=== PATIENT | female | born 1960 | race Two or more races ===

== ENCOUNTER 2020-01-05 11:32 | Outpatient (REF) | payer MEDICARE, MEDICAID, SELFPAY | END 2020-01-05 11:33 | disposition home or self-care (01) | LOC: HO.LAB 11:32 | PROVIDERS: PCP Internal Medicine; Visit Provider Internal Medicine | DX: Z20.828 Contact with and (suspected) exposure to other viral communicable diseases (principal) | CPT/HCPCS: 87635 ==

== ENCOUNTER 2020-01-09 12:40 | Outpatient (REF) | payer MEDICARE, MEDICAID, SELFPAY ==
[2020-01-09 14:38] LABS: Anion Gap 13 (12-20); Blood Urea Nitrogen 20 mg/dL (9-16); Calcium 8.9 mg/dL (8.4-10.2); Carbon Dioxide 30 mmol/L (22-29); Chloride 104 mmol/L (96-108); Cholesterol 157 mg/dL; Estimated Glomerular Filt Rate > 60; Glucose Random 112 mg/dL (60-115); HDL Cholesterol 47 mg/dL; LDL Cholesterol Calculated 97 mg/dl; Potassium 4.5 mmol/l (3.3-5.1); Sodium 142 mmol/L (135-145); Triglycerides 66 mg/dL
[2020-01-09 15:16] LABS: Creatinine Urine 215.85 mg/dL; Microalbum/Creatinine Ratio Ur 9.2 ug/mg cr
[2020-01-09 16:53] LABS: Reflex LDLD? No
== END 2020-01-09 12:41 | disposition home or self-care (01) ==
LOC: HO.LAB 12:40
PROVIDERS: PCP Internal Medicine; Visit Provider Nurse Practitioner Gerontology
DX: E11.9 Type 2 diabetes mellitus without complications (principal)
CPT/HCPCS: 80048; 80061; 82043

== ENCOUNTER 2020-02-02 08:47 | Day surgery (SDC) | payer MEDICARE, MEDICAID, SELFPAY ==
[2020-01-29 09:36] VITALS: BMI 23.3
--- NOTE | 2020-01-29 10:38 | HO.ANESPROP2 ---
Documented by User: Philomena Nicholson 01/29/20 10:50 HPI - Anesthesia Eval Consult details Narrative: 59yo F for Colonoscopy PMFSH Past Medical History Medical History (Updated 01/29/20 @ 10:47 by Philomena Nicholson) Anxiety Depression Diabetes Ear pain History of polycystic kidney disease, autosomal dominant Hx MRSA infection Hx of migraines Hx of renal calculi Hyperlipidemia LDL goal <70 IBS (irritable bowel syndrome) Lumbar radiculopathy PONV (postoperative nausea and vomiting) Saccular aneurysm Sinusitis Family History Family History (Updated 01/13/20 @ 08:54 by Emeli Page [facility]) Father Cancer of kidney Diabetes Hypertension CVD (cardiovascular disease) Mother Hypertension Cancer Maternal Aunt Colon cancer Brother AIDS Paternal Aunt Ovarian cancer Breast cancer Surgical History Surgical History (Updated 01/29/20 @ 09:33 by Ashley Liu) History of abdominoplasty History of appendectomy History of cardiac cath History of esophagogastroduodenoscopy (EGD) History of eye surgery History of lithotripsy History of thyroidectomy, subtotal History of tonsillectomy History of total abdominal hysterectomy and bilateral salpingo-oophorectomy History of tubal ligation Hx of colonoscopy Social History Social History (Updated 01/29/20 @ 09:43 by Ashley Liu) Alcohol intake: current Alcohol intake frequency: holidays/special occasions only Smoking Status: Former smoker Use of substances other than those prescribed or required for medical reasons: No Advance Directives: No Advance Directives Information Provided: No Advance Directives on File: No Meds Allergies Allergy/AdvReac Type Severity Reaction Status Date / Time codeine [Codeine] Allergy Severe ANAPHYLAXIS, Verified 01/29/20 09:12 throat edema lisinopril [LISINOPRIL] Allergy Severe ANGIOEDEMA Verified 01/29/20 09:12 Sulfa (Sulfonamide Allergy Intermediate SHORTNESS Verified 01/29/20 09:12 Antibiotics) OF BREATH, [Sulfa (Sulfonamides)] HIVES, rash doxycycline [Doxycycline] Allergy Mild HIVES Verified 01/29/20 09:12 tramadol Allergy Unknown rash and Verified 01/29/20 09:12 nightmares senna AdvReac Unknown Diarrhea Verified 01/29/20 09:12 Home Medications Medication Instructions Recorded Confirmed Type blood sugar diagnostic #10 ea 01/07/20 01/29/20 History dicyclomine 20 mg tablet 20 mg PO TID PRN 01/07/20 01/29/20 History escitalopram oxalate 10 mg tablet 10 mg PO DAILY 01/07/20 01/29/20 History lancets 28 gauge #100 ea 01/07/20 01/29/20 History linagliptin 5 mg tablet 5 mg PO DAILY 01/07/20 01/29/20 History metformin 500 mg tablet,extended 1,000 mg PO BEDTIME 01/07/20 01/29/20 History release 24 hr ondansetron HCl 4 mg tablet 8 mg PO DAILY PRN 01/07/20 01/29/20 History sumatriptan succinate 100 mg tablet 100 mg PO DAILY PRN 01/07/20 01/29/20 History zolpidem 10 mg tablet 10 mg PO BEDTIME PRN 01/07/20 01/29/20 History albuterol sulfate 2.5 mg INHALATION .3 TIMES A DAY 01/14/20 01/29/20 History PRN ml msytswlcyo-vktulosibrhgm-yuyzoxzc 1 tab PO Q6H PRN 01/14/20 01/29/20 History 50 mg-325 mg-40 mg tablet fluticasone propionate 50 1 spray INTRANASAL DAILY 01/14/20 01/29/20 History mcg/actuation nasal spray,suspension hydrochlorothiazide 12.5 mg tablet 12.5 mg PO QAM 01/14/20 01/29/20 History omeprazole 20 mg capsule,delayed 20 mg PO DAILY 01/14/20 01/29/20 History release Exam Exam Date and Time: January 29, 2020 1038 Height,Weight and Vital Signs: Height 5 ft 5 in Weight 63.503 kg Pertinent Lab Results Pertinent Lab Results: Laboratory Tests 11/04/19 01/09/20 17:48 13:15 WBC 7.2 Hgb 11.6 L Hct 34.6 L Plt Count 275 Sodium 142 Potassium 4.5 Chloride 104 Carbon Dioxide 30 H BUN 20 H Creatinine 0.79 Narrative Narrative: EKG 10/2019: NSR@71 CXR 10/2019: Unremarkable Assessment and Plan Assessment Anesthesia Assessment: Chart Reviewed Documented by User: Claudia Mae 02/02/20 09:04 [facility] Past Medical History Medical History (Updated 01/29/20 @ 10:47 by Philomena Nicholson) Anxiety Depression Diabetes Ear pain History of polycystic kidney disease, autosomal dominant Hx MRSA infection Hx of migraines Hx of renal calculi Hyperlipidemia LDL goal <70 IBS (irritable bowel syndrome) Lumbar radiculopathy PONV (postoperative nausea and vomiting) Saccular aneurysm Sinusitis Family History Family History (Updated 01/13/20 @ 08:54 by Emeli Page [facility]) Father Cancer of kidney Diabetes Hypertension CVD (cardiovascular disease) Mother Hypertension Cancer Maternal Aunt Colon cancer Brother AIDS Paternal Aunt Ovarian cancer Breast cancer Surgical History Surgical History (Updated 01/29/20 @ 09:33 by Ashley Liu) History of abdominoplasty History of appendectomy History of cardiac cath History of esophagogastroduodenoscopy (EGD) History of eye surgery History of lithotripsy History of thyroidectomy, subtotal History of tonsillectomy History of total abdominal hysterectomy and bilateral salpingo-oophorectomy History of tubal ligation Hx of colonoscopy Social History Social History (Updated 01/29/20 @ 09:43 by Ashley Liu) Alcohol intake: current Alcohol intake frequency: holidays/special occasions only Smoking Status: Former smoker Use of substances other than those prescribed or required for medical reasons: No Advance Directives: No Advance Directives Information Provided: No Advance Directives on File: No Meds Allergies Allergy/AdvReac Type Severity Reaction Status Date / Time codeine [Codeine] Allergy Severe ANAPHYLAXIS, Verified 01/29/20 09:12 throat edema lisinopril [LISINOPRIL] Allergy Severe ANGIOEDEMA Verified 01/29/20 09:12 Sulfa (Sulfonamide Allergy Intermediate SHORTNESS Verified 01/29/20 09:12 Antibiotics) OF BREATH, [Sulfa (Sulfonamides)] HIVES, rash doxycycline [Doxycycline] Allergy Mild HIVES Verified 01/29/20 09:12 tramadol Allergy Unknown rash and Verified 01/29/20 09:12 nightmares senna AdvReac Unknown Diarrhea Verified 01/29/20 09:12 Home Medications Medication Instructions Recorded Confirmed Type blood sugar diagnostic #10 ea 01/07/20 01/29/20 History dicyclomine 20 mg tablet 20 mg PO TID PRN 01/07/20 01/29/20 History escitalopram oxalate 10 mg tablet 10 mg PO DAILY 01/07/20 01/29/20 History lancets 28 gauge #100 ea 01/07/20 01/29/20 History linagliptin 5 mg tablet 5 mg PO DAILY 01/07/20 01/29/20 History metformin 500 mg tablet,extended 1,000 mg PO BEDTIME 01/07/20 01/29/20 History release 24 hr ondansetron HCl 4 mg tablet 8 mg PO DAILY PRN 01/07/20 01/29/20 History sumatriptan succinate 100 mg tablet 100 mg PO DAILY PRN 01/07/20 01/29/20 History zolpidem 10 mg tablet 10 mg PO BEDTIME PRN 01/07/20 01/29/20 History albuterol sulfate 2.5 mg INHALATION .3 TIMES A DAY 01/14/20 01/29/20 History PRN ml pyzvbfdcum-srsxesjosbzwf-cbyhczla 1 tab PO Q6H PRN 01/14/20 01/29/20 History 50 mg-325 mg-40 mg tablet fluticasone propionate 50 1 spray INTRANASAL DAILY 01/14/20 01/29/20 History mcg/actuation nasal spray,suspension hydrochlorothiazide 12.5 mg tablet 12.5 mg PO QAM 01/14/20 01/29/20 History omeprazole 20 mg capsule,delayed 20 mg PO DAILY 01/14/20 01/29/20 History release Exam Airway Mallampati Class: II (Caps laterally) TM Dist: >3cm Neck ROM: Full Heart: RRR Lungs: CTA BL Assessment and Plan Assessment Anesthesia Assessment: Anesthesia Plan Discussed and Chart Reviewed Final Anesthetic Review NPO: Yes (Took inhaler) ASA Class: II Final Preanesthetic Review: Meds/Allgs Chart Reviewed and Consent Obtained/Reviewed Patient Risk: Intermediate Procedure Risk: Intermediate Anesthetic Plan Anesthetic Plan: MAC: Disposition: Standard PACU
[2020-02-02 08:51] VITALS: BP 112/79; PULSE 88; RESP 18; TEMP 36.7; O2SAT 96
[2020-02-02 09:01] LABS: Glucose, Whole Blood 133 mg/dL (60-115)
[2020-02-02] MEDS: Lactated Ringers 1,000 ML 100 ML IVCONT (09:04)
[2020-02-02 10:27] VITALS: BP 99/62; PULSE 80; RESP 16; TEMP 36.8; O2SAT 96
--- NOTE | 2020-02-02 10:29 | PM.OP ---
Brief Operative Note Date of Service: 02/02/20 Pre-op diagnosis: Screening, history of adenomas, family hx of colon polyps and cancer Post-op diagnosis: other (Colon polyps, diverticulosis) Procedure: Colonoscopy to cecum and TI with biopsy and removal of polyps Surgeon: Ash Larose Anesthesia: MAC Estimated blood loss (mL): 3.0 Pathology: other (A. Transverse colon polyps B. Cecal polyp C. Ascending colon polyps) Condition: stable Disposition: PACU
[2020-02-02 10:40] VITALS: BP 112/67; PULSE 69; RESP 18; O2SAT 97
[2020-02-02 10:50] VITALS: BP 122/74; PULSE 63; RESP 18; TEMP 36.9; O2SAT 100
--- NOTE | 2020-02-02 11:09 | OP_ITS ---
SURGEON: Ash Larose MD INDICATIONS: The patient presents for evaluation of colorectal cancer screening, personal history of tubular adenoma of the colon, and family history of colon cancer. Full consent has been obtained from her for this, including risks of bleeding and perforation. PREOPERATIVE DIAGNOSIS: POSTOPERATIVE DIAGNOSIS: PROCEDURE PERFORMED: Colonoscopy to the cecum and terminal ileum with biopsy and removal of polyps. ESTIMATED BLOOD LOSS: COMPLICATIONS: ANESTHESIA: Monitored anesthesia care. ASSISTANTS: SPECIMENS: PREOPERATIVE DIAGNOSES: Personal history of tubular adenoma of the colon, colorectal cancer screening, and family history of colon cancer. POSTOPERATIVE DIAGNOSES: Personal history of tubular adenoma of the colon, colorectal cancer screening, and family history of colon cancer, small colon polyps, diverticulosis, internal hemorrhoids. DESCRIPTION OF PROCEDURE: The patient was placed in the left lateral decubitus position. The digital rectal exam revealed no abnormalities. The Olympus video pediatric colonoscope was entered into the rectum and advanced easily to the cecum. Once in the cecum, I did identify cecal pouch with appendiceal orifice and a normal-appearing ileocecal valve. The terminal ileum was cannulated and appeared normal. The scope was withdrawn back in the colon. The entire cecum appeared normal other than a 3 mm polyp, which was biopsied and completely removed with cold biopsy forceps. The scope was slowly withdrawn assessing all mucosal surfaces carefully. Preparation was excellent. In the ascending colon, were 2 flat polyps, one of which was approximately 5 mm in diameter and one was 3 mm in diameter. These were both biopsied and completely removed with cold biopsy forceps. In the transverse colon, were 2 similar polyps, which were also biopsied and completely removed with cold biopsy forceps. I did not visualize any other polyps, colitis, nor angiodysplasia. There was a mild amount of sigmoid diverticulosis. In the rectum, scope was retroflexed visualizing small internal hemorrhoids, but no other pathology. The rectal mucosa appeared normal. The scope was straightened out and withdrawn from the patient. She tolerated the procedure well and was returned to the recovery area in stable condition. IMPRESSION: 1. Colon polyps, status post biopsy and removal. 2. Diverticulosis. 3. Internal hemorrhoids. PLAN: The results of biopsy will be checked. I would recommend a repeat colonoscopy in 5 years for further screening. She will otherwise see me on a p.r.n. basis. MD BRY Juarez/ZAKIA / [id number]
== END 2020-02-02 11:13 | disposition home or self-care (01) ==
PROVIDERS: PCP Internal Medicine; Visit Provider Internal Medicine
PROC: 0DJD8ZZ Inspection of Lower Intestinal Tract, Via Natural or Artificial Opening Endoscopic (ICD-10-PCS; CPT 45378; principal; 2020-02-02 09:30)
DX: Z12.11 Encounter for screening for malignant neoplasm of colon (principal); D12.0 Benign neoplasm of cecum; D12.2 Benign neoplasm of ascending colon; D12.3 Benign neoplasm of transverse colon; K57.30 Diverticulosis of large intestine without perforation or abscess without bleeding; K64.8 Other hemorrhoids; K58.1 Irritable bowel syndrome with constipation; K21.9 Gastro-esophageal reflux disease without esophagitis; E11.9 Type 2 diabetes mellitus without complications; Z79.84 Long term (current) use of oral hypoglycemic drugs; Z79.899 Other long term (current) drug therapy; Z86.010 Personal history of colon polyps; Z80.0 Family history of malignant neoplasm of digestive organs; Z88.0 Allergy status to penicillin; Z88.6 Allergy status to analgesic agent; Z88.8 Allergy status to other drugs, medicaments and biological substances
CPT/HCPCS: 45380; 82947; 88305; J2370

== ENCOUNTER → 2020-02-16 15:02 | Outpatient (BNVA) | payer MEDICARE, MEDICAID, SELFPAY | PROVIDERS: PCP Internal Medicine; Referring Provider Internal Medicine; Visit Provider Nurse Practitioner Gerontology | DX: E11.9 Type 2 diabetes mellitus without complications (principal); E78.5 Hyperlipidemia, unspecified; I10 Essential (primary) hypertension; Z79.84 Long term (current) use of oral hypoglycemic drugs | CPT/HCPCS: 82947; 99212 ==

== ENCOUNTER 2020-03-03 13:35 | Outpatient (REF) | payer MEDICARE, MEDICAID, SELFPAY ==
--- NOTE | 2020-03-03 13:39 | MM_ITS ---
EXAMINATION: MM SCREENING DIGITAL BREAST TOMOSYNTHESIS, BILATERAL CLINICAL INFORMATION: Screening. Asymptomatic. The lifetime risk of breast cancer based on the Tyrer-Cuzick Model is 7.1%. COMPARISON: Mammography: October 25, 2018 and studies dating back to April 24, 2013 TECHNIQUE: Digital breast tomosynthesis is performed in both the craniocaudal and mediolateral oblique views along with computer-aided detection (CAD). Synthesized 2D images are generated from the tomosynthesis. FINDINGS: The breasts are heterogeneously dense, which may obscure small masses (ACR BI-RADS breast composition Category c). No new abnormal dominant mass is appreciated. There are some vascular calcifications present including about the medial anterior aspect of the right breast. MM/MM tomosynthesis screening BI IMPRESSION: There are no significant changes from prior study. Vascular calcifications. ASSESSMENT: BI-RADS 1: Negative RECOMMENDATION: Routine annual mammography screening. This patient's information was entered into a reminder system with a target due date for their next mammogram.
== END 2020-03-03 13:36 | disposition home or self-care (01) ==
LOC: HO.MAMMO 13:35
PROVIDERS: PCP Internal Medicine; Visit Provider Internal Medicine
DX: Z12.31 Encounter for screening mammogram for malignant neoplasm of breast (principal)
CPT/HCPCS: 77063; 77067

== ENCOUNTER 2020-04-14 12:31 | Emergency (ER) | payer MEDICARE, MEDICAID, SELFPAY ==
--- NOTE | 2020-04-14 13:55 | ED.CHESTPAIN ---
HPI - Chest Pain General Chief Complaint: Chest Pain Stated Complaint: chest pain Time Seen by Provider: 04/14/20 13:55 Source: patient Mode of arrival: ambulatory Limitations: no limitations History of Present Illness HPI narrative: 3 days of chest pain which started in the back now only in the chest. She has had chest pain in the past and told it was her GERD. 5 years ago had a cardiac cath which was normal MD complaint: chest pain Onset (ago): day(s) Timing of current episode: constant Prior episodes: Yes Onset: during rest Pain location: substernal Pain radiation: back Severity: moderate Quality: sharp Exacerbating factors: inspiration Related Data Home Medications Medication Instructions Recorded Confirmed blood sugar diagnostic #10 ea 01/07/20 02/16/20 lancets 28 gauge #100 ea 01/07/20 02/16/20 sumatriptan succinate 100 mg tablet 100 mg PO DAILY PRN 01/07/20 02/16/20 albuterol sulfate 2.5 mg INHALATION .3 TIMES A DAY 01/14/20 02/16/20 PRN ml kaakzzooky-zvlwahgqymtrk-ujemygje 1 tab PO Q6H PRN 01/14/20 02/16/20 50 mg-325 mg-40 mg tablet fluticasone propionate 50 1 spray INTRANASAL DAILY 01/14/20 02/16/20 mcg/actuation nasal spray,suspension hydrochlorothiazide 12.5 mg tablet 12.5 mg PO QAM 01/14/20 02/16/20 ondansetron HCl 4 mg tablet 8 mg PO DAILY PRN 02/16/20 02/16/20 Previous Rx's Medication Instructions Recorded loratadine 10 mg tablet 10 mg PO DAILY #90 tab 01/13/20 potassium citrate 5 mEq (540 mg) 5 meq PO BID #60 tab 02/09/20 tablet,extended release prazosin 1 mg capsule 1 mg PO BEDTIME #90 cap 02/09/20 omeprazole 20 mg capsule,delayed 20 mg PO DAILY #90 cap 02/10/20 release lorazepam 1 mg tablet 1 mg PO DAILY PRN 30 Days #30 tab 02/11/20 amlodipine 10 mg tablet 10 mg PO DAILY #90 tab 02/16/20 linagliptin 5 mg tablet 5 mg PO DAILY #90 tab 02/16/20 metformin 500 mg tablet,extended 500 mg PO BEDTIME #90 tab 02/16/20 release 24 hr rosuvastatin 40 mg tablet 40 mg PO DAILY #90 tab 02/16/20 escitalopram oxalate 10 mg tablet 10 mg PO DAILY #30 tab 02/20/20 zolpidem 10 mg tablet 10 mg PO BEDTIME PRN #30 tab 02/20/20 dicyclomine 20 mg tablet 20 mg PO TID PRN #90 tab 04/08/20 Allergies Allergy/AdvReac Type Severity Reaction Status Date / Time codeine [Codeine] Allergy Severe ANAPHYLAXIS, Verified 04/14/20 14:05 throat edema lisinopril [LISINOPRIL] Allergy Severe ANGIOEDEMA Verified 04/14/20 14:05 Sulfa (Sulfonamide Allergy Intermediate SHORTNESS Verified 04/14/20 14:05 Antibiotics) OF BREATH, [Sulfa (Sulfonamides)] HIVES, rash doxycycline [Doxycycline] Allergy Mild HIVES Verified 04/14/20 14:05 tramadol Allergy Unknown rash and Verified 04/14/20 14:05 nightmares senna AdvReac Unknown Diarrhea Verified 04/14/20 14:05 Review of Systems Constitutional: Constitutional: Reports no additional constitutional complaints Eyes: Eyes: Reports no additional eye complaints ENT: Denies dizziness Cardiovascular: Cardiovascular: Reports no additional cardiovascular complaints Respiratory: Respiratory: Reports as per HPI Gastrointestinal: Gastrointestinal: Reports no additional gastrointestinal complaints Genitourinary: Genitourinary: Reports no additional female genitourinary complaints Musculoskeletal: Musculoskeletal: Reports no additional musculoskeletal complaints Integumentary/Breasts: Skin/Breast: Denies rash Neurologic: Reports system reviewed and no additional complaints, except as documented, Denies dizziness and Denies Sensory deficit (Neuro) Psychiatric: Psychiatric: Denies anxiety PMFSH Past Medical History Medical History Adrenal adenoma Anxiety and depression Asthma CAD (coronary artery disease) Chronic sinusitis Controlled diabetes mellitus without complication, without long-term current use of insulin Cystocele Essential hypertension Fibromyalgia GERD (gastroesophageal reflux disease) History of polycystic kidney disease, autosomal dominant Hx MRSA infection Hx of migraines Hx of renal calculi Hyperlipidemia LDL goal <70 IBS (irritable bowel syndrome) Kidney stones Lumbar radiculopathy PTSD (post-traumatic stress disorder) Saccular aneurysm Sciatica Thyroid nodule Type 2 diabetes mellitus with hyperglycemia Surgical History History of abdominoplasty History of appendectomy History of cardiac cath History of esophagogastroduodenoscopy (EGD) History of eye surgery History of lithotripsy History of thyroidectomy, subtotal History of tonsillectomy History of total abdominal hysterectomy and bilateral salpingo-oophorectomy History of tubal ligation Hx of colonoscopy Family History Family History Father Cancer of kidney Diabetes Hypertension CVD (cardiovascular disease) Mother Hypertension Cancer Maternal Aunt Colon cancer Brother AIDS Paternal Aunt Ovarian cancer Breast cancer Social History Social History Household Members: Spouse Alcohol intake: current Alcohol intake frequency: holidays/special occasions only Smoking Status: Former smoker Advance Directives: No Advance Directives Information Provided: No Physical Exam Vital Signs: Vital Signs: Last Vital Signs Temp 98.7 F 04/14/20 14:51 Pulse 79 04/14/20 14:51 Resp 12 04/14/20 14:51 BP 128/64 04/14/20 14:51 Pulse Ox 97 04/14/20 14:51 Body Mass Index 23.3 Const: Other: well developed well nourished in epigastric pain Nutritional Appearance: average body habitus Orientation/consciousness: oriented to person and patient oriented x3 Limitations: no limitations HENMT: Head: Yes normal to inspection Ears: external ears normal General nose exam: Normal external nose present Mouth: Normal oral and palatal mucosa present and oropharynx normal Throat: Yes posterior oropharynx normal Eyes: General: appearance normal, both eyes and all related structures Neck: Other: supple Neck: Yes normal visual inspection Chest: Chest palpation & inspection: normal inspection of the chest Resp: Auscultation: clear to auscultation bilaterally Cardio: Jugular venous distension: no JVD Rate: regular rate Rhythm: regular rhythm Heart sounds: S1 normal heart sound present and S2 normal heart sound present GI: Other: mild epigastric pain Inspection: Yes normal to inspection Palpation (GI): Soft to palpation and No hepatosplenomegaly present Auscultation: normal bowel sounds : General: Yes no CVA tenderness Back/Spine/Pelvis: Back: no CVA tenderness Skin: General skin exam: no rashes or lesions noted Neuro: General: oriented to person and patient oriented x3 Cranial nerves: Yes CN's II-XII intact bilaterally Motor exam (neuro): 5/5 motor strength present throughout Sensory Exam: No Sensory deficit (Neuro) Extrem: General: Yes normal to inspection Psych: Appearance: grossly normal Course Course Course Narrative: Patient completely resolved after GI cocktail will dc home with gastritis MDM - Chest Pain MDM Narrative Medical decision making narrative: EKG and troponin normal, symptoms sounded like gastritis and patient completely improved with GI cocktail. will dc home Differential Diagnosis Differential diagnosis: Likely st elevation myocardial infarction, costochondritis, chest pain and biliary colic Differential diagnosis: gastritis Lab Data Result diagrams: 04/14/20 14:17 04/14/20 14:17 Labs: Lab Results 04/14/20 04/14/20 04/14/20 Range/Units 14:17 14:17 14:17 WBC 6.2 (4.8-10.8) X10*3/uL RBC 3.91 L (4.20-5.50) X10*6/uL Hgb 11.8 L (12.0-16.0) g/dl Hct 34.5 L (37-47) % MCV 88.2 (80-98) fL MCH 30.2 (27.0-33.0) pg MCHC 34.2 (31.0-35.0) g/dl RDW 14.7 (11.0-16.0) % Plt Count 287 (160-400) X10*3/uL MPV 10.0 (9.4-12.3) fL Immature Gran % (Auto) 0.3 (0.0-0.4) % Neut % (Auto) 64.9 (45-73) % Lymph % (Auto) 26.8 (20-40) % [place] % (Auto) 6.3 (2-11) % Eos % (Auto) 1.4 (0-4) % Baso % (Auto) 0.3 (0-2) % Lymph # (Auto) 1.7 (1.2-4.9) X10*3/uL [place] # (Auto) 0.4 (0.1-1.2) X10*3/uL Eos # (Auto) 0.1 (0.0-0.4) X10*3/uL Baso # (Auto) 0.0 (0.0-0.2) X10*3/uL Abs Immat Gran (auto) 0.02 (0.00-0.03) X10*3/uL Absolute Neuts (auto) 4.1 (2.0-8.3) X10*3/uL Absolute Nucleated RBC 0.000 (0.0-0.012) X10*3/uL Nucleated RBC % (auto) 0.0 (0.0-0.2) /100WBC Sodium 143 (135-145) mmol/L Potassium 3.8 (3.3-5.1) mmol/L Chloride 108 (96-108) mmol/L Carbon Dioxide 26 (22-29) mmol/L Anion Gap 13 (12-20) BUN 17 H (9-16) mg/dL Creatinine 0.71 (0.5-1.4) mg/dL Estim Creat Clear Calc 74.8 Estimated GFR > 60 Random Glucose 157 H D (60-115) mg/dL Calcium 8.5 (8.4-10.2) mg/dL Total Bilirubin 0.5 (0.0-1.0) mg/dL Direct Bilirubin 0.2 (0.0-0.5) mg/dL AST 20 (5-31) U/L ALT 25 (0-31) U/L Alkaline Phosphatase 76 (39-117) U/L Troponin I High Sens < 3.5 (<3.5-17.0) ng/L Total Protein 6.8 (6.5-8.0) g/dL Albumin 3.9 (3.5-5.0) g/dL Lipase (8-78) U/L 04/14/20 Range/Units 14:17 WBC (4.8-10.8) X10*3/uL RBC (4.20-5.50) X10*6/uL Hgb (12.0-16.0) g/dl Hct (37-47) % MCV (80-98) fL MCH (27.0-33.0) pg MCHC (31.0-35.0) g/dl RDW (11.0-16.0) % Plt Count (160-400) X10*3/uL MPV (9.4-12.3) fL Immature Gran % (Auto) (0.0-0.4) % Neut % (Auto) (45-73) % Lymph % (Auto) (20-40) % [place] % (Auto) (2-11) % Eos % (Auto) (0-4) % Baso % (Auto) (0-2) % Lymph # (Auto) (1.2-4.9) X10*3/uL [place] # (Auto) (0.1-1.2) X10*3/uL Eos # (Auto) (0.0-0.4) X10*3/uL Baso # (Auto) (0.0-0.2) X10*3/uL Abs Immat Gran (auto) (0.00-0.03) X10*3/uL Absolute Neuts (auto) (2.0-8.3) X10*3/uL Absolute Nucleated RBC (0.0-0.012) X10*3/uL Nucleated RBC % (auto) (0.0-0.2) /100WBC Sodium (135-145) mmol/L Potassium (3.3-5.1) mmol/L Chloride (96-108) mmol/L Carbon Dioxide (22-29) mmol/L Anion Gap (12-20) BUN (9-16) mg/dL Creatinine (0.5-1.4) mg/dL Estim Creat Clear Calc Estimated GFR Random Glucose (60-115) mg/dL Calcium (8.4-10.2) mg/dL Total Bilirubin (0.0-1.0) mg/dL Direct Bilirubin (0.0-0.5) mg/dL AST (5-31) U/L ALT (0-31) U/L Alkaline Phosphatase (39-117) U/L Troponin I High Sens (<3.5-17.0) ng/L Total Protein (6.5-8.0) g/dL Albumin (3.5-5.0) g/dL Lipase 34 (8-78) U/L Discharge Plan Discharge Clinical Impression: GERD (gastroesophageal reflux disease) Qualifiers: Esophagitis presence: with esophagitis Esophagitis bleeding: without hemorrhage Qualified Code(s): K21.00 - Gastro-esophageal reflux disease with esophagitis, without bleeding Gastritis Qualifiers: Gastritis type: unspecified gastritis Chronicity: acute Gastritis bleeding: without bleeding Qualified Code(s): K29.00 - Acute gastritis without bleeding Patient Disposition: Home, Self-Care Instructions: Gastritis (ED), Diet for Stomach Ulcers and Gastritis (ED) Prescriptions: No Action loratadine 10 mg tablet 10 mg PO DAILY Qty: 90 RF: 0 prazosin 1 mg capsule 1 mg PO BEDTIME Qty: 90 RF: 3 potassium citrate 5 mEq (540 mg) tablet extended release 5 meq PO BID Qty: 60 RF: 3 omeprazole 20 mg capsule,delayed release(DR/EC) 20 mg PO DAILY Qty: 90 RF: 1 lorazepam 1 mg tablet 1 mg PO DAILY PRN (Reason: anxiety) 30 Days Qty: 30 RF: 2 amlodipine 10 mg tablet 10 mg PO DAILY Qty: 90 RF: 2 escitalopram oxalate 10 mg tablet 10 mg PO DAILY Qty: 30 RF: 5 zolpidem 10 mg tablet 10 mg PO BEDTIME PRN (Reason: Insomnia) Qty: 30 RF: 2 dicyclomine 20 mg tablet 20 mg PO TID PRN (Reason: Abdominal Discomfort) Qty: 90 RF: 0 sumatriptan succinate 100 mg tablet 100 mg PO DAILY PRN (Reason: Headache) RF: 0 (DME) FreeStyle Lite Strips Strip See Rx Instructions ea Not Applicable BID Qty: 10 RF: 0 (DME) lancets 28 gauge misc See Rx Instructions ea topical BID Qty: 100 RF: 0 ondansetron HCl 4 mg tablet 8 mg PO DAILY PRN (Reason: Nausea) RF: 0 fluticasone propionate 50 mcg/actuation spray,suspension 1 spray intranasal DAILY RF: 0 eqlfmhvpee-lzbzstjvibosr-leri 50-325-40 mg tablet 1 tab PO Q6H PRN (Reason: Headache) RF: 0 albuterol sulfate 2.5 mg /3 mL (0.083 %) solution for nebulization 2.5 mg inhalation .3 TIMES A DAY PRN (Reason: shortness of breath or wheezing) RF: 0 hydrochlorothiazide 12.5 mg tablet 12.5 mg PO QAM RF: 0 metformin 500 mg tablet extended release 24 hr 500 mg PO BEDTIME Qty: 90 RF: 1 Tradjenta 5 mg tablet 5 mg PO DAILY Qty: 90 RF: 1 rosuvastatin 40 mg tablet 40 mg PO DAILY Qty: 90 RF: 1 Referrals: Po,Lorenver O, MD [Primary Care Provider] - 2 days
[2020-04-14 13:56] VITALS: BP 126/70; PULSE 76; RESP 12; TEMP 36.9; O2SAT 98; BMI 23.3
--- NOTE | 2020-04-14 13:59 | XR_ITS ---
EXAMINATION: XR CHEST CLINICAL INFORMATION: Chest pain COMPARISON: Previous chest x-ray October 2019 TECHNIQUE: Frontal view of the chest was obtained. FINDINGS: No significant abnormality is noted involving the heart, lungs, mediastinum, bony thorax or soft tissues. XR/XR chest 1V IMPRESSION: Unremarkable examination.
[2020-04-14 14:24] LABS: MANUAL DIFF FLAG NO
[2020-04-14 14:29] LABS: Basophils Percent Auto 0.3 % (0-2); Eosinophils Absolute Auto 0.1 X10*3/uL (0.0-0.4); Eosinophils Percent Auto 1.4 % (0-4); Hematocrit 34.5 % (37-47); Hemoglobin 11.8 g/dl (12.0-16.0); Imm Gran Abs Auto 0.02 X10*3/uL (0.00-0.03); Imm Gran Pct Auto 0.3 % (0.0-0.4); Lymphocytes Absolute Auto 1.7 X10*3/uL (1.2-4.9); Lymphocytes Percent Auto 26.8 % (20-40); Mean Corpuscular HGB Conc 34.2 g/dl (31.0-35.0); Mean Corpuscular Hemoglobin 30.2 pg (27.0-33.0); Mean Corpuscular Volume 88.2 fL (80-98); Monocytes Absolute Auto 0.4 X10*3/uL (0.1-1.2); Monocytes Percent Auto 6.3 % (2-11); Neutrophils Absolute Auto 4.1 X10*3/uL (2.0-8.3); Neutrophils Percent Auto 64.9 % (45-73); Platelet Count 287 X10*3/uL (160-400); Red Blood Count 3.91 X10*6/uL (4.20-5.50); Red Cell Distribution Width 14.7 % (11.0-16.0); White Blood Count 6.2 X10*3/uL (4.8-10.8)
[2020-04-14] MEDS: Lidocaine HCl Viscous 2 % 15 ML SOLUTION MUCOUS MEM (14:34)
[2020-04-14] MEDS: PHENobarb/Hyoscy/Atropine/Scop 10 ML ELIXIR PO (14:34)
[2020-04-14] MEDS: Magnesium Hydrox/Alum Hydrox 30 ML ORAL.SUSP PO (14:34)
[2020-04-14 14:51] VITALS: BP 128/64; PULSE 79; RESP 12; TEMP 37.1; O2SAT 97
[2020-04-14 14:54] LABS: Lipase 34 U/L (8-78)
[2020-04-14 14:56] LABS: Alanine Aminotransferase 25 U/L (0-31); Albumin Level 3.9 g/dL (3.5-5.0); Alkaline Phosphatase 76 U/L (39-117); Anion Gap 13 (12-20); Aspartate Amino Transferase 20 U/L (5-31); Bilirubin Direct 0.2 mg/dL (0.0-0.5); Bilirubin Total 0.5 mg/dL (0.0-1.0); Blood Urea Nitrogen 17 mg/dL (9-16); Calcium 8.5 mg/dL (8.4-10.2); Carbon Dioxide 26 mmol/L (22-29); Chloride 108 mmol/L (96-108); Creatinine Clr Calc Pharmacy 74.8; Estimated Glomerular Filt Rate > 60; Glucose Random 157 mg/dL (60-115); Potassium 3.8 mmol/L (3.3-5.1); Sodium 143 mmol/L (135-145); Total Protein 6.8 g/dL (6.5-8.0)
[2020-04-14 15:01] LABS: Troponin-I High Sensitivity < 3.5 ng/L (<3.5-17.0)
[2020-04-14 15:26] LABS: D Dimer 508 NG/ML
[2020-04-14 15:31] VITALS: BP 105/56; PULSE 66; RESP 15; TEMP 37.1; O2SAT 99
--- NOTE | 2020-04-15 | ECG_ITS ---
Test Reason : CP Blood Pressure : / mmHG Vent. Rate : 072 BPM Atrial Rate : 072 BPM P-R Int : 176 ms QRS Dur : 076 ms QT Int : 416 ms P-R-T Axes : 054 -07 046 degrees QTc Int : 455 ms Normal sinus rhythm Normal ECG No significant changes when compared with the previous EKG of 04 nov 2019 Referred By: Travis Pena Electronically Signed By:IRAIS SCHNEIDER
== END 2020-04-14 15:33 | disposition home or self-care (01) ==
PROVIDERS: Emergency Provider Emergency Medicine; PCP Internal Medicine
DX: K21.00 Gastro-esophageal reflux disease with esophagitis, without bleeding (principal); E11.9 Type 2 diabetes mellitus without complications; Z86.14 Personal history of Methicillin resistant Staphylococcus aureus infection
CPT/HCPCS: 36415; 71045; 80048; 80076; 83690; 84484; 85025; 85379; 93005; 99283

== ENCOUNTER 2020-06-05 10:45 | Outpatient (REF) | payer MEDICARE, MEDICAID, SELFPAY ==
[2020-06-05 11:21] LABS: MANUAL DIFF FLAG NO
[2020-06-05 11:28] LABS: Basophils Percent Auto 0.3 % (0-2); Eosinophils Absolute Auto 0.1 X10*3/uL (0.0-0.4); Eosinophils Percent Auto 1.9 % (0-4); Hematocrit 36.1 % (37-47); Hemoglobin 11.9 g/dl (12.0-16.0); Imm Gran Abs Auto 0.02 X10*3/uL (0.00-0.03); Imm Gran Pct Auto 0.3 % (0.0-0.4); Immature Retic Fraction 7.4 % (3.0-15.9); Lymphocytes Absolute Auto 2.1 X10*3/uL (1.2-4.9); Lymphocytes Percent Auto 31.3 % (20-40); Mean Corpuscular Hemoglobin 29.7 pg (27.0-33.0); Mean Platelet Volume 10.4 fL (9.4-12.3); Monocytes Absolute Auto 0.4 X10*3/uL (0.1-1.2); Monocytes Percent Auto 5.4 % (2-11); Neutrophils Absolute Auto 4.1 X10*3/uL (2.0-8.3); Neutrophils Percent Auto 60.8 % (45-73); Platelet Count 258 X10*3/uL (160-400); Red Blood Count 4.01 X10*6/uL (4.20-5.50); Red Cell Distribution Width 14.2 % (11.0-16.0); Retic HGB Equivalent 34.7 pg (30.0-35.0); Reticulocyte Percent 1.4 % (0.5-1.8); Reticulocytes Absolute 0.055 X10*6/uL (0.026-0.095); White Blood Count 6.7 X10*3/uL (4.8-10.8)
[2020-06-05 11:57] LABS: Alanine Aminotransferase 17 U/L (0-31); Albumin Level 4.1 g/dL (3.5-5.0); Alkaline Phosphatase 85 U/L (39-117); Anion Gap 15 (12-20); Aspartate Amino Transferase 18 U/L (5-31); Bilirubin Total 0.5 mg/dL (0.0-1.0); Blood Urea Nitrogen 18 mg/dL (9-16); Calcium 8.6 mg/dL (8.4-10.2); Carbon Dioxide 23 mmol/L (22-29); Chloride 107 mmol/L (96-108); Estimated Glomerular Filt Rate > 60; Glucose Random 108 mg/dL (60-115); Iron 58 mcg/dL (30-160); Percent Iron Saturation 24 % (15-50); Sodium 141 mmol/L (135-145); Total Iron Binding Capacity 237 mcg/dL (228-428); Unsaturated Iron Binding 179 ug/dL
[2020-06-05 12:20] LABS: Ferritin 72 ng/mL (10-250); Free T4 (Free Thyroxine) 0.75 ng/dL (0.71-1.85); Thyroid Stimulating Hormone 1.87 uIU/mL (0.32-4.0); Vitamin D 25-OH Total 31.2 ng/mL (>30)
[2020-06-07 09:21] LABS: Folate > 20.0 ng/mL (> or = 4.0); Vitamin B12 589 pg/mL (200-900)
== END 2020-06-05 10:46 | disposition home or self-care (01) ==
LOC: HO.LAB 10:45
PROVIDERS: PCP Internal Medicine; Visit Provider Nurse Practitioner Family
DX: I10 Essential (primary) hypertension (principal); E11.65 Type 2 diabetes mellitus with hyperglycemia; D64.9 Anemia, unspecified; E78.5 Hyperlipidemia, unspecified
CPT/HCPCS: 36415; 80053; 82306; 82607; 82728; 82746; 83540; 84439; 84443; 85025; 85045

== ENCOUNTER 2020-06-08 11:00 | Outpatient (REF) | payer MEDICARE, MEDICAID, SELFPAY | END 2020-06-08 11:01 | disposition home or self-care (01) | LOC: HO.LNP 11:00 | PROVIDERS: Visit Provider Internal Medicine | DX: E11.65 Type 2 diabetes mellitus with hyperglycemia (principal) | CPT/HCPCS: 82043 ==

== ENCOUNTER → 2020-06-11 12:13 | Outpatient (REF) | payer MEDICARE, MEDICAID, SELFPAY ==
--- NOTE | 2020-06-11 12:22 | ECG_ITS ---
Test Reason : PREOP Blood Pressure : / mmHG Vent. Rate : 073 BPM Atrial Rate : 073 BPM P-R Int : 166 ms QRS Dur : 076 ms QT Int : 400 ms P-R-T Axes : 047 001 039 degrees QTc Int : 440 ms Normal sinus rhythm Normal ECG When compared to the previous EKG of No significant changes seen Referred By: Jaqueline Sheets Electronically Signed By:CARLENE TORRES MD
== END ==
LOC: HO.CARD 12:13
PROVIDERS: PCP Internal Medicine; Visit Provider Nurse Practitioner Family
DX: Z01.818 Encounter for other preprocedural examination (principal)
CPT/HCPCS: 93005

== ENCOUNTER 2020-07-29 14:59 | Outpatient (REF) | payer MEDICARE, MEDICAID, SELFPAY ==
--- NOTE | ~2020-07-29 | MM_ITS ---
EXAMINATION: BONE DENSITOMETRY CLINICAL INDICATION: History of osteopenia. Other specified disorders of bone density and structure. Postmenopausal. COMPARISON: Previous BD dated 01/17/2018 and baseline BD dated 11/29/2006. TECHNIQUE: Using a [employer] DXA System (software version: 13.1) manufactured by [employer], dual-energy x-ray absorptiometry was performed of the lumbar spine and left hip. The images are of good technical quality. Summary results are attached. FINDINGS: AP SPINE L1-L4: Current: BMD 0.894 g/cm2, Z-score -0.9, T-score -2.4, osteopenia, 6.0% decrease from previous, 24.2% decrease from baseline (<5% change is not significant). Prior: BMD 0.951 g/cm2. Baseline: BMD 1.180 g/cm2. LEFT FEMUR, NECK: Current: BMD 0.753 g/cm2, Z-score -0.6, T-score -2.0, osteopenia. Prior: BMD 0.777 g/cm2. Baseline: BMD 0.889 g/cm2. LEFT FEMUR, TOTAL: Current: BMD 0.856 g/cm2, Z-score -0.1, T-score -1.2, osteopenia, 1.4% increase from previous, 12.0% decrease from baseline (<5% change is not significant). Prior: BMD 0.844 g/cm2. Baseline: BMD 0.973 g/cm2. IDENTIFIED RISK FACTORS: Anticonvulsant. Height loss. Hysterectomy. Right oophorectomy. Glucocorticoids, (chronic). History of fracture, (adult). Secondary osteoporosis, (early menopause). Secondary osteoporosis, (intestinal or bowel disease). HISTORY OF FRACTURE: Ankle. MEDICATIONS: Calcium or multivitamin. MM/XR DEXA axial skeleton IMPRESSION: 1. DIAGNOSIS: Osteopenia based on the lowest T-score value of -2.4 in the lumbar spine applying World Health Organization criteria. 2. 10-YEAR FRACTURE RISK PREDICTION, FRAX: Major osteoporotic fracture (clinical spine, forearm, hip or shoulder) 9.6%. Hip fracture 1.4%. 3. Treatment Recommendations: NOF guidelines recommend consideration for treatment in postmenopausal women and men age 50 and older presenting with the following: -A hip or vertebral (clinical or morphometric) fracture. -T-score less than or equal to -2.5 at the femoral neck or spine after appropriate evaluation to exclude secondary causes. -Low bone mass at the hip or spine and a 10-year fracture probability by FRAX of greater than or equal to 3% for hip fracture or greater than or equal to 20% for major osteoporotic fracture based on the [place] adapted WHO algorithm. 4. Other Recommendations: All treatment decisions require clinical judgment and consideration of individual patient factors, including patient preferences, comorbidities, previous drug use, risk factors not captured in the FRAX model (e.g. frailty, falls, vitamin D deficiency, increased bone turnover, interval significant decline in bone density) and possible under or overestimation of fracture risk by FRAX. Additional medical evaluation for secondary cause of low bone mineral density may be appropriate. FUTURE SCAN RECOMMENDATION: People with diagnosed cases of osteoporosis or at high risk for fracture should have regular bone mineral density tests. For patients eligible for Medicare, routine testing is allowed once every 2 years. The testing frequency can be increased to one year for patients who have rapidly progressing disease, those who are receiving or discontinuing medical therapy to restore bone mass, or have additional risk factors.
== END 2020-07-29 15:00 | disposition home or self-care (01) ==
LOC: HO.MAMMO 14:59
PROVIDERS: Visit Provider Internal Medicine
DX: M81.0 Age-related osteoporosis without current pathological fracture (principal); Z79.899 Other long term (current) drug therapy; Z90.710 Acquired absence of both cervix and uterus; Z90.721 Acquired absence of ovaries, unilateral
CPT/HCPCS: 77080

== ENCOUNTER → 2020-08-18 12:53 | Outpatient (BNVA) | payer MEDICARE, MEDICAID, SELFPAY | PROVIDERS: PCP Internal Medicine; Visit Provider Nurse Practitioner Gerontology | DX: Z13.89 Encounter for screening for other disorder (principal) | CPT/HCPCS: Q3014 ==

== ENCOUNTER 2020-09-22 13:12 | Outpatient (REF) | payer MEDICARE, MEDICAID, SELFPAY ==
--- NOTE | ~2020-09-22 | XR_ITS ---
EXAMINATION: XR CHEST CLINICAL INFORMATION: Hemoptysis COMPARISON: Previous chest x-ray April 2020 TECHNIQUE: 2 views of the chest were obtained. FINDINGS: No significant abnormality is noted involving the heart, lungs, mediastinum, bony thorax or soft tissues. XR/XR chest 2V IMPRESSION: Unremarkable examination.
== END 2020-09-22 13:13 | disposition home or self-care (01) ==
LOC: HO.HMGCX 13:12
PROVIDERS: PCP Internal Medicine; Visit Provider Internal Medicine
DX: R04.2 Hemoptysis (principal)
CPT/HCPCS: 71046

== ENCOUNTER 2021-01-11 12:25 | Outpatient (REF) | payer MEDICARE, MEDICAID, SELFPAY ==
[2021-01-11 12:42] LABS: MANUAL DIFF FLAG NO
[2021-01-11 12:54] LABS: Basophils Percent Auto 0.3 % (0-2); Eosinophils Absolute Auto 0.1 X10*3/uL (0.0-0.4); Eosinophils Percent Auto 1.7 % (0-4); Hematocrit 37.1 % (37.0-47.0); Hemoglobin 12.3 g/dl (12.0-16.0); Imm Gran Abs Auto 0.02 X10*3/uL (0.00-0.03); Imm Gran Pct Auto 0.3 % (0.0-0.4); Lymphocytes Absolute Auto 2.4 X10*3/uL (1.2-4.9); Lymphocytes Percent Auto 34.1 % (20-40); Mean Corpuscular HGB Conc 33.2 g/dl (31.0-35.0); Mean Corpuscular Hemoglobin 28.9 pg (27.0-33.0); Mean Corpuscular Volume 87.1 fL (80.0-98.0); Mean Platelet Volume 10.3 fL (9.4-12.3); Monocytes Absolute Auto 0.3 X10*3/uL (0.1-1.2); Monocytes Percent Auto 4.2 % (2-11); Neutrophils Absolute Auto 4.25 x10*3/uL (2.0-8.3); Neutrophils Percent Auto 59.4 % (45-73); Platelet Count 277 X10*3/uL (160-400); Red Blood Count 4.26 X10*6/uL (4.20-5.50); Red Cell Distribution Width 14.5 % (11.0-16.0); White Blood Count 7.2 X10*3/uL (4.8-10.8)
[2021-01-11 13:20] LABS: Alanine Aminotransferase 12 U/L (0-31); Albumin Level 4.2 g/dL (3.5-5.0); Alkaline Phosphatase 83 U/L (39-117); Anion Gap 11 (12-20); Aspartate Amino Transferase 15 U/L (5-31); Bilirubin Total 0.2 mg/dL (0.0-1.0); Blood Urea Nitrogen 17 mg/dL (9-16); Calcium 8.8 mg/dL (8.4-10.2); Carbon Dioxide 25 mmol/L (22-29); Chloride 111 mmol/L (96-108); Cholesterol 150 mg/dL; Estimated Glomerular Filt Rate > 60; Glucose Fasting 121 mg/dL (60-99); HDL Cholesterol 38 mg/dL; LDL Cholesterol Calculated 80 mg/dl; Potassium 3.8 mmol/L (3.3-5.1); Sodium 143 mmol/L (135-145); Total Protein 7.1 g/dL (6.5-8.0); Triglycerides 163 mg/dL
[2021-01-11 13:33] LABS: Creatinine Urine 78.99 mg/dL; Microalbum/Creatinine Ratio Ur 120.2 ug/mg cr
[2021-01-11 14:05] LABS: Estimated Average Glucose 134 mg/dL; Hemoglobin A1C 148.8135 umol/L; Hemoglobin A1c % 6.3 %
== END 2021-01-11 12:26 | disposition home or self-care (01) ==
LOC: HO.LAB 12:25
PROVIDERS: Nurse Practitioner Family; PCP Internal Medicine; Referring Provider Internal Medicine; Visit Provider Nurse Practitioner Gerontology
DX: Z01.818 Encounter for other preprocedural examination (principal); E11.9 Type 2 diabetes mellitus without complications
CPT/HCPCS: 36415; 80053; 80061; 82043; 83036; 85025

== ENCOUNTER → 2021-01-17 15:54 | Outpatient (BNVA) | payer MEDICARE, MEDICAID, SELFPAY | PROVIDERS: PCP Internal Medicine; Referring Provider Internal Medicine; Visit Provider Surgery | DX: K64.4 Residual hemorrhoidal skin tags (principal); K64.8 Other hemorrhoids; R10.12 Left upper quadrant pain; G89.29 Other chronic pain | CPT/HCPCS: 46600; 99202 ==

== ENCOUNTER 2021-02-02 14:55 | Outpatient (REF) | payer MEDICARE, MEDICAID, SELFPAY ==
--- NOTE | ~2021-02-02 | CT_ITS ---
EXAMINATION: CT ABDOMEN AND PELVIS WITH CONTRAST CLINICAL INFORMATION: Left upper quadrant pain COMPARISON: Previous CT scans most recent February 2018 TECHNIQUE: Multidetector volumetric images were obtained from the superior aspect of the liver through the pubic symphysis following administration 85 mL of Omnipaque 350 intravenous contrast. Sagittal and coronal reformatted images were obtained on the technologist's workstation. Oral contrast: Yes This CT examination was performed using dose optimization techniques as appropriate, variously including the following: *Automated exposure control *Adjustment of mA and/or kV according to patient size (this includes techniques or standardized protocols for targeted exams where dose is matched to indication/reason for exam; i.e. extremities or head) *Use of iterative reconstruction technique DLP: 268 mGy-cm FINDINGS: LUNG BASES: The visualized lung bases are unremarkable. LIVER, GALLBLADDER, AND BILIARY TREE: The liver is normal in size, shape, and attenuation. There is a small 5 mm low-attenuation lesion in the right lobe of the liver axial image 13 series 3. This is difficult to characterize due to small size but is stable. No biliary ductal dilatation is present. The gallbladder is unremarkable with no evidence of radiopaque gallstones, gallbladder wall thickening, or obvious pericholecystic inflammatory changes. PANCREAS: Unremarkable. SPLEEN: Unremarkable. ADRENAL GLANDS: Unremarkable. KIDNEYS AND URETERS: There are innumerable small bilateral renal cysts, right greater than left. Largest cyst measures 1 cm. There are small bilateral renal stones. There are 2 stones in the upper pole of the right kidney, largest measuring 2 mm. There is one stone in the upper pole left kidney measuring 2 mm. Hounsfield units measure 300. These are 12 cm from the mid axillary line on the right and 9 cm in the mid axillary line on the left. BLADDER: Not optimally distended and not well evaluated. GASTROINTESTINAL TRACT: There is diverticulosis of the colon. Small and large bowel is otherwise unremarkable. The appendix is not identified. The stomach is unremarkable. ABDOMINAL WALL: No significant hernia is appreciated. LYMPH NODES: Normal. VASCULAR: Unremarkable. PELVIC VISCERA: The uterus may have been removed. No pelvic mass is seen. OSSEOUS STRUCTURES: There are small sclerotic densities in the pelvis that are stable probably represent benign bone islands. There are mild degenerative changes of the spine. CT/CT abdomen pelvis w con IMPRESSION: Small bilateral renal stones. Innumerable small bilateral renal cysts. Findings are questionable for polycystic disease. Diverticulosis. Fleischner guidelines were followed.
[2021-02-02] MEDS: iohexoL 350 MG/ML 100 ML INFUS..BTL IV (15:29)
== END 2021-02-02 14:56 | disposition home or self-care (01) ==
LOC: HO.CT 14:55
PROVIDERS: Visit Provider Surgery
DX: R10.12 Left upper quadrant pain (principal); G89.29 Other chronic pain
CPT/HCPCS: 74177; Q9967

== ENCOUNTER → 2021-02-14 09:49 | Outpatient (BNVA) | payer MEDICARE, MEDICAID, SELFPAY | PROVIDERS: PCP Internal Medicine; Referring Provider Internal Medicine; Visit Provider Surgery | DX: G89.29 Other chronic pain (principal); R10.12 Left upper quadrant pain | CPT/HCPCS: 99212 ==

== ENCOUNTER → 2021-02-16 13:10 | Outpatient (BNVA) | payer MEDICARE, MEDICAID, SELFPAY | PROVIDERS: PCP Internal Medicine; Visit Provider Nurse Practitioner Gerontology | DX: E11.9 Type 2 diabetes mellitus without complications (principal); E78.5 Hyperlipidemia, unspecified; I10 Essential (primary) hypertension; Z79.84 Long term (current) use of oral hypoglycemic drugs | CPT/HCPCS: 82947; 99212 ==

== ENCOUNTER 2021-03-12 10:06 | Outpatient (REF) | payer MEDICARE, MEDICAID, SELFPAY ==
[2021-03-12 12:06] LABS: COVID-19 Test Positive (Negative)
== END 2021-03-12 10:07 | disposition home or self-care (01) ==
LOC: HO.LAB 10:06
PROVIDERS: Visit Provider Internal Medicine
DX: Z20.822 Contact with and (suspected) exposure to COVID-19 (principal)
CPT/HCPCS: 36415; 87635; C9803

== ENCOUNTER 2021-05-26 13:44 | Outpatient (REF) | payer MEDICARE, MEDICAID, SELFPAY ==
--- NOTE | ~2021-05-26 | MM_ITS ---
EXAMINATION: MM SCREENING DIGITAL BREAST TOMOSYNTHESIS, BILATERAL CLINICAL INFORMATION: Screening. Asymptomatic. The lifetime risk of breast cancer based on the Tyrer-Cuzick Model is 8%. COMPARISON: Mammography: 03/03/2020, 10/25/2018, 05/21/2017 TECHNIQUE: Digital breast tomosynthesis is performed in both the craniocaudal and mediolateral oblique views along with computer-aided detection (CAD). Synthesized 2D images are generated from the tomosynthesis. FINDINGS: The breasts are heterogeneously dense, which may obscure small masses (ACR BI-RADS breast composition Category c). There are no significant masses, abnormal calcifications, or other abnormalities. Parenchymal pattern is similar to prior studies. There is no developing density or architectural abnormality. The axilla and skin contours are unremarkable. No significant changes. MM/MM tomosynthesis screening BI IMPRESSION: No mammographic evidence of malignancy. ASSESSMENT: BI-RADS 1: Negative RECOMMENDATION: Routine annual mammography screening. This patient's information was entered into a reminder system with a target due date for their next mammogram.
== END 2021-05-26 13:45 | disposition home or self-care (01) ==
LOC: HO.MAMMO 13:44
PROVIDERS: PCP Internal Medicine; Visit Provider Internal Medicine
DX: Z12.31 Encounter for screening mammogram for malignant neoplasm of breast (principal)
CPT/HCPCS: 77063; 77067

== ENCOUNTER 2021-07-02 10:03 | Emergency (ER) | payer MEDICARE, MEDICAID, SELFPAY ==
--- NOTE | 2021-07-02 | ECG_ITS ---
Test Reason : CHEST PAIN Blood Pressure : / mmHG Vent. Rate : 076 BPM Atrial Rate : 076 BPM P-R Int : 176 ms QRS Dur : 076 ms QT Int : 412 ms P-R-T Axes : 057 -11 037 degrees QTc Int : 463 ms Normal sinus rhythm Normal ECG When compared with ECG of 11-JUN-2020 12:29, No significant change was found Referred By: Generic ED Physician Electronically Signed By:CARLENE TORRES MD
--- NOTE | ~2021-07-02 | XR_ITS ---
EXAMINATION: XR CHEST CLINICAL INFORMATION: Chest tightness COMPARISON: Prior chest September 22, 2020 TECHNIQUE: 2 views of the chest were obtained. FINDINGS: No significant abnormality is noted involving the heart, lungs, mediastinum, bony thorax or soft tissues. XR/XR chest 2V IMPRESSION: Unremarkable examination.
[2021-07-02 10:12] VITALS: BP 117/72; PULSE 75; RESP 20; TEMP 36.5; O2SAT 97; BMI 24.0
--- NOTE | 2021-07-02 11:07 | ED.CHESTPAIN ---
HPI - Chest Pain General Chief Complaint: Chest Pain Stated Complaint: Chest pain Time Seen by Provider: 07/02/21 11:07 Source: patient Mode of arrival: ambulatory Limitations: no limitations History of Present Illness HPI narrative: Patient is a 61 year old female presenting to the emergency department today with a cough and intermittent chest pain since yesterday with coughing. Patient states that for the last few days she has had a cough and congestion, she states that she has been coughing so much that her chest has been intermittently hurting. Patient denies any dizziness, lightheadedness, abdominal pain, nausea, vomiting, fever, chills, blurry vision, double vision, loss of vision, difficulty breathing, shortness of breath, back pain, night sweats, pain with urination, increased urinary frequency, increased urinary urgency, blood in her urine or stool, syncope or a near syncopal episode, recent trauma or falls, bowel incontinence, bladder incontinence, bowel retention, bladder retention, or any other complaints at this time. Onset (ago): day(s) Onset: other (with coughing) Pain location: substernal Pain radiation: none Severity: mild Pain scale (0-10): 3 Quality: dull Relieving factors: nothing Exacerbating factors: other (coughing) Context: recent illness Treatment prior to arrival: none Risk Factors Coronary artery disease risk factors: none Thoracic aortic dissection risk factors: none Related Data Home Medications Medication Instructions Recorded Confirmed lancets 28 gauge #100 ea 01/07/20 04/29/21 [id number]-qjmkdxpleiuoh-[id number] 1 tab PO Q6H PRN 01/14/20 04/29/21 50 mg-325 mg-40 mg tablet hydrochlorothiazide 12.5 mg tablet 12.5 mg PO QAM 01/14/20 04/29/21 ondansetron HCl 4 mg tablet 8 mg PO DAILY PRN 02/16/20 04/29/21 linagliptin 5 mg tablet (Tradjenta) 5 mg PO DAILY 02/16/21 04/29/21 Previous Rx's Medication Instructions Recorded prazosin 1 mg capsule 1 mg PO BEDTIME #90 cap 02/09/20 albuterol sulfate 2.5 mg (3 mL) INHALATION .3 TIMES 05/12/20 A DAY PRN #180 ml sumatriptan succinate 100 mg tablet 100 mg PO DAILY PRN 90 Days #30 tab 07/09/20 blood sugar diagnostic (FreeStyle #50 ea 08/18/20 Lite Strips) escitalopram oxalate 10 mg tablet 10 mg PO DAILY 90 Days #90 tab 09/09/20 fluticasone propionate 50 1 spray INTRANASAL DAILY #3 ea 09/23/20 mcg/actuation nasal spray,suspension loratadine 10 mg tablet 10 mg PO DAILY #30 tab 10/25/20 blood-glucose meter (FreeStyle #1 ea 10/27/20 Lite Meter) ezetimibe 10 mg tablet 10 mg PO DAILY #90 tab 02/16/21 metformin 500 mg tablet,extended 500 mg PO BEDTIME #90 tab 02/16/21 release 24 hr amlodipine 10 mg tablet 10 mg PO DAILY #90 tab 03/01/21 dicyclomine 20 mg tablet 20 mg PO TID PRN #90 tab 03/01/21 lorazepam 1 mg tablet 1 mg PO DAILY 30 Days #30 tab 03/01/21 rosuvastatin 40 mg tablet 40 mg PO DAILY #90 tab 03/17/21 omeprazole 20 mg capsule,delayed 20 mg PO DAILY #90 cap 05/02/21 release zolpidem 10 mg tablet 10 mg PO BEDTIME PRN #30 tab 05/17/21 albuterol sulfate 90 mcg/actuation 2 puff PO QID PRN #25.5 g 05/26/21 aerosol inhaler potassium citrate 5 mEq (540 mg) 5 meq PO BID #60 tab 06/30/21 tablet,extended release Allergies Allergy/AdvReac Type Severity Reaction Status Date / Time codeine [Codeine] Allergy Severe ANAPHYLAXIS, Verified 04/29/21 14:33 throat edema lisinopril [LISINOPRIL] Allergy Severe ANGIOEDEMA Verified 04/29/21 14:33 Sulfa (Sulfonamide Allergy Intermediate SHORTNESS Verified 04/29/21 14:33 Antibiotics) OF BREATH, [Sulfa (Sulfonamides)] HIVES, rash doxycycline [Doxycycline] Allergy Mild HIVES Verified 04/29/21 14:33 tramadol Allergy Unknown rash and Verified 04/29/21 14:33 nightmares senna AdvReac Unknown Diarrhea Verified 04/29/21 14:33 Review of Systems Constitutional: Constitutional: Reports no additional constitutional complaints, Denies chills, Denies fever(s) and Denies night sweats Eyes: Eyes: Reports no additional eye complaints, Denies blurry vision, Denies change in vision, Denies diplopia, Denies eye discharge, Denies loss of vision and Denies eye pain ENT: Denies dizziness Cardiovascular: Cardiovascular: Reports no additional cardiovascular complaints, Reports chest pain (intermittent - with coughing), Denies lightheadedness, Denies Loss of Consciousness and Denies dyspnea Respiratory: Respiratory: Reports no additional respiratory complaints, Reports cough and Denies dyspnea Gastrointestinal: Gastrointestinal: Reports no additional gastrointestinal complaints, Denies abdominal pain, Denies melena, Denies hematochezia, Denies change in bowel habits and Denies change in stool character Genitourinary: Genitourinary: Denies hematuria, Denies urinary frequency, Denies dysuria, Denies urinary incontinence, Denies urinary hesitancy and Denies urinary urgency Musculoskeletal: Musculoskeletal: Reports no additional musculoskeletal complaints, Denies numbness and Denies tingling Neurologic: Denies dizziness, Denies loss of vision, Denies numbness and Denies tingling Psychiatric: Psychiatric: Reports no additional psychiatric complaints Endocrine: Endocrine: Reports no additional endocrine complaints Hematologic/Lymphatic: Hematologic/Lymphatic: Reports no additional hematologic/lymphatic complaints Allergic/Immunologic: Allergic/Immunologic: Reports no additional allergic/immunologic complaints [facility] Past Medical History Attestation statement: The following information was validated with the patient. Source: old records reviewed Medical History Abdominal pain, chronic, left upper quadrant Adrenal adenoma Asthma CAD (coronary artery disease) Chronic sinusitis Controlled diabetes mellitus without complication, without long-term current use of insulin Cystocele Essential hypertension Fibromyalgia GERD (gastroesophageal reflux disease) History of polycystic kidney disease, autosomal dominant Hx MRSA infection Hx of migraines Hx of renal calculi Hyperlipidemia LDL goal <70 IBS (irritable bowel syndrome) Internal and external hemorrhoids without complication Kidney stones Lumbar radiculopathy PTSD (post-traumatic stress disorder) Saccular aneurysm Sciatica Thyroid nodule Type 2 diabetes mellitus with hyperglycemia Surgical History History of abdominoplasty History of appendectomy History of cardiac cath History of esophagogastroduodenoscopy (EGD) History of eye surgery History of lithotripsy History of thyroidectomy, subtotal History of tonsillectomy History of total abdominal hysterectomy and bilateral salpingo-oophorectomy History of tubal ligation Hx of colonoscopy Family History Family History Father Cancer of kidney Diabetes Hypertension CVD (cardiovascular disease) Mother Hypertension Cancer Maternal Aunt Colon cancer Brother AIDS Paternal Aunt Ovarian cancer Breast cancer Social History Social History Household Members: Spouse Household Members Other:: grandson Housing: House Alcohol intake: current Alcohol intake frequency: holidays/special occasions only Patient Tobacco Use Status: Former Tobacco user e-Cigarette/Vaping Use: Never Used Second Hand Smoke Exposure: No Substance Use Type: Marijuana Advance Directives: No Advance Directives Information Provided: Yes service: No Current occupational status: employed Current occupation: [employer] Cognitive needs: No Hearing needs: No Vision needs: No Physical Exam Vital Signs: Vital Signs: Last Vital Signs Temp 97.7 F 07/02/21 10:12 Pulse 75 07/02/21 10:12 Resp 20 07/02/21 10:12 BP 117/72 07/02/21 10:12 Pulse Ox 97 07/02/21 10:12 BMI result Body Mass Index 24.0 Const: General: cooperative, no acute distress, alert and awake Nutritional Appearance: well nourished Orientation/consciousness: patient oriented x3 Limitations: no limitations HEENT: Head: Yes normal to inspection and Yes atraumatic Ears: hearing grossly normal bilaterally and external ears normal General nose exam: Normal external nose present, no nasal discharge noted and no epistaxis Face and sinus: Yes normal facial exam, No abrasion and No laceration Mouth: Normal oral and palatal mucosa present, no drooling and no muffled voice Eyes: General: appearance normal, both eyes and all related structures Periorbital: periorbital findings normal Eyelids: Yes eyelids normal Conjunctivae: conjunctivae normal Pupils: Equal, round and reactive pupils present EOM: EOMs intact bilaterally Neck: Neck: Yes normal visual inspection, Yes full ROM and Yes no lymphadenopathy Chest: Chest palpation & inspection: normal inspection of the chest Resp: Effort & Inspection: normal respiratory effort and able to speak in complete sentences Auscultation: clear to auscultation bilaterally Cardio: Rate: regular rate Rhythm: regular rhythm GI: Inspection: Yes normal to inspection Neuro: General: patient oriented x3 and moves all extremities Cranial nerves: Yes Equal, round and reactive pupils present Cognition (Neuro): normal cognition Motor exam (neuro): 5/5 motor strength present throughout Sensory Exam: Normal double simultaneous stimulation for sensation Coordination: akohpz-tj-hblj test normal Extrem: General: Yes normal to inspection, Yes full ROM and Yes capillary refill normal Psych: Appearance: grossly normal Mental Status: mental status grossly normal Affect: normal affect Attitude: cooperative Thought process: Normal thought process present Thought content: Normal thought content present Insight: Good insight present (Psych) MDM - Chest Pain MDM Narrative Medical decision making narrative: Patient is a 61 year old female presenting to the emergency department today with a cough and chest pain after coughing. Patient's physical exam was unremarkable. Patient's blood work was unremarkable. Patient's EKG was unremarkable. Patient's chest x-ray showed no acute process. Patient's rapid influenza and covid tests were both negative. I explained my physical exam findings as well as all test results to the patient. I answered all questions asked by the patient. I stressed the importance of the patient taking her medication as prescribed. I stressed the importance of the patient following up with her primary care provider. I stressed the importance of the patient returning to the emergency department immediately if her symptoms were to worsen or if she were to develop any dizziness, shortness of breath, difficulty breathing, chest pain, blurry vision, loss of vision, nausea, vomiting, abdominal pain, fever, chills, back pain, or any other complaints. Patient verbalized agreement and understanding with this treatment plan and discharge. Differential Diagnosis Differential diagnosis: Likely atypical chest pain and costochondritis Differential diagnosis: URI Medical Records Data Attestation: I reviewed the patient's medical records. Lab Data Attestation: I reviewed the patient's lab results. Result diagrams: 07/02/21 11:33 07/02/21 11:33 Labs: Lab Results 07/02/21 07/02/21 07/02/21 Range/Units 11:33 11:33 11:33 WBC 9.3 (4.8-10.8) X10*3/uL RBC 4.22 (4.20-5.50) X10*6/uL Hgb 12.3 (12.0-16.0) g/dl Hct 37.3 (37.0-47.0) % MCV 88.4 (80.0-98.0) fL MCH 29.1 (27.0-33.0) pg MCHC 33.0 (31.0-35.0) g/dl RDW 14.6 (11.0-16.0) % Plt Count 266 (160-400) X10*3/uL MPV 10.2 (9.4-12.3) fL Immature Gran % (Auto) 0.4 (0.0-0.4) % Neut % (Auto) 67.6 (45-73) % Lymph % (Auto) 25.2 (20-40) % [place] % (Auto) 5.4 (2-11) % Eos % (Auto) 1.1 (0-4) % Baso % (Auto) 0.3 (0-2) % Lymph # (Auto) 2.3 (1.2-4.9) X10*3/uL [place] # (Auto) 0.5 (0.1-1.2) X10*3/uL Eos # (Auto) 0.1 (0.0-0.4) X10*3/uL Baso # (Auto) 0.0 (0.0-0.2) X10*3/uL Abs Immat Gran (auto) 0.04 H (0.00-0.03) X10*3/uL Absolute Neuts (auto) 6.3 (2.0-8.3) x10*3/uL Absolute Nucleated RBC 0.000 (0.0-0.012) X10*3/uL Nucleated RBC % (auto) 0.0 (0.0-0.2) /100WBC Sodium 140 (135-145) mmol/L Potassium 4.5 (3.3-5.1) mmol/L Chloride 105 (96-108) mmol/L Carbon Dioxide 29 (22-29) mmol/L Anion Gap 11 L (12-20) BUN 16 (9-16) mg/dL Creatinine 0.77 (0.5-1.4) mg/dL Estim Creat Clear Calc 64.5 Estimated GFR > 60 Random Glucose 136 H (60-115) mg/dL Calcium 9.3 (8.4-10.2) mg/dL Magnesium 2.3 (1.6-2.6) mg/dL Total Bilirubin 0.5 (0.0-1.0) mg/dL AST 19 (5-31) U/L ALT 23 (0-31) U/L Alkaline Phosphatase 84 (39-117) U/L Troponin I High Sens < 3.5 (<3.5-17.0) ng/L Total Protein 7.2 (6.5-8.0) g/dL Albumin 4.2 (3.5-5.0) g/dL COVID-19 ([facility]) (Negative) COVID-19 Clin Com Influenza Type A (TAB) (Negative) Influenza Type B (TAB) (Negative) Influenza A & B Note 07/02/21 07/02/21 Range/Units 11:33 11:33 WBC (4.8-10.8) X10*3/uL RBC (4.20-5.50) X10*6/uL Hgb (12.0-16.0) g/dl Hct (37.0-47.0) % MCV (80.0-98.0) fL MCH (27.0-33.0) pg MCHC (31.0-35.0) g/dl RDW (11.0-16.0) % Plt Count (160-400) X10*3/uL MPV (9.4-12.3) fL Immature Gran % (Auto) (0.0-0.4) % Neut % (Auto) (45-73) % Lymph % (Auto) (20-40) % [place] % (Auto) (2-11) % Eos % (Auto) (0-4) % Baso % (Auto) (0-2) % Lymph # (Auto) (1.2-4.9) X10*3/uL [place] # (Auto) (0.1-1.2) X10*3/uL Eos # (Auto) (0.0-0.4) X10*3/uL Baso # (Auto) (0.0-0.2) X10*3/uL Abs Immat Gran (auto) (0.00-0.03) X10*3/uL Absolute Neuts (auto) (2.0-8.3) x10*3/uL Absolute Nucleated RBC (0.0-0.012) X10*3/uL Nucleated RBC % (auto) (0.0-0.2) /100WBC Sodium (135-145) mmol/L Potassium (3.3-5.1) mmol/L Chloride (96-108) mmol/L Carbon Dioxide (22-29) mmol/L Anion Gap (12-20) BUN (9-16) mg/dL Creatinine (0.5-1.4) mg/dL Estim Creat Clear Calc Estimated GFR Random Glucose (60-115) mg/dL Calcium (8.4-10.2) mg/dL Magnesium (1.6-2.6) mg/dL Total Bilirubin (0.0-1.0) mg/dL AST (5-31) U/L ALT (0-31) U/L Alkaline Phosphatase (39-117) U/L Troponin I High Sens (<3.5-17.0) ng/L Total Protein (6.5-8.0) g/dL Albumin (3.5-5.0) g/dL COVID-19 ([facility]) Negative (Negative) COVID-19 Clin Com See Note Influenza Type A (TAB) Negative (Negative) Influenza Type B (TAB) Negative (Negative) Influenza A & B Note See Note Imaging Data Chest x-ray: Attestation: I personally reviewed and interpreted this imaging study as follows: My impression: No acute process. Radiologist's impression: EXAMINATION: XR CHEST CLINICAL INFORMATION: Chest tightness COMPARISON: Prior chest September 22, 2020 TECHNIQUE: 2 views of the chest were obtained. FINDINGS: No significant abnormality is noted involving the heart, lungs, mediastinum, bony thorax or soft tissues. XR/XR chest 2V IMPRESSION: Unremarkable examination. Dictated By: Terry Rawls MD Signed By: Electronically signed by Terry Rawls MD 07/02/21 [id number] ECG Data ECG #1: Attestation: I personally reviewed and interpreted this ECG as follows: ECG interpretation date: 07/02/21 ECG interpretation time: 10:05 Prior ECG tracings: available for review Interpretation: Vent. Rate: 076 BPM ? ? Atrial Rate: 076 BPM P-R Int: 176 ms? QRS Dur: 076 ms QT Int: 412 ms ? ? ? P-R-T Axes: 057 -11 037 degrees QTc Int: 463 ms ? Normal sinus rhythm Normal ECG When compared with ECG of 11-JUN-2020 12:29, No significant change was found DD/ 1005 Discharge Plan Discharge Clinical Impression: Cough, Upper respiratory infection Patient Disposition: Home, Self-Care Instructions: Upper Respiratory Infection (DC), Acute Cough (ED) Additional Instructions: Follow up with your primary care provider. Return to the emergency department immediately if your symptoms worsen or if you develop any dizziness, shortness of breath, difficulty breathing, chest pain, blurry vision, loss of vision, nausea, vomiting, abdominal pain, fever, chills, back pain, or any other complaints. Prescriptions: No Action prazosin 1 mg capsule 1 mg PO BEDTIME Qty: 90 3RF albuterol sulfate 2.5 mg /3 mL (0.083 %) solution for nebulization 2.5 mg inhalation .3 TIMES A DAY PRN (Reason: shortness of breath or wheezing) Qty: 180 0RF sumatriptan succinate 100 mg tablet 100 mg PO DAILY PRN (Reason: migraine headache) 90 Days Qty: 30 3RF escitalopram oxalate 10 mg tablet 10 mg PO DAILY 90 Days Qty: 90 2RF fluticasone propionate 50 mcg/actuation spray,suspension 1 spray intranasal DAILY Qty: 3 3RF loratadine 10 mg tablet 10 mg PO DAILY Qty: 30 2RF (DME) blood-glucose meter [FreeStyle Lite Meter] Kit See Rx Instructions .ROUTE .MEDSUPPLY Qty: 1 0RF Rx Instructions: As directed twice a day lorazepam 1 mg tablet 1 mg PO DAILY 30 Days Qty: 30 3RF amlodipine 10 mg tablet 10 mg PO DAILY Qty: 90 1RF dicyclomine 20 mg tablet 20 mg PO TID PRN (Reason: Abdominal Discomfort) Qty: 90 0RF rosuvastatin 40 mg tablet 40 mg PO DAILY Qty: 90 1RF omeprazole 20 mg capsule,delayed release(DR/EC) 20 mg PO DAILY Qty: 90 3RF zolpidem 10 mg tablet 10 mg PO BEDTIME PRN (Reason: Insomnia) Qty: 30 2RF albuterol sulfate 90 mcg/actuation HFA aerosol inhaler 2 puff PO QID PRN (Reason: for wheezing) Qty: 25.5 0RF potassium citrate 5 mEq (540 mg) tablet extended release 5 meq PO BID Qty: 60 11RF (DME) lancets 28 gauge misc See Rx Instructions ea topical BID Qty: 100 0RF Rx Instructions: As directed ondansetron HCl 4 mg tablet 8 mg PO DAILY PRN (Reason: Nausea) 0RF rjsixctdud-ekcngbqqidgfr-mqju 50-325-40 mg tablet 1 tab PO Q6H PRN (Reason: Headache) 0RF hydrochlorothiazide 12.5 mg tablet 12.5 mg PO QAM 0RF (DME) FreeStyle Lite Strips Strip See Rx Instructions .ROUTE .MEDSUPPLY Qty: 50 11RF Rx Instructions: As directed twice a day Tradjenta 5 mg tablet 5 mg PO DAILY 0RF ezetimibe 10 mg tablet 10 mg PO DAILY Qty: 90 1RF metformin 500 mg tablet extended release 24 hr 500 mg PO BEDTIME Qty: 90 1RF Referrals: Po,Anamaria Howell MD [Primary Care Provider] - (Follow up with your PCP. ) Interventions: ED Discharge Assessment Last Done: 07/02/21 13:18 Discharge Date/Time: 07/02/21 13:22 Print Language: [place] Island[place]
[2021-07-02 11:38] LABS: MANUAL DIFF FLAG NO
[2021-07-02 11:41] LABS: Basophils Percent Auto 0.3 % (0-2); Eosinophils Absolute Auto 0.1 X10*3/uL (0.0-0.4); Eosinophils Percent Auto 1.1 % (0-4); Hematocrit 37.3 % (37.0-47.0); Hemoglobin 12.3 g/dl (12.0-16.0); Imm Gran Abs Auto 0.04 X10*3/uL (0.00-0.03); Imm Gran Pct Auto 0.4 % (0.0-0.4); Lymphocytes Absolute Auto 2.3 X10*3/uL (1.2-4.9); Lymphocytes Percent Auto 25.2 % (20-40); Mean Corpuscular Hemoglobin 29.1 pg (27.0-33.0); Mean Corpuscular Volume 88.4 fL (80.0-98.0); Mean Platelet Volume 10.2 fL (9.4-12.3); Monocytes Absolute Auto 0.5 X10*3/uL (0.1-1.2); Monocytes Percent Auto 5.4 % (2-11); Neutrophils Absolute Auto 6.3 x10*3/uL (2.0-8.3); Neutrophils Percent Auto 67.6 % (45-73); Platelet Count 266 X10*3/uL (160-400); Red Blood Count 4.22 X10*6/uL (4.20-5.50); Red Cell Distribution Width 14.6 % (11.0-16.0); White Blood Count 9.3 X10*3/uL (4.8-10.8)
[2021-07-02 11:57] LABS: Influenza A Negative (Negative); Influenza B2 Negative (Negative)
[2021-07-02 11:59] LABS: COVID-19 Test Negative (Negative)
[2021-07-02 12:14] LABS: Alanine Aminotransferase 23 U/L (0-31); Albumin Level 4.2 g/dL (3.5-5.0); Alkaline Phosphatase 84 U/L (39-117); Anion Gap 11 (12-20); Aspartate Amino Transferase 19 U/L (5-31); Bilirubin Total 0.5 mg/dL (0.0-1.0); Blood Urea Nitrogen 16 mg/dL (9-16); Calcium 9.3 mg/dL (8.4-10.2); Carbon Dioxide 29 mmol/L (22-29); Chloride 105 mmol/L (96-108); Creatinine Clr Calc Pharmacy 64.5; Estimated Glomerular Filt Rate > 60; Glucose Random 136 mg/dL (60-115); Magnesium 2.3 mg/dL (1.6-2.6); Potassium 4.5 mmol/L (3.3-5.1); Sodium 140 mmol/L (135-145); Total Protein 7.2 g/dL (6.5-8.0)
[2021-07-02 12:21] LABS: Troponin-I High Sensitivity < 3.5 ng/L (<3.5-17.0)
== END 2021-07-02 13:22 | disposition home or self-care (01) ==
PROVIDERS: Physician Assistant Medical; Emergency Provider Emergency Medicine; PCP Internal Medicine
DX: R07.89 Other chest pain (principal); R05.9 Cough, unspecified; Z20.822 Contact with and (suspected) exposure to COVID-19; Z79.899 Other long term (current) drug therapy; Z87.891 Personal history of nicotine dependence
CPT/HCPCS: 71046; 80053; 83735; 84484; 85025; 87502; 87635; 93005; 99283

== ENCOUNTER 2021-10-03 10:21 | Emergency (ER) | payer MEDICARE, MEDICAID, SELFPAY | END 2021-10-03 11:07 | disposition left against medical advice (07) | PROVIDERS: Emergency Provider Emergency Medicine; PCP Internal Medicine | DX: R07.9 Chest pain, unspecified (principal); R51.9 Headache, unspecified; R10.9 Unspecified abdominal pain ==

== ENCOUNTER 2021-10-19 16:42 | Outpatient (REF) | payer MEDICARE, MEDICAID, SELFPAY ==
--- NOTE | ~2021-10-19 | US_ITS ---
EXAMINATION: US RETROPERITONEAL LIMITED (RENAL ONLY) CLINICAL INFORMATION: Calculus of kidney. COMPARISON: CT abdomen and pelvis 02/02/2021. Ultrasound abdomen limited 10/06/2017. Ultrasound abdomen complete 07/26/2017. X-ray KUB 11/20/2013. X-ray abdomen 01/12/2013. TECHNIQUE: Real-time imaging of the kidneys. FINDINGS: RIGHT KIDNEY: 11.6 x 5.4 x 5.7 cm (SAG x AP x TRV). The kidney is normal in size, contour, and echogenicity. Renal cortical thickness is normal. No hydronephrosis. There are numerous tiny anechoic cysts with largest cyst with calcification, largest in the midpole measuring 2.1 x 1.0 x 1.1 cm. There is a echogenic midpole stone measuring 0.3 x 0.2 x 0.3 cm without caliectasis. Few scattered punctate foci seen. LEFT KIDNEY: 11.9 x 6.1 x 5.0 cm (SAG x AP x TRV). The kidney is normal in size, contour, and echogenicity. Renal cortical thickness is normal. No renal calculi or hydronephrosis. There are at least 2 echogenic lesions in the midpole measuring 1.4 x 0.9 x 1.2 cm laterally and 0.6 x 0.5 x 0.5 cm medially suggestive of AML. There are scattered echogenic foci in left kidney. US/US renal BI IMPRESSION: Nonobstructive echogenic stone with simple cyst and a complex cyst right kidney. 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 There are scattered echogenic foci in both kidneys. No hydronephrosis seen.
== END 2021-10-19 16:43 | disposition home or self-care (01) ==
LOC: HO.US 16:42
PROVIDERS: Visit Provider Internal Medicine
DX: N20.0 Calculus of kidney (principal)
CPT/HCPCS: 76775

== ENCOUNTER 2021-11-03 15:04 | Outpatient (REF) | payer MEDICARE, MEDICAID, SELFPAY ==
[2021-11-03 15:51] LABS: Hemoglobin 12.5 g/dl (12.0-16.0); Mean Corpuscular HGB Conc 32.9 g/dl (31.0-35.0); Mean Corpuscular Hemoglobin 28.9 pg (27.0-33.0); Mean Corpuscular Volume 87.8 fL (80.0-98.0); Mean Platelet Volume 10.8 fL (9.4-12.3); Platelet Count 260 X10*3/uL (160-400); Red Blood Count 4.33 X10*6/uL (4.20-5.50); Red Cell Distribution Width 14.6 % (11.0-16.0); White Blood Count 8.2 X10*3/uL (4.8-10.8)
[2021-11-03 16:17] LABS: Albumin Level 4.3 g/dL (3.5-5.0); Anion Gap 16 (12-20); Blood Urea Nitrogen 20 mg/dL (9-16); Calcium 9.2 mg/dL (8.4-10.2); Carbon Dioxide 25 mmol/L (22-29); Chloride 104 mmol/L (96-108); Estimated Glomerular Filt Rate > 60; Phosphorus 3.7 mg/dL (2.7-4.5); Potassium 3.6 mmol/L (3.3-5.1); Sodium 141 mmol/L (135-145)
[2021-11-03 16:43] LABS: Vitamin D 25-OH Total 38.3 ng/mL (>30)
[2021-11-03 16:44] LABS: Appearance Urine Clear; Color Urine Dark Yellow; Creatinine Urine 271.61 mg/dL; Glucose Urine UA Negative (Negative); Leukocyte Esterase Urine Small (1+) (Negative); Microalbum/Creatinine Ratio Ur 47.4 ug/mg cr; Nitrite Urine Negative (Negative); Protein/Creatinine Ratio, Ur 0.15 (<0.2); Specific Gravity - Urine >= 1.030 (1.005-1.025); Total Protein Urine Random 40 mg/dL (<12); Urine Blood Trace (Negative); Urine Ketones Trace mg/dL (Negative); Urine Protein 30 (1+) mg/dL (Neg-Trace)
[2021-11-03 16:49] LABS: Bacteria Urine None Seen (None Seen); Hyaline Casts Urine 0-2 /LPF (0-2); UACC Culture Trigger YES
[2021-11-04 17:51] LABS: Calcium (PTHI) 9.2 mg/dL (8.6-10.4); PTHI 63 pg/mL (16-77)
== END 2021-11-03 15:05 | disposition home or self-care (01) ==
LOC: HO.LAB 15:04
PROVIDERS: Visit Provider Internal Medicine Nephrology
DX: Q61.9 Cystic kidney disease, unspecified (principal); I67.1 Cerebral aneurysm, nonruptured
CPT/HCPCS: 36415; 80051; 81001; 82040; 82043; 82306; 82310; 82565; 83735; 83970; 84100; 84156; 84520; 85027; 87086

== ENCOUNTER 2021-11-06 11:50 | Emergency (ER) | payer MEDICARE, MEDICAID, SELFPAY ==
--- NOTE | ~2021-11-06 | CT_ITS ---
EXAMINATION: CT ABDOMEN AND PELVIS WITH CONTRAST CLINICAL INFORMATION: Nausea, vomiting, diarrhea, and abdominal pain. Question C. Difficile colitis COMPARISON: CT abdomen and pelvis 02/02/2021 TECHNIQUE: Multidetector volumetric images were obtained from the superior aspect of the liver through the pubic symphysis following administration 85 mL of Omnipaque 350 intravenous contrast. Sagittal and coronal reformatted images were obtained on the technologist's workstation. Oral contrast: No This CT examination was performed using dose optimization techniques as appropriate, variously including the following: *Automated exposure control *Adjustment of mA and/or kV according to patient size (this includes techniques or standardized protocols for targeted exams where dose is matched to indication/reason for exam; i.e. extremities or head) *Use of iterative reconstruction technique DLP: 452 mGy-cm FINDINGS: LUNG BASES: The visualized lung bases are unremarkable. LIVER, GALLBLADDER, AND BILIARY TREE: Normal hepatic attenuation. Couple small subcentimeter hypodense probable cysts in the right and left liver lobes are unchanged. Small area of geographic hypoattenuation in the medial segment left liver lobe adjacent to the falciform consistent with focal fatty infiltration. No other liver lesion. No biliary ductal dilation. The gallbladder is unremarkable with no evidence of radiopaque gallstones, gallbladder wall thickening, or obvious pericholecystic inflammatory changes. PANCREAS: Unremarkable. SPLEEN: Unremarkable. ADRENAL GLANDS: Unremarkable. KIDNEYS AND URETERS: Symmetric nephrograms. No hydronephrosis. Numerous small low-density bilateral renal cysts, many of which are subcentimeter. Approximately 5 nonobstructing calculi in the mid and upper pole of the right kidney, largest approximately 4 mm in size in the upper pole. No perinephric stranding or collection. BLADDER: Unremarkable. GASTROINTESTINAL TRACT: Mild diverticulosis of the distal descending and proximal sigmoid colon. No evidence of acute diverticulitis. No dilated bowel loops. No bowel wall thickening. Appendix is not the discretely visualized. No inflammatory changes at the cecal base. No ascites or free air. ABDOMINAL WALL: No significant hernia is appreciated. LYMPH NODES: No lymphadenopathy. VASCULAR: Normal caliber abdominal aorta. Mild vascular calcifications. PELVIC VISCERA: Status post hysterectomy. OSSEOUS STRUCTURES: No acute fracture or suspicious osseous lesion. Minimal grade 1 anterolisthesis at L4-L5 secondary to facet arthrosis. CT/CT abdomen pelvis w con IMPRESSION: 1. No evidence of colitis or other acute intra-abdominal process. 2. Nonobstructing right renal calculi. 3. Innumerable small bilateral renal cysts. 4. Mild colonic diverticulosis.
[2021-11-06 12:03] VITALS: BP 146/76; PULSE 76; RESP 19; TEMP 36.7; O2SAT 98; BMI 24.0
[2021-11-06 12:57] VITALS: BP 151/87; PULSE 65; RESP 18; O2SAT 98
[2021-11-06 13:14] LABS: MANUAL DIFF FLAG NO
[2021-11-06] MEDS: Ketorolac Tromethamine 30 MG/ML VIAL IVPUSH (13:15)
[2021-11-06] MEDS: ondansetron HCL 4 MG/2 ML VIAL IVPUSH (13:15)
[2021-11-06] MEDS: 0.9 % Sodium Chloride 1,000 ML 999 ML IVCONT (13:16)
[2021-11-06 13:24] LABS: Appearance Urine Clear; Basophils Percent Auto 0.6 % (0-2); Color Urine Yellow; Eosinophils Absolute Auto 0.1 X10*3/uL (0.0-0.4); Eosinophils Percent Auto 0.7 % (0-4); Glucose Urine UA Negative (Negative); Hematocrit 38.7 % (37.0-47.0); Imm Gran Abs Auto 0.01 X10*3/uL (0.00-0.03); Imm Gran Pct Auto 0.1 % (0.0-0.4); Leukocyte Esterase Urine Trace (Negative); Lymphocytes Absolute Auto 1.9 X10*3/uL (1.2-4.9); Mean Corpuscular HGB Conc 33.6 g/dl (31.0-35.0); Mean Corpuscular Hemoglobin 29.1 pg (27.0-33.0); Mean Corpuscular Volume 86.6 fL (80.0-98.0); Mean Platelet Volume 10.4 fL (9.4-12.3); Monocytes Absolute Auto 0.4 X10*3/uL (0.1-1.2); Monocytes Percent Auto 5.7 % (2-11); Neutrophils Absolute Auto 4.3 x10*3/uL (2.0-8.3); Neutrophils Percent Auto 63.9 % (45-73); Nitrite Urine Negative (Negative); PH 6.5 (5.0-8.0); Platelet Count 261 X10*3/uL (160-400); Red Blood Count 4.47 X10*6/uL (4.20-5.50); Red Cell Distribution Width 14.2 % (11.0-16.0); Specific Gravity - Urine 1.015 (1.005-1.025); Urine Blood Trace (Negative); Urine Ketones 15 mg/dL (Negative); Urine Protein Trace mg/dL (Neg-Trace); White Blood Count 6.7 X10*3/uL (4.8-10.8)
[2021-11-06 13:29] LABS: Bacteria Urine None Seen (None Seen); Hyaline Casts Urine 0-2 /LPF (0-2); Squamous Epithelial Cell Urine 0-2 /HPF (0-2); WBC Urine 0-5 /HPF (0-5)
[2021-11-06 13:41] LABS: Prothrombin Time 11.9 SEC (10.0-13.1)
--- NOTE | 2021-11-06 14:09 | ED_ITS ---
HPI - Abdominal Pain General Chief Complaint: Headache Stated Complaint: N/V/D/Headache (Diabetic) Time Seen by Provider: 11/06/21 12:16 Source: patient Mode of arrival: ambulatory Limitations: no limitations History of Present Illness HPI narrative: 61-year-old female with a past medical history of diabetes type 2, HTN, HLD, CAD, adrenal adenoma, asthma, chronic sinusitis, fibromyalgia, GERD, polycystic kidney disease, history of MRSA infection, migraine headaches, renal calculi, IBS, hemorrhoids, kidney stones, lumbar radiculopathy/sciatica, PTSD, sacral aneurysm and thyroid nodule presenting to the ED with complaints of intermittent headaches over the past few days due to nausea/vomiting and left upper/left lower abdominal pain with watery/mucousy foul-smelling diarrhea that started approximately 3 days ago. She reports that she was recently on antibiotics approximately 2 weeks ago that she completed which she reports was amoxicillin for a sinus infection. She denies any fevers, chills, dizziness, headaches, neck pain/stiffness, trouble swallowing or breathing, chest pain or shortness of breath, dyspnea on exertion, orthopnea, palpitations paresthesias, flank pain, back pain, dysuria, hematuria, black or bloody stools, abnormal vaginal discharge, recent travel or sick contacts, others with similar symptoms, possible bad food exposure, history of C diff or any other symptoms complaints or concerns at this time. MD elicited complaint: abdominal pain Pertinent past history: other (See above) Onset (ago): day(s) (3) Pain Consistency: constant Location: LUQ and LLQ Severity: severe Quality: cramping and aching Radiation: none Migration to: no migration Exacerbating factors: eating, bowel movement and vomiting Relieving factors: nothing Context: recent antibiotic use (Amoxicillin approximately 2 weeks ago for sinusitis infection) Associated symptoms: nausea, vomiting and diarrhea Related Data Home Medications Medication Instructions Recorded Confirmed lancets 28 gauge #100 ea 01/07/20 09/30/21 andlrkfuhj-sysxfjhrdmqgn-scewnqsm 1 tab PO Q6H PRN Headache 01/14/20 09/30/21 50 mg-325 mg-40 mg tablet hydrochlorothiazide 12.5 mg tablet 12.5 mg PO QAM 01/14/20 09/30/21 ondansetron HCl 4 mg tablet 8 mg PO DAILY PRN Nausea 02/16/20 09/30/21 linagliptin 5 mg tablet (Tradjenta) 5 mg PO DAILY 02/16/21 09/30/21 Previous Rx's Medication Instructions Recorded prazosin 1 mg capsule 1 mg PO BEDTIME #90 caps 02/09/20 albuterol sulfate 2.5 mg/3 mL 2.5 mg (3 mL) inhalation .3 TIMES 05/12/20 (0.083 %) solution for nebulization A DAY PRN shortness of breath or wheezing #180 mL sumatriptan succinate 100 mg tablet 100 mg PO DAILY PRN migraine 07/09/20 headache 90 days #30 tabs blood sugar diagnostic (FreeStyle #50 ea 08/18/20 Lite Strips) loratadine 10 mg tablet 10 mg PO DAILY #30 tabs 10/25/20 blood-glucose meter (FreeStyle #1 ea 10/27/20 Lite Meter kit) amlodipine 10 mg tablet 10 mg PO DAILY #90 tabs 03/01/21 dicyclomine 20 mg tablet 20 mg PO TID PRN Abdominal 03/01/21 Discomfort #90 tabs rosuvastatin 40 mg tablet 40 mg PO DAILY #90 tabs 03/17/21 omeprazole 20 mg capsule,delayed 20 mg PO DAILY #90 caps 05/02/21 release albuterol sulfate 90 mcg/actuation 2 puff PO QID PRN for wheezing 05/26/21 aerosol inhaler #25.5 grams potassium citrate 5 mEq (540 mg) 5 meq PO BID #60 tabs 06/30/21 tablet,extended release lorazepam 1 mg tablet 1 mg PO DAILY 30 days #30 tabs 07/19/21 metformin 500 mg tablet 500 mg PO BIDWMEAL 30 days #60 tabs 08/10/21 ezetimibe 10 mg tablet 10 mg PO DAILY #90 tabs 08/16/21 zolpidem 10 mg tablet 10 mg PO BEDTIME PRN Insomnia #30 08/16/21 tabs escitalopram oxalate 10 mg tablet 10 mg PO DAILY 90 days #90 tabs 08/29/21 amoxicillin 500 mg capsule 500 mg PO Q8H 10 days #30 caps 09/30/21 levofloxacin 750 mg tablet 750 mg PO DAILY uti 7 days #7 tabs 11/06/21 ondansetron 4 mg disintegrating 4 mg PO Q8H Nausea and vomiting 11/06/21 tablet #14 tabs Allergies Allergy/AdvReac Type Severity Reaction Status Date / Time codeine [Codeine] Allergy Severe ANAPHYLAXIS, Verified 11/06/21 12:07 throat edema lisinopril [LISINOPRIL] Allergy Severe ANGIOEDEMA Verified 11/06/21 12:07 Sulfa (Sulfonamide Allergy Intermediate SHORTNESS Verified 11/06/21 12:07 Antibiotics) OF BREATH, [Sulfa (Sulfonamides)] HIVES, rash doxycycline [Doxycycline] Allergy Mild HIVES Verified 11/06/21 12:07 tramadol Allergy Unknown rash and Verified 11/06/21 12:07 nightmares senna AdvReac Unknown Diarrhea Verified 11/06/21 12:07 Review of Systems Review of Systems Constitutional : No Weight loss, No Fever, No Chills, No Night Sweats, No Fatigue, No Malaise ENT/Mouth : No Hearing loss, No Ear Pain, No Nasal Congestion, No Sinus Pain, No Hoarseness, No sore throat, No Rhinorrhea, No Swallowing Difficulty Eyes: No Eye Pain, No Swelling, No Redness, No Foreign Body, No Discharge, No Vision Changes Cardiovascular : No Chest Pain, No SOB, No Dyspnea on Exertion, No Orthopnea, No Edema, No Palpitations Respiratory : No Cough, No Sputum, No Wheezing, No Smoke Exposure, No Dyspnea Gastrointestinal : + Nausea, + Vomiting, + Diarrhea, No Constipation, + abdominal Pain, No Hematochezia, No Melena Genitourinary : no irregular bleeding, No Dysuria, No Urinary Frequency, No Hematuria, No Urinary Incontinence, No Urgency, No Flank Pain, No Urinary Flow Changes, No Hesitancy Musculoskeletal : No joint pain, No Myalgias, No Joint Swelling Skin : No Skin Lesions, No rash Neuro : No Weakness, No Numbness, No Paresthesias, No Loss of Consciousness, No Dizziness, + Headache Psych : No Anxiety/Panic, No Depression, No SI/HI/AH/VH, No Social Issues, Heme/Lymph: No Bruising, No Bleeding,No Lymphadenopathy Endocrine : No Polyuria, No Polydipsia, No Temperature Intolerance Yes all other systems are reviewed and are negative PMFSH Past Medical History Attestation statement: The following information was validated with the patient. Source: old records reviewed and nursing notes reviewed Medical History Adrenal adenoma Asthma CAD (coronary artery disease) Chronic sinusitis Constipation Cystocele Essential hypertension Fibromyalgia GERD (gastroesophageal reflux disease) Hemoptysis History of polycystic kidney disease, autosomal dominant Hx MRSA infection Hx of migraines Hx of renal calculi IBS (irritable bowel syndrome) Internal and external hemorrhoids without complication Kidney stones Lumbar radiculopathy Otitis externa PTSD (post-traumatic stress disorder) Saccular aneurysm Sciatica Thyroid nodule Type 2 diabetes mellitus with hyperglycemia Surgical History History of abdominoplasty History of appendectomy History of cardiac cath History of esophagogastroduodenoscopy (EGD) History of eye surgery History of lithotripsy History of thyroidectomy, subtotal History of tonsillectomy History of total abdominal hysterectomy and bilateral salpingo-oophorectomy History of tubal ligation Hx of colonoscopy Family History Family History Father Cancer of kidney Diabetes Hypertension CVD (cardiovascular disease) Mother Hypertension Cancer Maternal Aunt Colon cancer Brother AIDS Paternal Aunt Ovarian cancer Breast cancer Social History Social History Household Members: Spouse Household Members Other:: grandson Housing: House Alcohol intake: current Alcohol intake frequency: does not drink Patient Tobacco Use Status: Former Tobacco user e-Cigarette/Vaping Use: Never Used Second Hand Smoke Exposure: No Use of substances other than those prescribed or required for medical reasons: No Substance Use Type: Marijuana Advance Directives: No Advance Directives Information Provided: No service: No Current occupational status: employed 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 Blood pressure 146/76. Heart rate normal. Respiration rate normal. Temperature normal. Oxygen saturation normal. Appearance: Alert. Oriented X3. No acute distress. Head: Normal external exam. Normocephalic. Atraumatic. Eyes: PERRLA. EOMI. Conjunctiva and sclera normal. Eyelids normal. ENT: Pharynx normal. Uvula midline. Moist mucous membranes. No lesions/ulcerations or masses noted on the tongue. Normal voice. No trismus noted. No drooling noted. No muffled voice noted. Neck: Normal inspection. Neck supple. FROM. No adenopathy. Thyroid Normal. No meningeal signs. No neck mass noted. CVS: Normal heart rate and rhythm. Heart sound normal. Pulses normal throughout. No murmurs/rales/gallops. Respiratory: No respiratory distress. Painless inspiration. Breath sounds normal. No wheezes/rales/rhonchi noted. No accessory muscle usage noted or decreased air movement noted. Abdomen: Soft and moderate tenderness palpation to left upper quadrant/periumbilical/left lower quadrant of abdomen with guarding. Bowel sounds normal in all 4 quadrants. No distention noted. No organomegaly noted. No visible injury noted. Negative Malik sign. Negative psoas sign. Negative obturator's sign. Negative Rovsing sign. Back: No CVA tenderness. Full range of motion noted. Nontender. No signs of trauma. Patient neuro intact bilaterally and distally on all 4 extremities. Patient's reflexes intact bilaterally and distally on all 4 extremities. No rashes/lesion/induration/fluctuance or signs of infection noted. Skin: Skin warm and dry. Normal skin color. Normal skin turgor. No rashes/lesions/lacerations noted. Extremities: No lower extremity edema. No calf tenderness is noted. Extremities exhibit normal range of motion and nontender. Neuro: Oriented X 3. No motor deficit. No sensory deficit. Reflexes normal. Normal steady gait. No focal neuro deficits noted. CN's II-XII intact b ilaterally? Vascular: + radial pulses/+ 2 distal pedal pulses/+2 dorsalis pedis b/l. Normal cap refill. No cyanosis noted to upper extremity nails and lower extremity toes nails. Course Course Course Narrative: 12:40pm - 61-year-old female with a past medical history of diabetes type 2, HTN, HLD, CAD, adrenal adenoma, asthma, chronic sinusitis, fibromyalgia, GERD, polycystic kidney disease, history of MRSA infection, migraine headaches, renal calculi, IBS, hemorrhoids, kidney stones, lumbar radiculopathy/sciatica, PTSD, sacral aneurysm and thyroid nodule presenting to the ED with complaints of intermittent headaches over the past few days due to nausea/vomiting and left upper/left lower abdominal pain with watery/mucousy foul-smelling diarrhea that started approximately 3 days ago. She reports that she was recently on antibiotics approximately 2 weeks ago that she completed which she reports was amoxicillin for a sinus infection. Plan: Labs, UA, CT scan abdomen pelvis with IV contrast, C diff stool sample/GI panel sample. Provide a L of IV fluids with 4 mg of Zofran and 30 mg of IV Toradol re-evaluate. Reevaluation(s) Reevaluation #1: - UA revealed trace of leukocytes consistent with UTI. - labs reviewed and all within normal limits. Patient negative for COVID. - pending CT scan abdomen pelvis with IV contrast and C diff/GI panel. Time: 14:15 Reevaluation #2: - CT scan of abdomen and pelvis with IV contrast negative. Still awaiting stool sample from patient. Time: 16:16 Reevaluation #3: - patient reports that she cannot give us a stool sample. I explained to her that if she does have C diff or another bacteria in her stool that I cannot diag nose it without actual sample. Therefore at this time patient just wants to go home reports she can follow up with her primary care provider as she has not had any diarrhea today despite eating here in the ED. She has been here 6 hours. Therefore at this time will DC home antibiotics for UTI instructions return if any new or worsening symptoms follow up with primary care provider for stool sample. Patient understands agrees with this plan. Time: 17:56 [facility] - Abdominal Pain Medical Records Attestation: I reviewed the patient's medical records. Lab Data Attestation: I reviewed the patient's lab results. Result diagrams: 11/06/21 13:11/06/21 14:36 Labs: Lab Results 11/06/21 11/06/21 11/06/21 Range/Units 13:09 13:09 13:09 WBC 6.7 (4.8-10.8) X10*3/uL RBC 4.47 (4.20-5.50) X10*6/uL Hgb 13.0 (12.0-16.0) g/dl Hct 38.7 (37.0-47.0) % MCV 86.6 (80.0-98.0) fL MCH 29.1 (27.0-33.0) pg MCHC 33.6 (31.0-35.0) g/dl RDW 14.2 (11.0-16.0) % Plt Count 261 (160-400) X10*3/uL MPV 10.4 (9.4-12.3) fL Immature Gran % (Auto) 0.1 (0.0-0.4) % Neut % (Auto) 63.9 (45-73) % Lymph % (Auto) 29.0 (20-40) % [place] % (Auto) 5.7 (2-11) % Eos % (Auto) 0.7 (0-4) % Baso % (Auto) 0.6 (0-2) % Lymph # (Auto) 1.9 (1.2-4.9) X10*3/uL [place] # (Auto) 0.4 (0.1-1.2) X10*3/uL Eos # (Auto) 0.1 (0.0-0.4) X10*3/uL Baso # (Auto) 0.0 (0.0-0.2) X10*3/uL Abs Immat Gran (auto) 0.01 (0.00-0.03) X10*3/uL Absolute Neuts (auto) 4.3 (2.0-8.3) x10*3/uL Absolute Nucleated RBC 0.000 (0.0-0.012) X10*3/uL Nucleated RBC % (auto) 0.0 (0.0-0.2) /100WBC PT 11.9 (10.0-13.1) SEC INR 1.0 (0.9-1.1) Sodium (135-145) mmol/L Potassium (3.3-5.1) mmol/L Chloride (96-108) mmol/L Carbon Dioxide (22-29) mmol/L Anion Gap (12-20) BUN (9-16) mg/dL Creatinine (0.5-1.4) mg/dL Estim Creat Clear Calc Estimated GFR Random Glucose (60-115) mg/dL Calcium (8.4-10.2) mg/dL Magnesium (1.6-2.6) mg/dL Total Bilirubin (0.0-1.0) mg/dL AST (5-31) U/L ALT (0-31) U/L Alkaline Phosphatase (39-117) U/L Total Protein (6.5-8.0) g/dL Albumin (3.5-5.0) g/dL Lipase (8-78) U/L Urine Color Yellow Urine Appearance Clear Urine pH 6.5 (5.0-8.0) Ur Specific [place] 1.015 (1.005-1.025) Urine Protein Trace (Neg-Trace) mg/dL Urine Glucose (UA) Negative (Negative) mg/dL Urine Ketones 15 (Negative) mg/dL Urine Blood Trace (Negative) Urine Nitrite Negative (Negative) Ur Leukocyte Esterase Trace H (Negative) Urine RBC 3-5 H (0-2) /HPF Urine WBC 0-5 (0-5) /HPF Ur Squamous Epith Cells 0-2 (0-2) /HPF Urine Bacteria None Seen (None Seen) Hyaline Casts 0-2 (0-2) /LPF COVID-19 (RAYHSAWN) (Negative) COVID-19 Clin Com 11/06/21 11/06/21 Range/Units 14:36 14:36 WBC (4.8-10.8) X10*3/uL RBC (4.20-5.50) X10*6/uL Hgb (12.0-16.0) g/dl Hct (37.0-47.0) % MCV (80.0-98.0) fL MCH (27.0-33.0) pg MCHC (31.0-35.0) g/dl RDW (11.0-16.0) % Plt Count (160-400) X10*3/uL MPV (9.4-12.3) fL Immature Gran % (Auto) (0.0-0.4) % Neut % (Auto) (45-73) % Lymph % (Auto) (20-40) % [place] % (Auto) (2-11) % Eos % (Auto) (0-4) % Baso % (Auto) (0-2) % Lymph # (Auto) (1.2-4.9) X10*3/uL [place] # (Auto) (0.1-1.2) X10*3/uL Eos # (Auto) (0.0-0.4) X10*3/uL Baso # (Auto) (0.0-0.2) X10*3/uL Abs Immat Gran (auto) (0.00-0.03) X10*3/uL Absolute Neuts (auto) (2.0-8.3) x10*3/uL Absolute Nucleated RBC (0.0-0.012) X10*3/uL Nucleated RBC % (auto) (0.0-0.2) /100WBC PT (10.0-13.1) SEC INR (0.9-1.1) Sodium 141 (135-145) mmol/L Potassium 4.1 (3.3-5.1) mmol/L Chloride 106 (96-108) mmol/L Carbon Dioxide 24 (22-29) mmol/L Anion Gap 15 (12-20) BUN 16 (9-16) mg/dL Creatinine 0.72 (0.5-1.4) mg/dL Estim Creat Clear Calc 69.0 Estimated GFR > 60 Random Glucose 96 (60-115) mg/dL Calcium 8.7 (8.4-10.2) mg/dL Magnesium 2.0 (1.6-2.6) mg/dL Total Bilirubin 1.0 (0.0-1.0) mg/dL AST 22 (5-31) U/L ALT 18 (0-31) U/L Alkaline Phosphatase 74 (39-117) U/L Total Protein 7.1 (6.5-8.0) g/dL Albumin 4.1 (3.5-5.0) g/dL Lipase 30 (8-78) U/L Urine Color Urine Appearance Urine pH (5.0-8.0) Ur Specific [place] (1.005-1.025) Urine Protein (Neg-Trace) mg/dL Urine Glucose (UA) (Negative) mg/dL Urine Ketones (Negative) mg/dL Urine Blood (Negative) Urine Nitrite (Negative) Ur Leukocyte Esterase (Negative) Urine RBC (0-2) /HPF Urine WBC (0-5) /HPF Ur Squamous Epith Cells (0-2) /HPF Urine Bacteria (None Seen) Hyaline Casts (0-2) /LPF COVID-19 (RAYSHAWN) Negative (Negative) COVID-19 Clin Com See Note Imaging Data CT scan abdomen pelvis with IV contrast: Attestation: I personally reviewed and interpreted this imaging study as follows: Radiologist's impression: FINDINGS: LUNG BASES: The visualized lung bases are unremarkable.? LIVER, GALLBLADDER, AND BILIARY TREE: Normal hepatic attenuation. Couple small subcentimeter hypodense probable cysts in the right and left liver lobes are unchanged. Small area of geographic hypoattenuation in the medial segment left liver lobe adjacent to the falciform consistent with focal fatty infiltration. No other liver lesion. No biliary ductal dilation. The gallbladder is unremarkable with no evidence of radiopaque gallstones, gallbladder wall thickening, or obvious pericholecystic inflammatory changes.? PANCREAS: Unremarkable.? SPLEEN: Unremarkable.? ADRENAL GLANDS: Unremarkable.? KIDNEYS AND URETERS: Symmetric nephrograms. No hydronephrosis. Numerous small low-density bilateral renal cysts, many of which are subcentimeter. Approximately 5 nonobstructing calculi in the mid and upper pole of the right kidney, largest approximately 4 mm in size in the upper pole. No perinephric stranding or collection.? BLADDER: Unremarkable.? GASTROINTESTINAL TRACT: Mild diverticulosis of the distal descending and proximal sigmoid colon. No evidence of acute diverticulitis. No dilated bowel loops. No bowel wall thickening. Appendix is not the discretely visualized. No inflammatory changes at the cecal base. No ascites or free air.? ABDOMINAL WALL: No significant hernia is appreciated.? LYMPH NODES: No lymphadenopathy. VASCULAR: Normal caliber abdominal aorta. Mild vascular calcifications. PELVIC VISCERA: Status post hysterectomy.? OSSEOUS STRUCTURES: No acute fracture or suspicious osseous lesion. Minimal grade 1 anterolisthesis at L4-L5 secondary to facet arthrosis. CT/CT abdomen pelvis w con IMPRESSION: ? 1. No evidence of colitis or other acute intra-abdominal process. 2. Nonobstructing right renal calculi. 3. Innumerable small bilateral renal cysts. 4. Mild colonic diverticulosis. Critical Care Time Critical Care Time Critical Care Time: Yes Total Critical Care Time: 60 Attestation: I personally attest to this time spent taking care of the patient Discharge Plan Discharge Clinical Impression: UTI (urinary tract infection), Nausea & vomiting, Left lateral abdominal pain, Diarrhea Patient Disposition: Home, Self-Care Instructions: Urinary Tract Infection in Women (ED), Acute Diarrhea (ED), Abdominal Pain (ED) Additional Instructions: Please follow-up with her primary care provider this week for stool sample to rule out infectious processes in your stool such as C diff. return if any new or worsening symptoms. Prescriptions: New levofloxacin 750 mg tablet 750 mg PO DAILY 7 Days Qty: 7 0RF ondansetron 4 mg tablet,disintegrating 4 mg PO Q8H Qty: 14 0RF No Action prazosin 1 mg capsule 1 mg PO BEDTIME Qty: 90 3RF albuterol sulfate 2.5 mg /3 mL (0.083 %) solution for nebulization 2.5 mg inhalation .3 TIMES A DAY PRN (Reason: shortness of breath or wheezing) Qty: 180 0RF sumatriptan succinate 100 mg tablet 100 mg PO DAILY PRN (Reason: migraine headache) 90 Days Qty: 30 3RF loratadine 10 mg tablet 10 mg PO DAILY Qty: 30 2RF (DME) blood-glucose meter [FreeStyle Lite Meter] Kit See Rx Instructions .ROUTE .MEDSUPPLY Qty: 1 0RF Rx Instructions: As directed twice a day amlodipine 10 mg tablet 10 mg PO DAILY Qty: 90 1RF dicyclomine 20 mg tablet 20 mg PO TID PRN (Reason: Abdominal Discomfort) Qty: 90 0RF rosuvastatin 40 mg tablet 40 mg PO DAILY Qty: 90 1RF omeprazole 20 mg capsule,delayed release(DR/EC) 20 mg PO DAILY Qty: 90 3RF albuterol sulfate 90 mcg/actuation HFA aerosol inhaler 2 puff PO QID PRN (Reason: for wheezing) Qty: 25.5 0RF potassium citrate 5 mEq (540 mg) tablet extended release 5 meq PO BID Qty: 60 11RF lorazepam 1 mg tablet 1 mg PO DAILY 30 Days Qty: 30 3RF ezetimibe 10 mg tablet 10 mg PO DAILY Qty: 90 1RF zolpidem 10 mg tablet 10 mg PO BEDTIME PRN (Reason: Insomnia) Qty: 30 2RF escitalopram oxalate 10 mg tablet 10 mg PO DAILY 90 Days Qty: 90 2RF (DME) lancets 28 gauge misc See Rx Instructions topical BID Qty: 100 Rx Instructions: As directed ondansetron HCl 4 mg tablet 8 mg PO DAILY PRN (Reason: Nausea) dovnsagrhu-ugwsqbashztdz-emjb 50-325-40 mg tablet 1 tab PO Q6H PRN (Reason: Headache) hydrochlorothiazide 12.5 mg tablet 12.5 mg PO QAM amoxicillin 500 mg capsule 500 mg PO Q8H 10 Days Qty: 30 0RF metformin 500 mg tablet 500 mg PO BIDWMEAL 30 Days Qty: 60 11RF (DME) FreeStyle Lite Strips Strip See Rx Instructions .ROUTE .MEDSUPPLY Qty: 50 11RF Rx Instructions: As directed twice a day Tradjenta 5 mg tablet 5 mg PO DAILY Referrals: Po,Anamaria Howell MD [Primary Care Provider] - 2 days (for stool sample) Stand Alone Forms: Work/School Release
[2021-11-06 14:55] LABS: COVID-19 Test Negative (Negative)
[2021-11-06 15:07] LABS: Alanine Aminotransferase 18 U/L (0-31); Albumin Level 4.1 g/dL (3.5-5.0); Alkaline Phosphatase 74 U/L (39-117); Anion Gap 15 (12-20); Aspartate Amino Transferase 22 U/L (5-31); Blood Urea Nitrogen 16 mg/dL (9-16); Calcium 8.7 mg/dL (8.4-10.2); Carbon Dioxide 24 mmol/L (22-29); Chloride 106 mmol/L (96-108); Estimated Glomerular Filt Rate > 60; Glucose Random 96 mg/dL (60-115); Lipase 30 U/L (8-78); Potassium 4.1 mmol/L (3.3-5.1); Sodium 141 mmol/L (135-145); Total Protein 7.1 g/dL (6.5-8.0)
[2021-11-06] MEDS: iohexoL 350 MG/ML 100 ML INFUS..BTL IV (15:21)
--- NOTE | 2021-11-06 15:27 | PC.NURSE ---
pt resting peacefully, pt reports feeling better, pain at 6/10 at this time, no vomiting since arrival to the ed
--- NOTE | 2021-11-06 18:00 | PC.NURSE ---
pt is currently resting comfortably attempting to eat some food to provide a stool sample
[2021-11-06 18:02] VITALS: BP 145/72; PULSE 68; RESP 18; TEMP 36.7; O2SAT 99
[2021-11-06] MEDS: Butalb/Acetamin/Caff 50/325/40 TABLET 1 TAB PO (18:14)
== END 2021-11-06 18:20 | disposition home or self-care (01) ==
PROVIDERS: Physician Assistant Medical; Emergency Provider Emergency Medicine; PCP Internal Medicine
DX: N39.0 Urinary tract infection, site not specified (principal); R51.9 Headache, unspecified; E11.9 Type 2 diabetes mellitus without complications; I10 Essential (primary) hypertension; I25.10 Atherosclerotic heart disease of native coronary artery without angina pectoris; R10.32 Left lower quadrant pain; R10.12 Left upper quadrant pain; Z79.4 Long term (current) use of insulin; Z20.822 Contact with and (suspected) exposure to COVID-19; Z87.891 Personal history of nicotine dependence; Z79.899 Other long term (current) drug therapy
CPT/HCPCS: 36415; 74177; 80053; 81001; 83690; 83735; 85025; 85610; 87635; 99284; J1885; J2405; Q9967

== ENCOUNTER 2021-11-13 18:59 | Emergency (ER) | payer MEDICARE, MEDICAID, SELFPAY ==
[2021-11-13 19:06] VITALS: BP 121/82; PULSE 109; RESP 24; TEMP 38; O2SAT 98; BMI 24.0
[2021-11-13 21:03] LABS: MANUAL DIFF FLAG NO
[2021-11-13 21:07] LABS: Basophils Percent Auto 0.2 % (0-2); Hematocrit 39.2 % (37.0-47.0); Hemoglobin 13.2 g/dl (12.0-16.0); Imm Gran Abs Auto 0.05 X10*3/uL (0.00-0.03); Imm Gran Pct Auto 0.4 % (0.0-0.4); Lymphocytes Absolute Auto 0.7 X10*3/uL (1.2-4.9); Lymphocytes Percent Auto 6.3 % (20-40); Mean Corpuscular HGB Conc 33.7 g/dl (31.0-35.0); Mean Corpuscular Hemoglobin 29.1 pg (27.0-33.0); Mean Corpuscular Volume 86.3 fL (80.0-98.0); Mean Platelet Volume 10.4 fL (9.4-12.3); Monocytes Absolute Auto 0.7 X10*3/uL (0.1-1.2); Monocytes Percent Auto 5.8 % (2-11); Neutrophils Percent Auto 87.3 % (45-73); Platelet Count 265 X10*3/uL (160-400); Red Blood Count 4.54 X10*6/uL (4.20-5.50); Red Cell Distribution Width 14.1 % (11.0-16.0); White Blood Count 11.4 X10*3/uL (4.8-10.8)
[2021-11-13 21:09] LABS: Appearance Urine Clear; Color Urine Yellow; Glucose Urine UA Negative (Negative); Leukocyte Esterase Urine Negative (Negative); Nitrite Urine Negative (Negative); PH >= 9.0 (5.0-9.0); Specific Gravity - Urine 1.015 (1.005-1.025); Urine Blood Negative (Negative); Urine Ketones Negative (Negative); Urine Protein Trace mg/dL (Neg-Trace)
[2021-11-13 21:17] LABS: Anion Gap 15 (12-20); Blood Urea Nitrogen 15 mg/dL (9-16); Calcium 8.9 mg/dL (8.4-10.2); Carbon Dioxide 24 mmol/L (22-29); Chloride 104 mmol/L (96-108); Creatinine Clr Calc Pharmacy 55.2; Estimated Glomerular Filt Rate > 60; Glucose Random 164 mg/dL (60-115); Potassium 3.5 mmol/L (3.3-5.1); Sodium 139 mmol/L (135-145)
[2021-11-13 21:21] LABS: COVID-19 Test Negative (Negative)
[2021-11-13 22:14] VITALS: BP 150/82; PULSE 92; RESP 18; TEMP 37.6; O2SAT 97
--- NOTE | 2021-11-13 22:46 | ED.GENADULT ---
HPI - General Adult General Chief complaint: Fever Stated complaint: Vomiting Weak Time Seen by Provider: 11/13/21 22:44 Source: patient Mode of arrival: ambulatory History of Present Illness HPI narrative: 61-year-old female who presents with 7-10 days of behind the eye pain associated with low-grade fever with a T-max of a 100.5 degrees as well as maxillary sinus pain and some mild nausea and headache. Patient sources she does suffer from migraines however the the symptoms are much different and she endorses that she has been experiencing nasal discharge as well as discomfort in the left ear. She denies any visual/auditory/speech deficits and states that she has test negative for COVID-19 within the past week. Related Data Home Medications Medication Instructions Recorded Confirmed lancets 28 gauge #100 ea 01/07/20 09/30/21 ywidrybyvi-zgcdfwawgqkha-zzbogbzb 1 tab PO Q6H PRN Headache 01/14/20 09/30/21 50 mg-325 mg-40 mg tablet Previous Rx's Medication Instructions Recorded albuterol sulfate 2.5 mg/3 mL 2.5 mg (3 mL) inhalation .3 TIMES 05/12/20 (0.083 %) solution for nebulization A DAY PRN shortness of breath or wheezing #180 mL sumatriptan succinate 100 mg tablet 100 mg PO DAILY PRN migraine 07/09/20 headache 90 days #30 tabs blood sugar diagnostic (FreeStyle #50 ea 08/18/20 Lite Strips) blood-glucose meter (FreeStyle #1 ea 10/27/20 Lite Meter kit) amlodipine 10 mg tablet 10 mg PO DAILY #90 tabs 03/01/21 dicyclomine 20 mg tablet 20 mg PO TID PRN Abdominal 03/01/21 Discomfort #90 tabs rosuvastatin 40 mg tablet 40 mg PO DAILY #90 tabs 03/17/21 omeprazole 20 mg capsule,delayed 20 mg PO DAILY #90 caps 05/02/21 release albuterol sulfate 90 mcg/actuation 2 puff PO QID PRN for wheezing 05/26/21 aerosol inhaler #25.5 grams potassium citrate 5 mEq (540 mg) 5 meq PO BID #60 tabs 06/30/21 tablet,extended release ezetimibe 10 mg tablet 10 mg PO DAILY #90 tabs 08/16/21 zolpidem 10 mg tablet 10 mg PO BEDTIME PRN Insomnia #30 08/16/21 tabs escitalopram oxalate 10 mg tablet 10 mg PO DAILY 90 days #90 tabs 08/29/21 levofloxacin 750 mg tablet 750 mg PO DAILY uti 7 days #7 tabs 11/06/21 ondansetron 4 mg disintegrating 4 mg PO Q8H Nausea and vomiting 11/06/21 tablet #14 tabs loratadine 10 mg tablet 10 mg PO DAILY #30 tabs 11/10/21 lorazepam 1 mg tablet 1 mg PO DAILY 30 days #30 tabs 11/11/21 metformin 500 mg tablet 500 mg PO BIDWMEAL 90 days #180 11/11/21 tabs amoxicillin 875 mg-potassium 1 tab PO Q12H 10 days #20 tabs 11/13/21 clavulanate 125 mg tablet Allergies Allergy/AdvReac Type Severity Reaction Status Date / Time codeine [Codeine] Allergy Severe ANAPHYLAXIS, Verified 11/10/21 10:51 throat edema lisinopril [LISINOPRIL] Allergy Severe ANGIOEDEMA Verified 11/10/21 10:51 Sulfa (Sulfonamide Allergy Intermediate SHORTNESS Verified 11/10/21 10:51 Antibiotics) OF BREATH, [Sulfa (Sulfonamides)] HIVES, rash doxycycline [Doxycycline] Allergy Mild HIVES Verified 11/10/21 10:51 tramadol Allergy Unknown rash and Verified 11/10/21 10:51 nightmares senna AdvReac Unknown Diarrhea Verified 11/10/21 10:51 Review of Systems Review of Systems: Pertinent positives and negatives as stated in HPI 10 point review of systems is otherwise negative. [facility]LY [facility] Past Medical History Source: nursing notes reviewed Medical History Adrenal adenoma Asthma CAD (coronary artery disease) Chronic sinusitis Constipation Cystocele Essential hypertension Fibromyalgia GERD (gastroesophageal reflux disease) Hemoptysis History of polycystic kidney disease, autosomal dominant Hx MRSA infection Hx of migraines Hx of renal calculi IBS (irritable bowel syndrome) Internal and external hemorrhoids without complication Kidney stones Lumbar radiculopathy Otitis externa PTSD (post-traumatic stress disorder) Saccular aneurysm Sciatica Thyroid nodule Type 2 diabetes mellitus with hyperglycemia Surgical History History of abdominoplasty History of appendectomy History of cardiac cath History of esophagogastroduodenoscopy (EGD) History of eye surgery History of lithotripsy History of thyroidectomy, subtotal History of tonsillectomy History of total abdominal hysterectomy and bilateral salpingo-oophorectomy History of tubal ligation Hx of colonoscopy Family History Family History Father Cancer of kidney Diabetes Hypertension CVD (cardiovascular disease) Mother Hypertension Cancer Maternal Aunt Colon cancer Brother AIDS Paternal Aunt Ovarian cancer Breast cancer Social History Social History Household Members: Spouse Household Members Other:: grandson Housing: House Alcohol intake: current Alcohol intake frequency: does not drink Patient Tobacco Use Status: Former Tobacco user e-Cigarette/Vaping Use: Never Used Second Hand Smoke Exposure: No Substance Use Type: Marijuana Advance Directives: No Advance Directives Information Provided: No service: No Current occupational status: employed 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 GENERAL: Well developed, well nourished, in no acute distress. HEAD: Normocephalic/atraumatic EYES: PERRLA, EOMI EARS: Ext canals without abnormality on the right but some noted erythema on the left without evidence of purulence, TMs non-bulging and non-erythematous on the right but on the left there is some noted erythema without TM bulging NOSE: Nares patent but noted discharged with erythematous boggy turbinates, and on palpation over maxillary sinuses there is pain. OROPHARYNX: no oral lesions noted, posterior pharynx clear and non-erythematous without noted tonsillar enlargement/erythema/exudates NECK: Supple, no adenopathy LUNGS: Normal breath sounds. No adventitious sounds or accessory muscle use. SpO2<97> CARDIOVASCULAR: Regular rate and rhythm without noted murmurs ABDOMEN: Soft, non-tender, non-distended with bowel sounds. MUSCULOSKELETAL: No tenderness, deformities, or effusions noted on gross inspection. EXTREMITIES: No cyanosis, clubbing or edema. SKIN: Inspection of the skin reveals no rashes NEUROLOGIC: Alert and oriented x 4. Strength and sensation to light touch were grossly intact x 4. Course Course Course Narrative: 61-year-old female with history and clinical presentation after review of all investigations consistent with sinusitis and some mild external otitis which will both be addressed with Augmentin, and a 10 day course. Patient is aware of this treatment course and she is also provided with the initial dose here in the emergency room along with combination analgesics. She is otherwise discharged home in stable condition. Medical Decision Making Lab Data Result diagrams: 11/13/21 20:49 11/13/21 20:49 Labs: Lab Results 11/13/21 11/13/21 11/13/21 Range/Units 20:49 20:49 20:49 WBC 11.4 H (4.8-10.8) X10*3/uL RBC 4.54 (4.20-5.50) X10*6/uL Hgb 13.2 (12.0-16.0) g/dl Hct 39.2 (37.0-47.0) % MCV 86.3 (80.0-98.0) fL MCH 29.1 (27.0-33.0) pg MCHC 33.7 (31.0-35.0) g/dl RDW 14.1 (11.0-16.0) % Plt Count 265 (160-400) X10*3/uL MPV 10.4 (9.4-12.3) fL Immature Gran % (Auto) 0.4 (0.0-0.4) % Neut % (Auto) 87.3 H (45-73) % Lymph % (Auto) 6.3 L (20-40) % Meagher % (Auto) 5.8 (2-11) % Eos % (Auto) 0.0 (0-4) % Baso % (Auto) 0.2 (0-2) % Lymph # (Auto) 0.7 L (1.2-4.9) X10*3/uL Meagher # (Auto) 0.7 (0.1-1.2) X10*3/uL Eos # (Auto) 0.0 (0.0-0.4) X10*3/uL Baso # (Auto) 0.0 (0.0-0.2) X10*3/uL Abs Immat Gran (auto) 0.05 H (0.00-0.03) X10*3/uL Absolute Neuts (auto) 10.0 H (2.0-8.3) x10*3/uL Absolute Nucleated RBC 0.000 (0.0-0.012) X10*3/uL Nucleated RBC % (auto) 0.0 (0.0-0.2) /100WBC Sodium 139 (135-145) mmol/L Potassium 3.5 (3.3-5.1) mmol/L Chloride 104 (96-108) mmol/L Carbon Dioxide 24 (22-29) mmol/L Anion Gap 15 (12-20) BUN 15 (9-16) mg/dL Creatinine 0.90 (0.5-1.4) mg/dL Estim Creat Clear Calc 55.2 Estimated GFR > 60 Random Glucose 164 H (60-115) mg/dL Calcium 8.9 (8.4-10.2) mg/dL Urine Color Urine Appearance Urine pH (5.0-9.0) Ur Specific [place] (1.005-1.025) Urine Protein (Neg-Trace) mg/dL Urine Glucose (UA) (Negative) mg/dL Urine Ketones (Negative) mg/dL Urine Blood (Negative) Urine Nitrite (Negative) Ur Leukocyte Esterase (Negative) COVID-19 ([facility]) Negative (Negative) COVID-19 Clin Com See Note 11/13/21 Range/Units 20:49 WBC (4.8-10.8) X10*3/uL RBC (4.20-5.50) X10*6/uL Hgb (12.0-16.0) g/dl Hct (37.0-47.0) % MCV (80.0-98.0) fL MCH (27.0-33.0) pg MCHC (31.0-35.0) g/dl RDW (11.0-16.0) % Plt Count (160-400) X10*3/uL MPV (9.4-12.3) fL Immature Gran % (Auto) (0.0-0.4) % Neut % (Auto) (45-73) % Lymph % (Auto) (20-40) % Meagher % (Auto) (2-11) % Eos % (Auto) (0-4) % Baso % (Auto) (0-2) % Lymph # (Auto) (1.2-4.9) X10*3/uL Meagher # (Auto) (0.1-1.2) X10*3/uL Eos # (Auto) (0.0-0.4) X10*3/uL Baso # (Auto) (0.0-0.2) X10*3/uL Abs Immat Gran (auto) (0.00-0.03) X10*3/uL Absolute Neuts (auto) (2.0-8.3) x10*3/uL Absolute Nucleated RBC (0.0-0.012) X10*3/uL Nucleated RBC % (auto) (0.0-0.2) /100WBC Sodium (135-145) mmol/L Potassium (3.3-5.1) mmol/L Chloride (96-108) mmol/L Carbon Dioxide (22-29) mmol/L Anion Gap (12-20) BUN (9-16) mg/dL Creatinine (0.5-1.4) mg/dL Estim Creat Clear Calc Estimated GFR Random Glucose (60-115) mg/dL Calcium (8.4-10.2) mg/dL Urine Color Yellow Urine Appearance Clear Urine pH >= 9.0 (5.0-9.0) Ur Specific [place] 1.015 (1.005-1.025) Urine Protein Trace (Neg-Trace) mg/dL Urine Glucose (UA) Negative (Negative) mg/dL Urine Ketones Negative (Negative) mg/dL Urine Blood Negative (Negative) Urine Nitrite Negative (Negative) Ur Leukocyte Esterase Negative (Negative) COVID-19 ([facility]) (Negative) COVID-19 Clin Com Discharge Plan Discharge Clinical Impression: Sinusitis, Left ear pain Patient Disposition: Home, Self-Care Instructions: Sinusitis (ED), Earache (ED) Additional Instructions: 1. Resume all home medications. 2. Complete the entire course of antibiotics, strongly recommend the use of probiotics with this antibiotic to help limit the diarrhea that you may experience. 3. Please follow-up with primary care provider on Sunday morning. Return to the ER for worsening symptoms. Prescriptions: New amoxicillin-pot clavulanate 875-125 mg tablet 1 tab PO Q12H 10 Days Qty: 20 0RF No Action albuterol sulfate 2.5 mg /3 mL (0.083 %) solution for nebulization 2.5 mg inhalation .3 TIMES A DAY PRN (Reason: shortness of breath or wheezing) Qty: 180 0RF sumatriptan succinate 100 mg tablet 100 mg PO DAILY PRN (Reason: migraine headache) 90 Days Qty: 30 3RF (DME) blood-glucose meter [FreeStyle Lite Meter] Kit See Rx Instructions .ROUTE .MEDSUPPLY Qty: 1 0RF Rx Instructions: As directed twice a day amlodipine 10 mg tablet 10 mg PO DAILY Qty: 90 1RF dicyclomine 20 mg tablet 20 mg PO TID PRN (Reason: Abdominal Discomfort) Qty: 90 0RF rosuvastatin 40 mg tablet 40 mg PO DAILY Qty: 90 1RF omeprazole 20 mg capsule,delayed release(DR/EC) 20 mg PO DAILY Qty: 90 3RF albuterol sulfate 90 mcg/actuation HFA aerosol inhaler 2 puff PO QID PRN (Reason: for wheezing) Qty: 25.5 0RF potassium citrate 5 mEq (540 mg) tablet extended release 5 meq PO BID Qty: 60 11RF ezetimibe 10 mg tablet 10 mg PO DAILY Qty: 90 1RF zolpidem 10 mg tablet 10 mg PO BEDTIME PRN (Reason: Insomnia) Qty: 30 2RF escitalopram oxalate 10 mg tablet 10 mg PO DAILY 90 Days Qty: 90 2RF metformin 500 mg tablet 500 mg PO BIDWMEAL 90 Days Qty: 180 2RF lorazepam 1 mg tablet 1 mg PO DAILY 30 Days Qty: 30 3RF levofloxacin 750 mg tablet 750 mg PO DAILY 7 Days Qty: 7 0RF ondansetron 4 mg tablet,disintegrating 4 mg PO Q8H Qty: 14 0RF (DME) lancets 28 gauge misc See Rx Instructions topical BID Qty: 100 Rx Instructions: As directed dleuywyqin-vpxjxqiazbceo-blld 50-325-40 mg tablet 1 tab PO Q6H PRN (Reason: Headache) loratadine 10 mg tablet 10 mg PO DAILY Qty: 30 2RF (DME) FreeStyle Lite Strips Strip See Rx Instructions .ROUTE .MEDSUPPLY Qty: 50 11RF Rx Instructions: As directed twice a day Referrals: Po,Anamaria Howell MD [Primary Care Provider] -
[2021-11-13] MEDS: Acetaminophen 325 MG TABLET 975 MG PO (23:25)
[2021-11-13] MEDS: Amoxicillin/Potassium Clav 875 MG TABLET PO (23:25)
[2021-11-13] MEDS: Ketorolac Tromethamine 15 MG/ML VIAL IM (23:25)
== END 2021-11-13 23:29 | disposition home or self-care (01) ==
PROVIDERS: Emergency Provider Student in an Organized Health Care Education/Training Program; PCP Internal Medicine
DX: J32.9 Chronic sinusitis, unspecified (principal); H92.02 Otalgia, left ear; R50.9 Fever, unspecified; R11.10 Vomiting, unspecified; Z20.822 Contact with and (suspected) exposure to COVID-19; Z79.899 Other long term (current) drug therapy; Z87.891 Personal history of nicotine dependence
CPT/HCPCS: 80048; 81003; 85025; 87635; 99283; J1885

== ENCOUNTER 2022-01-31 09:57 | Outpatient (REF) | payer MEDICARE, MEDICAID, SELFPAY ==
[2022-01-31 10:37] LABS: MANUAL DIFF FLAG NO
[2022-01-31 11:17] LABS: Basophils Percent Auto 0.5 % (0-2); Eosinophils Absolute Auto 0.1 X10*3/uL (0.0-0.4); Eosinophils Percent Auto 1.3 % (0-4); Hematocrit 37.7 % (37.0-47.0); Hemoglobin 12.4 g/dl (12.0-16.0); Imm Gran Abs Auto 0.01 X10*3/uL (0.00-0.03); Imm Gran Pct Auto 0.2 % (0.0-0.4); Lymphocytes Absolute Auto 2.1 X10*3/uL (1.2-4.9); Lymphocytes Percent Auto 33.4 % (20-40); Mean Corpuscular HGB Conc 32.9 g/dl (31.0-35.0); Mean Corpuscular Hemoglobin 28.9 pg (27.0-33.0); Mean Corpuscular Volume 87.9 fL (80.0-98.0); Mean Platelet Volume 10.6 fL (9.4-12.3); Monocytes Absolute Auto 0.4 X10*3/uL (0.1-1.2); Monocytes Percent Auto 6.5 % (2-11); Neutrophils Absolute Auto 3.6 x10*3/uL (2.0-8.3); Neutrophils Percent Auto 58.1 % (45-73); Platelet Count 341 X10*3/uL (160-400); Red Blood Count 4.29 X10*6/uL (4.20-5.50); Red Cell Distribution Width 15.1 % (11.0-16.0); White Blood Count 6.2 X10*3/uL (4.8-10.8)
[2022-01-31 11:56] LABS: Estimated Average Glucose 151 mg/dL; Hemoglobin A1c % 6.9 %
[2022-01-31 12:48] LABS: Creatinine Urine 223.18 mg/dL
[2022-01-31 12:51] LABS: Creatinine Urine 220.16 mg/dL; Microalbum/Creatinine Ratio Ur 29.5 ug/mg cr
[2022-01-31 12:56] LABS: Folate 14.5 ng/mL (> or = 4.0); Vitamin B12 982 pg/mL (200-900)
[2022-01-31 13:17] LABS: Alanine Aminotransferase 23 U/L (0-31); Albumin Level 4.3 g/dL (3.5-5.0); Alkaline Phosphatase 78 U/L (39-117); Anion Gap 13 (12-20); Aspartate Amino Transferase 18 U/L (5-31); Bilirubin Total 0.8 mg/dL (0.0-1.0); Blood Urea Nitrogen 18 mg/dL (9-16); Calcium 9.5 mg/dL (8.4-10.2); Carbon Dioxide 27 mmol/L (22-29); Chloride 105 mmol/L (96-108); Cholesterol 123 mg/dL; Estimated Glomerular Filt Rate > 60; Free T4 (Free Thyroxine) 0.84 ng/dL (0.71-1.85); Glucose Random 132 mg/dL (60-115); HDL Cholesterol 45 mg/dL; LDL Cholesterol Calculated 62 mg/dl; Potassium 4.3 mmol/L (3.3-5.1); Sodium 141 mmol/L (135-145); Thyroid Stimulating Hormone 1.07 uIU/mL (0.32-4.0); Total Protein 7.3 g/dL (6.5-8.0); Triglycerides 82 mg/dL; Vitamin D 25-OH Total 27.6 ng/mL (>30)
== END 2022-01-31 09:58 | disposition home or self-care (01) ==
LOC: HO.LAB 09:57
PROVIDERS: Absent Provider Internal Medicine; PCP Internal Medicine; Visit Provider Internal Medicine Nephrology
DX: N20.0 Calculus of kidney (principal); I67.1 Cerebral aneurysm, nonruptured; Q61.9 Cystic kidney disease, unspecified; E78.00 Pure hypercholesterolemia, unspecified; E11.65 Type 2 diabetes mellitus with hyperglycemia
CPT/HCPCS: 36415; 80053; 80061; 82043; 82306; 82607; 82746; 83036; 84439; 84443; 85025

== ENCOUNTER 2022-02-04 06:31 | Observation (INO) | payer MEDICARE, MEDICAID, SELFPAY ==
[2022-02-04] VITALS (7 sets, daily range): BP systolic 104–134; BP diastolic 56–86; PULSE 94–117; RESP 12–20; TEMP 36.9–37.1; O2SAT 95–98; BMI 24.0
--- NOTE | ~2022-02-04 | XR_ITS ---
EXAMINATION: XR CHEST CLINICAL INFORMATION: Cough and congestion COMPARISON: None TECHNIQUE: 2 views of the chest were obtained. FINDINGS: No significant abnormality is noted involving the heart, lungs, mediastinum, bony thorax or soft tissues. XR/XR chest 2V IMPRESSION: Unremarkable chest examination.
[2022-02-04 07:08] LABS: IDNOW Serial# BCCEAD1C; Influenza A Positive (Negative); Influenza B2 Negative (Negative)
[2022-02-04 07:09] LABS: COVID-19 Test Negative (Negative); IDNOW Serial# 16C4AD1C
--- NOTE | 2022-02-04 07:35 | ED_ITS ---
HPI - URI/Sore Throat General Chief Complaint: Upper Respiratory Symptoms Stated Complaint: Congested/Sob/Fever/Bodyaches Time Seen by Provider: 02/04/22 07:00 Source: patient Mode of arrival: ambulatory Limitations: no limitations History of Present Illness HPI Narrative: 61-year-old female came in for evaluation of runny nose, congestion, coughing, sneezing, generalized body ache, headache and exacerbation of her asthma. No sick contacts, no recent travel. Related Data Home Medications Medication Instructions Recorded Confirmed lancets 28 gauge #100 ea 01/07/20 11/25/21 cccekzgayj-rnklkcwmdqlki-pfyolmij 1 tab PO Q6H PRN Headache 01/14/20 11/25/21 50 mg-325 mg-40 mg tablet Previous Rx's Medication Instructions Recorded albuterol sulfate 2.5 mg/3 mL 2.5 mg (3 mL) inhalation .3 TIMES 05/12/20 (0.083 %) solution for nebulization A DAY PRN shortness of breath or wheezing #180 mL sumatriptan succinate 100 mg tablet 100 mg PO DAILY PRN migraine 07/09/20 headache 90 days #30 tabs blood sugar diagnostic (FreeStyle #50 ea 08/18/20 Lite Strips) blood-glucose meter (FreeStyle #1 ea 10/27/20 Lite Meter kit) dicyclomine 20 mg tablet 20 mg PO TID PRN Abdominal 03/01/21 Discomfort #90 tabs omeprazole 20 mg capsule,delayed 20 mg PO DAILY #90 caps 05/02/21 release albuterol sulfate 90 mcg/actuation 2 puff PO QID PRN for wheezing 05/26/21 aerosol inhaler #25.5 grams potassium citrate 5 mEq (540 mg) 5 meq PO BID #60 tabs 06/30/21 tablet,extended release ezetimibe 10 mg tablet 10 mg PO DAILY #90 tabs 08/16/21 escitalopram oxalate 10 mg tablet 10 mg PO DAILY 90 days #90 tabs 08/29/21 ondansetron 4 mg disintegrating 4 mg PO Q8H Nausea and vomiting 11/06/21 tablet #14 tabs loratadine 10 mg tablet 10 mg PO DAILY #30 tabs 11/10/21 metformin 500 mg tablet 500 mg PO BIDWMEAL 90 days #180 11/11/21 tabs zolpidem 10 mg tablet 10 mg PO BEDTIME PRN Insomnia #30 11/18/21 tabs amlodipine 10 mg tablet 10 mg PO DAILY #90 tabs 11/25/21 rosuvastatin 40 mg tablet 40 mg PO DAILY #90 tabs 11/25/21 lorazepam 1 mg tablet 1 mg PO DAILY 30 days #30 tabs 12/06/21 albuterol sulfate 90 mcg/actuation 1 inh inhalation QID PRN shortness 02/04/22 aerosol inhaler of breath or wheezing #8.5 grams oseltamivir 75 mg capsule (Tamiflu) 75 mg PO BID 5 days #10 caps 02/04/22 prednisone 20 mg tablet 20 mg PO BID #10 tabs 02/04/22 Allergies Allergy/AdvReac Type Severity Reaction Status Date / Time codeine [Codeine] Allergy Severe ANAPHYLAXIS, Verified 11/25/21 15:00 throat edema lisinopril [LISINOPRIL] Allergy Severe ANGIOEDEMA Verified 11/25/21 15:00 Sulfa (Sulfonamide Allergy Intermediate SHORTNESS Verified 11/25/21 15:00 Antibiotics) OF BREATH, [Sulfa (Sulfonamides)] HIVES, rash doxycycline [Doxycycline] Allergy Mild HIVES Verified 11/25/21 15:00 tramadol Allergy Unknown rash and Verified 11/25/21 15:00 nightmares senna AdvReac Unknown Diarrhea Verified 11/25/21 15:00 Review of Systems Review of Systems: All other systems are reviewed and are negative Constitutional: Reports as per HPI and Reports no additional constitutional complaints Eyes: Reports as per HPI and Reports no additional eye complaints Reports system reviewed and no additional complaints, except as documented Cardiovascular: Reports as per HPI and Reports no additional cardiovascular complaints Respiratory: Reports as per HPI and Reports no additional respiratory complaints Gastrointestinal: Reports as per HPI and Reports no additional gastrointestinal complaints Genitourinary: Reports no additional female genitourinary complaints Musculoskeletal: Reports no additional musculoskeletal complaints Skin/Breast: Reports system reviewed and no additional complaints, except as docu Psychiatric: Reports no additional psychiatric complaints Endocrine: Reports no additional endocrine complaints Hematologic/Lymphatic: Reports no additional hematologic/lymphatic complaints Allergic/Immunologic: Reports no additional allergic/immunologic complaints Reports system reviewed and no additional complaints, except as documented and Reports Abnormal speech present PMFSH Past Medical History Medical History Adrenal adenoma Asthma CAD (coronary artery disease) Chronic sinusitis Constipation Cystocele Essential hypertension Fibromyalgia GERD (gastroesophageal reflux disease) Hemoptysis History of polycystic kidney disease, autosomal dominant Hx MRSA infection Hx of migraines Hx of renal calculi IBS (irritable bowel syndrome) Internal and external hemorrhoids without complication Kidney stones Lumbar radiculopathy Otitis externa PTSD (post-traumatic stress disorder) Saccular aneurysm Sciatica Thyroid nodule Type 2 diabetes mellitus with hyperglycemia Surgical History History of abdominoplasty History of appendectomy History of cardiac cath History of esophagogastroduodenoscopy (EGD) History of eye surgery History of lithotripsy History of thyroidectomy, subtotal History of tonsillectomy History of total abdominal hysterectomy and bilateral salpingo-oophorectomy History of tubal ligation Hx of colonoscopy Family History Family History Father Cancer of kidney Diabetes Hypertension CVD (cardiovascular disease) Mother Hypertension Cancer Maternal Aunt Colon cancer Brother AIDS Paternal Aunt Ovarian cancer Breast cancer Social History Social History Household Members: Spouse Household Members Other:: grandson Housing: House Alcohol intake: never Patient Tobacco Use Status: Former Tobacco user Smoked in Last 30 Days: No e-Cigarette/Vaping Use: Never Used Second Hand Smoke Exposure: No Use of substances other than those prescribed or required for medical reasons: Yes Substance Use Type: Marijuana Advance Directives: No Advance Directives Information Provided: Yes Patient : No service: No Current occupational status: employed 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 Blood pressure normal. Heart rate elevated. Respiration rate normal. Temperature normal. Oxygen saturation normal. Appearance: Alert. Oriented X3. No acute distress. Head: Normal external exam. Normocephalic. Atraumatic. No Negro signs noted. No raccoon eyes noted Eyes: PERRLA. EOMI. Conjunctiva and sclera normal. Eyelids normal. ENT: TM's Normal. Pharynx normal. Uvula midline. Moist mucous membranes. No trismus noted. No drooling noted. No muffled voice noted. Neck: Normal inspection. Neck supple. FROM. No adenopathy. Thyroid Normal. No meningeal signs. No neck mass noted. CVS: Normal heart rate and rhythm. Heart sound normal. No murmurs noted. Pulses normal throughout. Respiratory: No respiratory distress. Painless inspiration. Breath sounds normal, expiratory wheezing with prolonged expiration.. Chest nontender. No accessory muscle usage noted or decreased air movement noted. Abdomen: Soft and nontender. Bowel sounds normal in all 4 quadrants. No distention noted. No organomegaly noted. No visible injury noted. Back: No CVA tenderness. Full range of motion noted. Skin: Skin warm and dry. Normal skin color. Normal skin turgor. No rashes/lesions/lacerations noted. Extremities: No lower extremity edema. Extremities exhibit normal range of motion. Extremities nontender. Neuro: Oriented X 3. Cranial nerve exam: II-XII are grossly intact No motor deficit. No sensory deficit. Reflexes normal. Course Course Course Narrative: 61-year-old female with history of bronchial asthma presented with upper respiratory symptoms, patient tested positive for flu A. Patient received bronchodilator and prednisone , and Tamiflu. Patient subjectively feel slightly better instructed to stay home isolate herself and use a face mask at all times. Reevaluation(s) Reevaluation #1: Patient is tachycardic and cannot tolerate p.o. intake with multiple vomiting in the emergency department potassium is 2.5. Will admit for continue bronchodilator treatment. And replete potassium. Time: 11:50 Medications Administered Discontinued Medications Generic Name Dose Route Start Last Admin Trade Name Freq PRN Reason Stop Dose Admin Acetaminophen 650 mg 02/04/22 07:33 02/04/22 08:18 Acetaminophen 325 Mg Tablet PO 02/04/22 07:34 650 mg ONCE ONE Administration Albuterol Sulfate 2.5 mg/ 5 mg 02/04/22 07:33 02/04/22 08:53 Albuterol Sulfate 2.5 mg INHALE 02/04/22 07:34 5 mg ONCE ONE Administration Albuterol/Ipratropium 3 ml 02/04/22 07:33 02/04/22 08:54 Albuterol/Iprat 2.5/0.5mg 3 Ml Ampul.Neb INHALE 02/04/22 07:34 3 ml ONCE ONE Administration Sodium Chloride 1,000 mls @ 999 mls/hr 02/04/22 09:11 02/04/22 11:04 Ns IV 02/04/22 10:11 999 mls/hr .Q1H1M ONE Administration Ondansetron HCl 4 mg 02/04/22 09:11 02/04/22 11:04 Ondansetron Hcl 4 Mg/2 Ml Vial IVPUSH 02/04/22 09:12 4 mg ONCE ONE Administration Oseltamivir Phosphate 75 mg 02/04/22 07:33 02/04/22 08:19 Oseltamivir Phosphate 75 Mg Capsule PO 02/04/22 07:34 75 mg ONCE ONE Administration Prednisone 60 mg 02/04/22 07:33 02/04/22 08:19 Prednisone 20 Mg Tablet PO 02/04/22 07:34 60 mg ONCE ONE Administration MDM - URI/Sore Throat Lab Data Attestation: I reviewed the patient's lab results. Result diagrams: 02/04/22 10:54 02/04/22 10:54 Labs: Lab Results 02/04/22 02/04/22 02/04/22 Range/Units 06:38 06:38 10:54 WBC (4.8-10.8) X10*3/uL RBC (4.20-5.50) X10*6/uL Hgb (12.0-16.0) g/dl Hct (37.0-47.0) % MCV (80.0-98.0) fL MCH (27.0-33.0) pg MCHC (31.0-35.0) g/dl RDW (11.0-16.0) % Plt Count (160-400) X10*3/uL MPV (9.4-12.3) fL Immature Gran % (Auto) (0.0-0.4) % Neut % (Auto) (45-73) % Lymph % (Auto) (20-40) % [place] % (Auto) (2-11) % Eos % (Auto) (0-4) % Baso % (Auto) (0-2) % Lymph # (Auto) (1.2-4.9) X10*3/uL [place] # (Auto) (0.1-1.2) X10*3/uL Eos # (Auto) (0.0-0.4) X10*3/uL Baso # (Auto) (0.0-0.2) X10*3/uL Abs Immat Gran (auto) (0.00-0.03) X10*3/uL Absolute Neuts (auto) (2.0-8.3) x10*3/uL Absolute Nucleated RBC (0.0-0.012) X10*3/uL Nucleated RBC % (auto) (0.0-0.2) /100WBC Smear Tech's Comments Sodium 142 (135-145) mmol/L Potassium 2.5 L* D (3.3-5.1) mmol/L Chloride 105 (96-108) mmol/L Carbon Dioxide 19 L (22-29) mmol/L Anion Gap 21 H (12-20) BUN 15 (9-16) mg/dL Creatinine 0.74 (0.5-1.4) mg/dL Estim Creat Clear Calc 67.2 Estimated GFR > 60 POC Glucose (60-115) mg/dL Random Glucose 247 H (60-115) mg/dL Calcium 8.9 D (8.4-10.2) mg/dL Troponin I High Sens (<3.5-17.0) ng/L COVID-19 ([facility]) Negative (Negative) COVID-19 Clin Com See Note Influenza Type A (TAB) Positive A (Negative) Influenza Type B (TAB) Negative (Negative) Influenza A & B Note See Note 02/04/22 02/04/22 02/04/22 Range/Units 10:54 10:54 10:58 WBC 13.9 H (4.8-10.8) X10*3/uL RBC 4.17 L (4.20-5.50) X10*6/uL Hgb 12.0 (12.0-16.0) g/dl Hct 35.6 L (37.0-47.0) % MCV 85.4 (80.0-98.0) fL MCH 28.8 (27.0-33.0) pg MCHC 33.7 (31.0-35.0) g/dl RDW 14.6 (11.0-16.0) % Plt Count 284 (160-400) X10*3/uL MPV 10.0 (9.4-12.3) fL Immature Gran % (Auto) 0.4 (0.0-0.4) % Neut % (Auto) 90.5 H (45-73) % Lymph % (Auto) 7.1 L (20-40) % [place] % (Auto) 1.8 L (2-11) % Eos % (Auto) 0.0 (0-4) % Baso % (Auto) 0.2 (0-2) % Lymph # (Auto) 1.0 L (1.2-4.9) X10*3/uL [place] # (Auto) 0.3 (0.1-1.2) X10*3/uL Eos # (Auto) 0.0 (0.0-0.4) X10*3/uL Baso # (Auto) 0.0 (0.0-0.2) X10*3/uL Abs Immat Gran (auto) 0.06 H (0.00-0.03) X10*3/uL Absolute Neuts (auto) 12.6 H (2.0-8.3) x10*3/uL Absolute Nucleated RBC 0.000 (0.0-0.012) X10*3/uL Nucleated RBC % (auto) 0.0 (0.0-0.2) /100WBC Smear Tech's Comments VERIFIED Sodium (135-145) mmol/L Potassium (3.3-5.1) mmol/L Chloride (96-108) mmol/L Carbon Dioxide (22-29) mmol/L Anion Gap (12-20) BUN (9-16) mg/dL Creatinine (0.5-1.4) mg/dL Estim Creat Clear Calc Estimated GFR POC Glucose 223 H (60-115) mg/dL Random Glucose (60-115) mg/dL Calcium (8.4-10.2) mg/dL Troponin I High Sens < 3.5 (<3.5-17.0) ng/L COVID-19 ([facility]) (Negative) COVID-19 Clin Com Influenza Type A (TAB) (Negative) Influenza Type B (TAB) (Negative) Influenza A & B Note Imaging Data Chest x-ray: Attestation: I personally reviewed and interpreted this imaging study as follows: Radiologist's impression: Unremarkable chest examination. ECG Data Attestation: I personally reviewed and interpreted this ECG as follows: Interpretation: Sinus tachycardia at 117 beats per minutes, normal intervals, no ST-T changes. Discharge Plan Discharge Clinical Impression: Upper respiratory infection, Influenza A, Acute asthma exacerbation, Acute hypokalemia, Tachycardia Patient Disposition: Admitted As Inpatient Instructions: Influenza (ED) Prescriptions: New albuterol sulfate 90 mcg/actuation HFA aerosol inhaler 1 inh inhalation QID PRN (Reason: shortness of breath or wheezing) Qty: 8.5 0RF prednisone 20 mg tablet 20 mg PO BID Qty: 10 0RF oseltamivir [Tamiflu] 75 mg capsule 75 mg PO BID 5 Days Qty: 10 0RF No Action albuterol sulfate 2.5 mg /3 mL (0.083 %) solution for nebulization 2.5 mg inhalation .3 TIMES A DAY PRN (Reason: shortness of breath or wheezing) Qty: 180 0RF sumatriptan succinate 100 mg tablet 100 mg PO DAILY PRN (Reason: migraine headache) 90 Days Qty: 30 3RF (DME) blood-glucose meter [FreeStyle Lite Meter] Kit See Rx Instructions .ROUTE .MEDSUPPLY Qty: 1 0RF Rx Instructions: As directed twice a day dicyclomine 20 mg tablet 20 mg PO TID PRN (Reason: Abdominal Discomfort) Qty: 90 0RF omeprazole 20 mg capsule,delayed release(DR/EC) 20 mg PO DAILY Qty: 90 3RF albuterol sulfate 90 mcg/actuation HFA aerosol inhaler 2 puff PO QID PRN (Reason: for wheezing) Qty: 25.5 0RF potassium citrate 5 mEq (540 mg) tablet extended release 5 meq PO BID Qty: 60 11RF ezetimibe 10 mg tablet 10 mg PO DAILY Qty: 90 1RF escitalopram oxalate 10 mg tablet 10 mg PO DAILY 90 Days Qty: 90 2RF metformin 500 mg tablet 500 mg PO BIDWMEAL 90 Days Qty: 180 2RF zolpidem 10 mg tablet 10 mg PO BEDTIME PRN (Reason: Insomnia) Qty: 30 2RF lorazepam 1 mg tablet 1 mg PO DAILY 30 Days Qty: 30 3RF ondansetron 4 mg tablet,disintegrating 4 mg PO Q8H Qty: 14 0RF (DME) lancets 28 gauge misc See Rx Instructions topical BID Qty: 100 Rx Instructions: As directed dcxvnwxsus-qsfnslnmalqbz-ldmi 50-325-40 mg tablet 1 tab PO Q6H PRN (Reason: Headache) amlodipine 10 mg tablet 10 mg PO DAILY Qty: 90 1RF rosuvastatin 40 mg tablet 40 mg PO DAILY Qty: 90 1RF loratadine 10 mg tablet 10 mg PO DAILY Qty: 30 2RF (DME) FreeStyle Lite Strips Strip See Rx Instructions .ROUTE .MEDSUPPLY Qty: 50 11RF Rx Instructions: As directed twice a day Referrals: Po,Anamaria Howell MD [Primary Care Provider] -
[2022-02-04] MEDS: Acetaminophen 325 MG TABLET 650 MG PO ×3 (08:18→23:02)
[2022-02-04] MEDS: Oseltamivir Phosphate 75 MG CAPSULE PO ×2 (08:19→19:42)
[2022-02-04] MEDS: predniSONE 20 MG TABLET 60 MG PO (08:19)
--- NOTE | 2022-02-04 08:35 | PC.NURSE ---
call placed to kevin zhou
[2022-02-04] MEDS: Albuterol Sulfate 2.5 MG, Albuterol Sulfate (0.083%) 2.5 MG 5 MG INHALE (08:53)
[2022-02-04] MEDS: Albuterol/Iprat 2.5/0.5MG 3 ML AMPUL.NEB INHALE ×3 (08:54→20:13)
--- NOTE | 2022-02-04 09:17 | ECG_ITS ---
Test Reason : TACYCARDIA Blood Pressure : / mmHG Vent. Rate : 117 BPM Atrial Rate : 117 BPM P-R Int : 144 ms QRS Dur : 080 ms QT Int : 356 ms P-R-T Axes : 049 -04 034 degrees QTc Int : 496 ms Sinus tachycardia Nonspecific ST abnormality Abnormal ECG When compared with ECG of 02-JUL-2021 10:05, Vent. rate has increased BY [address] now depressed in Anterolateral leads Referred By: Dinah Duffy Electronically Signed By:DAVID GOMES MD
[2022-02-04 11:00] LABS: Basophils Percent Auto 0.2 % (0-2); Hematocrit 35.6 % (37.0-47.0); Imm Gran Abs Auto 0.06 X10*3/uL (0.00-0.03); Imm Gran Pct Auto 0.4 % (0.0-0.4); Lymphocytes Percent Auto 7.1 % (20-40); MANUAL DIFF FLAG SCAN; Mean Corpuscular HGB Conc 33.7 g/dl (31.0-35.0); Mean Corpuscular Hemoglobin 28.8 pg (27.0-33.0); Mean Corpuscular Volume 85.4 fL (80.0-98.0); Monocytes Absolute Auto 0.3 X10*3/uL (0.1-1.2); Monocytes Percent Auto 1.8 % (2-11); Neutrophils Absolute Auto 12.6 x10*3/uL (2.0-8.3); Neutrophils Percent Auto 90.5 % (45-73); Platelet Count 284 X10*3/uL (160-400); Red Blood Count 4.17 X10*6/uL (4.20-5.50); Red Cell Distribution Width 14.6 % (11.0-16.0); SCAN SMEAR FLAG 1; White Blood Count 13.9 X10*3/uL (4.8-10.8)
[2022-02-04 11:03] LABS: Glucose, Whole Blood 223 mg/dL (60-115)
[2022-02-04] MEDS: ondansetron HCL 4 MG/2 ML VIAL IVPUSH (11:04)
[2022-02-04] MEDS: 0.9 % Sodium Chloride 1,000 ML 999 ML IV (11:04)
[2022-02-04 11:16] LABS: Blood Urea Nitrogen 15 mg/dL (9-16); Calcium 8.9 mg/dL (8.4-10.2); Creatinine Clr Calc Pharmacy 67.2; Estimated Glomerular Filt Rate > 60; Glucose Random 247 mg/dL (60-115)
[2022-02-04 11:18] LABS: SLIDE REVIEW VERIFIED
[2022-02-04 11:25] LABS: Troponin-I High Sensitivity < 3.5 ng/L (<3.5-17.0)
[2022-02-04 11:35] LABS: Anion Gap 21 (12-20); Carbon Dioxide 19 mmol/L (22-29); Chloride 105 mmol/L (96-108); Potassium 2.5 mmol/L (3.3-5.1)
[2022-02-04] MEDS: Potassium Chloride/H20 10 MEQ/100 ML PIGGYBACK 100 MEQ IV (11:51)
[2022-02-04] MEDS: Potassium Chloride Packet 20 MEQ PACKET 40 MEQ PO (11:52)
--- NOTE | 2022-02-04 12:54 | P.HPHOSP_ITS ---
History of Present Illness Date of Service: 02/04/22 Attending physician on admission: Leighton Casper Chief Complaint: cough, po intolerance 61-year-old female with history of coronary artery disease, hypercholesterolemia, nephrolithiasis, osteopenia, anxiety, GERD, [id number] type 2 diabetes with hyperglycemia, hypertension, and mild intermittent asthma presented to the ED this morning complaining of upper respiratory symptoms ongoing for 1 day. She is reporting dry cough, wheezing with increase in albuterol usage, myalgias, fever of 100, headaches, right ear pain, sinus pressure, p.o. intolerance with 4-5 episodes of vomiting. She does tell me her grandson was sick with similar symptoms. On arrival, patient afebrile, tachycardic to 117, no hypoxia or hypotension. WBC 13.9. Renal function baseline. Potassium 2.5, CO2 19, magnesium pending. Glucose 223. Positive for influenza a, negative for COVID-19. EKG showing sinus tachycardia, rate [address] abnormality. Troponin negative. In the ED, patient has received 60 mg p.o. prednisone, dose of Tamiflu 75 mg, DuoNeb, albuterol neb, 1 L normal saline, 40meq KCl. Pt to be observed for hypokalemia with PO intolerance associated with influenza A and asthma exacerbation. Review of Systems Review of Systems: General: No fevers, malaise, unintentional weight loss HEENT: +right ear pain, +sinus pain. No blurred vision, diplopia. No sore throat, nasal congestion, rhinorrhea Cardiovascular: No chest pain, palpitations, or leg edema Respiratory: +cough, +wheezing. No shortness of breath GI: +n/v. No abdominal pain, diarrhea, constipation, melena, hematochezia : No dysuria, hematuria, increased urinary frequency, decreased urinary output MSK: +myalgia. No back pain Neuro: No headaches, weakness, paresthesias Skin: No rashes or lesions [facility] Medical History Adrenal adenoma Asthma CAD (coronary artery disease) Chronic sinusitis Constipation Cystocele Essential hypertension Fibromyalgia GERD (gastroesophageal reflux disease) Hemoptysis History of polycystic kidney disease, autosomal dominant Hx MRSA infection Hx of migraines Hx of renal calculi IBS (irritable bowel syndrome) Internal and external hemorrhoids without complication Kidney stones Lumbar radiculopathy Otitis externa PTSD (post-traumatic stress disorder) Saccular aneurysm Sciatica Thyroid nodule Type 2 diabetes mellitus with hyperglycemia Family History Father Cancer of kidney Diabetes Hypertension CVD (cardiovascular disease) Mother Hypertension Cancer Maternal Aunt Colon cancer Brother AIDS Paternal Aunt Ovarian cancer Breast cancer Surgical History History of abdominoplasty History of appendectomy History of cardiac cath History of esophagogastroduodenoscopy (EGD) History of eye surgery History of lithotripsy History of thyroidectomy, subtotal History of tonsillectomy History of total abdominal hysterectomy and bilateral salpingo-oophorectomy History of tubal ligation Hx of colonoscopy Social History Household Members: Spouse Household Members Other:: grandson Housing: House Alcohol intake: never Patient Tobacco Use Status: Former Tobacco user Smoked in Last 30 Days: No e-Cigarette/Vaping Use: Never Used Second Hand Smoke Exposure: No Use of substances other than those prescribed or required for medical reasons: Yes Substance Use Type: Marijuana Advance Directives: No Advance Directives Information Provided: Yes Patient : No service: No Current occupational status: employed 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 Cognitive needs: No Hearing needs: No Vision needs: Yes Meds Allergies Allergy/AdvReac Type Severity Reaction Status Date / Time codeine [Codeine] Allergy Severe ANAPHYLAXIS, Verified 11/25/21 15:00 throat edema lisinopril [LISINOPRIL] Allergy Severe ANGIOEDEMA Verified 11/25/21 15:00 Sulfa (Sulfonamide Allergy Intermediate SHORTNESS Verified 11/25/21 15:00 Antibiotics) OF BREATH, [Sulfa (Sulfonamides)] HIVES, rash doxycycline [Doxycycline] Allergy Mild HIVES Verified 11/25/21 15:00 tramadol Allergy Unknown rash and Verified 11/25/21 15:00 nightmares senna AdvReac Unknown Diarrhea Verified 11/25/21 15:00 Active Medications: Current Medications Acetaminophen (Acetaminophen 325 Mg Tablet) 650 mg PO Q6H PRN PRN Reason: Pain, Mild (Pain Scale 1-3) Albuterol Sulfate (Albuterol Sulfate (0.083%) 2.5 Mg/3 Ml Vial.Neb) 2.5 mg INHALE Q4H PRN PRN Reason: Shortness of Breath/Wheezing Dextrose (Dextrose 50 % 25 Gm/50 Ml Syringe) 25 gm IVPUSH Q15M PRN; Protocol PRN Reason: per Hypoglycemia Standing Ord. Docusate Sodium (Docusate Sodium 100 Mg Capsule) 100 mg PO BID PRN PRN Reason: Constipation Enoxaparin Sodium (Enoxaparin Sodium 40 Mg/0.4 Ml Syringe) 40 mg SUBCUT Q24H [facility] Glucose (Glucose Gel 15 Gm Gel..Gram.) 15 gm PO Q15M PRN; Protocol PRN Reason: per Hypoglycemia Standing Ord. Insulin Human Lispro (Insulin Lispro 100 Unit/Ml 3 Ml Vial) 0 unit SUBCUT QIDACHS [facility]; Protocol Ondansetron HCl (Ondansetron Hcl 4 Mg/2 Ml Vial) 4 mg IVPUSH Q8H PRN PRN Reason: Nausea and Vomiting Pharmacy Consult (Consult Rx Perform Med Rec) 1 each MISCELLANE ONCE PRN PRN Reason: Consult order Sodium Chloride (0.9 % Sodium Chloride Flush 3 Ml Syringe) 3 ml IVFLUSH QSHIFT [facility] Home Medications Medication Instructions Recorded Confirmed Last Taken Type oseltamivir 75 mg capsule 75 mg PO BID 02/04/22 Unknown History Physical Exam Vital Signs and Narrative: Vital Signs: Last Vital Signs Temp 98.8 F 02/04/22 10:56 Pulse 117 H 02/04/22 10:56 Resp 20 02/04/22 10:56 BP 104/60 02/04/22 10:56 Pulse Ox 97 02/04/22 10:56 O2 Del Method 02/04/22 10:56 BMI result Body Mass Index 24.0 Constitutional - Awake and Alert, No apparent distress Eyes - PERRLA, EOMI Cardiovascular - S1S2, RRR, No edema Respiratory - Normal lung expansion, Normal respiratory effort, No respiratory distress, scattered wheezes bilaterally Gastrointestinal - NT / ND; +BS; No rebound or guarding Extremities - no calf tenderness bilaterally, no swelling Skin - Warm/Dry Neurological - Alert & oriented x3, CN II-XII in tact, 5/5 strength BUE and BLE Psychological - Appropriate affect Results Labs CBC and Chem 7: 02/04/22 10:54 02/04/22 10:54 Labs: Laboratory Results - last 24 hr 02/04/22 02/04/22 02/04/22 06:38 06:38 10:54 MCV MCH MCHC RDW Plt Count MPV Immature Gran % (Auto) Neut % (Auto) Lymph % (Auto) [place] % (Auto) Eos % (Auto) Baso % (Auto) Lymph # (Auto) [place] # (Auto) Eos # (Auto) Baso # (Auto) Abs Immat Gran (auto) Absolute Neuts (auto) Absolute Nucleated RBC Nucleated RBC % (auto) Smear Tech's Comments Anion Gap 21 H Estim Creat Clear Calc 67.2 Estimated GFR > 60 POC Glucose Random Glucose 247 H Calcium 8.9 D Troponin I High Sens COVID-19 ([facility]) Negative COVID-19 Clin Com See Note Influenza Type A (TAB) Positive A Influenza Type B (TAB) Negative Influenza A & B Note See Note 02/04/22 02/04/22 02/04/22 10:54 10:54 10:58 MCV 85.4 MCH 28.8 MCHC 33.7 RDW 14.6 Plt Count 284 MPV 10.0 Immature Gran % (Auto) 0.4 Neut % (Auto) 90.5 H Lymph % (Auto) 7.1 L [place] % (Auto) 1.8 L Eos % (Auto) 0.0 Baso % (Auto) 0.2 Lymph # (Auto) 1.0 L [place] # (Auto) 0.3 Eos # (Auto) 0.0 Baso # (Auto) 0.0 Abs Immat Gran (auto) 0.06 H Absolute Neuts (auto) 12.6 H Absolute Nucleated RBC 0.000 Nucleated RBC % (auto) 0.0 Smear Tech's Comments VERIFIED Anion Gap Estim Creat Clear Calc Estimated GFR POC Glucose 223 H Random Glucose Calcium Troponin I High Sens < 3.5 COVID-19 ([facility]) COVID-19 Clin Com Influenza Type A (TAB) Influenza Type B (TAB) Influenza A & B Note Imaging Radiologist's Impressions: Impressions Chest X-Ray 02/04/22 06:56 IMPRESSION: Unremarkable chest examination. Assessment and Plan (1) Influenza A: Status: Acute (2) Acute asthma exacerbation: Status: Acute (3) Acute hypokalemia: Status: Acute (4) Viral sepsis: Status: Acute Plan 61-year-old female with history of coronary artery disease, hypercholes terolemia, nephrolithiasis, osteopenia, anxiety, GERD, [id number] type 2 diabetes with hyperglycemia, hypertension, and mild intermittent asthma to observed for hypokalemia secondary to vomiting from influenza a and acute asthma exacerbation. # acute hypokalemia-secondary to vomiting and albuterol use -received 40 meq PO potassium in ED -Magnesium added -Recheck K @4pm and am # viral sepsis secondary to influenza A -Tachycardia to 116, WBC 13.9 -Monitor VS -Foll cbc #Influenza A -PO tamiflu x 5 days- D1 -Symptomatic management with guaifenesin and Tessalon Perles -ondansetron p.r.n. for nausea and vomiting -Continue IVF d/t Poor PO tolerance -Clear liquids, advance as tolerated # acute asthma exacerbation with baseline mild intermittent asthma secondary to influenza -prednisone 40 mg daily -DuoNebs q.4h while awake -albuterol p.r.n. -no hypoxia -observe on [facility] # type 2 diabetes non-insulin dependent with hyperglycemia -POC glucose -on full liquids, transition to diabetic diet -Humalog on sliding scale # hypertension-BP soft -hold BP meds -Continue IVF # GERD -continue PPI # CAD/HLD-no anginal chest pain -troponin negative -continue statin # depression/anxiety -continue home meds DVT prophylaxis-Lovenox Full code Quality Stroke Does the patient have a stroke diagnosis?: No VTE Prior VTE?: No VTE Risk Level:: Medical - moderate - high VTE Device Contraindication: Treatment Not Indicated VTE Drug Contraindication: N/A - Med Ordered
[2022-02-04 13:24] LABS: Appearance Urine Clear; Color Urine Yellow; Glucose Urine UA 500 mg/dL (Negative); Leukocyte Esterase Urine Negative (Negative); Nitrite Urine Negative (Negative); PH 5.5 (5.0-9.0); UMIC TRIGGER UACC YES; Urine Blood Trace (Negative); Urine Ketones 15 mg/dL (Negative); Urine Protein Trace mg/dL (Neg-Trace)
[2022-02-04 13:29] LABS: Bacteria Urine None Seen (None Seen); Hyaline Casts Urine 0-2 /LPF (0-2); RBC Urine 0-2 /HPF (0-2); Squamous Epithelial Cell Urine 0-2 /HPF (0-2); WBC Urine 0-5 /HPF (0-5)
[2022-02-04 13:29] LABS: Sodium 142 mmol/L (135-145)
--- NOTE | 2022-02-04 13:29 | PHA.MEDREC ---
Pharmacy Consult ? Medication Reconciliation Pharmacy has completed the medication reconciliation. Confirmed medication list with patient and she says she was prescribed oseltamivir but has not started or even picked it up at this time.
[2022-02-04 14:01] LABS: Magnesium 1.5 mg/dL (1.6-2.6)
[2022-02-04 14:48] LABS: Glucose, Whole Blood 223 mg/dL (60-115)
[2022-02-04] MEDS: Enoxaparin Sodium 40 MG/0.4 ML SYRINGE SUBCUT (15:08)
[2022-02-04] MEDS: Magnesium Sulfate/H2O 2 GM/50 ML PIGGYBACK IV (15:08)
[2022-02-04] MEDS: Lactated Ringers 1,000 ML 100 ML IVCONT (15:08)
[2022-02-04 17:00] LABS: Potassium 3.9 mmol/L (3.3-5.1)
[2022-02-04] MEDS: Benzonatate 100 MG CAPSULE PO (17:39)
[2022-02-04] MEDS: Insulin Lispro 100 UNIT/ML 3 ML VIAL SUBCUT (18:36)
[2022-02-04 18:37] LABS: Glucose, Whole Blood 188 mg/dL (60-115)
--- NOTE | 2022-02-04 19:41 | PC.NURSE ---
Assumed care for pt. Pt aox4. Resting at the bedside in no apparent distress. Pt ambulated to the bathroom. Pt is aware of plan of care.
[2022-02-04 22:11] LABS: Glucose, Whole Blood 143 mg/dL (60-115)
[2022-02-04] MEDS: Loratadine 10 MG TABLET PO (23:02)
--- NOTE | 2022-02-04 23:05 | PC.NURSE ---
Pt reports headache, 9/10, and feeling anxious. Pt medicated. Will continue to monitor.
[2022-02-05] MEDS: Zolpidem Tartrate 5 MG TABLET PO (00:33)
[2022-02-05] MEDS: Lactated Ringers 1,000 ML 100 ML IVCONT (00:34)
[2022-02-05] MEDS: Benzonatate 100 MG CAPSULE PO ×2 (03:48→07:47)
[2022-02-05] MEDS: Acetaminophen 325 MG TABLET 650 MG PO (05:22)
[2022-02-05 05:29] VITALS: BP 126/63; PULSE 87; RESP 15; TEMP 37.1; O2SAT 97
[2022-02-05] MEDS: Omeprazole 20 MG CAPSULE.DR PO (06:27)
[2022-02-05 07:01] LABS: MANUAL DIFF FLAG NO
[2022-02-05 07:03] LABS: Basophils Percent Auto 0.3 % (0-2); Hemoglobin 11.2 g/dl (12.0-16.0); Imm Gran Abs Auto 0.02 X10*3/uL (0.00-0.03); Imm Gran Pct Auto 0.3 % (0.0-0.4); Lymphocytes Percent Auto 13.9 % (20-40); Mean Corpuscular HGB Conc 33.9 g/dl (31.0-35.0); Mean Corpuscular Hemoglobin 28.7 pg (27.0-33.0); Mean Corpuscular Volume 84.6 fL (80.0-98.0); Mean Platelet Volume 10.5 fL (9.4-12.3); Monocytes Absolute Auto 0.9 X10*3/uL (0.1-1.2); Monocytes Percent Auto 11.8 % (2-11); Neutrophils Absolute Auto 5.3 x10*3/uL (2.0-8.3); Neutrophils Percent Auto 73.7 % (45-73); Platelet Count 249 X10*3/uL (160-400); Red Cell Distribution Width 14.9 % (11.0-16.0); White Blood Count 7.2 X10*3/uL (4.8-10.8)
[2022-02-05 07:19] VITALS: BP 126/71; PULSE 90; RESP 13; TEMP 37.5; O2SAT 95
[2022-02-05 07:24] LABS: Anion Gap 13 (12-20); Blood Urea Nitrogen 7 mg/dL (9-16); Calcium 8.9 mg/dL (8.4-10.2); Carbon Dioxide 24 mmol/L (22-29); Chloride 106 mmol/L (96-108); Creatinine Clr Calc Pharmacy 78.9; Estimated Glomerular Filt Rate > 60; Glucose Random 123 mg/dL (60-115); Potassium 3.5 mmol/L (3.3-5.1); Sodium 139 mmol/L (135-145)
[2022-02-05 07:41] LABS: Glucose, Whole Blood 133 mg/dL (60-115)
[2022-02-05] MEDS: Potassium Chloride Packet 20 MEQ PACKET 40 MEQ PO (07:45)
[2022-02-05] MEDS: Oseltamivir Phosphate 75 MG CAPSULE PO (07:46)
[2022-02-05] MEDS: Escitalopram Oxalate 10 MG TABLET PO (07:46)
[2022-02-05] MEDS: Atorvastatin Calcium 80 MG TABLET PO (07:46)
[2022-02-05] MEDS: predniSONE 20 MG TABLET 40 MG PO (07:46)
[2022-02-05] MEDS: Ezetimibe 10 MG TABLET PO (07:47)
[2022-02-05 07:49] LABS: Magnesium 1.8 mg/dL (1.6-2.6)
[2022-02-05] MEDS: Albuterol/Iprat 2.5/0.5MG 3 ML AMPUL.NEB INHALE ×2 (07:49→11:06)
[2022-02-05 07:50] VITALS: PULSE 86; RESP 12; O2SAT 97
--- NOTE | 2022-02-05 08:34 | PC.NURSE ---
report taken from azeem cazares pt here for cough and upper resp s/s, flu+. hx of diabetes and asthma, rr even unlabored on room air. offers no new complaints at this time, sts cough is improving. tolerating po without issue, seen by hospitalist today and fluids dc as well as advancing diet, potential for discharge this afternoon. pt agreeable to care plan at this time.
[2022-02-05 11:07] VITALS: PULSE 93; RESP 18; O2SAT 97
[2022-02-05 11:45] LABS: Glucose, Whole Blood 200 mg/dL (60-115)
[2022-02-05 12:22] LABS: Potassium 3.8 mmol/L (3.3-5.1)
--- NOTE | 2022-02-05 13:03 | PM.DS ---
DS: Providers Provider Date of Service: 02/05/22 Date of admission: 02/04/22 12:46 Date of discharge: 02/05/22 Primary care physician: Anamaria Maddox MD Admitting clinician: Alma Overton Attending physician on admission: Leighton Casper Attending physician on discharge: Leighton Casper Discharging clinician: Alma Overton DS: Diagnosis Discharge Diagnosis (1) Influenza A: Status: Acute (2) Acute asthma exacerbation: Status: Acute (3) Acute hypokalemia: Status: Acute (4) Viral sepsis: Status: Acute DS: Summary Hospital Course Hospital Course: HPI on admission 02/04/2022: 61-year-old female with history of coronary artery disease, hypercholesterolemia, nephrolithiasis, osteopenia, anxiety, GERD, [id number] type 2 diabetes with hyperglycemia, hypertension, and mild intermittent asthma presented to the ED this morning complaining of upper respiratory symptoms ongoing for 1 day.? She is reporting dry cough, wheezing with increase in albuterol usage, myalgias, fever of 100, headaches, right ear pain, sinus pressure, p.o. intolerance with 4-5 episodes of vomiting.? She does tell me her grandson was sick with similar symptoms.? On arrival, patient afebrile, tachycardic to 117, no hypoxia or hypotension.? WBC 13.9.? Renal function baseline.? Potassium 2.5, CO2 19, magnesium pending.? Glucose 223.? Positive for influenza a, negative for COVID-19.? EKG showing sinus tachycardia, rate [address] abnormality.? Troponin negative.? In the ED, patient has received 60 mg p.o. prednisone, dose of Tamiflu 75 mg, DuoNeb, albuterol neb, 1 L normal saline, 40meq KCl. Pt to be observed for hypokalemia with PO intolerance associated with influenza A and asthma exacerbation. Hospital course: Hospital course was uneventful. Patient was observed overnight due to her hypokalemia. Potassium was repleted with a total of 40 mEq of KCl with improvement to 3.5, and subsequent dose of 40 mEq of KCl with improvement to 3.8. Hypokalemia is thought to be secondary to albuterol use as well as vomiting that had occurred yesterday but has also resolved. She is tolerating p.o. fluids and solids. She is now afebrile with improvement in wheezing with p.o. prednisone and DuoNebs. She will be discharged home to complete a 5 day course of Tamiflu and 5 day course of prednisone is encouraged to continue using albuterol nebs p.r.n. encouraged to consume foods high in potassium. She should follow-up with PCP soon and is a courage to return to the ED if symptoms worsen. Time spent discussing smoking cessation with patient: more than 10 minutes Status at Discharge Functional status at discharge: independent ambulation Overall status at discharge: patient is back to baseline Time Spent with Patient Time attestation: Total time spent providing and/or coordinating discharge services: Discharge coordination time: Greater than 30 minutes Quality: Safe Use of Opioids Does Pt have an Active Cancer Diagnosis on the Problem List?: No Quality: Stroke Does the patient have a stroke diagnosis?: No Physical Exam Vital Signs: Vital Signs: Last Vital Signs Temp 99.5 F 02/05/22 07:19 Pulse 93 02/05/22 11:07 Resp 18 02/05/22 11:07 BP 126/71 02/05/22 07:19 Pulse Ox 95 02/05/22 07:19 O2 Del Method 02/05/22 07:19 BMI result Body Mass Index 24.0 Constitutional - Awake and Alert, No apparent distress Eyes - PERRLA, EOMI Cardiovascular - S1S2, RRR, No edema Respiratory - Normal lung expansion, Normal respiratory effort, No respiratory distress, CTA bilaterally Gastrointestinal - NT / ND; +BS; No rebound or guarding Extremities - no calf tenderness bilaterally, no swelling Skin - Warm/Dry Neurological - Alert & oriented x3, CN II-XII in tact, 5/5 strength BUE and BLE Psychological - Appropriate affect DS: Data Data Completed and Pending Labs on day of discharge: Laboratory Results - last 24 hr 02/04/22 02/04/22 02/04/22 10:54 13:03 14:43 WBC RBC Hgb Hct MCV MCH MCHC RDW Plt Count MPV Immature Gran % (Auto) Neut % (Auto) Lymph % (Auto) [place] % (Auto) Eos % (Auto) Baso % (Auto) Lymph # (Auto) [place] # (Auto) Eos # (Auto) Baso # (Auto) Abs Immat Gran (auto) Absolute Neuts (auto) Absolute Nucleated RBC Nucleated RBC % (auto) Sodium 142 Potassium Chloride Carbon Dioxide Anion Gap BUN Creatinine Estim Creat Clear Calc Estimated GFR POC Glucose 223 H Random Glucose Calcium Magnesium 1.5 L Urine Color Yellow Urine Appearance Clear Urine pH 5.5 Ur Specific [place] 1.010 Urine Protein Trace Urine Glucose (UA) 500 H Urine Ketones 15 Urine Blood Trace H Urine Nitrite Negative Ur Leukocyte Esterase Negative Urine RBC 0-2 Urine WBC 0-5 Ur Squamous Epith Cells 0-2 Urine Bacteria None Seen Hyaline Casts 0-2 02/04/22 02/04/22 02/04/22 16:41 18:33 21:49 WBC RBC Hgb Hct MCV MCH MCHC RDW Plt Count MPV Immature Gran % (Auto) Neut % (Auto) Lymph % (Auto) [place] % (Auto) Eos % (Auto) Baso % (Auto) Lymph # (Auto) [place] # (Auto) Eos # (Auto) Baso # (Auto) Abs Immat Gran (auto) Absolute Neuts (auto) Absolute Nucleated RBC Nucleated RBC % (auto) Sodium Potassium 3.9 D Chloride Carbon Dioxide Anion Gap BUN Creatinine Estim Creat Clear Calc Estimated GFR POC Glucose 188 H 143 H Random Glucose Calcium Magnesium Urine Color Urine Appearance Urine pH Ur Specific [place] Urine Protein Urine Glucose (UA) Urine Ketones Urine Blood Urine Nitrite Ur Leukocyte Esterase Urine RBC Urine WBC Ur Squamous Epith Cells Urine Bacteria Hyaline Casts 02/05/22 02/05/22 02/05/22 06:30 06:30 07:23 WBC 7.2 RBC 3.90 L Hgb 11.2 L Hct 33.0 L MCV 84.6 MCH 28.7 MCHC 33.9 RDW 14.9 Plt Count 249 MPV 10.5 Immature Gran % (Auto) 0.3 Neut % (Auto) 73.7 H Lymph % (Auto) 13.9 L [place] % (Auto) 11.8 H Eos % (Auto) 0.0 Baso % (Auto) 0.3 Lymph # (Auto) 1.0 L [place] # (Auto) 0.9 Eos # (Auto) 0.0 Baso # (Auto) 0.0 Abs Immat Gran (auto) 0.02 Absolute Neuts (auto) 5.3 Absolute Nucleated RBC 0.000 Nucleated RBC % (auto) 0.0 Sodium 139 Potassium 3.5 Chloride 106 Carbon Dioxide 24 Anion Gap 13 BUN 7 L Creatinine 0.63 Estim Creat Clear Calc 78.9 Estimated GFR > 60 POC Glucose 133 H Random Glucose 123 H Calcium 8.9 Magnesium 1.8 Urine Color Urine Appearance Urine pH Ur Specific [place] Urine Protein Urine Glucose (UA) Urine Ketones Urine Blood Urine Nitrite Ur Leukocyte Esterase Urine RBC Urine WBC Ur Squamous Epith Cells Urine Bacteria Hyaline Casts 02/05/22 02/05/22 11:40 12:02 WBC RBC Hgb Hct MCV MCH MCHC RDW Plt Count MPV Immature Gran % (Auto) Neut % (Auto) Lymph % (Auto) [place] % (Auto) Eos % (Auto) Baso % (Auto) Lymph # (Auto) [place] # (Auto) Eos # (Auto) Baso # (Auto) Abs Immat Gran (auto) Absolute Neuts (auto) Absolute Nucleated RBC Nucleated RBC % (auto) Sodium Potassium 3.8 Chloride Carbon Dioxide Anion Gap BUN Creatinine Estim Creat Clear Calc Estimated GFR POC Glucose 200 H Random Glucose Calcium Magnesium Urine Color Urine Appearance Urine pH Ur Specific [place] Urine Protein Urine Glucose (UA) Urine Ketones Urine Blood Urine Nitrite Ur Leukocyte Esterase Urine RBC Urine WBC Ur Squamous Epith Cells Urine Bacteria Hyaline Casts Imaging Chest x-ray: Radiologist's impression: ITS Impressions Chest X-Ray 02/04/22 06:56 IMPRESSION: Unremarkable chest examination. Discharge Plan Discharge Anticipated Discharge Date/Time: 02/05/22 12:51 Patient Disposition: Home, Self-Care Discharge Diagnosis: Influenza A with asthma exacerbation and acute hypokalemia Referrals: Po,Anamaria Howell MD [Primary Care Provider] - Discharge Medications: New prednisone 20 mg Tablet 40 mg PO DAILY Qty: 6 0RF benzonatate 100 mg Capsule 100 mg PO TID PRN (Reason: Cough) Qty: 30 0RF oseltamivir [Tamiflu] 75 mg Capsule 75 mg PO Q12H Qty: 8 0RF Continued omeprazole 20 mg capsule,delayed release(DR/EC) 20 mg PO DAILY Qty: 90 3RF albuterol sulfate 90 mcg/actuation HFA aerosol inhaler 2 puff PO QID PRN (Reason: for wheezing) Qty: 25.5 0RF escitalopram oxalate 10 mg tablet 10 mg PO DAILY 90 Days Qty: 90 2RF metformin 500 mg tablet 500 mg PO BIDWMEAL 90 Days Qty: 180 2RF zolpidem 10 mg tablet 10 mg PO BEDTIME PRN (Reason: Insomnia) Qty: 30 2RF albuterol sulfate 2.5 mg /3 mL (0.083 %) solution for nebulization 2.5 mg inhalation PRN (Reason: shortness of breath or wheezing) amlodipine 10 mg tablet 10 mg PO BEDTIME lorazepam 1 mg tablet 1 mg PO BEDTIME PRN (Reason: Anxiety) loratadine 10 mg tablet 10 mg PO DAILY PRN (Reason: Allergy Symptoms) ezetimibe 10 mg tablet 10 mg PO DAILY Align 4 mg Capsule 4 mg PO DAILY PRN (Reason: Digestion) rosuvastatin 40 mg tablet 40 mg PO DAILY Qty: 90 1RF Discharge Orders: Discharge Order (Routine); Ordered 02/05/22 Ordered By: Alma Overton Diet: Diabetic diet Activity on Discharge: As tolerated Stand Alone Forms: Patient Portal Discharge page Care Plan Goals: Improve upper respiratory symptoms. Maintain potassium levels Health Concerns: Influenza A with acute asthma exacerbation. Low potassium levels secondary to albuterol use and vomitintg Plan of Treatment: You should continue taking tamiflu twice daily. You have received 2 doses while in the hospital and should continue the medication until completed. You can also take the tessalon perles and robitussin to help with cough. Your asthma is exacerbated (triggered) due to the flu. You have been given 2 days of prednisone while in the hospital. You should complete 5 day course by taking the prednisone 40mg daily for an additional three days and continue using your albuterol as needed. Your potassium was low due to albuterol use and especially your vomiting. Be sure to eat extra sources of potassium to keep potassium up throughout yoru illness. High potassium foods include bananas, oranges, eliseo, spinach, potatoes, squash, coconut water. Follow up with your PCP in 1 week. Return to the hospital for any worsening symptoms. Assessment: See above Patient Instructions: Influenza (ED)
--- NOTE | 2022-02-05 13:11 | MHC.CM.PN ---
pt dcd home no skilled services ordered by
== END 2022-02-05 13:52 | disposition home or self-care (01) ==
LOC: HO.ED 11:55 → HO.EDOVER 13:05
PROVIDERS: Internal Medicine; Admitting Provider Physician Assistant; Emergency Provider Emergency Medicine; PCP Internal Medicine; Visit Provider Physician Assistant
DX: J10.1 Influenza due to other identified influenza virus with other respiratory manifestations (principal); R00.0 Tachycardia, unspecified; J45.901 Unspecified asthma with (acute) exacerbation; E87.6 Hypokalemia; M79.10 Myalgia, unspecified site; R51.9 Headache, unspecified; Z20.822 Contact with and (suspected) exposure to COVID-19; Z79.899 Other long term (current) drug therapy; Z87.891 Personal history of nicotine dependence
CPT/HCPCS: 36415; 71046; 80048; 81001; 82947; 83735; 84132; 84484; 85025; 87502; 87635; 93005; 94640; 96365; 96366; 96367; 96372; 96376; 99219; 99285; J1650; J2405; J3475

== ENCOUNTER 2022-04-06 14:03 | Outpatient (REF) | payer MEDICARE, MEDICAID, SELFPAY ==
[2022-04-06 15:28] LABS: Potassium 4.2 mmol/L (3.3-5.1)
== END 2022-04-06 14:04 | disposition home or self-care (01) ==
LOC: HO.LAB 14:03
PROVIDERS: PCP Internal Medicine; Visit Provider Nurse Practitioner Family
DX: E87.6 Hypokalemia (principal)
CPT/HCPCS: 36415; 84132

== ENCOUNTER 2022-04-27 15:56 | Emergency (ER) | payer MEDICARE, MEDICAID, SELFPAY ==
--- NOTE | ~2022-04-27 | CT_ITS ---
EXAMINATION: CT ABDOMEN AND PELVIS WITHOUT CONTRAST CLINICAL INFORMATION: Left lower quadrant abdominal pain radiating to the left flank and back COMPARISON: 11/06/2021 CT abdomen pelvis TECHNIQUE: Multidetector volumetric imaging was performed from the superior aspect of the liver through the pubic symphysis. Sagittal and coronal reformatted images were obtained on the technologist's workstation. This CT examination was performed using dose optimization techniques as appropriate, variously including the following: *Automated exposure control *Adjustment of mA and/or kV according to patient size (this includes techniques or standardized protocols for targeted exams where dose is matched to indication/reason for exam; i.e. extremities or head) *Use of iterative reconstruction technique DLP: 424 mGy-cm FINDINGS: LUNG BASES: Unremarkable. ABDOMINAL AND PELVIC WALL: Unremarkable. LIVER AND BILIARY TREE: Subcentimeter hepatic hypodensities unchanged, too small to characterize. GALLBLADDER: Unremarkable. PANCREAS: Unremarkable. SPLEEN: Unremarkable. ADRENAL GLANDS: Unremarkable. KIDNEYS AND URETERS: A 1.1 cm macroscopic fat-containing left renal lesion compatible with an angiomyolipoma. Bilateral nonobstructing renal stones measuring up to 5 mm in the right upper pole. No hydronephrosis or obstructive ureterolithiasis. Technique 1 benign-appearing right lower pole renal cyst, no imaging follow-up recommended. 6 mm intermediate density right upper pole left renal lesion, 62 Hounsfield units. GASTROINTESTINAL TRACT: Colonic diverticulosis without evidence of diverticulitis. Appendix is not identified with certainty however there are no inflammatory changes to suggest appendicitis. VASCULAR: Unremarkable. LYMPH NODES/PERITONEUM: No lymphadenopathy. FREE FLUID: None. BLADDER: Unremarkable. PELVIC VISCERA: Status post hysterectomy. OSSEOUS STRUCTURES: Few stable scattered dense sclerotic lesions in the pelvis, which may reflect bone islands. CT/CT abdomen pelvis wo IV con IMPRESSION: Bilateral nonobstructing renal stones measuring up to 5 mm in the right upper pole. No hydronephrosis or obstructive ureterolithiasis. A 0.6 cm intermediate density right upper pole renal lesion, incompletely characterized though one differential consideration would include a hyperdense cyst. Recommend CT or MR renal mass protocol for definitive characterization to ensure no suspicious renal mass. 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
[2022-04-27 16:03] VITALS: BP 145/91; PULSE 88; RESP 16; TEMP 36.5; O2SAT 98; BMI 23.3
--- NOTE | 2022-04-27 16:03 | ED.BACK ---
HPI - Back Pain/Injury General Chief Complaint: Abdominal Pain <SNADY Dickerson - Last Filed: 04/27/22 16:09> Stated Complaint: severe back pain, radiating to left leg <SANDY Dickerson - Last Filed: 04/27/22 16:09> Time Seen by Provider: 04/27/22 21:15 <SANDY Dickerson - Last Filed: 04/27/22 16:09> Source: patient <Travis Pena MD - Last Filed: 04/27/22 21:39> Mode of arrival: ambulatory <Travis Pena MD - Last Filed: 04/27/22 21:39> Limitations: no limitations <Travis Pena MD - Last Filed: 04/27/22 21:39> History of Present Illness HPI Narrative: Patient with left sided back pain radiates into groin and down her front thigh. The pain has bee 4 days, denies injury, works in a [employer], some heavy lifting, dysuris, no hematuria. <Travis Pena MD - Last Filed: 04/27/22 21:39> MD elicited complaint: back pain <Travis Pena MD - Last Filed: 04/27/22 21:39> Pertinent past history: prior back pain <Travis Pena MD - Last Filed: 04/27/22 21:39> Onset (ago): day(s) <Travis Pena MD - Last Filed: 04/27/22 21:39> Timing: intermittent <Travis Pena MD - Last Filed: 04/27/22 21:39> Severity: mild <Travis Pena MD - Last Filed: 04/27/22 21:39> Associated symptoms: other (diarrhea) <Travis Pena MD - Last Filed: 04/27/22 21:39> Related Data Home Medications: Home Medications Medication Instructions Recorded Confirmed Bifidobacterium infantis 4 mg 4 mg PO DAILY PRN Digestion 02/04/22 02/22/22 capsule (Align) albuterol sulfate 2.5 mg/3 mL 2.5 mg inhalation PRN shortness of 02/04/22 02/22/22 (0.083 %) solution for nebulization breath or wheezing amlodipine 10 mg tablet 10 mg PO BEDTIME 02/04/22 02/22/22 ezetimibe 10 mg tablet 10 mg PO DAILY 02/04/22 02/22/22 loratadine 10 mg tablet 10 mg PO DAILY PRN Allergy Symptoms 02/04/22 02/22/22 Previous Rx's Medication Instructions Recorded albuterol sulfate 90 mcg/actuation 2 puff PO QID PRN for wheezing 05/26/21 aerosol inhaler #25.5 grams escitalopram oxalate 10 mg tablet 10 mg PO DAILY 90 days #90 tabs 08/29/21 metformin 500 mg tablet 500 mg PO BIDWMEAL 90 days #180 11/11/21 tabs rosuvastatin 40 mg tablet 40 mg PO DAILY #90 tabs 11/25/21 benzonatate 100 mg capsule 100 mg PO TID PRN Cough #30 caps 02/05/22 zolpidem 10 mg tablet 10 mg PO BEDTIME PRN Insomnia #30 02/20/22 tabs omeprazole 20 mg capsule,delayed 20 mg PO DAILY #90 caps 04/23/22 release lorazepam 1 mg tablet 1 mg PO BEDTIME PRN Anxiety #30 04/24/22 tabs cyclobenzaprine 10 mg tablet 10 mg PO TID #10 tabs 04/27/22 naproxen 500 mg tablet (Naprosyn) 500 mg PO BID #20 tabs 04/27/22 <SANDY Dickerson - Last Filed: 04/27/22 16:09> Allergies/Adverse Reactions: Allergies Allergy/AdvReac Type Severity Reaction Status Date / Time codeine [Codeine] Allergy Severe ANAPHYLAXIS, Verified 04/27/22 16:00 throat edema lisinopril [LISINOPRIL] Allergy Severe ANGIOEDEMA Verified 04/27/22 16:00 Sulfa (Sulfonamide Allergy Intermediate SHORTNESS Verified 04/27/22 16:00 Antibiotics) OF BREATH, [Sulfa (Sulfonamides)] HIVES, rash doxycycline [Doxycycline] Allergy Mild HIVES Verified 04/27/22 16:00 tramadol Allergy Unknown rash and Verified 04/27/22 16:00 nightmares senna AdvReac Unknown Diarrhea Verified 04/27/22 16:00 <SANDY Dickerson - Last Filed: 04/27/22 16:09> Review of Systems Review of Systems: Yes all other systems are reviewed and are negative <Travis Pena MD - Last Filed: 04/27/22 21:39> Musculoskeletal: Musculoskeletal: Reports back pain <Travis Pena MD - Last Filed: 04/27/22 21:39> Neurologic: Denies Sensory deficit (Neuro) <Travis Pena MD - Last Filed: 04/27/22 21:39> [facility] Past Medical History Medical History: Medical History Adrenal adenoma Asthma CAD (coronary artery disease) Chronic sinusitis Constipation Cystocele Essential hypertension Fibromyalgia GERD (gastroesophageal reflux disease) Hemoptysis History of polycystic kidney disease, autosomal dominant Hx MRSA infection Hx of migraines Hx of renal calculi IBS (irritable bowel syndrome) Internal and external hemorrhoids without complication Kidney stones Lumbar radiculopathy Otitis externa PTSD (post-traumatic stress disorder) Saccular aneurysm Sciatica Thyroid nodule Type 2 diabetes mellitus with hyperglycemia <SANDY Dickerson - Last Filed: 04/27/22 16:09> Surgical History: Surgical History History of abdominoplasty History of appendectomy History of cardiac cath History of esophagogastroduodenoscopy (EGD) History of eye surgery History of lithotripsy History of thyroidectomy, subtotal History of tonsillectomy History of total abdominal hysterectomy and bilateral salpingo-oophorectomy History of tubal ligation Hx of colonoscopy <SANDY Dickerson - Last Filed: 04/27/22 16:09> Family History Family History: Family History Father Cancer of kidney Diabetes Hypertension CVD (cardiovascular disease) Mother Hypertension Cancer Maternal Aunt Colon cancer Brother AIDS Paternal Aunt Ovarian cancer Breast cancer <SANDY Dickerson - Last Filed: 04/27/22 16:09> Social History Social History: Social History Household Members: Spouse Household Members Other:: grandson Housing: House Alcohol intake: never Patient Tobacco Use Status: Former Tobacco user e-Cigarette/Vaping Use: Never Used Second Hand Smoke Exposure: No Substance Use Type: Marijuana Advance Directives: No Advance Directives Information Provided: Yes service: No Current occupational status: employed 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 Cognitive needs: No Hearing needs: No Vision needs: Yes <SANDY Dickerson - Last Filed: 04/27/22 16:09> Physical Exam Vital Signs: Vital Signs: Last Vital Signs Temp 97.9 F 04/27/22 21:05 Pulse 75 04/27/22 21:05 Resp 17 04/27/22 21:05 BP 137/68 04/27/22 21:05 Pulse Ox 98 04/27/22 21:05 O2 Del Method 04/27/22 21:05 BMI result Body Mass Index 23.3 <SANDY Dickerson - Last Filed: 04/27/22 16:09> Vital Signs: Last Vital Signs Temp 97.9 F 04/27/22 21:05 Pulse 75 04/27/22 21:05 Resp 17 04/27/22 21:05 BP 137/68 04/27/22 21:05 Pulse Ox 98 04/27/22 21:05 O2 Del Method 04/27/22 21:05 BMI result Body Mass Index 23.3 <Travis Pena MD - Last Filed: 04/27/22 21:39> Const: General: healthy appearing <Travis Pena MD - Last Filed: 04/27/22 21:39> Nutritional Appearance: average body habitus <Travis Pena MD - Last Filed: 04/27/22 21:39> Orientation/consciousness: oriented to person and patient oriented x3 <Travis Pena MD - Last Filed: 04/27/22 21:39> Limitations: no limitations <Travis Pena MD - Last Filed: 04/27/22 21:39> HEENT: Head: Yes normal to inspection <Travis Pena MD - Last Filed: 04/27/22 21:39> Ears: external ears normal <Travis Pena MD - Last Filed: 04/27/22 21:39> General nose exam: Normal external nose present <Travis Pena MD - Last Filed: 04/27/22 21:39> Mouth: Normal oral and palatal mucosa present and oropharynx normal <Travis Pena MD - Last Filed: 04/27/22 21:39> Throat: Yes posterior oropharynx normal <Travis Pena MD - Last Filed: 04/27/22 21:39> Eyes: General: appearance normal, both eyes and all related structures <Travis Pena MD - Last Filed: 04/27/22 21:39> Neck: Other: supple <Travis Pena MD - Last Filed: 04/27/22 21:39> Neck: Yes normal visual inspection <Travis Pena MD - Last Filed: 04/27/22 21:39> Chest: Chest palpation & inspection: normal inspection of the chest <Travis Pena MD - Last Filed: 04/27/22 21:39> Resp: Auscultation: clear to auscultation bilaterally <Traivs Pena MD - Last Filed: 04/27/22 21:39> Cardio: Jugular venous distension: no JVD <Travis Pena MD - Last Filed: 04/27/22 21:39> Rate: regular rate <Travis Pena MD - Last Filed: 04/27/22 21:39> Rhythm: regular rhythm <Travis Pena MD - Last Filed: 04/27/22 21:39> Heart sounds: S1 normal heart sound present and S2 normal heart sound present <Travis Pena MD - Last Filed: 04/27/22 21:39> GI: Inspection: Yes normal to inspection <Travis Pena MD - Last Filed: 04/27/22 21:39> Palpation (GI): Soft to palpation, nontender and No hepatosplenomegaly present <Travis Pena MD - Last Filed: 04/27/22 21:39> Auscultation: normal bowel sounds <Travis Pena MD - Last Filed: 04/27/22 21:39> : General: Yes no CVA tenderness <Travis Pena MD - Last Filed: 04/27/22 21:39> Back/Spine/Pelvis: Other: left sciatic pain to palpation with radiation down her leg <Travis Pena MD - Last Filed: 04/27/22 21:39> Back: no CVA tenderness <Travis Pena MD - Last Filed: 04/27/22 21:39> Skin: General skin exam: no rashes or lesions noted <Travis Pena MD - Last Filed: 04/27/22 21:39> Neuro: General: oriented to person and patient oriented x3 <Travis Pena MD - Last Filed: 04/27/22 21:39> Cranial nerves: Yes CN's II-XII intact bilaterally <Travis Pena MD - Last Filed: 04/27/22 21:39> Motor exam (neuro): 5/5 motor strength present throughout <Travis Pena MD - Last Filed: 04/27/22 21:39> Sensory Exam: No Sensory deficit (Neuro) <Travis Pena MD - Last Filed: 04/27/22 21:39> Extrem: General: Yes normal to inspection <Travis Pena MD - Last Filed: 04/27/22 21:39> Psych: Appearance: grossly normal <Travis Pena MD - Last Filed: 04/27/22 21:39> Course Course Course Narrative: RME- 16:05PM 61-year-old female with a past medical history of diabetes type 2, HTN, HLD, CAD, adrenal adenoma, asthma, chronic sinusitis, fibromyalgia, GERD, polycystic kidney disease, history of MRSA infection, migraine headaches, renal calculi, IBS, hemorrhoids, kidney stones, lumbar radiculopathy/sciatica, PTSD, sacral aneurysm and thyroid nodule presenting with complaints of LLQ abd pain that radiates to left side of back. Reports he does not feel like her regular kidney stones. She is having some diarrhea. She did recently travel to [place] by car. She denies any fevers, dysuria, hematuria, urinary bowel incontinence or retention, recent falls or trauma. Plan; labs, UA, CT scan abdomen pelvis without IV contrast, COVID/RSV/flu swab. Patient's sent back to waiting to be evaluated in the ED. <SANDY Dickerson - Last Filed: 04/27/22 16:09> Reevaluation(s) Reevaluation #1: labs and CT negative for reasons for back pain. Physical exam consistent with sciatica will medicate and dc home <Travis Pena MD - Last Filed: 04/27/22 21:39> Time: 21:33 <Travis Pena MD - Last Filed: 04/27/22 21:39> Medical Decision Making Differential Diagnosis Differential Diagnoses: The differential diagnosis associated with the presentation includes (renal colic, pyelonephritis, UTI, sciatica, lumbar radiculopathy) <Traivs Pena MD - Last Filed: 04/27/22 21:39> Lab Data MDM Lab Attestation statement: I reviewed the patient's lab results. (urine appears contaminated will not treat at this time. CT scan consistent with old findings) <Travis Pena MD - Last Filed: 04/27/22 21:39> Result Diagrams: 04/27/22 16:27 04/27/22 16:27 <SANDY Dickerson - Last Filed: 04/27/22 16:09> Labs: Lab Results 04/27/22 04/27/22 04/27/22 Range/Units 16:27 16:27 16:27 WBC 7.7 (4.8-10.8) X10*3/uL RBC 4.25 (4.20-5.50) X10*6/uL Hgb 12.2 (12.0-16.0) g/dl Hct 37.1 (37.0-47.0) % MCV 87.3 (80.0-98.0) fL MCH 28.7 (27.0-33.0) pg MCHC 32.9 (31.0-35.0) g/dl RDW 14.4 (11.0-16.0) % Plt Count 292 (160-400) X10*3/uL MPV 9.8 (9.4-12.3) fL Immature Gran % (Auto) 0.1 (0.0-0.4) % Neut % (Auto) 59.9 (45-73) % Lymph % (Auto) 33.4 (20-40) % [place] % (Auto) 5.4 (2-11) % Eos % (Auto) 0.8 (0-4) % Baso % (Auto) 0.4 (0-2) % Lymph # (Auto) 2.6 (1.2-4.9) X10*3/uL [place] # (Auto) 0.4 (0.1-1.2) X10*3/uL Eos # (Auto) 0.1 (0.0-0.4) X10*3/uL Baso # (Auto) 0.0 (0.0-0.2) X10*3/uL Abs Immat Gran (auto) 0.01 (0.00-0.03) X10*3/uL Absolute Neuts (auto) 4.6 (2.0-8.3) x10*3/uL Absolute Nucleated RBC 0.000 (0.0-0.012) X10*3/uL Nucleated RBC % (auto) 0.0 (0.0-0.2) /100WBC Sodium 143 (135-145) mmol/L Potassium 3.6 (3.3-5.1) mmol/L Chloride 108 (96-108) mmol/L Carbon Dioxide 27 (22-29) mmol/L Anion Gap 12 (12-20) BUN 17 H (9-16) mg/dL Creatinine 0.66 (0.5-1.4) mg/dL Estim Creat Clear Calc 78.5 Estimated GFR > 60 Random Glucose 117 H (60-115) mg/dL Calcium 9.2 (8.4-10.2) mg/dL Magnesium 1.8 (1.6-2.6) mg/dL Total Bilirubin 0.6 (0.0-1.0) mg/dL AST 14 (5-31) U/L ALT 14 (0-31) U/L Alkaline Phosphatase 83 (39-117) U/L Total Protein 6.8 (6.5-8.0) g/dL Albumin 4.2 (3.5-5.0) g/dL Urine Color Urine Appearance Urine pH (5.0-9.0) Ur Specific [place] (1.005-1.025) Urine Protein (Neg-Trace) mg/dL Urine Glucose (UA) (Negative) mg/dL Urine Ketones (Negative) mg/dL Urine Blood (Negative) Urine Nitrite (Negative) Ur Leukocyte Esterase (Negative) Urine RBC (0-2) /HPF Urine WBC (0-5) /HPF Ur Squamous Epith Cells (0-2) /HPF Urine Bacteria (None Seen) Hyaline Casts (0-2) /LPF Influenza Type A (PCR) NEGATIVE (Negative) Influenza Type B (PCR) NEGATIVE (Negative) RSV RNA Qual (PCR) NEGATIVE (Negative) SARS-CoV-2 RNA (RT-PCR) NEGATIVE (Negative) 04/27/22 Range/Units 16:27 WBC (4.8-10.8) X10*3/uL RBC (4.20-5.50) X10*6/uL Hgb (12.0-16.0) g/dl Hct (37.0-47.0) % MCV (80.0-98.0) fL MCH (27.0-33.0) pg MCHC (31.0-35.0) g/dl RDW (11.0-16.0) % Plt Count (160-400) X10*3/uL MPV (9.4-12.3) fL Immature Gran % (Auto) (0.0-0.4) % Neut % (Auto) (45-73) % Lymph % (Auto) (20-40) % [place] % (Auto) (2-11) % Eos % (Auto) (0-4) % Baso % (Auto) (0-2) % Lymph # (Auto) (1.2-4.9) X10*3/uL [place] # (Auto) (0.1-1.2) X10*3/uL Eos # (Auto) (0.0-0.4) X10*3/uL Baso # (Auto) (0.0-0.2) X10*3/uL Abs Immat Gran (auto) (0.00-0.03) X10*3/uL Absolute Neuts (auto) (2.0-8.3) x10*3/uL Absolute Nucleated RBC (0.0-0.012) X10*3/uL Nucleated RBC % (auto) (0.0-0.2) /100WBC Sodium (135-145) mmol/L Potassium (3.3-5.1) mmol/L Chloride (96-108) mmol/L Carbon Dioxide (22-29) mmol/L Anion Gap (12-20) BUN (9-16) mg/dL Creatinine (0.5-1.4) mg/dL Estim Creat Clear Calc Estimated GFR Random Glucose (60-115) mg/dL Calcium (8.4-10.2) mg/dL Magnesium (1.6-2.6) mg/dL Total Bilirubin (0.0-1.0) mg/dL AST (5-31) U/L ALT (0-31) U/L Alkaline Phosphatase (39-117) U/L Total Protein (6.5-8.0) g/dL Albumin (3.5-5.0) g/dL Urine Color Yellow Urine Appearance Cloudy Urine pH 7.5 (5.0-9.0) Ur Specific [place] 1.020 (1.005-1.025) Urine Protein 30 (1+) H (Neg-Trace) mg/dL Urine Glucose (UA) 100 H (Negative) mg/dL Urine Ketones Negative (Negative) mg/dL Urine Blood Negative (Negative) Urine Nitrite Negative (Negative) Ur Leukocyte Esterase Small (1+) H (Negative) Urine RBC 0-2 (0-2) /HPF Urine WBC 11-20 H (0-5) /HPF Ur Squamous Epith Cells 3-5 (0-2) /HPF Urine Bacteria Trace (None Seen) Hyaline Casts 0-2 (0-2) /LPF Influenza Type A (PCR) (Negative) Influenza Type B (PCR) (Negative) RSV RNA Qual (PCR) (Negative) SARS-CoV-2 RNA (RT-PCR) (Negative) <SANDY Dickerson - Last Filed: 04/27/22 16:09> Lab Results 04/27/22 04/27/22 04/27/22 Range/Units 16:27 16:27 16:27 WBC 7.7 (4.8-10.8) X10*3/uL RBC 4.25 (4.20-5.50) X10*6/uL Hgb 12.2 (12.0-16.0) g/dl Hct 37.1 (37.0-47.0) % MCV 87.3 (80.0-98.0) fL MCH 28.7 (27.0-33.0) pg MCHC 32.9 (31.0-35.0) g/dl RDW 14.4 (11.0-16.0) % Plt Count 292 (160-400) X10*3/uL MPV 9.8 (9.4-12.3) fL Immature Gran % (Auto) 0.1 (0.0-0.4) % Neut % (Auto) 59.9 (45-73) % Lymph % (Auto) 33.4 (20-40) % [place] % (Auto) 5.4 (2-11) % Eos % (Auto) 0.8 (0-4) % Baso % (Auto) 0.4 (0-2) % Lymph # (Auto) 2.6 (1.2-4.9) X10*3/uL [place] # (Auto) 0.4 (0.1-1.2) X10*3/uL Eos # (Auto) 0.1 (0.0-0.4) X10*3/uL Baso # (Auto) 0.0 (0.0-0.2) X10*3/uL Abs Immat Gran (auto) 0.01 (0.00-0.03) X10*3/uL Absolute Neuts (auto) 4.6 (2.0-8.3) x10*3/uL Absolute Nucleated RBC 0.000 (0.0-0.012) X10*3/uL Nucleated RBC % (auto) 0.0 (0.0-0.2) /100WBC Sodium 143 (135-145) mmol/L Potassium 3.6 (3.3-5.1) mmol/L Chloride 108 (96-108) mmol/L Carbon Dioxide 27 (22-29) mmol/L Anion Gap 12 (12-20) BUN 17 H (9-16) mg/dL Creatinine 0.66 (0.5-1.4) mg/dL Estim Creat Clear Calc 78.5 Estimated GFR > 60 Random Glucose 117 H (60-115) mg/dL Calcium 9.2 (8.4-10.2) mg/dL Magnesium 1.8 (1.6-2.6) mg/dL Total Bilirubin 0.6 (0.0-1.0) mg/dL AST 14 (5-31) U/L ALT 14 (0-31) U/L Alkaline Phosphatase 83 (39-117) U/L Total Protein 6.8 (6.5-8.0) g/dL Albumin 4.2 (3.5-5.0) g/dL Urine Color Urine Appearance Urine pH (5.0-9.0) Ur Specific [place] (1.005-1.025) Urine Protein (Neg-Trace) mg/dL Urine Glucose (UA) (Negative) mg/dL Urine Ketones (Negative) mg/dL Urine Blood (Negative) Urine Nitrite (Negative) Ur Leukocyte Esterase (Negative) Urine RBC (0-2) /HPF Urine WBC (0-5) /HPF Ur Squamous Epith Cells (0-2) /HPF Urine Bacteria (None Seen) Hyaline Casts (0-2) /LPF Influenza Type A (PCR) NEGATIVE (Negative) Influenza Type B (PCR) NEGATIVE (Negative) RSV RNA Qual (PCR) NEGATIVE (Negative) SARS-CoV-2 RNA (RT-PCR) NEGATIVE (Negative) 04/27/22 Range/Units 16:27 WBC (4.8-10.8) X10*3/uL RBC (4.20-5.50) X10*6/uL Hgb (12.0-16.0) g/dl Hct (37.0-47.0) % MCV (80.0-98.0) fL MCH (27.0-33.0) pg MCHC (31.0-35.0) g/dl RDW (11.0-16.0) % Plt Count (160-400) X10*3/uL MPV (9.4-12.3) fL Immature Gran % (Auto) (0.0-0.4) % Neut % (Auto) (45-73) % Lymph % (Auto) (20-40) % [place] % (Auto) (2-11) % Eos % (Auto) (0-4) % Baso % (Auto) (0-2) % Lymph # (Auto) (1.2-4.9) X10*3/uL [place] # (Auto) (0.1-1.2) X10*3/uL Eos # (Auto) (0.0-0.4) X10*3/uL Baso # (Auto) (0.0-0.2) X10*3/uL Abs Immat Gran (auto) (0.00-0.03) X10*3/uL Absolute Neuts (auto) (2.0-8.3) x10*3/uL Absolute Nucleated RBC (0.0-0.012) X10*3/uL Nucleated RBC % (auto) (0.0-0.2) /100WBC Sodium (135-145) mmol/L Potassium (3.3-5.1) mmol/L Chloride (96-108) mmol/L Carbon Dioxide (22-29) mmol/L Anion Gap (12-20) BUN (9-16) mg/dL Creatinine (0.5-1.4) mg/dL Estim Creat Clear Calc Estimated GFR Random Glucose (60-115) mg/dL Calcium (8.4-10.2) mg/dL Magnesium (1.6-2.6) mg/dL Total Bilirubin (0.0-1.0) mg/dL AST (5-31) U/L ALT (0-31) U/L Alkaline Phosphatase (39-117) U/L Total Protein (6.5-8.0) g/dL Albumin (3.5-5.0) g/dL Urine Color Yellow Urine Appearance Cloudy Urine pH 7.5 (5.0-9.0) Ur Specific [place] 1.020 (1.005-1.025) Urine Protein 30 (1+) H (Neg-Trace) mg/dL Urine Glucose (UA) 100 H (Negative) mg/dL Urine Ketones Negative (Negative) mg/dL Urine Blood Negative (Negative) Urine Nitrite Negative (Negative) Ur Leukocyte Esterase Small (1+) H (Negative) Urine RBC 0-2 (0-2) /HPF Urine WBC 11-20 H (0-5) /HPF Ur Squamous Epith Cells 3-5 (0-2) /HPF Urine Bacteria Trace (None Seen) Hyaline Casts 0-2 (0-2) /LPF Influenza Type A (PCR) (Negative) Influenza Type B (PCR) (Negative) RSV RNA Qual (PCR) (Negative) SARS-CoV-2 RNA (RT-PCR) (Negative) <Travis Pena MD - Last Filed: 04/27/22 21:39> Radiology Impression Discussion of test interpretation with radiology: I have reviewed the radiologist's reading. (CT reviewed) <Travis Pena MD - Last Filed: 04/27/22 21:39> Discharge Plan Discharge Clinical Impression: Sciatica, Acute left lumbar radiculopathy <SANDY Dickerson - Last Filed: 04/27/22 16:09> Patient Disposition: Home, Self-Care <SANDY Dickerson - Last Filed: 04/27/22 16:09> Instructions: Sciatica (ED), Acute Low Back Pain (ED), Lumbar Radiculopathy (ED) <SANDY Dickerson - Last Filed: 04/27/22 16:09> Prescriptions: New cyclobenzaprine 10 mg tablet 10 mg PO TID Qty: 10 0RF naproxen [Naprosyn] 500 mg tablet 500 mg PO BID Qty: 20 0RF No Action albuterol sulfate 90 mcg/actuation HFA aerosol inhaler 2 puff PO QID PRN (Reason: for wheezing) Qty: 25.5 0RF escitalopram oxalate 10 mg tablet 10 mg PO DAILY 90 Days Qty: 90 2RF metformin 500 mg tablet 500 mg PO BIDWMEAL 90 Days Qty: 180 2RF zolpidem 10 mg tablet 10 mg PO BEDTIME PRN (Reason: Insomnia) Qty: 30 2RF omeprazole 20 mg capsule,delayed release(DR/EC) 20 mg PO DAILY Qty: 90 3RF lorazepam 1 mg tablet 1 mg PO BEDTIME PRN (Reason: Anxiety) Qty: 30 0RF albuterol sulfate 2.5 mg /3 mL (0.083 %) solution for nebulization 2.5 mg inhalation PRN (Reason: shortness of breath or wheezing) amlodipine 10 mg tablet 10 mg PO BEDTIME loratadine 10 mg tablet 10 mg PO DAILY PRN (Reason: Allergy Symptoms) ezetimibe 10 mg tablet 10 mg PO DAILY Align 4 mg Capsule 4 mg PO DAILY PRN (Reason: Digestion) benzonatate 100 mg Capsule 100 mg PO TID PRN (Reason: Cough) Qty: 30 0RF rosuvastatin 40 mg tablet 40 mg PO DAILY Qty: 90 1RF <SANDY Dickerson - Last Filed: 04/27/22 16:09> Referrals: Po,Anamaria Howell MD [Primary Care Provider] - 1 week <SANDY Dickerson - Last Filed: 04/27/22 16:09>
[2022-04-27 16:34] LABS: MANUAL DIFF FLAG NO
[2022-04-27 16:39] LABS: Basophils Percent Auto 0.4 % (0-2); Eosinophils Absolute Auto 0.1 X10*3/uL (0.0-0.4); Eosinophils Percent Auto 0.8 % (0-4); Hematocrit 37.1 % (37.0-47.0); Hemoglobin 12.2 g/dl (12.0-16.0); Imm Gran Abs Auto 0.01 X10*3/uL (0.00-0.03); Imm Gran Pct Auto 0.1 % (0.0-0.4); Lymphocytes Absolute Auto 2.6 X10*3/uL (1.2-4.9); Lymphocytes Percent Auto 33.4 % (20-40); Mean Corpuscular HGB Conc 32.9 g/dl (31.0-35.0); Mean Corpuscular Hemoglobin 28.7 pg (27.0-33.0); Mean Corpuscular Volume 87.3 fL (80.0-98.0); Mean Platelet Volume 9.8 fL (9.4-12.3); Monocytes Absolute Auto 0.4 X10*3/uL (0.1-1.2); Monocytes Percent Auto 5.4 % (2-11); Neutrophils Absolute Auto 4.6 x10*3/uL (2.0-8.3); Neutrophils Percent Auto 59.9 % (45-73); Platelet Count 292 X10*3/uL (160-400); Red Blood Count 4.25 X10*6/uL (4.20-5.50); Red Cell Distribution Width 14.4 % (11.0-16.0); White Blood Count 7.7 X10*3/uL (4.8-10.8)
[2022-04-27 16:40] LABS: Appearance Urine Cloudy; Color Urine Yellow; Glucose Urine UA 100 mg/dL (Negative); Leukocyte Esterase Urine Small (1+) (Negative); Nitrite Urine Negative (Negative); PH 7.5 (5.0-9.0); UMIC TRIGGER UACC YES; Urine Blood Negative (Negative); Urine Ketones Negative (Negative); Urine Protein 30 (1+) mg/dL (Neg-Trace)
[2022-04-27 16:52] LABS: Alanine Aminotransferase 14 U/L (0-31); Albumin Level 4.2 g/dL (3.5-5.0); Alkaline Phosphatase 83 U/L (39-117); Anion Gap 12 (12-20); Aspartate Amino Transferase 14 U/L (5-31); Bilirubin Total 0.6 mg/dL (0.0-1.0); Blood Urea Nitrogen 17 mg/dL (9-16); Calcium 9.2 mg/dL (8.4-10.2); Carbon Dioxide 27 mmol/L (22-29); Chloride 108 mmol/L (96-108); Creatinine Clr Calc Pharmacy 78.5; Estimated Glomerular Filt Rate > 60; Glucose Random 117 mg/dL (60-115); Magnesium 1.8 mg/dL (1.6-2.6); Potassium 3.6 mmol/L (3.3-5.1); Sodium 143 mmol/L (135-145); Total Protein 6.8 g/dL (6.5-8.0)
[2022-04-27 17:27] LABS: Influenza A PCR NEGATIVE (Negative); Influenza B PCR NEGATIVE (Negative); Resp Syncy Virus RNA Qual PCR NEGATIVE (Negative); SARS COV2 PCR INHOUSE NEGATIVE (Negative)
[2022-04-27 18:32] LABS: Bacteria Urine Trace (None Seen); Hyaline Casts Urine 0-2 /LPF (0-2); RBC Urine 0-2 /HPF (0-2); UACC Culture Trigger YES
[2022-04-27 21:05] VITALS: BP 137/68; PULSE 75; RESP 17; TEMP 36.6; O2SAT 98
[2022-04-27] MEDS: Ketorolac Tromethamine 60 MG/2 ML VIAL IM (21:54)
[2022-04-27] MEDS: Cyclobenzaprine HCl 10 MG TABLET PO (21:54)
== END 2022-04-27 22:00 | disposition home or self-care (01) ==
PROVIDERS: Physician Assistant Medical; Emergency Provider Emergency Medicine; PCP Internal Medicine
DX: M54.42 Lumbago with sciatica, left side (principal); M54.16 Radiculopathy, lumbar region; R10.9 Unspecified abdominal pain; Z20.822 Contact with and (suspected) exposure to COVID-19; Z20.828 Contact with and (suspected) exposure to other viral communicable diseases; Z79.899 Other long term (current) drug therapy
CPT/HCPCS: 0241U; 36415; 74176; 80053; 81001; 83735; 85025; 87086; 99283; 99284; J1885

== ENCOUNTER 2022-06-29 20:59 | Emergency (ER) | payer MEDICARE, MEDICAID, SELFPAY ==
--- NOTE | ~2022-06-29 | CT_ITS ---
EXAMINATION: CT ABDOMEN AND PELVIS WITH CONTRAST CLINICAL INFORMATION: Left upper abdominal pain COMPARISON: 04/27/2022 TECHNIQUE: Multidetector volumetric images were obtained from the superior aspect of the liver through the pubic symphysis following administration 85 mL of Omnipaque 350 intravenous contrast. Sagittal and coronal reformatted images were obtained on the technologist's workstation. Oral contrast: No This CT examination was performed using dose optimization techniques as appropriate, variously including the following: *Automated exposure control *Adjustment of mA and/or kV according to patient size (this includes techniques or standardized protocols for targeted exams where dose is matched to indication/reason for exam; i.e. extremities or head) *Use of iterative reconstruction technique DLP: 456 mGy-cm FINDINGS: LUNG BASES: The visualized lung bases are unremarkable. Coronary artery calcifications are present. LIVER, GALLBLADDER, AND BILIARY TREE: The liver is normal in size, shape, and attenuation. A few tiny hypoattenuating foci are too small to characterize, suggestive of small cysts. No biliary ductal dilatation is present. The gallbladder is unremarkable with no evidence of radiopaque gallstones, gallbladder wall thickening, or obvious pericholecystic inflammatory changes. PANCREAS: Unremarkable. SPLEEN: Unremarkable. ADRENAL GLANDS: Unremarkable. KIDNEYS AND URETERS: No hydronephrosis or obstructing calculus bilaterally. Bilateral nephrograms are symmetric. Left renal angiomyolipoma redemonstrated. There are numerous scattered hypodense lesions throughout both kidneys, many of which are subcentimeter in size and too small to definitively characterize. No appreciable change in appearance of these lesions since prior contrast-enhanced CT of 11/06/2021, and these are favored to represent cysts; no follow-up required. Scattered calculi are present in the right kidney measuring up to 5 mm. BLADDER: Unremarkable. GASTROINTESTINAL TRACT: Colonic diverticulosis is noted. No significant bowel wall thickening is seen. There is mild fluid distention of multiple segments of small bowel, without convincing evidence for obstruction. No free fluid or free air is seen. ABDOMINAL WALL: No significant hernia is appreciated. LYMPH NODES: Normal. VASCULAR: Scattered atherosclerotic calcifications. PELVIC VISCERA: Patient is status post hysterectomy. OSSEOUS STRUCTURES: Unremarkable. CT/CT abdomen pelvis w IV con IMPRESSION: 1. No acute findings identified in the abdomen/pelvis. Mild fluid distention of multiple segments of small bowel, without convincing evidence for obstruction. 2. Coronary artery calcifications. Correlation with cardiac risk factors is recommended. 3. Numerous scattered hypodense lesions throughout both kidneys, many of which are subcentimeter in size and too small to definitively characterize, though statistically favored to represent cysts.
[2022-06-29 21:08] VITALS: BP 135/75; PULSE 88; RESP 18; TEMP 37.2; O2SAT 98; BMI 24.1
[2022-06-29 21:37] LABS: Hematocrit 34.9 % (37.0-47.0); Hemoglobin 11.7 g/dl (12.0-16.0); Mean Corpuscular HGB Conc 33.5 g/dl (31.0-35.0); Mean Corpuscular Hemoglobin 28.9 pg (27.0-33.0); Mean Corpuscular Volume 86.2 fL (80.0-98.0); Mean Platelet Volume 9.6 fL (9.4-12.3); Platelet Count 291 X10*3/uL (160-400); Red Blood Count 4.05 X10*6/uL (4.20-5.50); Red Cell Distribution Width 14.7 % (11.0-16.0); White Blood Count 9.6 X10*3/uL (4.8-10.8)
[2022-06-29 21:39] LABS: Appearance Urine Clear; Color Urine Yellow; Glucose Urine UA Negative (Negative); Leukocyte Esterase Urine Negative (Negative); Nitrite Urine Negative (Negative); UMIC TRIGGER UACC YES; Urine Blood Small (1+) (Negative); Urine Ketones Negative (Negative); Urine Protein Trace mg/dL (Neg-Trace)
[2022-06-29 21:45] LABS: Bacteria Urine None Seen (None Seen); Hyaline Casts Urine 0-2 /LPF (0-2); Squamous Epithelial Cell Urine 0-2 /HPF (0-2); WBC Urine 0-5 /HPF (0-5)
[2022-06-29 21:54] LABS: Alanine Aminotransferase 11 U/L (0-31); Albumin Level 4.2 g/dL (3.5-5.0); Alkaline Phosphatase 83 U/L (39-117); Anion Gap 15 (12-20); Aspartate Amino Transferase 15 U/L (5-31); Bilirubin Total 0.5 mg/dL (0.0-1.0); Blood Urea Nitrogen 15 mg/dL (9-16); Calcium 9.2 mg/dL (8.4-10.2); Carbon Dioxide 24 mmol/L (22-29); Chloride 104 mmol/L (96-108); Creatinine Clr Calc Pharmacy 61.5; Estimated Glomerular Filt Rate > 60; Glucose Random 112 mg/dL (60-115); Lipase 24 U/L (8-78); Potassium 4.2 mmol/L (3.3-5.1); Sodium 139 mmol/L (135-145); Total Protein 7.1 g/dL (6.5-8.0)
[2022-06-29 23:48] VITALS: BP 128/63; PULSE 88; RESP 19; TEMP 37.5; O2SAT 99
[2022-06-29 23:49] LABS: Glucose, Whole Blood 123 mg/dL (60-115)
--- NOTE | 2022-06-30 00:44 | ED_ITS ---
HPI - Abdominal Pain General Chief Complaint: Abdominal Pain Stated Complaint: ? pink eye vomiting x5 days Time Seen by Provider: 06/30/22 00:43 Source: patient Mode of arrival: ambulatory Limitations: no limitations History of Present Illness HPI narrative: Patient with no significant past medical history complaining of dark stool and dark color vomiting for last 4 days initially vomiting was clear now for last 3 days it become dark not taking any [id number] iron or Pepto-Bismol opening of diffuse abdominal pain more in epigastric and left upper quadrant no fever no chills no urine complaints also complaining of right eyelid swelling for last few days no discharge from the eye Related Data Home Medications Medication Instructions Recorded Confirmed Bifidobacterium infantis 4 mg 4 mg PO DAILY PRN Digestion 02/04/22 06/02/22 capsule (Align) albuterol sulfate 2.5 mg/3 mL 2.5 mg inhalation PRN shortness of 02/04/22 (0.083 %) solution for nebulization breath or wheezing ezetimibe 10 mg tablet 10 mg PO DAILY 02/04/22 06/02/22 loratadine 10 mg tablet 10 mg PO DAILY PRN Allergy Symptoms 02/04/22 06/02/22 Previous Rx's Medication Instructions Recorded albuterol sulfate 90 mcg/actuation 2 puff PO QID PRN for wheezing 05/26/21 aerosol inhaler #25.5 grams escitalopram oxalate 10 mg tablet 10 mg PO DAILY 90 days #90 tabs 08/29/21 metformin 500 mg tablet 500 mg PO BIDWMEAL 90 days #180 11/11/21 tabs benzonatate 100 mg capsule 100 mg PO TID PRN Cough #30 caps 02/05/22 omeprazole 20 mg capsule,delayed 20 mg PO DAILY #90 caps 04/23/22 release cyclobenzaprine 10 mg tablet 10 mg PO TID #10 tabs 04/27/22 naproxen 500 mg tablet (Naprosyn) 500 mg PO BID #20 tabs 04/27/22 amlodipine 10 mg tablet 10 mg PO BEDTIME #90 tabs 05/15/22 rosuvastatin 40 mg tablet 40 mg PO DAILY #90 tabs 06/01/22 beclomethasone dipropionate 40 2 inh inhalation BID #10.6 grams 06/02/22 mcg/actuation HFA breath activated aerosol (Qvar RediHaler) lorazepam 1 mg tablet 1 mg PO BEDTIME PRN Anxiety #30 06/22/22 tabs zolpidem 10 mg tablet 10 mg PO BEDTIME PRN Insomnia #30 06/22/22 tabs cephalexin 500 mg capsule 500 mg PO QID 10 days #40 caps 06/30/22 dicyclomine 20 mg tablet 20 mg PO TID #20 tabs 06/30/22 erythromycin 5 mg/gram (0.5 %) eye 1 appl ophthalmic (eye) BID #3.5 06/30/22 ointment grams omeprazole 40 mg capsule,delayed 40 mg PO DAILY #30 caps 06/30/22 release ondansetron 4 mg disintegrating 4 mg PO Q6-8H PRN nausea and 06/30/22 tablet vomiting #10 tabs Allergies Allergy/AdvReac Type Severity Reaction Status Date / Time codeine [Codeine] Allergy Severe ANAPHYLAXIS, Verified 06/29/22 21:15 throat edema lisinopril [LISINOPRIL] Allergy Severe ANGIOEDEMA Verified 06/29/22 21:15 Sulfa (Sulfonamide Allergy Intermediate SHORTNESS Verified 06/29/22 21:15 Antibiotics) OF BREATH, [Sulfa (Sulfonamides)] HIVES, rash doxycycline [Doxycycline] Allergy Mild HIVES Verified 06/29/22 21:15 tramadol Allergy Unknown rash and Verified 06/29/22 21:15 nightmares senna AdvReac Unknown Diarrhea Verified 06/29/22 21:15 Review of Systems Review of Systems Yes all other systems are reviewed and are negative PMFSH Past Medical History Medical History Adrenal adenoma Asthma CAD (coronary artery disease) Chronic sinusitis Constipation Cystocele Essential hypertension Fibromyalgia GERD (gastroesophageal reflux disease) Hemoptysis History of polycystic kidney disease, autosomal dominant Hx MRSA infection Hx of migraines Hx of renal calculi IBS (irritable bowel syndrome) Internal and external hemorrhoids without complication Kidney stones Lumbar radiculopathy Otitis externa PTSD (post-traumatic stress disorder) Saccular aneurysm Sciatica Thyroid nodule Type 2 diabetes mellitus with hyperglycemia Surgical History History of abdominoplasty History of appendectomy History of cardiac cath History of esophagogastroduodenoscopy (EGD) History of eye surgery History of lithotripsy History of thyroidectomy, subtotal History of tonsillectomy History of total abdominal hysterectomy and bilateral salpingo-oophorectomy History of tubal ligation Hx of colonoscopy Family History Family History Father Cancer of kidney Diabetes Hypertension CVD (cardiovascular disease) Mother Hypertension Cancer Maternal Aunt Colon cancer Brother AIDS Paternal Aunt Ovarian cancer Breast cancer Social History Social History Household Members: Spouse Household Members Other:: grandson Housing: House Alcohol intake: never Patient Tobacco Use Status: Former Tobacco user Smoked in Last 30 Days: No e-Cigarette/Vaping Use: Never Used Second Hand Smoke Exposure: No Use of substances other than those prescribed or required for medical reasons: No Substance Use Type: Marijuana Advance Directives: No Advance Directives Information Provided: Yes Patient : No service: No Current occupational status: employed 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 Oriented X3. No acute distress. Eyes: No pallor/icterus right external hordeolum ENT: Pharynx normal. Oral Mucosa moist Neck: Normal inspection. Neck supple. CVS: Normal heart rate and rhythm. Pulses normal. Respiratory: No respiratory distress. Equal air entry bilateral, no wheezing/rales/rhonchi Abdomen: Soft , tenderness left upper abdomen and epigastric area Bowel sounds are present, no mass palpable, no CVA tenderness rectal: Dark stool guaiac negative Skin: Skin warm and dry. Normal skin color. Normal skin turgor. Extremities: No lower extremity edema. No calf tenderness Neuro: Oriented X 3. No motor deficit. Medical Decision Making Medical Decision Making [facility] Narrative: Patient's CT scan negative for any acute pathology rectal exam was negative likely patient gastritis will discharge patient home on symptomatic treatment Lab Data [facility] Lab Attestation statement: I reviewed the patient's lab results. 06/29/22 21:27 06/29/22 21:27 Labs: Lab Results 06/29/22 06/29/22 06/29/22 Range/Units 21:27 21:27 21:32 WBC 9.6 (4.8-10.8) X10*3/uL RBC 4.05 L (4.20-5.50) X10*6/uL Hgb 11.7 L (12.0-16.0) g/dl Hct 34.9 L (37.0-47.0) % MCV 86.2 (80.0-98.0) fL MCH 28.9 (27.0-33.0) pg MCHC 33.5 (31.0-35.0) g/dl RDW 14.7 (11.0-16.0) % Plt Count 291 (160-400) X10*3/uL MPV 9.6 (9.4-12.3) fL Absolute Nucleated RBC 0.000 (0.0-0.012) X10*3/uL Nucleated RBC % (auto) 0.0 (0.0-0.2) /100WBC PT (10.0-13.1) SEC INR (0.9-1.1) Sodium 139 (135-145) mmol/L Potassium 4.2 (3.3-5.1) mmol/L Chloride 104 (96-108) mmol/L Carbon Dioxide 24 (22-29) mmol/L Anion Gap 15 (12-20) BUN 15 (9-16) mg/dL Creatinine 0.83 (0.5-1.4) mg/dL Estim Creat Clear Calc 61.5 Estimated GFR > 60 POC Glucose (60-115) mg/dL Random Glucose 112 (60-115) mg/dL Calcium 9.2 (8.4-10.2) mg/dL Total Bilirubin 0.5 (0.0-1.0) mg/dL AST 15 (5-31) U/L ALT 11 (0-31) U/L Alkaline Phosphatase 83 (39-117) U/L Total Protein 7.1 (6.5-8.0) g/dL Albumin 4.2 (3.5-5.0) g/dL Lipase 24 (8-78) U/L Urine Color Yellow Urine Appearance Clear Urine pH 8.0 (5.0-9.0) Ur Specific Hal[place] 1.010 (1.005-1.025) Urine Protein Trace (Neg-Trace) mg/dL Urine Glucose (UA) Negative (Negative) mg/dL Urine Ketones Negative (Negative) mg/dL Urine Blood Small (1+) H (Negative) Urine Nitrite Negative (Negative) Ur Leukocyte Esterase Negative (Negative) Urine RBC 3-5 H (0-2) /HPF Urine WBC 0-5 (0-5) /HPF Ur Squamous Epith Cells 0-2 (0-2) /HPF Urine Bacteria None Seen (None Seen) Hyaline Casts 0-2 (0-2) /LPF Stool Occult Blood (NEGATIVE) 06/29/22 06/30/22 06/30/22 Range/Units 23:46 01:02 01:02 WBC (4.8-10.8) X10*3/uL RBC (4.20-5.50) X10*6/uL Hgb (12.0-16.0) g/dl Hct (37.0-47.0) % MCV (80.0-98.0) fL MCH (27.0-33.0) pg MCHC (31.0-35.0) g/dl RDW (11.0-16.0) % Plt Count (160-400) X10*3/uL MPV (9.4-12.3) fL Absolute Nucleated RBC (0.0-0.012) X10*3/uL Nucleated RBC % (auto) (0.0-0.2) /100WBC PT 12.8 (10.0-13.1) SEC INR 1.1 (0.9-1.1) Sodium (135-145) mmol/L Potassium (3.3-5.1) mmol/L Chloride (96-108) mmol/L Carbon Dioxide (22-29) mmol/L Anion Gap (12-20) BUN (9-16) mg/dL Creatinine (0.5-1.4) mg/dL Estim Creat Clear Calc Estimated GFR POC Glucose 123 H (60-115) mg/dL Random Glucose (60-115) mg/dL Calcium (8.4-10.2) mg/dL Total Bilirubin (0.0-1.0) mg/dL AST (5-31) U/L ALT (0-31) U/L Alkaline Phosphatase (39-117) U/L Total Protein (6.5-8.0) g/dL Albumin (3.5-5.0) g/dL Lipase (8-78) U/L Urine Color Urine Appearance Urine pH (5.0-9.0) Ur Specific Hallett (1.005-1.025) Urine Protein (Neg-Trace) mg/dL Urine Glucose (UA) (Negative) mg/dL Urine Ketones (Negative) mg/dL Urine Blood (Negative) Urine Nitrite (Negative) Ur Leukocyte Esterase (Negative) Urine RBC (0-2) /HPF Urine WBC (0-5) /HPF Ur Squamous Epith Cells (0-2) /HPF Urine Bacteria (None Seen) Hyaline Casts (0-2) /LPF Stool Occult Blood NEGATIVE (NEGATIVE) Medications Administered Discontinued Medications Generic Name Dose Route Start Last Admin Trade Name Freq PRN Reason Stop Dose Admin Acetaminophen 650 mg 06/30/22 03:45 06/30/22 04:04 Acetaminophen 325 Mg Tablet PO 06/30/22 03:46 650 mg ONCE ONE Administration Dicyclomine HCl 20 mg 06/30/22 04:30 06/30/22 04:37 Dicyclomine Hcl 10 Mg Capsule PO 06/30/22 04:31 20 mg ONCE ONE Administration Sodium Chloride 1,000 mls @ 999 mls/hr 06/30/22 00:54 06/30/22 02:18 Ns IV 06/30/22 01:54 Infused .Q1H1M ONE Infusion Iohexol 85 ml 06/30/22 01:38 06/30/22 01:40 Iohexol 350 Mg/Ml 100 Ml Infus..Btl IV 06/30/22 01:39 85 ml ONCE ONE Administration Ondansetron HCl 4 mg 06/30/22 00:54 06/30/22 01:12 Ondansetron Hcl 4 Mg/2 Ml Vial IVPUSH 06/30/22 00:55 4 mg ONCE ONE Administration Pantoprazole Sodium 40 mg 06/30/22 00:54 06/30/22 01:12 Pantoprazole Sodium 40 Mg/10 Ml Vial IVPUSH 06/30/22 00:55 40 mg ONCE ONE Administration Discharge Plan Discharge Clinical Impression: Abdominal pain, Acute gastritis, External hordeolum Patient Disposition: Home, Self-Care Instructions: Gastritis (ED), Stye (ED), Abdominal Pain (ED) Additional Instructions: Cause of your abdominal pain is not very clear likely gastroenteritis/gastritis Take medications prescribed Follow up with PCP/gastroenterology if pain continues for endoscopy Warm compresses for right eyelid swelling Erythromycin eye ointment and cephalexin as prescribed Prescriptions: New omeprazole 40 mg capsule,delayed release(DR/EC) 40 mg PO DAILY Qty: 30 1RF ondansetron 4 mg tablet,disintegrating 4 mg PO Q6-8H PRN (Reason: nausea and vomiting) Qty: 10 0RF dicyclomine 20 mg tablet 20 mg PO TID Qty: 20 0RF cephalexin 500 mg capsule 500 mg PO QID 10 Days Qty: 40 0RF erythromycin 5 mg/gram (0.5 %) ointment 1 appl ophthalmic (eye) BID Qty: 3.5 0RF No Action albuterol sulfate 90 mcg/actuation HFA aerosol inhaler 2 puff PO QID PRN (Reason: for wheezing) Qty: 25.5 0RF escitalopram oxalate 10 mg tablet 10 mg PO DAILY 90 Days Qty: 90 2RF metformin 500 mg tablet 500 mg PO BIDWMEAL 90 Days Qty: 180 2RF omeprazole 20 mg capsule,delayed release(DR/EC) 20 mg PO DAILY Qty: 90 3RF amlodipine 10 mg tablet 10 mg PO BEDTIME Qty: 90 0RF rosuvastatin 40 mg tablet 40 mg PO DAILY Qty: 90 1RF zolpidem 10 mg tablet 10 mg PO BEDTIME PRN (Reason: Insomnia) Qty: 30 0RF lorazepam 1 mg tablet 1 mg PO BEDTIME PRN (Reason: Anxiety) Qty: 30 0RF albuterol sulfate 2.5 mg /3 mL (0.083 %) solution for nebulization 2.5 mg inhalation PRN (Reason: shortness of breath or wheezing) loratadine 10 mg tablet 10 mg PO DAILY PRN (Reason: Allergy Symptoms) ezetimibe 10 mg tablet 10 mg PO DAILY Align 4 mg Capsule 4 mg PO DAILY PRN (Reason: Digestion) benzonatate 100 mg Capsule 100 mg PO TID PRN (Reason: Cough) Qty: 30 0RF cyclobenzaprine 10 mg tablet 10 mg PO TID Qty: 10 0RF naproxen [Naprosyn] 500 mg tablet 500 mg PO BID Qty: 20 0RF Qvar RediHaler 40 mcg/actuation HFA aerosol breath activated 2 inh inhalation BID Qty: 10.6 11RF
[2022-06-30] MEDS: ondansetron HCL 4 MG/2 ML VIAL IVPUSH (01:12)
[2022-06-30] MEDS: Pantoprazole Sodium 40 MG/10 ML VIAL IVPUSH (01:12)
[2022-06-30 01:13] LABS: INTERNATIONAL NORM RATIO 1.1 (0.9-1.1); Prothrombin Time 12.8 SEC (10.0-13.1)
[2022-06-30] MEDS: 0.9 % Sodium Chloride 1,000 ML 999 ML IV (01:13)
--- NOTE | 2022-06-30 01:18 | PC.NURSE ---
pt assessed, reported right upper eye lid swelling, and pain and nausea, iv inserted, NS infusing, given zofran and protonix ivp
[2022-06-30 01:29] LABS: OBS Int Ctl Valid YES; OBS1 NEGATIVE (NEGATIVE)
[2022-06-30] MEDS: iohexoL 350 MG/ML 100 ML INFUS..BTL 85 ML IV (01:40)
[2022-06-30 01:44] VITALS: BP 130/76; PULSE 83; RESP 18; TEMP 37.2; O2SAT 98
[2022-06-30 03:40] VITALS: BP 135/72; PULSE 95; RESP 18; TEMP 37.9; O2SAT 98
[2022-06-30] MEDS: Acetaminophen 325 MG TABLET 650 MG PO (04:04)
--- NOTE | 2022-06-30 04:11 | PC.NURSE ---
pt has a fever 100.3, Dr milner pt medicated with 650mg tylenol
[2022-06-30] MEDS: Dicyclomine HCl 10 MG CAPSULE 20 MG PO (04:37)
[2022-06-30 05:28] VITALS: BP 99/54; PULSE 76; RESP 17; TEMP 37.6; O2SAT 97
== END 2022-06-30 06:00 | disposition home or self-care (01) ==
PROVIDERS: Emergency Provider Internal Medicine; PCP Internal Medicine
DX: K29.70 Gastritis, unspecified, without bleeding (principal); H00.013 Hordeolum externum right eye, unspecified eyelid; R10.9 Unspecified abdominal pain; E11.9 Type 2 diabetes mellitus without complications; I10 Essential (primary) hypertension; E78.00 Pure hypercholesterolemia, unspecified; Z79.84 Long term (current) use of oral hypoglycemic drugs; Z79.899 Other long term (current) drug therapy; Z79.02 Long term (current) use of antithrombotics/antiplatelets
CPT/HCPCS: 36415; 74177; 80053; 81001; 82272; 82947; 83690; 85027; 85610; 96361; 96374; 96375; 99284; 99285; J2405; Q9967

== ENCOUNTER 2022-07-03 04:40 | Emergency (ER) | payer MEDICARE, MEDICAID, SELFPAY ==
[2022-07-03 04:47] VITALS: BP 120/65; PULSE 88; RESP 16; TEMP 36.8; O2SAT 99; BMI 24.1
[2022-07-03 05:39] VITALS: BP 130/75; PULSE 79; RESP 18; TEMP 36.9; O2SAT 100
[2022-07-03 06:35] LABS: MANUAL DIFF FLAG NO
[2022-07-03 06:37] LABS: Basophils Percent Auto 0.4 % (0-2); Eosinophils Absolute Auto 0.1 X10*3/uL (0.0-0.4); Eosinophils Percent Auto 0.7 % (0-4); Hematocrit 33.9 % (37.0-47.0); Hemoglobin 11.5 g/dl (12.0-16.0); Imm Gran Abs Auto 0.01 X10*3/uL (0.00-0.03); Imm Gran Pct Auto 0.1 % (0.0-0.4); Lymphocytes Absolute Auto 1.4 X10*3/uL (1.2-4.9); Lymphocytes Percent Auto 20.5 % (20-40); Mean Corpuscular HGB Conc 33.9 g/dl (31.0-35.0); Mean Corpuscular Hemoglobin 28.8 pg (27.0-33.0); Mean Corpuscular Volume 84.8 fL (80.0-98.0); Mean Platelet Volume 9.9 fL (9.4-12.3); Monocytes Absolute Auto 0.7 X10*3/uL (0.1-1.2); Monocytes Percent Auto 9.5 % (2-11); Neutrophils Absolute Auto 4.7 x10*3/uL (2.0-8.3); Neutrophils Percent Auto 68.8 % (45-73); Platelet Count 313 X10*3/uL (160-400); Red Cell Distribution Width 14.4 % (11.0-16.0); White Blood Count 6.9 X10*3/uL (4.8-10.8)
[2022-07-03 06:44] LABS: Partial Thromboplastin Time 31.8 SEC (26.0-36.4)
[2022-07-03 06:55] LABS: Alanine Aminotransferase 15 U/L (0-31); Albumin Level 3.7 g/dL (3.5-5.0); Alkaline Phosphatase 72 U/L (39-117); Anion Gap 13 (12-20); Aspartate Amino Transferase 16 U/L (5-31); Bilirubin Direct 0.1 mg/dL (0.0-0.5); Bilirubin Total 0.4 mg/dL (0.0-1.0); Blood Urea Nitrogen 14 mg/dL (9-16); C Reactive Protein 9.57 mg/dL (< or = 0.50); Calcium 8.4 mg/dL (8.4-10.2); Carbon Dioxide 22 mmol/L (22-29); Chloride 108 mmol/L (96-108); Creatinine Clr Calc Pharmacy 66.4; Estimated Glomerular Filt Rate > 60; Glucose Random 116 mg/dL (60-115); Potassium 3.3 mmol/L (3.3-5.1); Sodium 140 mmol/L (135-145); Total Protein 6.6 g/dL (6.5-8.0)
--- NOTE | 2022-07-03 07:06 | ED_ITS ---
HPI - General Adult General Chief complaint: Skin/Abscess/Foreign Body Stated complaint: skin bumps/abscess Time Seen by Provider: 07/03/22 05:51 Source: patient Mode of arrival: ambulatory Limitations: no limitations History of Present Illness HPI narrative: Patient comes to the emergency room complaining of painful red bumps on her shins and on the thighs. Patient states that she noticed them yesterday. The p alms are not itchy, does not recall being bitten by any insects. Patient only has this bumps on her lower extremities. Patient states that lately in the last couple of weeks, she has been sick, including sore throat, tooth infection, GI issues with nausea vomiting diarrhea. Patient denies fever or chills Related Data Home Medications Medication Instructions Recorded Confirmed Bifidobacterium infantis 4 mg 4 mg PO DAILY PRN Digestion 02/04/22 06/02/22 capsule (Align) albuterol sulfate 2.5 mg/3 mL 2.5 mg inhalation PRN shortness of 02/04/22 06/02/22 (0.083 %) solution for nebulization breath or wheezing ezetimibe 10 mg tablet 10 mg PO DAILY 02/04/22 06/02/22 loratadine 10 mg tablet 10 mg PO DAILY PRN Allergy Symptoms 02/04/22 06/02/22 Previous Rx's Medication Instructions Recorded albuterol sulfate 90 mcg/actuation 2 puff PO QID PRN for wheezing 05/26/21 aerosol inhaler #25.5 grams escitalopram oxalate 10 mg tablet 10 mg PO DAILY 90 days #90 tabs 08/29/21 metformin 500 mg tablet 500 mg PO BIDWMEAL 90 days #180 11/11/21 tabs benzonatate 100 mg capsule 100 mg PO TID PRN Cough #30 caps 02/05/22 omeprazole 20 mg capsule,delayed 20 mg PO DAILY #90 caps 04/23/22 release cyclobenzaprine 10 mg tablet 10 mg PO TID #10 tabs 04/27/22 naproxen 500 mg tablet (Naprosyn) 500 mg PO BID #20 tabs 04/27/22 amlodipine 10 mg tablet 10 mg PO BEDTIME #90 tabs 05/15/22 rosuvastatin 40 mg tablet 40 mg PO DAILY #90 tabs 06/01/22 beclomethasone dipropionate 40 2 inh inhalation BID #10.6 grams 06/02/22 mcg/actuation HFA breath activated aerosol (Qvar RediHaler) lorazepam 1 mg tablet 1 mg PO BEDTIME PRN Anxiety #30 06/22/22 tabs zolpidem 10 mg tablet 10 mg PO BEDTIME PRN Insomnia #30 06/22/22 tabs cephalexin 500 mg capsule 500 mg PO QID 10 days #40 caps 06/30/22 dicyclomine 20 mg tablet 20 mg PO TID #20 tabs 06/30/22 erythromycin 5 mg/gram (0.5 %) eye 1 appl ophthalmic (eye) BID #3.5 06/30/22 ointment grams omeprazole 40 mg capsule,delayed 40 mg PO DAILY #30 caps 06/30/22 release ondansetron 4 mg disintegrating 4 mg PO Q6-8H PRN nausea and 06/30/22 tablet vomiting #10 tabs prednisone 20 mg tablet 20 mg PO DAILY #5 tabs 07/03/22 Allergies Allergy/AdvReac Type Severity Reaction Status Date / Time codeine [Codeine] Allergy Severe ANAPHYLAXIS, Verified 06/29/22 21:15 throat edema lisinopril [LISINOPRIL] Allergy Severe ANGIOEDEMA Verified 06/29/22 21:15 Sulfa (Sulfonamide Allergy Intermediate SHORTNESS Verified 06/29/22 21:15 Antibiotics) OF BREATH, [Sulfa (Sulfonamides)] HIVES, rash doxycycline [Doxycycline] Allergy Mild HIVES Verified 06/29/22 21:15 tramadol Allergy Unknown rash and Verified 06/29/22 21:15 nightmares senna AdvReac Unknown Diarrhea Verified 06/29/22 21:15 Review of Systems Review of Systems: Constitutional : No Weight loss, No Fever, No Chills, No Night Sweats, No Fatigue, No Malaise ENT/Mouth : No Hearing loss, No Ear Pain, No Nasal Congestion, No Sinus Pain, No Hoarseness, No sore throat, No Rhinorrhea, No Swallowing Difficulty Eyes: No Eye Pain, No Swelling, No Redness, No Foreign Body, No Discharge, No Vision Changes Cardiovascular : No Chest Pain, No SOB, No Dyspnea on Exertion, No Orthopnea, No Edema, No Palpitations Respiratory : No Cough, No Sputum, No Wheezing, No Smoke Exposure, No Dyspnea Gastrointestinal : No Nausea, No Vomiting, No Diarrhea, No Constipation, No abdominal Pain, No Hematochezia, No Melena Genitourinary : no irregular bleeding, No Dysuria, No Urinary Frequency, No Hematuria, No Urinary Incontinence, No Urgency, No Flank Pain, No Urinary Flow Changes, No Hesitancy Musculoskeletal : No joint pain, No Myalgias, No Joint Swelling Skin : Painful nodes in lower extremities Neuro : No Weakness, No Numbness, No Paresthesias, No Loss of Consciousness, No Dizziness, No Headache Psych : No Anxiety/Panic, No Depression, No SI/HI/AH/VH, No Social Issues, Heme/Lymph: No Bruising, No Bleeding,No Lymphadenopathy Endocrine : No Polyuria, No Polydipsia, No Temperature Intolerance [facility] Past Medical History Medical History Adrenal adenoma Asthma CAD (coronary artery disease) Chronic sinusitis Constipation Cystocele Essential hypertension Fibromyalgia GERD (gastroesophageal reflux disease) Hemoptysis History of polycystic kidney disease, autosomal dominant Hx MRSA infection Hx of migraines Hx of renal calculi IBS (irritable bowel syndrome) Internal and external hemorrhoids without complication Kidney stones Lumbar radiculopathy Otitis externa PTSD (post-traumatic stress disorder) Saccular aneurysm Sciatica Thyroid nodule Type 2 diabetes mellitus with hyperglycemia Surgical History History of abdominoplasty History of appendectomy History of cardiac cath History of esophagogastroduodenoscopy (EGD) History of eye surgery History of lithotripsy History of thyroidectomy, subtotal History of tonsillectomy History of total abdominal hysterectomy and bilateral salpingo-oophorectomy History of tubal ligation Hx of colonoscopy Family History Family History Father Cancer of kidney Diabetes Hypertension CVD (cardiovascular disease) Mother Hypertension Cancer Maternal Aunt Colon cancer Brother AIDS Paternal Aunt Ovarian cancer Breast cancer Social History Social History Household Members: Spouse Household Members Other:: grandson Housing: House Alcohol intake: current Alcohol intake frequency: does not drink Patient Tobacco Use Status: Former Tobacco user Smoked in Last 30 Days: No e-Cigarette/Vaping Use: Never Used Second Hand Smoke Exposure: No Use of substances other than those prescribed or required for medical reasons: No Substance Use Type: Marijuana Any prior treatment program specific to substance use: No Advance Directives: No Advance Directives Information Provided: Yes Patient : No service: No Current occupational status: employed 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 Oriented X3. No acute distress. Eyes: Pupils equal, round and reactive to light. ENT: Pharynx normal. Neck: Normal inspection. Neck supple. No lymph nodes noted. No crepitus CVS: Normal heart rate and rhythm. Pulses normal. Normal S1 and S2 Respiratory: No respiratory distress. Breath sounds normal. No Wheezing. No rales Abdomen: Soft and nontender. No rigidity. No distention. Skin: Skin warm and dry. See extremities below Extremities: No lower extremity edema. No Lacerations. No Rash, patient has read mom's on the shins and upper thighs, very mildly erythematous/purplish Neuro: Oriented X 3. No motor deficit. No sensory deficit. Moving all extremities. No slurred speech. CN 2 through 12 grossly intact Psych: calm, cooperative, normal affect Medical Decision Making Medical Decision Making [facility] Narrative: I discussed the labs with the patient, her labs are at baseline. -I discussed with the patient that the bumps in her extremities a likely secondary to an inflammatory response to the illnesses that she has had in the last couple of weeks. 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 Discussed with the patient that at home she may take NSAIDs, also given a small dose of prednisone Differential Diagnosis Differential Diagnoses: The differential diagnosis associated with the presentation includes (Insect bites, erythema nodosum, hives) Lab Data [facility] Lab Attestation statement: I reviewed the patient's lab results. 07/03/22 06:30 07/03/22 06:30 Labs: Lab Results 07/03/22 07/03/22 07/03/22 Range/Units 06:30 06:30 06:30 WBC 6.9 (4.8-10.8) X10*3/uL RBC 4.00 L (4.20-5.50) X10*6/uL Hgb 11.5 L (12.0-16.0) g/dl Hct 33.9 L (37.0-47.0) % MCV 84.8 (80.0-98.0) fL MCH 28.8 (27.0-33.0) pg MCHC 33.9 (31.0-35.0) g/dl RDW 14.4 (11.0-16.0) % Plt Count 313 (160-400) X10*3/uL MPV 9.9 (9.4-12.3) fL Immature Gran % (Auto) 0.1 (0.0-0.4) % Neut % (Auto) 68.8 (45-73) % Lymph % (Auto) 20.5 (20-40) % [place] % (Auto) 9.5 (2-11) % Eos % (Auto) 0.7 (0-4) % Baso % (Auto) 0.4 (0-2) % Lymph # (Auto) 1.4 (1.2-4.9) X10*3/uL [place] # (Auto) 0.7 (0.1-1.2) X10*3/uL Eos # (Auto) 0.1 (0.0-0.4) X10*3/uL Baso # (Auto) 0.0 (0.0-0.2) X10*3/uL Abs Immat Gran (auto) 0.01 (0.00-0.03) X10*3/uL Absolute Neuts (auto) 4.7 (2.0-8.3) x10*3/uL Absolute Nucleated RBC 0.000 (0.0-0.012) X10*3/uL Nucleated RBC % (auto) 0.0 (0.0-0.2) /100WBC PT (10.0-13.1) SEC INR (0.9-1.1) APTT (26.0-36.4) SEC Sodium 140 (135-145) mmol/L Potassium 3.3 D (3.3-5.1) mmol/L Chloride 108 (96-108) mmol/L Carbon Dioxide 22 (22-29) mmol/L Anion Gap 13 (12-20) BUN 14 (9-16) mg/dL Creatinine 0.77 (0.5-1.4) mg/dL Estim Creat Clear Calc 66.4 Estimated GFR > 60 Random Glucose 116 H (60-115) mg/dL Calcium 8.4 D (8.4-10.2) mg/dL Total Bilirubin 0.4 Cancelled (0.0-1.0) mg/dL Direct Bilirubin 0.1 Cancelled (0.0-0.5) mg/dL AST 16 Cancelled (5-31) U/L ALT 15 Cancelled (0-31) U/L Alkaline Phosphatase 72 Cancelled (39-117) U/L C-Reactive Protein 9.57 H (< or = 0.50) mg/dL C-React Prot High Sens Total Protein 6.6 Cancelled (6.5-8.0) g/dL Albumin 3.7 Cancelled (3.5-5.0) g/dL 07/03/22 07/03/22 Range/Units 06:30 06:30 WBC (4.8-10.8) X10*3/uL RBC (4.20-5.50) X10*6/uL Hgb (12.0-16.0) g/dl Hct (37.0-47.0) % MCV (80.0-98.0) fL MCH (27.0-33.0) pg MCHC (31.0-35.0) g/dl RDW (11.0-16.0) % Plt Count (160-400) X10*3/uL MPV (9.4-12.3) fL Immature Gran % (Auto) (0.0-0.4) % Neut % (Auto) (45-73) % Lymph % (Auto) (20-40) % [place] % (Auto) (2-11) % Eos % (Auto) (0-4) % Baso % (Auto) (0-2) % Lymph # (Auto) (1.2-4.9) X10*3/uL [place] # (Auto) (0.1-1.2) X10*3/uL Eos # (Auto) (0.0-0.4) X10*3/uL Baso # (Auto) (0.0-0.2) X10*3/uL Abs Immat Gran (auto) (0.00-0.03) X10*3/uL Absolute Neuts (auto) (2.0-8.3) x10*3/uL Absolute Nucleated RBC (0.0-0.012) X10*3/uL Nucleated RBC % (auto) (0.0-0.2) /100WBC PT 12.0 (10.0-13.1) SEC INR 1.0 (0.9-1.1) APTT 31.8 (26.0-36.4) SEC Sodium (135-145) mmol/L Potassium (3.3-5.1) mmol/L Chloride (96-108) mmol/L Carbon Dioxide (22-29) mmol/L Anion Gap (12-20) BUN (9-16) mg/dL Creatinine (0.5-1.4) mg/dL Estim Creat Clear Calc Estimated GFR Random Glucose (60-115) mg/dL Calcium (8.4-10.2) mg/dL Total Bilirubin (0.0-1.0) mg/dL Direct Bilirubin (0.0-0.5) mg/dL AST (5-31) U/L ALT (0-31) U/L Alkaline Phosphatase (39-117) U/L C-Reactive Protein (< or = 0.50) mg/dL C-React Prot High Sens Cancelled Total Protein (6.5-8.0) g/dL Albumin (3.5-5.0) g/dL Discharge Plan Discharge Clinical Impression: Erythema nodosum Patient Disposition: Home, Self-Care Instructions: Viral Syndrome (ED) Additional Instructions: Please follow-up with your primary care physician tomorrow. If you have any worsening or new symptoms, please return to the emergency room or call 911 Prescriptions: New prednisone 20 mg tablet 20 mg PO DAILY Qty: 5 0RF No Action albuterol sulfate 90 mcg/actuation HFA aerosol inhaler 2 puff PO QID PRN (Reason: for wheezing) Qty: 25.5 0RF escitalopram oxalate 10 mg tablet 10 mg PO DAILY 90 Days Qty: 90 2RF metformin 500 mg tablet 500 mg PO BIDWMEAL 90 Days Qty: 180 2RF omeprazole 20 mg capsule,delayed release(DR/EC) 20 mg PO DAILY Qty: 90 3RF amlodipine 10 mg tablet 10 mg PO BEDTIME Qty: 90 0RF rosuvastatin 40 mg tablet 40 mg PO DAILY Qty: 90 1RF zolpidem 10 mg tablet 10 mg PO BEDTIME PRN (Reason: Insomnia) Qty: 30 0RF lorazepam 1 mg tablet 1 mg PO BEDTIME PRN (Reason: Anxiety) Qty: 30 0RF albuterol sulfate 2.5 mg /3 mL (0.083 %) solution for nebulization 2.5 mg inhalation PRN (Reason: shortness of breath or wheezing) loratadine 10 mg tablet 10 mg PO DAILY PRN (Reason: Allergy Symptoms) ezetimibe 10 mg tablet 10 mg PO DAILY Align 4 mg Capsule 4 mg PO DAILY PRN (Reason: Digestion) benzonatate 100 mg Capsule 100 mg PO TID PRN (Reason: Cough) Qty: 30 0RF cyclobenzaprine 10 mg tablet 10 mg PO TID Qty: 10 0RF naproxen [Naprosyn] 500 mg tablet 500 mg PO BID Qty: 20 0RF omeprazole 40 mg capsule,delayed release(DR/EC) 40 mg PO DAILY Qty: 30 1RF ondansetron 4 mg tablet,disintegrating 4 mg PO Q6-8H PRN (Reason: nausea and vomiting) Qty: 10 0RF dicyclomine 20 mg tablet 20 mg PO TID Qty: 20 0RF cephalexin 500 mg capsule 500 mg PO QID 10 Days Qty: 40 0RF erythromycin 5 mg/gram (0.5 %) ointment 1 appl ophthalmic (eye) BID Qty: 3.5 0RF Qvar RediHaler 40 mcg/actuation HFA aerosol breath activated 2 inh inhalation BID Qty: 10.6 11RF
[2022-07-03 07:12] VITALS: BP 116/64; PULSE 81; RESP 16; TEMP 37.2; O2SAT 98
[2022-07-03 07:14] LABS: Erythrocyte Sedimentation Rate 91 MM/HR (0-20)
== END 2022-07-03 07:29 | disposition home or self-care (01) ==
PROVIDERS: Emergency Provider Emergency Medicine; PCP Internal Medicine
DX: L52 Erythema nodosum (principal); M79.605 Pain in left leg; M79.604 Pain in right leg; E11.9 Type 2 diabetes mellitus without complications; I10 Essential (primary) hypertension; E78.00 Pure hypercholesterolemia, unspecified; D64.9 Anemia, unspecified; Z86.14 Personal history of Methicillin resistant Staphylococcus aureus infection; Z79.84 Long term (current) use of oral hypoglycemic drugs; Z79.02 Long term (current) use of antithrombotics/antiplatelets; Z79.899 Other long term (current) drug therapy
CPT/HCPCS: 36415; 80053; 82248; 85025; 85610; 85652; 85730; 86140; 99283; 99284

== ENCOUNTER 2022-07-12 15:21 | Outpatient (REF) | payer MEDICARE, MEDICAID, SELFPAY ==
--- NOTE | ~2022-07-12 | MM_ITS ---
EXAMINATION: MM SCREENING DIGITAL BREAST TOMOSYNTHESIS, BILATERAL CLINICAL INFORMATION: Screening. Asymptomatic. COMPARISON: Mammography: May 26, 2021 and studies dating back to May 06, 2015 TECHNIQUE: Digital breast tomosynthesis is performed in both the craniocaudal and mediolateral oblique views along with computer-aided detection (CAD). Synthesized 2D images are generated from the tomosynthesis. FINDINGS: The breasts are heterogeneously dense, which may obscure small masses (ACR BI-RADS breast composition Category c). There are no significant masses, abnormal calcifications, or other abnormalities. MM/MM tomosynthesis screening BI IMPRESSION: No significant changes from prior exam. ASSESSMENT: BI-RADS 1: Negative RECOMMENDATION: Routine annual mammography screening. This patient's information was entered into a reminder system with a target due date for their next mammogram.
== END 2022-07-12 15:22 | disposition home or self-care (01) ==
LOC: HO.MAMMO 15:21
PROVIDERS: PCP Internal Medicine; Visit Provider Internal Medicine
DX: Z12.31 Encounter for screening mammogram for malignant neoplasm of breast (principal)
CPT/HCPCS: 77063; 77067

== ENCOUNTER 2022-09-11 05:22 | Emergency (ER) | payer MEDICARE, MEDICAID, SELFPAY ==
[2022-09-11 05:22] VITALS: BP 126/75; PULSE 92; RESP 18; TEMP 36.6; O2SAT 97; BMI 22.6
--- NOTE | 2022-09-11 06:16 | PC.NURSE ---
pt reports abdominal pain, nausea, vomiting since she got out of work yesterday afternoon. reports 2 episodes of diarrhea. also states she feels the urgency to urinate (pressure) but painful when she urinates . #20g iv placed in LAC, labs sent, pt ambulating to bathroom with steady gait to collect urine sample. waiting to be seen by ED provider will CTM
--- NOTE | 2022-09-11 07:18 | ED.ABDPAIN ---
HPI - Abdominal Pain General Chief Complaint: Abdominal Pain Stated Complaint: right sided pain Time Seen by Provider: 09/11/22 07:06 Source: patient Mode of arrival: ambulatory Limitations: no limitations History of Present Illness HPI narrative: 62-year-old female who presents emergency department for evaluation of abdominal pain patient states that she got a work yesterday at 09:30 hours and had sudden onset right sided abdominal pain. The patient points to her right lower quadrant when asked to localize the pain she states the pain is a constant, pressure-like pain which is 10/10. Pain does not radiate to her back. She states that she has had dysuria, urgency and frequency. She has not noticed any blood in her urine. She had nausea with 1 episode of vomiting with no blood in the emesis. She had 3 episodes of brown, loose diarrheal stool with no blood in the stool. This is her 1st episode of this type of pain. She did not take any pain medications prior to coming to the emergency department. Surgical history is significant for the adrenal cyst removal, appendectomy, bilateral tubal ligation, abdominoplasty Related Data Home Medications Medication Instructions Recorded Confirmed albuterol sulfate 2.5 mg/3 mL 2.5 mg inhalation PRN shortness of 02/04/22 09/07/22 (0.083 %) solution for nebulization breath or wheezing ezetimibe 10 mg tablet 10 mg PO DAILY 02/04/22 09/07/22 loratadine 10 mg tablet 10 mg PO DAILY PRN Allergy Symptoms 02/04/22 09/07/22 Previous Rx's Medication Instructions Recorded albuterol sulfate 90 mcg/actuation 2 puff PO QID PRN for wheezing 05/26/21 aerosol inhaler #25.5 grams metformin 500 mg tablet 500 mg PO BIDWMEAL 90 days #180 11/11/21 tabs naproxen 500 mg tablet (Naprosyn) 500 mg PO BID #20 tabs 04/27/22 amlodipine 10 mg tablet 10 mg PO BEDTIME #90 tabs 05/15/22 rosuvastatin 40 mg tablet 40 mg PO DAILY #90 tabs 06/01/22 ondansetron 4 mg disintegrating 4 mg PO Q6-8H PRN nausea and 06/30/22 tablet vomiting #10 tabs escitalopram oxalate 10 mg tablet 10 mg PO DAILY 90 days #90 tabs 07/12/22 lorazepam 1 mg tablet 1 mg PO BEDTIME PRN Anxiety #30 08/22/22 tabs omeprazole 40 mg capsule,delayed 40 mg PO DAILY #90 caps 08/22/22 release zolpidem 10 mg tablet 10 mg PO BEDTIME PRN Insomnia #30 08/22/22 tabs beclomethasone dipropionate 40 2 inh inhalation BID #10.6 grams 09/07/22 mcg/actuation HFA breath activated aerosol (Qvar RediHaler) dicyclomine 20 mg tablet 20 mg PO TID #20 tabs 09/07/22 morphine 15 mg immediate release 15 mg PO Q4-6H PRN pain #10 tabs 09/11/22 tablet ondansetron 4 mg disintegrating 4 mg PO Q6-8H PRN nausea and 09/11/22 tablet vomiting #14 tabs tamsulosin 0.4 mg capsule (Flomax) 0.4 mg PO DAILY #30 caps 09/11/22 Allergies Allergy/AdvReac Type Severity Reaction Status Date / Time codeine [Codeine] Allergy Severe ANAPHYLAXIS, Verified 09/07/22 13:51 throat edema lisinopril [LISINOPRIL] Allergy Severe ANGIOEDEMA Verified 09/07/22 13:51 Sulfa (Sulfonamide Allergy Intermediate SHORTNESS Verified 09/07/22 13:51 Antibiotics) OF BREATH, [Sulfa (Sulfonamides)] HIVES, rash doxycycline [Doxycycline] Allergy Mild HIVES Verified 09/07/22 13:51 tramadol Allergy Unknown rash and Verified 09/07/22 13:51 nightmares senna AdvReac Unknown Diarrhea Verified 09/07/22 13:51 Review of Systems Review of Systems Yes all other systems are reviewed and are negative [facility] Past Medical History [facility] Narrative: Social history: Patient Medical History Adrenal adenoma Asthma CAD (coronary artery disease) Chronic sinusitis Constipation Cystocele Essential hypertension Fibromyalgia GERD (gastroesophageal reflux disease) Hemoptysis History of polycystic kidney disease, autosomal dominant Hx MRSA infection Hx of migraines Hx of renal calculi IBS (irritable bowel syndrome) Internal and external hemorrhoids without complication Kidney stones Lumbar radiculopathy Otitis externa PTSD (post-traumatic stress disorder) Saccular aneurysm Sciatica Thyroid nodule Type 2 diabetes mellitus with hyperglycemia Surgical History History of abdominoplasty History of appendectomy History of cardiac cath History of esophagogastroduodenoscopy (EGD) History of eye surgery History of lithotripsy History of thyroidectomy, subtotal History of tonsillectomy History of total abdominal hysterectomy and bilateral salpingo-oophorectomy History of tubal ligation Hx of colonoscopy Family History Family History Father Cancer of kidney Diabetes Hypertension CVD (cardiovascular disease) Mother Hypertension Cancer Maternal Aunt Colon cancer Brother AIDS Paternal Aunt Ovarian cancer Breast cancer Social History Social History Household Members: Spouse Household Members Other:: grandson Housing: House Alcohol intake: current Alcohol intake frequency: does not drink Patient Tobacco Use Status: Former Tobacco user Tobacco use type: Cigarette Years Smoked: quit 1984 e-Cigarette/Vaping Use: Never Used Second Hand Smoke Exposure: No Substance Use Type: Marijuana Advance Directives: No Advance Directives Information Provided: No Patient : No service: No Current occupational status: employed 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 Cognitive needs: No Hearing needs: No Vision needs: Yes Physical Exam ED Vital Signs: Vital Signs - 24 hr 09/11/22 05:22 09/11/22 07:22 09/11/22 07:54 Temperature 97.8 F 97.7 F 98.1 F Pulse Rate 92 83 79 Respiratory Rate 18 13 18 Blood Pressure 126/75 129/62 141/80 H Pulse Oximetry 97 99 100 Oxygen Delivery Method Room Air Room Air Room Air 09/11/22 10:43 Temperature Pulse Rate Respiratory Rate 18 Blood Pressure Pulse Oximetry Oxygen Delivery Method BMI result Body Mass Index 22.6 Medical Decision Making Medical Decision Making MDM Narrative: 62-year-old female who presents emergency department for evaluation of sudden onset right lower quadrant pain that started yesterday at 09:30 in the more after she got out of work. Pain is a constant, pressure-like pain which is 10/10. She has associated urinary symptoms including frequency, urgency and dysuria. She had nausea with 1 episode of vomiting and she had 3 episodes of diarrhea. Vital signs were normal. The patient did appear to be in distress secondary to her pain. Exam revealed RUQ, RLQ and right CVA tenderness. The following tests were ordered: CBC, CMP, lipase, urinalysis, CT scan of the abdomen pelvis with IV contrast. Patient's pain was treated with Toradol 15 mg IV and morphine 4 mg IV. 1035: Laboratory evaluation revealed normal renal function, urine microscopic did reveal 50 WBCs but no bacteria. CT scan of the abdomen pelvis with IV contrast did reveal a 5 mm right ureteral stone at the UVJ-given the number of WBCs in the urine I will give the patient Keflex 500 mg orally 4 times a day x5 days Patient was ordered to get Flomax 0.4 mg orally Patient's pain minimally improved with the above treatment-10/19 now, she was ordered to get morphine 4 mg orally. Patient will be discharged home with prescriptions for Flomax, ondansetron and morphine. Differential Diagnosis Differential Diagnoses: The differential diagnosis associated with the presentation includes Differential diagnosis includes was not limited to small-bowel obstruction, perforation, renal colic, ureteral stone, cholecystitis, pyelonephritis, urinary tract infection Admission/Observation Consideration of admission/observation: Escalation of care including admission/observation considered Lab Data MDM Lab Attestation statement: I reviewed the patient's lab results. My interpretation of patient's laboratory evaluation is as follows: CBC was normal. Potassium was low at 3.1. Glucose was elevated 111. LFTs, bilirubin and lipase were normal. Urinalysis revealed 3+ blood, positive protein, trace leukocyte esterase. Microscopic revealed greater than rbc's, 50 WBCs but no bacteria. 09/11/22 06:08 09/11/22 06:08 Labs: Lab Results 09/11/22 09/11/22 09/11/22 Range/Units 06:08 06:08 06:21 WBC 7.7 (4.8-10.8) X10*3/uL RBC 4.32 (4.20-5.50) X10*6/uL Hgb 12.5 (12.0-16.0) g/dl Hct 37.2 (37.0-47.0) % MCV 86.1 (80.0-98.0) fL MCH 28.9 (27.0-33.0) pg MCHC 33.6 (31.0-35.0) g/dl RDW 15.5 (11.0-16.0) % Plt Count 293 (160-400) X10*3/uL MPV 9.9 (9.4-12.3) fL Immature Gran % (Auto) 0.1 (0.0-0.4) % Neut % (Auto) 55.4 (45-73) % Lymph % (Auto) 35.8 (20-40) % [place] % (Auto) 6.9 (2-11) % Eos % (Auto) 1.4 (0-4) % Baso % (Auto) 0.4 (0-2) % Lymph # (Auto) 2.8 (1.2-4.9) X10*3/uL [place] # (Auto) 0.5 (0.1-1.2) X10*3/uL Eos # (Auto) 0.1 (0.0-0.4) X10*3/uL Baso # (Auto) 0.0 (0.0-0.2) X10*3/uL Abs Immat Gran (auto) 0.01 (0.00-0.03) X10*3/uL Absolute Neuts (auto) 4.3 (2.0-8.3) x10*3/uL Absolute Nucleated RBC 0.000 (0.0-0.012) X10*3/uL Nucleated RBC % (auto) 0.0 (0.0-0.2) /100WBC Sodium 143 (135-145) mmol/L Potassium 3.1 L (3.3-5.1) mmol/L Chloride 108 (96-108) mmol/L Carbon Dioxide 23 (22-29) mmol/L Anion Gap 15 (12-20) BUN 16 (9-16) mg/dL Creatinine 0.76 (0.5-1.4) mg/dL Estim Creat Clear Calc 70.0 Estimated GFR > 60 Random Glucose 117 H (60-115) mg/dL Calcium 9.2 D (8.4-10.2) mg/dL Total Bilirubin 0.4 (0.0-1.0) mg/dL Direct Bilirubin 0.1 (0.0-0.5) mg/dL AST 16 (5-31) U/L ALT 12 (0-31) U/L Alkaline Phosphatase 78 (39-117) U/L Total Protein 7.4 (6.5-8.0) g/dL Albumin 4.1 (3.5-5.0) g/dL Lipase 42 (8-78) U/L Urine Color Yellow Urine Appearance Clear Urine pH 7.5 (5.0-9.0) Ur Specific [place] 1.010 (1.005-1.025) Urine Protein 30 (1+) H (Neg-Trace) mg/dL Urine Glucose (UA) Negative (Negative) mg/dL Urine Ketones Negative (Negative) mg/dL Urine Blood Large (3+) H (Negative) Urine Nitrite Negative (Negative) Ur Leukocyte Esterase Trace H (Negative) Urine RBC >20 H (0-2) /HPF Urine WBC 21-50 H (0-5) /HPF Ur Squamous Epith Cells 3-5 (0-2) /HPF Urine Bacteria None Seen (None Seen) Hyaline Casts 0-2 (0-2) /LPF Independent Interpretation I performed an independent interpretation of an: CT Scan Interpretation: My independent interpretation of the CT scan of the abdomen pelvis without IV contrast is as follows: Ureteral stone at the right UVJ with right hydronephrosis Radiology Impression Discussion of test interpretation with radiology: I have reviewed the radiologist's reading. Radiologist Impression: CT abdomen pelvis w IV con IMPRESSION: 1. Moderate right hydroureteronephrosis caused by a 0.5 cm calculus at the level the right ureterovesical junction. Several small nonobstructing right intrarenal calculi. 2. Multiple small hepatic and renal attenuation foci, many of which are too small adequately characterize, but demonstrate benign features likely representing cysts. These do not require follow-up at this time. Mild left pelvocaliectasis without obstructing abnormality. 3. Mild distal colonic diverticulosis without evidence for acute diverticulitis. Dictated By:Adrian Marin MD Chronic Conditions Patient?s care impacted by: Diabetes and Other (Coronary disease, asthma) Medications Administered Discontinued Medications Generic Name Dose Route Start Last Admin Trade Name Freq PRN Reason Stop Dose Admin Cephalexin HCl 500 mg 09/11/22 10:35 09/11/22 10:44 Cephalexin 500 Mg Capsule PO 09/11/22 10:36 500 mg ONCE ONE Administration Sodium Chloride 1,000 mls @ 999 mls/hr 09/11/22 07:17 09/11/22 09:09 Ns IV 09/11/22 08:17 Infused .Q1H1M STA Infusion Iohexol 100 ml 09/11/22 08:26 09/11/22 08:26 Iohexol 350 Mg/Ml 100 Ml Infus..Btl IV 09/11/22 08:27 85 ml ONCE ONE Administration Ketorolac Tromethamine 15 mg 09/11/22 07:17 09/11/22 07:49 Ketorolac Tromethamine 15 Mg/Ml Vial IVPUSH 09/11/22 07:18 15 mg ONCE STA Administration Morphine Sulfate 4 mg 09/11/22 10:35 09/11/22 10:43 Morphine Sulfate 4 Mg/Ml Cartridge IVPUSH 09/11/22 10:36 4 mg ONCE STA Administration Protocol Ondansetron HCl 4 mg 09/11/22 07:17 09/11/22 07:49 Ondansetron Hcl 4 Mg/2 Ml Vial IVPUSH 09/11/22 07:18 4 mg ONCE ONE Administration Tamsulosin HCl 0.4 mg 09/11/22 10:35 09/11/22 10:44 Tamsulosin Hcl 0.4 Mg Capsule PO 09/11/22 10:36 0.4 mg ONCE ONE Administration Discharge Plan Discharge Clinical Impression: Calculus of distal right ureter, Hydronephrosis of right kidney, Renal colic on right side Patient Disposition: Home, Self-Care Instructions: How to Strain Your Urine (ED), Ureteral Stones (ED) Additional Instructions: Your blood work was normal pain You do have red blood cells and white blood cells in your urine. Your CT scan revealed a 5 mm right ureteral stone (stone in the tube that connects the kidney to the bladder) at the level of the UVJ (where the tube connects to the bladder). Take ibuprofen 200 mg pills, 2 pills every 6 hours as needed for pain. Take Tylenol (acetaminophen) 500 mg pills, 2 pills every 4-6 hours as needed for pain. For pain not relieved by ibuprofen or Tylenol take morphine 15 mg pills, 1 pill every 4 hours as needed for pain. This medication will make you sleepy, do not drive or work while taking this medication. Morphine is a narcotic medication and can be addicting. If you are concerned about addiction you can ask the pharmacist for less pills or do not get this prescription filled. Take Flomax (tamsulosin) 0.4 mg once a day for the next 2 weeks or until you pass the stone. This medication helps relax the ureter and may help you pass the stone sooner. Take Zofran ODT 4 mg pills, 1 pill dissolved in your mouth every 8 hours as needed for nausea and vomiting. Follow-up with our urologist in 1-2 weeks. Please return to the emergency department if your symptoms get worse or if you develop any symptoms that are concerning to you. Prescriptions: New tamsulosin [Flomax] 0.4 mg capsule 0.4 mg PO DAILY Qty: 30 0RF morphine 15 mg tablet 15 mg PO Q4-6H PRN (Reason: pain) Qty: 10 0RF Rx Instructions: The patient may ask for partial fill; Partial Fill upon patient request. ondansetron 4 mg tablet,disintegrating 4 mg PO Q6-8H PRN (Reason: nausea and vomiting) Qty: 14 0RF No Action albuterol sulfate 90 mcg/actuation HFA aerosol inhaler 2 puff PO QID PRN (Reason: for wheezing) Qty: 25.5 0RF metformin 500 mg tablet 500 mg PO BIDWMEAL 90 Days Qty: 180 2RF amlodipine 10 mg tablet 10 mg PO BEDTIME Qty: 90 0RF rosuvastatin 40 mg tablet 40 mg PO DAILY Qty: 90 1RF escitalopram oxalate 10 mg tablet 10 mg PO DAILY 90 Days Qty: 90 2RF lorazepam 1 mg tablet 1 mg PO BEDTIME PRN (Reason: Anxiety) Qty: 30 2RF omeprazole 40 mg capsule,delayed release(DR/EC) 40 mg PO DAILY Qty: 90 3RF zolpidem 10 mg tablet 10 mg PO BEDTIME PRN (Reason: Insomnia) Qty: 30 2RF albuterol sulfate 2.5 mg /3 mL (0.083 %) solution for nebulization 2.5 mg inhalation PRN (Reason: shortness of breath or wheezing) loratadine 10 mg tablet 10 mg PO DAILY PRN (Reason: Allergy Symptoms) ezetimibe 10 mg tablet 10 mg PO DAILY naproxen [Naprosyn] 500 mg tablet 500 mg PO BID Qty: 20 0RF ondansetron 4 mg tablet,disintegrating 4 mg PO Q6-8H PRN (Reason: nausea and vomiting) Qty: 10 0RF Qvar RediHaler 40 mcg/actuation HFA aerosol breath activated 2 inh inhalation BID Qty: 10.6 11RF dicyclomine 20 mg tablet 20 mg PO TID Qty: 20 0RF Referrals: Rani Cook MD [Physician] - 2 weeks (Right 5 mm UVJ stone, moderate hydronephrosis)
[2022-09-11 07:22] VITALS: BP 129/62; PULSE 83; RESP 13; TEMP 36.5; O2SAT 99
[2022-09-11 07:54] VITALS: BP 141/80; PULSE 79; RESP 18; TEMP 36.7; O2SAT 100
[2022-09-11 10:43] VITALS: RESP 18
--- NOTE | 2022-09-11 10:48 | PC.NURSE ---
Pt. passed stone. MD Fang to bedside to assess. States that pain is somewhat improved since passing the stone. Stone strained and collected in specimen cup per MD verbal orders, so pt. can bring the stone to her Urologist.
== END 2022-09-11 11:05 | disposition home or self-care (01) ==
PROVIDERS: Emergency Provider Emergency Medicine Emergency Medical Services; PCP Internal Medicine
DX: N13.2 Hydronephrosis with renal and ureteral calculous obstruction (principal); E11.9 Type 2 diabetes mellitus without complications; I10 Essential (primary) hypertension; Z87.891 Personal history of nicotine dependence; F12.90 Cannabis use, unspecified, uncomplicated; Z79.84 Long term (current) use of oral hypoglycemic drugs; Z79.899 Other long term (current) drug therapy
CPT/HCPCS: 36415; 74177; 80048; 80076; 81001; 83690; 85025; 87086; 96361; 96374; 96375; 99284; J1885; J2270; J2405; Q9967

== ENCOUNTER 2022-09-14 11:10 | Outpatient (REF) | payer MEDICARE, MEDICAID, SELFPAY ==
--- NOTE | ~2022-09-14 | XR_ITS ---
EXAMINATION: XR BILATERAL HIPS WITH AP PELVIS CLINICAL INFORMATION: Pain. COMPARISON: None available. TECHNIQUE: AP view of the pelvis and frontal and frog lateral views of each hip were obtained. FINDINGS: No fracture. Hip joint spaces are maintained. Alignment is anatomic. Sacroiliac joints and pubic symphysis are normal. A lateral iliac wing bone island is noted. There are pelvic phleboliths. No abnormal soft tissue calcifications. XR/XR hip BI w PEL1V IMPRESSION: Normal pelvis and hips.
--- NOTE | ~2022-09-14 | XR_ITS ---
EXAMINATION: XR KNEE, RIGHT CLINICAL INFORMATION: Pain. COMPARISON: None available. TECHNIQUE: AP and lateral views of the right knee. FINDINGS: No fracture or joint effusion. Alignment is anatomic. Joint spaces are maintained. No abnormal soft tissue calcification. XR/XR knee LT 2V IMPRESSION: Normal right knee. EXAMINATION: XR KNEE, LEFT CLINICAL INFORMATION: Pain. COMPARISON: None available. TECHNIQUE: AP and lateral views of the left knee. FINDINGS: No fracture or joint effusion. Alignment is anatomic. Joint spaces are maintained. No abnormal soft tissue calcification. IMPRESSION: Normal left knee.
--- NOTE | ~2022-09-14 | XR_ITS ---
EXAMINATION: XR KNEE, RIGHT CLINICAL INFORMATION: Pain. COMPARISON: None available. TECHNIQUE: AP and lateral views of the right knee. FINDINGS: No fracture or joint effusion. Alignment is anatomic. Joint spaces are maintained. No abnormal soft tissue calcification. XR/XR knee RT 2V IMPRESSION: Normal right knee. EXAMINATION: XR KNEE, LEFT CLINICAL INFORMATION: Pain. COMPARISON: None available. TECHNIQUE: AP and lateral views of the left knee. FINDINGS: No fracture or joint effusion. Alignment is anatomic. Joint spaces are maintained. No abnormal soft tissue calcification. IMPRESSION: Normal left knee.
--- NOTE | ~2022-09-14 | XR_ITS ---
EXAMINATION: XR HAND, RIGHT CLINICAL INFORMATION: Pain. COMPARISON: None available. TECHNIQUE: PA, lateral, and oblique views of the right hand. FINDINGS: The bones and soft tissues are normal. No fracture. Alignment is anatomic. Joint spaces are maintained. A periarticular calcifications is seen of the interphalangeal joint of the thumb. There is mild osteoarthritic change of the third and fifth distal interphalangeal joints and of the first carpometacarpal joint. No erosions. There is no focal soft tissue swelling, gas or foreign body. XR/XR hand LT 2V IMPRESSION: Mild osteoarthritic change of the right hand and wrist, as detailed. No fracture or dislocation is seen. There is no abnormal bone erosion. EXAMINATION: XR HAND, LEFT CLINICAL INFORMATION: Pain. COMPARISON: Left wrist radiographs dated 09/23/2019. TECHNIQUE: PA, lateral, and oblique views of the left hand. FINDINGS: The bones and soft tissues are normal. No fracture. Alignment is anatomic. Joint spaces are maintained. There is a periarticular calcification of the interphalangeal joint of the thumb. There is mild peripheral osteophyte formation of the third and fifth proximal interphalangeal joints and of the first carpometacarpal joint. No erosions. There is no focal soft tissue swelling, gas or foreign body. IMPRESSION: There are mild osteoarthritic changes of the left hand and wrist, as detailed. No fracture or dislocation is seen. There is no abnormal bone erosion.
--- NOTE | ~2022-09-14 | XR_ITS ---
EXAMINATION: XR HAND, RIGHT CLINICAL INFORMATION: Pain. COMPARISON: None available. TECHNIQUE: PA, lateral, and oblique views of the right hand. FINDINGS: The bones and soft tissues are normal. No fracture. Alignment is anatomic. Joint spaces are maintained. A periarticular calcifications is seen of the interphalangeal joint of the thumb. There is mild osteoarthritic change of the third and fifth distal interphalangeal joints and of the first carpometacarpal joint. No erosions. There is no focal soft tissue swelling, gas or foreign body. XR/XR hand RT 2V IMPRESSION: Mild osteoarthritic change of the right hand and wrist, as detailed. No fracture or dislocation is seen. There is no abnormal bone erosion. EXAMINATION: XR HAND, LEFT CLINICAL INFORMATION: Pain. COMPARISON: Left wrist radiographs dated 09/23/2019. TECHNIQUE: PA, lateral, and oblique views of the left hand. FINDINGS: The bones and soft tissues are normal. No fracture. Alignment is anatomic. Joint spaces are maintained. There is a periarticular calcification of the interphalangeal joint of the thumb. There is mild peripheral osteophyte formation of the third and fifth proximal interphalangeal joints and of the first carpometacarpal joint. No erosions. There is no focal soft tissue swelling, gas or foreign body. IMPRESSION: There are mild osteoarthritic changes of the left hand and wrist, as detailed. No fracture or dislocation is seen. There is no abnormal bone erosion.
[2022-09-18 15:48] LABS: Anti Nuclear Antibody Screen NEGATIVE (NEGATIVE)
== END 2022-09-14 11:11 | disposition home or self-care (01) ==
LOC: HO.XRAY 11:10
PROVIDERS: PCP Internal Medicine; Visit Provider Internal Medicine
DX: M79.641 Pain in right hand (principal); M79.642 Pain in left hand; M25.561 Pain in right knee; M25.562 Pain in left knee; M25.551 Pain in right hip; M25.552 Pain in left hip
CPT/HCPCS: 36415; 73120; 73521; 73560; 80053; 82607; 82728; 82746; 83540; 85025; 85045; 85652; 86038; 86140

== ENCOUNTER 2022-09-25 07:46 | Outpatient (REF) | payer MEDICARE, MEDICAID, SELFPAY ==
--- NOTE | ~2022-09-25 | FL_ITS ---
EXAMINATION: FL BARIUM SWALLOW CLINICAL INFORMATION: Dysphagia COMPARISON: Previous barium swallow July 2015 TECHNIQUE: Barium swallow examination is performed using fluoroscopic evaluation in addition to multiple fluoroscopic spot views. The patient is imaged both upright and prone and using both thick and thin sulfate along with effervescent granules. Barium tablet was also administered. Fluoroscopy time: 1 minutes DAP: 4.3 Gycm2 Images: 50 FINDINGS: The swallowing mechanism is normal. No aspiration or penetration. Esophageal motility is normal. There is gastroesophageal reflux. There is mucosal irregularity of the distal thoracic esophagus suggestive of mild esophagitis. There is a small sliding-type hiatal hernia. There is temporary stasis of the barium tablet at the GE junction. No mass or stricture. FL/FL barium swallow IMPRESSION: Gastroesophageal reflux and mild esophagitis of the distal thoracic esophagus. Small sliding-type hiatal hernia.
== END 2022-09-25 07:47 | disposition home or self-care (01) ==
LOC: HO.XRAY 07:46
PROVIDERS: PCP Internal Medicine; Visit Provider Internal Medicine
DX: R13.10 Dysphagia, unspecified (principal)
CPT/HCPCS: 74220

== ENCOUNTER → 2022-09-25 07:48 | Outpatient (BNV) | payer MEDICARE, MEDICAID, SELFPAY | PROVIDERS: PCP Internal Medicine; Visit Provider Radiology Diagnostic Radiology | DX: R13.10 Dysphagia, unspecified (principal) | CPT/HCPCS: 74221 ==

== ENCOUNTER 2022-10-19 14:22 | Outpatient (AMB) | payer MEDICARE, MEDICAID, SELFPAY ==
[2022-10-19 14:30] VITALS: BP 124/68; PULSE 80; O2SAT 98; BMI 23.1
--- NOTE | 2022-10-19 14:30 | A.OFFPC_ITS ---
Vital Signs 10/19/22 14:30 Height 5 ft 6 in Weight 143 lb BMI 23.1 BP 124/68 Blood Pressure Location Lt brachial Position Sitting Pulse 80 Pulse Source Pulse Oximeter Pulse Oximetry (%) 98 Oxygen Delivery Method Room Air Intake Visit Reasons: Right Ear Discomfort Allergies codeine [Codeine] Allergy (Severe, Verified 10/19/22 15:12) ANAPHYLAXIS, throat edema lisinopril [LISINOPRIL] Allergy (Severe, Verified 10/19/22 15:12) ANGIOEDEMA Sulfa (Sulfonamide Antibiotics) [Sulfa (Sulfonamides)] Allergy (Intermediate, Verified 10/19/22 15:12) SHORTNESS OF BREATH, HIVES, rash doxycycline [Doxycycline] Allergy (Mild, Verified 10/19/22 15:12) HIVES tramadol Allergy (Unknown, Verified 10/19/22 15:12) rash and nightmares senna Adverse Reaction (Unknown, Verified 10/19/22 15:12) Diarrhea Medication List - Last Reconciled 10/19/22 by LOIDA Jackson albuterol sulfate 2.5 mg inhalation PRN albuterol sulfate 90 mcg/actuation 2 puffs PO QID PRN amlodipine 10 mg PO BEDTIME dicyclomine 20 mg PO TID escitalopram oxalate 10 mg PO DAILY 90 days ezetimibe 10 mg PO DAILY fluticasone propionate 44 mcg/actuation (Flovent HFA) 2 puffs inhalation BID loratadine 10 mg PO DAILY PRN lorazepam 1 mg PO BEDTIME PRN metformin 500 mg PO BIDWMEAL 90 days morphine 15 mg PO Q4-6H PRN naproxen (Naprosyn) 500 mg PO BID ofloxacin 0.3% 10 drps otic (ears) DAILY 7 days omeprazole 40 mg PO DAILY ondansetron 4 mg PO Q6-8H PRN ondansetron 4 mg PO Q6-8H PRN rosuvastatin 40 mg PO DAILY tamsulosin (Flomax) 0.4 mg PO DAILY zolpidem 10 mg PO BEDTIME PRN Tobacco use date assessed: 06/02/22 Fall risk assessment: No Falls in past year Last assessed Fall Risk: 10/19/22 Dental Screening Dental Screen Date: 10/19/22 Did you have a dental visit in the last 12 months?: Yes Did you have a dental problem in the last 6 months where you did not have access to dental care?: No Was dental information given to patient?: Patient has dentist HPI HPI Comments History of Present Illness Details 62-year-old female with diabetes mellitus, hypertension GERD generalized anxiety disorder hypercholesterolemia coronary artery disease and asthma last seen in August coming in for same day visit for left ear discomfort x 1 week. Patient states its starting to itch. Patient tried otc ear drops debrox, patient reports taking allergy pill daily. Patient denies fever, chills, cough does report some nasal congestion. Patient also reports has been swimming recently, but states she does not dive underwater. Left ear canal erythematous, no foreign body or drainage noted. FOR[facility]LY [facility] Medical History (Updated 10/19/22 @ 15:07 by LOIDA Jackson) Adrenal adenoma Asthma CAD (coronary artery disease) Chronic sinusitis Constipation Cystocele Essential hypertension Fibromyalgia GERD (gastroesophageal reflux disease) Hemoptysis History of polycystic kidney disease, autosomal dominant Hx MRSA infection Hx of migraines Hx of renal calculi IBS (irritable bowel syndrome) Internal and external hemorrhoids without complication Kidney stones Lumbar radiculopathy Otitis externa PTSD (post-traumatic stress disorder) Saccular aneurysm Sciatica Thyroid nodule Type 2 diabetes mellitus with hyperglycemia Surgical History History of abdominoplasty History of appendectomy History of cardiac cath History of esophagogastroduodenoscopy (EGD) History of eye surgery History of lithotripsy History of thyroidectomy, subtotal History of tonsillectomy History of total abdominal hysterectomy and bilateral salpingo-oophorectomy History of tubal ligation Hx of colonoscopy Family History Father Cancer of kidney Diabetes Hypertension CVD (cardiovascular disease) Mother Hypertension Cancer Maternal Aunt Colon cancer Brother AIDS Paternal Aunt Ovarian cancer Breast cancer Social History Household Members: Spouse Household Members Other:: grandson Housing: House Alcohol intake: current Alcohol intake frequency: does not drink Patient Tobacco Use Status: Former Tobacco user Tobacco use type: Cigarette Years Smoked: quit 1984 e-Cigarette/Vaping Use: Never Used Second Hand Smoke Exposure: No Substance Use Type: Marijuana service: No Current occupational status: employed 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 1. Little interest or pleasure in doing things: not at all 2. Feeling down, depressed, or hopeless: not at all 3. Trouble falling or staying asleep, or sleeping too much: not at all 4. Feeling tired or having little energy: not at all 5. Poor appetite or overeating: not at all 6. Feeling bad about yourself - or that you are a failure or have let yourself or your family down: not at all 7. Trouble concentrating on things, such as reading the newspaper or watching television: not at all 8. Moving or speaking so slowly that other people could have noticed. Or the opposite - being so fidgety or restless that you have been moving around a lot more than usual: not at all 9. Thoughts that you would be better off or of hurting yourself in some way: not at all Total score: 0 Depression Screening Interpretation: Negative Source: Developed by Drs. Ash Montana, Bonny Sterling, Akash Trimble and colleagues, with an educational mamie from [employer]. Thrive Questionnaire Date Thrive assessed: 06/02/22 AUDIT C Alcohol Use Questionnaire (AUDIT-C) 1. How often do you have a drink containing alcohol?: Never 2. How many drinks containing alcohol do you have on a typical day when you are drinking?: 1 or 2 (0) 3. How often do you have six or more drinks on one occasion?: Never Total Score: 0 Score Reviewed/Action Taken: Yes DL-7 AMB Questionnaire DL-7 Date DL - 7 assessed: 06/02/22 Source: Developed by Drs. Ash Montana, Akash Hall and colleagues, with an educational mamie from [employer]. Review of Systems Const Denies chills, Denies fatigue, Denies fever(s) and Denies poor appetite Eyes Denies no additional complaints ENT Reports Normal hearing present and Reports other (left ear discomfort) Card Denies chest pain, Denies syncope, Denies rapid heart rate and Denies dyspnea Resp Denies cough and Denies dyspnea GI Denies change in stool character, Denies constipation, Denies diarrhea, Denies nausea and Denies vomiting Denies urinary frequency, Denies dysuria and Denies urinary urgency Neuro Reports Normal hearing present, Denies confusion and Denies syncope Psych Denies confusion Endo Denies fatigue Physical exam (Primary Care) Vital Signs: Last Vital Signs Pulse 80 10/19/22 14:30 BP 124/68 10/19/22 14:30 Pulse Ox 98 10/19/22 14:30 Oxygen Delivery Method Room Air 10/19/22 14:30 BMI result Body Mass Index 23.1 Tobacco/Smoking Status: Tobacco use Status Tobacco use date assessed 06/02/22 10/19/22 14:35 Patient Tobacco Use Status Former Tobacco user 10/19/22 14:35 Tobacco use type Cigarette 10/19/22 14:35 e-Cigarette/Vaping Use Never Used 10/19/22 14:35 PHQ-9: PHQ-9 Score PHQ-9: Total score 0 10/19/22 14:49 Depression Screening Interpretation: Negative Thrive Assessment: Date of Thrive Assessment Date Thrive assessed 06/02/22 10/19/22 14:35 Const General: No confusion Orientation/consciousness: No confusion HENMT Head: Yes normocephalic and Yes atraumatic Ears: TM normal on the right, TM normal on the left and other (left ear canal erythematous, no drainage not ) Eyes Conjunctivae: conjunctivae normal Chest Chest palpation & inspection: normal inspection of the chest Resp Effort & Inspection: normal respiratory effort Auscultation: clear to auscultation bilaterally, no crackles, no rhonchi and no wheezes Cardio Rate: regular rate Rhythm: regular rhythm Heart sounds: S1 normal heart sound present and S2 normal heart sound present GI Inspection: Yes normal to inspection Neuro General: No confusion Cranial nerves: Yes Normal hearing present Extrem General: No edema Assessment and Plan Assessment & Plan (1) Left otitis externa: Code(s): H60.92 - Unspecified otitis externa, left ear Plan: Patient advised to continue on the loratadine daily, refill sent to patient's pharmacy. Ofloxacin drops apply drops into left ear daily x7 days. Plan Keep scheduled follow-up with PCP. Medications: New loratadine 10 mg PO DAILY PRN 30 tabs 3RF Allergy Symptoms ofloxacin 0.3% 10 drps otic (ears) DAILY 7 days 10 mL 0RF H60.92 - Unspecified otitis externa, left ear Coding Level of Care Code Est Pt Level 3 (01900) Diagnoses Left otitis externa H60.92
== END 2022-10-19 15:06 | disposition home or self-care (01) ==
PROVIDERS: PCP Internal Medicine; Visit Provider Nurse Practitioner Family
DX: H60.92 Unspecified otitis externa, left ear (principal)
CPT/HCPCS: 99213

== ENCOUNTER 2022-11-29 00:07 | Emergency (ER) | payer MEDICARE, MEDICAID, SELFPAY ==
[2022-11-29 00:52] VITALS: PULSE 100; RESP 20; TEMP 38.4; O2SAT 100; BMI 23.3
--- NOTE | 2022-11-29 01:59 | ED_ITS ---
HPI - General Adult General Chief complaint: Abdominal Pain Stated complaint: possible flu/amonia Time Seen by Provider: 11/29/22 01:38 Source: patient Mode of arrival: ambulatory History of Present Illness HPI narrative: 62-year-old female who is a diabetic states that she went to the pharmacy and got 3 vaccines today and now reports significant body aches, abdominal discomfort, nausea and states she is having chills as well as a headache. Related Data Home Medications Medication Instructions Recorded Confirmed albuterol sulfate 2.5 mg/3 mL 2.5 mg inhalation PRN shortness of 02/04/22 10/19/22 (0.083 %) solution for nebulization breath or wheezing ezetimibe 10 mg tablet 10 mg PO DAILY 02/04/22 10/19/22 Previous Rx's Medication Instructions Recorded naproxen 500 mg tablet (Naprosyn) 500 mg PO BID #20 tabs 04/27/22 ondansetron 4 mg disintegrating 4 mg PO Q6-8H PRN nausea and 06/30/22 tablet vomiting #10 tabs omeprazole 40 mg capsule,delayed 40 mg PO DAILY #90 caps 08/22/22 release dicyclomine 20 mg tablet 20 mg PO TID #20 tabs 09/07/22 morphine 15 mg immediate release 15 mg PO Q4-6H PRN pain #10 tabs 09/11/22 tablet ondansetron 4 mg disintegrating 4 mg PO Q6-8H PRN nausea and 09/11/22 tablet vomiting #14 tabs tamsulosin 0.4 mg capsule (Flomax) 0.4 mg PO DAILY #30 caps 09/11/22 fluticasone propionate 44 2 puff inhalation BID #10.6 grams 09/14/22 mcg/actuation HFA aerosol inhaler (Flovent HFA) escitalopram oxalate 10 mg tablet 10 mg PO DAILY 90 days #90 tabs 09/23/22 metformin 500 mg tablet 500 mg PO BIDWMEAL 90 days #180 10/03/22 tabs loratadine 10 mg tablet 10 mg PO DAILY PRN Allergy 10/19/22 Symptoms #30 tabs ofloxacin 0.3 % ear drops 10 drp otic (ears) DAILY 7 days 10/19/22 #10 mL lorazepam 1 mg tablet 1 mg PO BEDTIME PRN Anxiety #30 11/20/22 tabs zolpidem 10 mg tablet 10 mg PO BEDTIME PRN Insomnia #30 11/20/22 tabs amlodipine 10 mg tablet 10 mg PO BEDTIME #90 tabs 11/22/22 rosuvastatin 40 mg tablet 40 mg PO DAILY #90 tabs 11/22/22 albuterol sulfate 90 mcg/actuation 2 puff PO QID PRN for wheezing 11/26/22 aerosol inhaler #25.5 grams cefdinir 300 mg capsule 300 mg PO BID 7 days #14 caps 11/29/22 Allergies Allergy/AdvReac Type Severity Reaction Status Date / Time codeine [Codeine] Allergy Severe ANAPHYLAXIS, Verified 10/19/22 15:12 throat edema lisinopril [LISINOPRIL] Allergy Severe ANGIOEDEMA Verified 10/19/22 15:12 Sulfa (Sulfonamide Allergy Intermediate SHORTNESS Verified 10/19/22 15:12 Antibiotics) OF BREATH, [Sulfa (Sulfonamides)] HIVES, rash doxycycline [Doxycycline] Allergy Mild HIVES Verified 10/19/22 15:12 tramadol Allergy Unknown rash and Verified 10/19/22 15:12 nightmares senna AdvReac Unknown Diarrhea Verified 10/19/22 15:12 Review of Systems 2 Review of Systems: Pertinent positives and negatives as stated in HPI PMFSH Past Medical History Source: nursing notes reviewed Medical History (Updated 11/29/22 @ 04:49 by Milli Giron MD) Internal and external hemorrhoids without complication Constipation Hemoptysis Cystocele Adrenal adenoma Thyroid nodule GERD (gastroesophageal reflux disease) Chronic sinusitis Type 2 diabetes mellitus with hyperglycemia Sciatica CAD (coronary artery disease) PTSD (post-traumatic stress disorder) Asthma Kidney stones Fibromyalgia Essential hypertension Lumbar radiculopathy Hx of migraines Hx of renal calculi Saccular aneurysm IBS (irritable bowel syndrome) Hx MRSA infection History of polycystic kidney disease, autosomal dominant Otitis externa Surgical History History of esophagogastroduodenoscopy (EGD) Hx of colonoscopy History of cardiac cath History of eye surgery History of thyroidectomy, subtotal History of lithotripsy History of total abdominal hysterectomy and bilateral salpingo-oophorectomy History of appendectomy History of abdominoplasty History of tonsillectomy History of tubal ligation Family History Family History Father Cancer of kidney Diabetes Hypertension CVD (cardiovascular disease) Mother Hypertension Cancer Maternal Aunt Colon cancer Brother AIDS Paternal Aunt Ovarian cancer Breast cancer Social History Social History Household Members: Spouse Household Members Other:: grandson Housing: House Alcohol intake: never Patient Tobacco Use Status: Former Tobacco user Tobacco use type: Cigarette Years Smoked: quit 1985 Smoked in Last 30 Days: No e-Cigarette/Vaping Use: Never Used Second Hand Smoke Exposure: No Use of substances other than those prescribed or required for medical reasons: No Substance Use Type: Marijuana Advance Directives: No Advance Directives Information Provided: No Patient : No service: No Current occupational status: employed 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 GENERAL: Well developed, well nourished, in no acute distress. HEAD: Normocephalic/atraumatic EYES: PERRLA, EOMI EARS: Ext canals without abnormality NOSE: Nares patent bilateral OROPHARYNX: no oral lesions noted, posterior pharynx clear and non-erythematous without noted tonsillar enlargement/erythema/exudates, no facial/lip/tongue swelling NECK: Supple, no adenopathy LUNGS: Normal breath sounds, no stridor or expiratory wheeze. No adventitious sounds or accessory muscle use. SpO2<100> CARDIOVASCULAR: Regular rate and rhythm without noted murmurs ABDOMEN: Soft, non-tender, non-distended with bowel sounds. MUSCULOSKELETAL: No tenderness, deformities, or effusions noted on gross inspection. EXTREMITIES: No cyanosis, clubbing or edema. SKIN: Inspection of the skin reveals no rashes NEUROLOGIC: Alert and oriented x 4. Strength and sensation to light touch were grossly intact x 4. Medications Administered Discontinued Medications Generic Name Dose Route Start Last Admin Trade Name Freq PRN Reason Stop Dose Admin Acetaminophen 975 mg 11/29/22 01:19 11/29/22 02:07 Acetaminophen 325 Mg Tablet PO 11/29/22 01:20 975 mg ONCE ONE Administration Diphenhydramine HCl 25 mg 11/29/22 02:00 11/29/22 02:12 Diphenhydramine Hcl 25 Mg Capsule PO 11/29/22 02:01 25 mg ONCE ONE Administration Sodium Chloride 1,000 mls @ 999 mls/hr 11/29/22 02:45 11/29/22 03:12 Ns IV 11/29/22 03:45 999 mls/hr .Q1H1M ELIZABETH Administration Ceftriaxone Sodium 1 gm/ 50 mls @ 100 mls/hr 11/29/22 02:43 11/29/22 04:13 Sodium Chloride IV 11/29/22 03:12 Infused ONCE ONE Infusion Ibuprofen 400 mg 11/29/22 01:19 11/29/22 02:06 Ibuprofen 400 Mg Tablet PO 11/29/22 01:20 400 mg ONCE ONE Administration Ondansetron HCl 4 mg 11/29/22 01:52 11/29/22 02:07 Ondansetron Odt 4 Mg Tab.Rapdis TRANSLINGU 11/29/22 01:53 4 mg ONCE ONE Administration Medical Decision Making Medical Decision Making MDM Narrative: 62-year-old female with history and clinical presentation, DDX: Reaction to vaccination, UTI, pyelonephritis. Patient started on IV fluids, pain medications and antiemetics. I reviewed all investigations and hematologic indices are significant for leukocytosis and left shift without anemia or thrombocytopenia. Chemistry indices are without ÓSCAR there is a mild low potassium level 3.2 and no liver enzyme abnormalities. Urinalysis is significant for evidence to suggest UTI with presence of wbc's but no nitrite positivity noted. Viral testing negative for influenza and COVID-19. 0345: On re-evaluation patient states that she is feeling much better. Elevated temperature has improved 0447: IV fluids are completed and on re-evaluation patient is feeling much better and wishes to go home. Differential Diagnosis Differential Diagnoses: The differential diagnosis associated with the presentation includes Please see the discussion above Admission/Observation Consideration of admission/observation: Escalation of care including admission/observation considered Please see the discussion above Lab Data MDM Lab Attestation statement: I reviewed the patient's lab results. Please see the discussion above 11/29/22 02:55 11/29/22 02:55 Labs: Lab Results 11/29/22 11/29/22 11/29/22 Range/Units 01:40 01:41 02:05 WBC (4.8-10.8) X10*3/uL RBC (4.20-5.50) X10*6/uL Hgb (12.0-16.0) g/dl Hct (37.0-47.0) % MCV (80.0-98.0) fL MCH (27.0-33.0) pg MCHC (31.0-35.0) g/dl RDW (11.0-16.0) % Plt Count (160-400) X10*3/uL MPV (9.4-12.3) fL Immature Gran % (Auto) (0.0-0.4) % Neut % (Auto) (45-73) % Lymph % (Auto) (20-40) % [place] % (Auto) (2-11) % Eos % (Auto) (0-4) % Baso % (Auto) (0-2) % Lymph # (Auto) (1.2-4.9) X10*3/uL [place] # (Auto) (0.1-1.2) X10*3/uL Eos # (Auto) (0.0-0.4) X10*3/uL Baso # (Auto) (0.0-0.2) X10*3/uL Abs Immat Gran (auto) (0.00-0.03) X10*3/uL Absolute Neuts (auto) (2.0-8.3) x10*3/uL Absolute Nucleated RBC (0.0-0.012) X10*3/uL Nucleated RBC % (auto) (0.0-0.2) /100WBC Sodium (135-145) mmol/L Potassium (3.3-5.1) mmol/L Chloride (96-108) mmol/L Carbon Dioxide (22-29) mmol/L Anion Gap (12-20) BUN (9-16) mg/dL Creatinine (0.5-1.4) mg/dL Estim Creat Clear Calc Estimated GFR POC Glucose (60-115) mg/dL Random Glucose (60-115) mg/dL Lactic Acid (0.5-2.0) mmol/L Calcium (8.4-10.2) mg/dL Total Bilirubin (0.0-1.0) mg/dL AST (5-31) U/L ALT (0-31) U/L Alkaline Phosphatase (39-117) U/L Total Protein (6.5-8.0) g/dL Albumin (3.5-5.0) g/dL Urine Color Yellow Urine Appearance Clear Urine pH >= 9.0 (5.0-9.0) Ur Specific [place] 1.015 (1.005-1.025) Urine Protein 30 (1+) H (Neg-Trace) mg/dL Urine Glucose (UA) Negative (Negative) mg/dL Urine Ketones 15 (Negative) mg/dL Urine Blood Negative (Negative) Urine Nitrite Negative (Negative) Ur Leukocyte Esterase Small (1+) H (Negative) Urine RBC 3-5 H (0-2) /HPF Urine WBC 21-50 H (0-5) /HPF Ur Squamous Epith Cells 0-2 (0-2) /HPF Urine Bacteria None Seen (None Seen) Hyaline Casts 0-2 (0-2) /LPF Influenza Type A (TAB) Cancelled Influenza Type A (PCR) NEGATIVE (Negative) Influenza Type B (TAB) Cancelled Influenza Type B (PCR) NEGATIVE (Negative) Influenza A & B Note Cancelled RSV RNA Qual (PCR) NEGATIVE (Negative) SARS-CoV-2 RNA (RT-PCR) NEGATIVE (Negative) 11/29/22 11/29/22 Range/Units 02:22 02:55 WBC 12.7 H (4.8-10.8) X10*3/uL RBC 4.14 L (4.20-5.50) X10*6/uL Hgb 12.1 (12.0-16.0) g/dl Hct 34.4 L (37.0-47.0) % MCV 83.1 (80.0-98.0) fL MCH 29.2 (27.0-33.0) pg MCHC 35.2 H (31.0-35.0) g/dl RDW 14.2 (11.0-16.0) % Plt Count 247 (160-400) X10*3/uL MPV 10.0 (9.4-12.3) fL Immature Gran % (Auto) 0.4 (0.0-0.4) % Neut % (Auto) 89.4 H (45-73) % Lymph % (Auto) 5.0 L (20-40) % [place] % (Auto) 5.0 (2-11) % Eos % (Auto) 0.1 (0-4) % Baso % (Auto) 0.1 (0-2) % Lymph # (Auto) 0.6 L (1.2-4.9) X10*3/uL [place] # (Auto) 0.6 (0.1-1.2) X10*3/uL Eos # (Auto) 0.0 (0.0-0.4) X10*3/uL Baso # (Auto) 0.0 (0.0-0.2) X10*3/uL Abs Immat Gran (auto) 0.05 H (0.00-0.03) X10*3/uL Absolute Neuts (auto) 11.3 H (2.0-8.3) x10*3/uL Absolute Nucleated RBC 0.000 (0.0-0.012) X10*3/uL Nucleated RBC % (auto) 0.0 (0.0-0.2) /100WBC Sodium 139 (135-145) mmol/L Potassium 3.2 L (3.3-5.1) mmol/L Chloride 107 (96-108) mmol/L Carbon Dioxide 20 L (22-29) mmol/L Anion Gap 15 (12-20) BUN 15 (9-16) mg/dL Creatinine 0.81 (0.5-1.4) mg/dL Estim Creat Clear Calc 63.1 Estimated GFR > 60 POC Glucose 182 H (60-115) mg/dL Random Glucose 171 H (60-115) mg/dL Lactic Acid 1.8 (0.5-2.0) mmol/L Calcium 9.4 (8.4-10.2) mg/dL Total Bilirubin 0.9 (0.0-1.0) mg/dL AST 24 (5-31) U/L ALT 17 (0-31) U/L Alkaline Phosphatase 95 (39-117) U/L Total Protein 7.4 (6.5-8.0) g/dL Albumin 4.3 (3.5-5.0) g/dL Urine Color Urine Appearance Urine pH (5.0-9.0) Ur Specific [place] (1.005-1.025) Urine Protein (Neg-Trace) mg/dL Urine Glucose (UA) (Negative) mg/dL Urine Ketones (Negative) mg/dL Urine Blood (Negative) Urine Nitrite (Negative) Ur Leukocyte Esterase (Negative) Urine RBC (0-2) /HPF Urine WBC (0-5) /HPF Ur Squamous Epith Cells (0-2) /HPF Urine Bacteria (None Seen) Hyaline Casts (0-2) /LPF Influenza Type A (TAB) Influenza Type A (PCR) (Negative) Influenza Type B (TAB) Influenza Type B (PCR) (Negative) Influenza A & B Note RSV RNA Qual (PCR) (Negative) SARS-CoV-2 RNA (RT-PCR) (Negative) External Record Review External record reviewed: Outpatient record, Prior outpatient labs and Prior outpatient radiology Chronic Conditions Patient?s care impacted by: Diabetes Critical Care Time Critical Care Time Critical Care Time: Yes Total Critical Care Time: 30 Attestation: I personally attest to this time spent taking care of the patient. Discharge Plan Discharge Clinical Impression: Pyelonephritis Patient Disposition: Home, Self-Care Instructions: Kidney Infection (ED) Additional Instructions: 1. Resume all home medications as prescribed. 2. Complete the entire course of antibiotics as prescribed. Recommend [id number] Tylenol/ibuprofen as needed for any pain or temperatures greater than 100.4. Increase the amount of water intake. 3. Follow-up with your primary care doctor in the next 1-2 days. Return to the ER for any worsening symptoms. Prescriptions: New cefdinir 300 mg capsule 300 mg PO BID 7 Days Qty: 14 0RF No Action omeprazole 40 mg capsule,delayed release(DR/EC) 40 mg PO DAILY Qty: 90 3RF fluticasone propionate [Flovent HFA] 44 mcg/actuation HFA aerosol inhaler 2 puff inhalation BID Qty: 10.6 12RF Rx Instructions: administer with spacer escitalopram oxalate 10 mg tablet 10 mg PO DAILY 90 Days Qty: 90 2RF metformin 500 mg tablet 500 mg PO BIDWMEAL 90 Days Qty: 180 2RF lorazepam 1 mg tablet 1 mg PO BEDTIME PRN (Reason: Anxiety) Qty: 30 2RF zolpidem 10 mg tablet 10 mg PO BEDTIME PRN (Reason: Insomnia) Qty: 30 2RF rosuvastatin 40 mg tablet 40 mg PO DAILY Qty: 90 1RF amlodipine 10 mg tablet 10 mg PO BEDTIME Qty: 90 0RF albuterol sulfate 90 mcg/actuation HFA aerosol inhaler 2 puff PO QID PRN (Reason: for wheezing) Qty: 25.5 0RF albuterol sulfate 2.5 mg /3 mL (0.083 %) solution for nebulization 2.5 mg inhalation PRN (Reason: shortness of breath or wheezing) ezetimibe 10 mg tablet 10 mg PO DAILY naproxen [Naprosyn] 500 mg tablet 500 mg PO BID Qty: 20 0RF tamsulosin [Flomax] 0.4 mg capsule 0.4 mg PO DAILY Qty: 30 0RF morphine 15 mg tablet 15 mg PO Q4-6H PRN (Reason: pain) Qty: 10 0RF Rx Instructions: The patient may ask for partial fill; Partial Fill upon patient request. ondansetron 4 mg tablet,disintegrating 4 mg PO Q6-8H PRN (Reason: nausea and vomiting) Qty: 14 0RF ondansetron 4 mg tablet,disintegrating 4 mg PO Q6-8H PRN (Reason: nausea and vomiting) Qty: 10 0RF dicyclomine 20 mg tablet 20 mg PO TID Qty: 20 0RF loratadine 10 mg tablet 10 mg PO DAILY PRN (Reason: Allergy Symptoms) Qty: 30 3RF ofloxacin 0.3 % drops 10 drp otic (ears) DAILY 7 Days Qty: 10 0RF Referrals: Po,Anamaria Howell MD [Primary Care Provider] -
[2022-11-29] MEDS: Ibuprofen 400 MG TABLET PO (02:06)
[2022-11-29] MEDS: Acetaminophen 325 MG TABLET 975 MG PO (02:07)
[2022-11-29] MEDS: Ondansetron ODT 4 MG TAB.RAPDIS TRANSLINGU (02:07)
[2022-11-29] MEDS: diphenhydrAMINE HCL 25 MG CAPSULE PO (02:12)
[2022-11-29 02:19] LABS: Appearance Urine Clear; Color Urine Yellow; Glucose Urine UA Negative (Negative); Leukocyte Esterase Urine Small (1+) (Negative); Nitrite Urine Negative (Negative); PH >= 9.0 (5.0-9.0); Specific Gravity - Urine 1.015 (1.005-1.025); UMIC TRIGGER UACC YES; Urine Blood Negative (Negative); Urine Ketones 15 mg/dL (Negative); Urine Protein 30 (1+) mg/dL (Neg-Trace)
[2022-11-29 02:24] LABS: Bacteria Urine None Seen (None Seen); Hyaline Casts Urine 0-2 /LPF (0-2); Squamous Epithelial Cell Urine 0-2 /HPF (0-2); UACC Culture Trigger YES; WBC Urine 21-50 /HPF (0-5)
[2022-11-29 02:26] LABS: Glucose, Whole Blood 182 mg/dL (60-115)
[2022-11-29 02:34] LABS: Influenza A PCR NEGATIVE (Negative); Influenza B PCR NEGATIVE (Negative); Resp Syncy Virus RNA Qual PCR NEGATIVE (Negative); SARS COV2 PCR INHOUSE NEGATIVE (Negative)
[2022-11-29 03:12] LABS: MANUAL DIFF FLAG NO
[2022-11-29] MEDS: 0.9 % Sodium Chloride 1,000 ML 999 ML IV (03:12)
[2022-11-29 03:13] LABS: Basophils Percent Auto 0.1 % (0-2); Eosinophils Percent Auto 0.1 % (0-4); Hematocrit 34.4 % (37.0-47.0); Hemoglobin 12.1 g/dl (12.0-16.0); Imm Gran Abs Auto 0.05 X10*3/uL (0.00-0.03); Imm Gran Pct Auto 0.4 % (0.0-0.4); Lymphocytes Absolute Auto 0.6 X10*3/uL (1.2-4.9); Mean Corpuscular HGB Conc 35.2 g/dl (31.0-35.0); Mean Corpuscular Hemoglobin 29.2 pg (27.0-33.0); Mean Corpuscular Volume 83.1 fL (80.0-98.0); Monocytes Absolute Auto 0.6 X10*3/uL (0.1-1.2); Neutrophils Absolute Auto 11.3 x10*3/uL (2.0-8.3); Neutrophils Percent Auto 89.4 % (45-73); Platelet Count 247 X10*3/uL (160-400); Red Blood Count 4.14 X10*6/uL (4.20-5.50); Red Cell Distribution Width 14.2 % (11.0-16.0); White Blood Count 12.7 X10*3/uL (4.8-10.8)
[2022-11-29] MEDS: cefTRIAXone sodium 1 GM in 0.9 % Sodium Chloride 50 ML IV (03:14)
[2022-11-29 03:23] LABS: Lactic Acid 1.8 mmol/L (0.5-2.0)
[2022-11-29 03:29] LABS: Alanine Aminotransferase 17 U/L (0-31); Albumin Level 4.3 g/dL (3.5-5.0); Alkaline Phosphatase 95 U/L (39-117); Anion Gap 15 (12-20); Aspartate Amino Transferase 24 U/L (5-31); Bilirubin Total 0.9 mg/dL (0.0-1.0); Blood Urea Nitrogen 15 mg/dL (9-16); Calcium 9.4 mg/dL (8.4-10.2); Carbon Dioxide 20 mmol/L (22-29); Chloride 107 mmol/L (96-108); Creatinine Clr Calc Pharmacy 63.1; Estimated Glomerular Filt Rate > 60; Glucose Random 171 mg/dL (60-115); Potassium 3.2 mmol/L (3.3-5.1); Sodium 139 mmol/L (135-145); Total Protein 7.4 g/dL (6.5-8.0)
[2022-11-29 03:41] VITALS: BP 108/56; PULSE 95; RESP 17; TEMP 37; O2SAT 96
== END 2022-11-29 05:05 | disposition home or self-care (01) ==
PROVIDERS: Emergency Provider Student in an Organized Health Care Education/Training Program; PCP Internal Medicine
DX: N12 Tubulo-interstitial nephritis, not specified as acute or chronic (principal); Z20.822 Contact with and (suspected) exposure to COVID-19; Z20.828 Contact with and (suspected) exposure to other viral communicable diseases; Z79.899 Other long term (current) drug therapy; Z87.891 Personal history of nicotine dependence
CPT/HCPCS: 0241U; 36415; 80053; 81001; 82947; 83605; 85025; 87040; 87086; 96365; 99284; 99285; J0696

== ENCOUNTER 2022-12-11 12:27 | Outpatient (AMB) | payer MEDICARE, MEDICAID, SELFPAY ==
[2022-12-11 12:30] VITALS: BP 106/62; PULSE 76; O2SAT 98; BMI 23.1
--- NOTE | 2022-12-11 12:30 | MHC.PC.OV ---
Vital Signs 12/11/22 12:30 Height 5 ft 5 in Weight 139 lb BMI 23.1 BP 106/62 Blood Pressure Location Lt brachial Position Sitting Pulse 76 Pulse Source Pulse Oximeter Pulse Oximetry (%) 98 Oxygen Delivery Method Room Air Intake [place] [facility] [place] Kidney infection Allergies codeine [Codeine] Allergy (Severe, Verified 12/11/22 12:30) ANAPHYLAXIS, throat edema lisinopril [LISINOPRIL] Allergy (Severe, Verified 12/11/22 12:30) ANGIOEDEMA Sulfa (Sulfonamide Antibiotics) [Sulfa (Sulfonamides)] Allergy (Intermediate, Verified 12/11/22 12:30) SHORTNESS OF BREATH, HIVES, rash doxycycline [Doxycycline] Allergy (Mild, Verified 12/11/22 12:30) HIVES tramadol Allergy (Unknown, Verified 12/11/22 12:30) rash and nightmares senna Adverse Reaction (Unknown, Verified 12/11/22 12:30) Diarrhea Tobacco use date assessed: 06/02/22 Fall risk assessment: No Falls in past year Last assessed Fall Risk: 12/11/22 Dental Screening Dental Screen Date: 12/11/22 Did you have a dental visit in the last 12 months?: Yes Did you have a dental problem in the last 6 months where you did not have access to dental care?: No Was dental information given to patient?: Patient has dentist HPI HPI Comments History of Present Illness Details 62-year-old female with diabetes mellitus, hypertension GERD generalized anxiety disorder hypercholesterolemia coronary artery disease and asthma last seen in October patient of Dr. Maddox presents today for ER follow up. Patient reported had RSV, FLU and PNA vaccine all in one day developed bodyaches, fever, dehydration. Went ER had polynephritis. Patient was treated with cefdinir. Patient denies, burning urination, reports frequency, patient continues to experiencing left-sided flank pain. Medical history significant for bilateral kidney stones. Patient reports has an upcoming appointment to establish care with Urologist and [place]. Patient denies any fever reports chills. [facility] Medical History (Updated 12/11/22 @ 12:56 by LOIDA Jackson) Internal and external hemorrhoids without complication Constipation Hemoptysis Cystocele Adrenal adenoma Thyroid nodule GERD (gastroesophageal reflux disease) Chronic sinusitis Type 2 diabetes mellitus with hyperglycemia Sciatica CAD (coronary artery disease) PTSD (post-traumatic stress disorder) Asthma Kidney stones Fibromyalgia Essential hypertension Lumbar radiculopathy Hx of migraines Hx of renal calculi Saccular aneurysm IBS (irritable bowel syndrome) Hx MRSA infection History of polycystic kidney disease, autosomal dominant Otitis externa Surgical History History of esophagogastroduodenoscopy (EGD) Hx of colonoscopy History of cardiac cath History of eye surgery History of thyroidectomy, subtotal History of lithotripsy History of total abdominal hysterectomy and bilateral salpingo-oophorectomy History of appendectomy History of abdominoplasty History of tonsillectomy History of tubal ligation Family History Father Cancer of kidney Diabetes Hypertension CVD (cardiovascular disease) Mother Hypertension Cancer Maternal Aunt Colon cancer Brother AIDS Paternal Aunt Ovarian cancer Breast cancer Social History Household Members: Spouse Household Members Other:: grandson Housing: House Alcohol intake: never Patient Tobacco Use Status: Former Tobacco user Tobacco use type: Cigarette Years Smoked: quit 1984 e-Cigarette/Vaping Use: Never Used Second Hand Smoke Exposure: No Substance Use Type: Marijuana service: No Current occupational status: employed 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 1. Little interest or pleasure in doing things: not at all 2. Feeling down, depressed, or hopeless: not at all 3. Trouble falling or staying asleep, or sleeping too much: not at all 4. Feeling tired or having little energy: not at all 5. Poor appetite or overeating: not at all 6. Feeling bad about yourself - or that you are a failure or have let yourself or your family down: not at all 7. Trouble concentrating on things, such as reading the newspaper or watching television: not at all 8. Moving or speaking so slowly that other people could have noticed. Or the opposite - being so fidgety or restless that you have been moving around a lot more than usual: not at all 9. Thoughts that you would be better off or of hurting yourself in some way: not at all Total score: 0 Depression Screening Interpretation: Negative Source: Developed by Drs. Ash Montana, Bonny Sterling, Akash Trimble and colleagues, with an educational mamie from [employer]. Thrive Questionnaire Date Thrive assessed: 06/02/22 AUDIT C Alcohol Use Questionnaire (AUDIT-C) 1. How often do you have a drink containing alcohol?: Never 2. How many drinks containing alcohol do you have on a typical day when you are drinking?: 1 or 2 (0) 3. How often do you have six or more drinks on one occasion?: Never Total Score: 0 Score Reviewed/Action Taken: Yes DL-7 AMB Questionnaire DL-7 Date DL - 7 assessed: 06/02/22 Source: Developed by Drs. Ash Montana, Bonny Sterling, Akash Trimble and colleagues, with an educational mamie from [employer]. Review of Systems Const Denies chills, Denies fatigue, Denies fever(s) and Denies poor appetite Eyes Denies no additional complaints ENT Reports Normal hearing present Card Denies chest pain, Denies syncope, Denies rapid heart rate and Denies dyspnea Resp Denies cough and Denies dyspnea GI Denies change in stool character, Denies constipation, Denies diarrhea, Denies nausea and Denies vomiting Denies urinary frequency, Denies dysuria and Denies urinary urgency Neuro Reports Normal hearing present, Denies confusion and Denies syncope Psych Denies confusion Endo Denies fatigue Physical exam (Primary Care) Vital Signs: Last Vital Signs Pulse 76 12/11/22 12:30 BP 106/62 12/11/22 12:30 Pulse Ox 98 12/11/22 12:30 Oxygen Delivery Method Room Air 12/11/22 12:30 BMI result Body Mass Index 23.1 Tobacco/Smoking Status: Tobacco use Status Tobacco use date assessed 06/02/22 12/11/22 12:31 Patient Tobacco Use Status Former Tobacco user 12/11/22 12:31 Tobacco use type Cigarette 12/11/22 12:31 e-Cigarette/Vaping Use Never Used 12/11/22 12:31 PHQ-9: PHQ-9 Score PHQ-9: Total score 0 12/11/22 12:49 Depression Screening Interpretation: Negative Thrive Assessment: Date of Thrive Assessment Date Thrive assessed 06/02/22 12/11/22 12:31 Const General: No confusion Orientation/consciousness: No confusion HENMT Head: Yes normocephalic and Yes atraumatic Eyes Conjunctivae: conjunctivae normal Chest Chest palpation & inspection: normal inspection of the chest Resp Effort & Inspection: normal respiratory effort Auscultation: clear to auscultation bilaterally, no crackles, no rhonchi and no wheezes Cardio Rate: regular rate Rhythm: regular rhythm Heart sounds: S1 normal heart sound present and S2 normal heart sound present GI Inspection: Yes normal to inspection General: Yes no CVA tenderness Back/Spine/Pelvis Back: no CVA tenderness Neuro General: No confusion Cranial nerves: Yes Normal hearing present Extrem General: No edema Assessment and Plan Assessment & Plan (1) Essential hypertension: Code(s): I10 - Essential (primary) hypertension Plan: Continue on amlodipine 10 mg bedtime. Follow low-salt diet and exercise. (2) Type 2 diabetes mellitus with hyperglycemia: Code(s): E11.65 - Type 2 diabetes mellitus with hyperglycemia Qualifiers: Diabetes mellitus intermediate insulin use: without intermediate use Qualified Code(s): E11.65 - Type 2 diabetes mellitus with hyperglycemia Plan: Continue on current medications. Continue follow low-carbohydrate. (3) GERD (gastroesophageal reflux disease): Comment: Septemberastroesophageal reflux and mild esophagitis of the distal thoracic esophagus. Small sliding-type hiatal hernia. Code(s): K21.9 - Gastro-esophageal reflux disease without esophagitis Qualifiers: Esophagitis bleeding: without hemorrhage Esophagitis presence: with esophagitis Qualified Code(s): K21.00 - Gastro-esophageal reflux disease with esophagitis, without bleeding Plan: Continue on omeprazole 40 mg daily. Avoid the foods that cause that, usually spicy foods, tomato products, juices, coffee, soda and foods that you're sensitive to.? After eating do not lie down, allow 3-4 hours before lying down. And keep the head of the bed above 30 degrees to avoid the acid from going up. (4) Hypercholesterolemia: Code(s): E78.00 - Pure hypercholesterolemia, unspecified Plan: Continue on statin. Continue to follow low-cholesterol diet. (5) Renal calculus, bilateral: Comment: 11/2020, right renal calculi October 2021 Code(s): N20.0 - Calculus of kidney Plan: Given patient continues to experiencing left-sided flank pain as history of renal stone will reinitiate patient on Flomax 0.4 mg daily. Patient advised to keep hydrated drink plenty of water. KUB ordered to further evaluate for obstructing renal stone. Continue to establish care with urologist. (6) Left flank pain: Code(s): R10.9 - Unspecified abdominal pain Plan: Urinalysis with reflux culture ordered to re-evaluate for recurrent UTI. Plan Keep upcoming follow-up with PCP later this month. Orders: Orders Comprehensive [place]. Panel Fast Today N20.0 - Calculus of kidney, R10.9 - Unspecified abdominal pain UA CC w/rflx Micro + Cult Today R10.9 - Unspecified abdominal pain XR KUB Today N20.0 - Calculus of kidney, R10.9 - Unspecified abdominal pain AMB Hemoglobin A1c Today Z13.9 - Encounter for screening, unspecified Complete Blood Count Auto Diff Today Z13.0 - Encounter for screening for diseases of the blood and blood-forming organs and certain disorders involving the immune mechanism Medications: New lidocaine 5% (Lidoderm) leave on most painful area for up to 12 hrs 1 patch topical DAILY 30 ea 0RF R10.9 - Unspecified abdominal pain Refilled tamsulosin (Flomax) 0.4 mg PO DAILY 30 caps 0RF Coding Level of Care Code Est Pt Level 4 (95172) Diagnoses Essential hypertension I10 Type 2 diabetes mellitus with hyperglycemia, without long-term current use of insulin E11.65 Diabetes mellitus intermediate insulin use: without intermediate use GERD (gastroesophageal reflux disease) K21.00 Esophagitis bleeding: without hemorrhage Esophagitis presence: with esophagitis Hypercholesterolemia E78.00 Renal calculus, bilateral N20.0 Left flank pain R10.9
== END 2022-12-11 13:04 | disposition home or self-care (01) ==
PROVIDERS: PCP Internal Medicine; Visit Provider Nurse Practitioner Family
DX: I10 Essential (primary) hypertension (principal); E11.65 Type 2 diabetes mellitus with hyperglycemia; K21.00 Gastro-esophageal reflux disease with esophagitis, without bleeding; E78.00 Pure hypercholesterolemia, unspecified; N20.0 Calculus of kidney; R10.9 Unspecified abdominal pain
CPT/HCPCS: 99214

== ENCOUNTER 2022-12-12 13:24 | Outpatient (REF) | payer MEDICARE, MEDICAID, SELFPAY ==
--- NOTE | ~2022-12-12 | XR_ITS ---
EXAMINATION: XR ABDOMEN KUB CLINICAL INDICATION: Unspecified abdominal pain COMPARISON: CT scan abdomen and pelvis 09/11/2022, 11/01/2017 TECHNIQUE: AP view of the abdomen. FINDINGS: The bowel gas pattern is normal with no evidence of ileus or obstruction. A few calcifications the pelvis likely represent phleboliths. There are degenerative changes in the lower lumbar spine. 1.0 cm sclerotic focus projected over the left ilium is similar to that seen on CT scan abdomen and pelvis 11/01/2017 and likely represents a bone island. XR/XR KUB IMPRESSION: No evidence of obstruction.
[2022-12-12 13:43] LABS: MANUAL DIFF FLAG NO
[2022-12-12 13:56] LABS: Basophils Percent Auto 0.5 % (0-2); Eosinophils Absolute Auto 0.1 X10*3/uL (0.0-0.4); Hematocrit 35.3 % (37.0-47.0); Hemoglobin 11.7 g/dl (12.0-16.0); Imm Gran Abs Auto 0.02 X10*3/uL (0.00-0.03); Imm Gran Pct Auto 0.3 % (0.0-0.4); Lymphocytes Absolute Auto 2.1 X10*3/uL (1.2-4.9); Lymphocytes Percent Auto 34.1 % (20-40); Mean Corpuscular HGB Conc 33.1 g/dl (31.0-35.0); Mean Corpuscular Hemoglobin 28.8 pg (27.0-33.0); Mean Corpuscular Volume 86.9 fL (80.0-98.0); Mean Platelet Volume 10.3 fL (9.4-12.3); Monocytes Absolute Auto 0.4 X10*3/uL (0.1-1.2); Monocytes Percent Auto 7.1 % (2-11); Neutrophils Absolute Auto 3.5 x10*3/uL (2.0-8.3); Platelet Count 342 X10*3/uL (160-400); Red Blood Count 4.06 X10*6/uL (4.20-5.50); White Blood Count 6.1 X10*3/uL (4.8-10.8)
[2022-12-12 14:24] LABS: Alanine Aminotransferase 14 U/L (0-31); Albumin Level 4.1 g/dL (3.5-5.0); Alkaline Phosphatase 86 U/L (39-117); Anion Gap 13 (12-20); Aspartate Amino Transferase 15 U/L (5-31); Bilirubin Total 0.6 mg/dL (0.0-1.0); Blood Urea Nitrogen 18 mg/dL (9-16); Calcium 9.4 mg/dL (8.4-10.2); Carbon Dioxide 25 mmol/L (22-29); Chloride 107 mmol/L (96-108); Estimated Glomerular Filt Rate > 60; Glucose Fasting 126 mg/dL (60-99); Potassium 3.6 mmol/L (3.3-5.1); Sodium 141 mmol/L (135-145); Total Protein 7.5 g/dL (6.5-8.0)
[2022-12-12 15:26] LABS: Appearance Urine Hazy; Color Urine Yellow; Glucose Urine UA Negative (Negative); Leukocyte Esterase Urine Moderate (2+) (Negative); Nitrite Urine Negative (Negative); PH 6.5 (5.0-9.0); Specific Gravity - Urine 1.015 (1.005-1.025); UMIC TRIGGER UACC YES; Urine Blood Small (1+) (Negative); Urine Ketones Trace mg/dL (Negative); Urine Protein 100 (2+) mg/dL (Neg-Trace)
[2022-12-12 16:31] LABS: Bacteria Urine 1+ (None Seen); UACC Culture Trigger YES
== END 2022-12-12 13:25 | disposition home or self-care (01) ==
LOC: HO.LAB 13:24
PROVIDERS: PCP Internal Medicine; Visit Provider Nurse Practitioner Family
DX: R10.9 Unspecified abdominal pain (principal); N20.0 Calculus of kidney; Z13.0 Encounter for screening for diseases of the blood and blood-forming organs and certain disorders involving the immune mechanism
CPT/HCPCS: 36415; 74018; 80053; 81001; 81003; 85025; 87086

== ENCOUNTER 2022-12-13 11:07 | Outpatient (AMB) | payer OTHER, MEDICAID, SELFPAY ==
[2022-12-13 11:13] VITALS: BP 116/68; RESP 16; TEMP 36.6; O2SAT 97; BMI 23.6
--- NOTE | 2022-12-13 11:13 | A.OFFVIS_ITS ---
Intake Vital Signs 12/13/22 11:13 Height 5 ft 5 in Weight 141 lb 12.116 oz BMI 23.6 BP 116/68 Blood Pressure Location Rt brachial Position Sitting Respiration 16 Temp 97.9 F Temp Source Skin Pulse Oximetry (%) 97 Oxygen Delivery Method Room Air Intake Visit Reasons: Joint Pain Co Pilot Required: No Allergies codeine [Codeine] Allergy (Severe, Verified 12/13/22 11:23) ANAPHYLAXIS, throat edema lisinopril [LISINOPRIL] Allergy (Severe, Verified 12/13/22 11:23) ANGIOEDEMA Sulfa (Sulfonamide Antibiotics) [Sulfa (Sulfonamides)] Allergy (Intermediate, Verified 12/13/22 11:23) SHORTNESS OF BREATH, HIVES, rash doxycycline [Doxycycline] Allergy (Mild, Verified 12/13/22 11:23) HIVES tramadol Allergy (Unknown, Verified 12/13/22 11:23) rash and nightmares senna Adverse Reaction (Unknown, Verified 12/13/22 11:23) Diarrhea Medication List - Last Reconciled 12/13/22 by Be Hobbs MD albuterol sulfate 2.5 mg inhalation PRN albuterol sulfate 90 mcg/actuation 2 puffs PO QID PRN amlodipine 10 mg PO BEDTIME cefdinir 300 mg PO BID 7 days dicyclomine 20 mg PO TID escitalopram oxalate 10 mg PO DAILY 90 days ezetimibe 10 mg PO DAILY fluticasone propionate 44 mcg/actuation (Flovent HFA) 2 puffs inhalation BID lidocaine 5% (Lidoderm) 1 patch topical DAILY loratadine 10 mg PO DAILY PRN lorazepam 1 mg PO BEDTIME PRN metformin 500 mg PO BIDWMEAL 90 days morphine 15 mg PO Q4-6H PRN naproxen (Naprosyn) 500 mg PO BID omeprazole 40 mg PO DAILY ondansetron 4 mg PO Q6-8H PRN ondansetron 4 mg PO Q6-8H PRN rosuvastatin 40 mg PO DAILY tamsulosin (Flomax) 0.4 mg PO DAILY zolpidem 10 mg PO BEDTIME PRN HPI HPI Comments History of Present Illness Details This is a 62-year-old female who was referred for evaluation of multiple joint pain. Back in June 2022 patient had a mild infection for 2-3 weeks then developed abrupt onset of multiple painful bumps on both shins. She went to the emergency room, her inflammatory markers were quite elevated. She was diagnosed with erythema nodosum and given prednisone for 5 days, the lesions eventually receded in 2-3 weeks. She continues to have 1 small minimally tender lesion in her left angeles. Over the last few months she has been having some pain and stiffness in her PIP is, especially the left hand, morning stiffness lasting 5 minutes. Denies any swollen joints. Denies any skin rashes. Denies fevers or significant weight loss. Follows up regularly with Ophthalmology for macular degeneration, no known history of uveitis. She states that her brother was recently diagnosed with SLE and had significantly swollen joints. [facility] Medical History (Updated 12/13/22 @ 13:15 by Be Hobbs MD) Macular degeneration Internal and external hemorrhoids without complication Constipation Hemoptysis Cystocele Adrenal adenoma Thyroid nodule GERD (gastroesophageal reflux disease) Chronic sinusitis Type 2 diabetes mellitus with hyperglycemia Sciatica CAD (coronary artery disease) PTSD (post-traumatic stress disorder) Asthma Kidney stones Fibromyalgia Essential hypertension Lumbar radiculopathy Hx of migraines Hx of renal calculi Saccular aneurysm IBS (irritable bowel syndrome) Hx MRSA infection History of polycystic kidney disease, autosomal dominant Otitis externa Surgical History History of esophagogastroduodenoscopy (EGD) Hx of colonoscopy History of cardiac cath History of eye surgery History of thyroidectomy, subtotal History of lithotripsy History of total abdominal hysterectomy and bilateral salpingo-oophorectomy History of appendectomy History of abdominoplasty History of tonsillectomy History of tubal ligation Family History Father Cancer of kidney Diabetes Hypertension CVD (cardiovascular disease) Mother Hypertension Cancer Maternal Aunt Colon cancer Brother AIDS Paternal Aunt Ovarian cancer Breast cancer Brother SLE (systemic lupus erythematosus) Social History Household Members: Spouse Household Members Other:: grandson Housing: House Alcohol intake: never Patient Tobacco Use Status: Former Tobacco user Tobacco use type: Cigarette Years Smoked: quit 1984 e-Cigarette/Vaping Use: Never Used Second Hand Smoke Exposure: No Substance Use Type: Marijuana service: No Current occupational status: employed 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 Cognitive needs: No Hearing needs: No Vision needs: Yes Female Reproductive History Menstrual Total pregnancies: 3 Premature: 3 Ab induced: 0 Ab spontaneous: 0 Review of Systems Const Reports fatigue and Reports weakness ENT Reports dry mouth and Reports tinnitus Card Reports dyspnea Resp Reports cough, Reports dyspnea and Reports wheezing GI Reports dyspepsia, Reports heartburn and Reports nausea Musc Reports arthralgias, Reports limited range of motion and Reports stiffness Skin/Breast Reports unusual bruising Neuro Reports weakness Psych Reports anxiety Endo Reports fatigue Aller/Immun Reports wheezing Physical Exam Vital Signs: Last Vital Signs Temp 97.9 F 12/13/22 11:13 Resp 16 12/13/22 11:13 BP 116/68 12/13/22 11:13 Pulse Ox 97 12/13/22 11:13 Oxygen Delivery Method Room Air 12/13/22 11:13 BMI result Body Mass Index 23.6 Const General: cooperative, healthy appearing and comfortable Nutritional Appearance: average body habitus Orientation/consciousness: patient oriented x3 Limitations: no limitations HEENT Head: Yes normocephalic and Yes atraumatic Mouth: moist mucous membranes Resp Effort & Inspection: normal respiratory effort and able to speak in complete sentences Auscultation: clear to auscultation bilaterally Cardio Rate: regular rate Rhythm: regular rhythm Skin General skin exam: no rashes or lesions noted Neuro General: patient oriented x3 Extrem Other: Mild osteoarthritic changes of both hands with no active synovitis Normal range of motion of both wrists, elbows, shoulders, knees without pain Small circular nodular swelling in the medial aspect of her left angeles , minimally tender to palpation, no erythema or warmth Assessment & Plan Assessment & Plan (1) Osteoarthritis of hands, bilateral: Code(s): M19.041 - Primary osteoarthritis, right hand; M19.042 - Primary osteoarthritis, left hand Qualifiers: Osteoarthritis type: primary Qualified Code(s): M19.041 - Primary osteoarthritis, right hand; M19.042 - Primary osteoarthritis, left hand Plan: This is a 62-year-old female presents for evaluation of multiple joint pain. In June of 2022 patient went to the emergency room complaining of multiple painful bumps on both shins soon after a viral infection, she was diagnosed with erythema nodosum, prescribed prednisone and symptoms resolved in a few weeks. Since then she has been having stiffness in some of her hands, worse on the left. I do not see any evidence of an autoimmune rheumatic disease upon my evaluation today. Clinical picture consistent with generalized osteoarthritis especially osteoarthritis of the hands. I suggested occupational therapy and patient is not interested. Advised patient to continue using squeeze ball. (2) Erythema nodosum: Code(s): L52 - Erythema nodosum Plan: Advised patient to come back to clinic if she develops recurrent lesions. Will re-evaluate patient consider testing for underlying autoimmune rheumatic disease Plan I spent 32 minutes reviewing patient's chart, evaluating patient, counseling patient and documenting in the chart Coding Level of Care Code New Pt Level 3 (98620) Diagnoses Primary osteoarthritis of both hands M19.041; M19.042 Osteoarthritis type: primary Erythema nodosum L52
== END 2022-12-13 11:53 | disposition home or self-care (01) ==
PROVIDERS: PCP Internal Medicine; Visit Provider Student in an Organized Health Care Education/Training Program
DX: M19.041 Primary osteoarthritis, right hand (principal); M19.042 Primary osteoarthritis, left hand; L52 Erythema nodosum
CPT/HCPCS: 99203

== ENCOUNTER → 2022-12-13 11:07 | Outpatient (BNVA) | payer MEDICARE, MEDICAID, SELFPAY | PROVIDERS: PCP Internal Medicine; Visit Provider Student in an Organized Health Care Education/Training Program ==

== ENCOUNTER 2022-12-21 14:11 | Outpatient (AMB) | payer MEDICARE, MEDICAID, SELFPAY ==
[2022-12-21 14:28] VITALS: BP 140/70; PULSE 83; O2SAT 99; BMI 23.3
--- NOTE | 2022-12-21 14:28 | A.OFFPC_ITS ---
Vital Signs 12/21/22 14:28 Height 5 ft 5 in Weight 140 lb BMI 23.3 BP 140/70 H Blood Pressure Location Lt brachial Position Sitting Pulse 83 Pulse Source Pulse Oximeter Pulse Oximetry (%) 99 Oxygen Delivery Method Room Air Intake Visit Reasons: polyarthralgia Allergies codeine [Codeine] Allergy (Severe, Verified 12/21/22 14:28) ANAPHYLAXIS, throat edema lisinopril [LISINOPRIL] Allergy (Severe, Verified 12/21/22 14:28) ANGIOEDEMA Sulfa (Sulfonamide Antibiotics) [Sulfa (Sulfonamides)] Allergy (Intermediate, Verified 12/21/22 14:28) SHORTNESS OF BREATH, HIVES, rash doxycycline [Doxycycline] Allergy (Mild, Verified 12/21/22 14:28) HIVES tramadol Allergy (Unknown, Verified 12/21/22 14:28) rash and nightmares senna Adverse Reaction (Unknown, Verified 12/21/22 14:28) Diarrhea Medication List - Last Reconciled 12/21/22 by Anamaria Howell Po, albuterol sulfate 2.5 mg inhalation PRN albuterol sulfate 90 mcg/actuation 2 puffs PO QID PRN amlodipine 10 mg PO BEDTIME cefdinir 300 mg PO BID 7 days dicyclomine 20 mg PO TID escitalopram oxalate 10 mg PO DAILY 90 days ezetimibe 10 mg PO DAILY fluticasone propionate 44 mcg/actuation (Flovent HFA) 2 puffs inhalation BID lidocaine 5% (Lidoderm) 1 patch topical DAILY loratadine 10 mg PO DAILY PRN lorazepam 1 mg PO BEDTIME PRN metformin 500 mg PO BIDWMEAL 90 days morphine 15 mg PO Q4-6H PRN naproxen (Naprosyn) 500 mg PO BID nitrofurantoin monohyd/m-cryst 100 mg (Macrobid) 100 mg PO Q12H 5 days omeprazole 40 mg PO DAILY ondansetron 4 mg PO Q6-8H PRN ondansetron 4 mg PO Q6-8H PRN rosuvastatin 40 mg PO DAILY sennosides-docusate sodium 8.6-50 mg (Senna Plus) 2 tab-caps (2 x 8.6-50 mg) PO BEDTIME zolpidem 10 mg PO BEDTIME PRN Tobacco use date assessed: 06/02/22 Fall risk assessment: No Falls in past year Last assessed Fall Risk: 12/21/22 Dental Screening Dental Screen Date: 12/21/22 Did you have a dental visit in the last 12 months?: Yes Did you have a dental problem in the last 6 months where you did not have access to dental care?: No Was dental information given to patient?: Patient has dentist HPI polyarthralgia HPI Details 62-year-old female with controlled diabe chanda mellitus hypertension GERD hypercholesterolemia last seen in December 2022. Patient is here for follow-up colonoscopy as up-to-date January 2020, mammograms up-to-date bone density was last done in July 2020. Patient was recently seen by the Rheumatology due to multiple joint pains was diagnosed with rhythm wanted ostium and was given prednisone diagnosis given was osteoarthritis do not see any evidence of autoimmune rheumatic disease advised occupational therapy did mention that if the lesions come back he will have to see. [facility] Medical History (Updated 12/21/22 @ 14:50 by Anamaria Maddox MD) Constipation Macular degeneration Internal and external hemorrhoids without complication Hemoptysis Cystocele Adrenal adenoma Thyroid nodule GERD (gastroesophageal reflux disease) Chronic sinusitis Type 2 diabetes mellitus with hyperglycemia Sciatica CAD (coronary artery disease) PTSD (post-traumatic stress disorder) Asthma Kidney stones Fibromyalgia Essential hypertension Lumbar radiculopathy Hx of migraines Hx of renal calculi Saccular aneurysm IBS (irritable bowel syndrome) Hx MRSA infection History of polycystic kidney disease, autosomal dominant Otitis externa Surgical History History of esophagogastroduodenoscopy (EGD) Hx of colonoscopy History of cardiac cath History of eye surgery History of thyroidectomy, subtotal History of lithotripsy History of total abdominal hysterectomy and bilateral salpingo-oophorectomy History of appendectomy History of abdominoplasty History of tonsillectomy History of tubal ligation Family History Father Cancer of kidney Diabetes Hypertension CVD (cardiovascular disease) Mother Hypertension Cancer Maternal Aunt Colon cancer Brother AIDS Paternal Aunt Ovarian cancer Breast cancer Brother SLE (systemic lupus erythematosus) Social History Household Members: Spouse Household Members Other:: grandson Housing: House Alcohol intake: never Patient Tobacco Use Status: Former Tobacco user Tobacco use type: Cigarette Years Smoked: quit 1984 e-Cigarette/Vaping Use: Never Used Second Hand Smoke Exposure: No Substance Use Type: Marijuana service: No Current occupational status: employed 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 1. Little interest or pleasure in doing things: not at all 2. Feeling down, depressed, or hopeless: not at all 3. Trouble falling or staying asleep, or sleeping too much: not at all 4. Feeling tired or having little energy: not at all 5. Poor appetite or overeating: not at all 6. Feeling bad about yourself - or that you are a failure or have let yourself or your family down: not at all 7. Trouble concentrating on things, such as reading the newspaper or watching television: not at all 8. Moving or speaking so slowly that other people could have noticed. Or the opposite - being so fidgety or restless that you have been moving around a lot more than usual: not at all 9. Thoughts that you would be better off or of hurting yourself in some way: not at all Total score: 0 Depression Screening Interpretation: Negative Depression Screening Done: Yes Source: Developed by Drs. Ash Montana, Bonny Sterling, Akash Trimble and colleagues, with an educational mamie from [employer]. Thrive Questionnaire Date Thrive assessed: 06/02/22 AUDIT C Alcohol Use Questionnaire (AUDIT-C) 1. How often do you have a drink containing alcohol?: Never 2. How many drinks containing alcohol do you have on a typical day when you are drinking?: 1 or 2 (0) 3. How often do you have six or more drinks on one occasion?: Never Total Score: 0 Score Reviewed/Action Taken: Yes DL-7 AMB Questionnaire DL-7 Date DL - 7 assessed: 06/02/22 Source: Developed by Drs. Ash Montana, Bonny Sterling, Akash Trimble and colleagues, with an educational mamie from [employer]. Physical exam (Primary Care) Vital Signs: Last Vital Signs Pulse 83 12/21/22 14:28 BP 140/70 H 12/21/22 14:28 Pulse Ox 99 12/21/22 14:28 Oxygen Delivery Method Room Air 12/21/22 14:28 BMI result Body Mass Index 23.3 Tobacco/Smoking Status: Tobacco use Status Tobacco use date assessed 06/02/22 12/21/22 14:29 Patient Tobacco Use Status Former Tobacco user 12/21/22 14:29 Tobacco use type Cigarette 12/21/22 14:29 e-Cigarette/Vaping Use Never Used 12/21/22 14:29 PHQ-9: PHQ-9 Score PHQ-9: Total score 0 12/21/22 14:42 Depression Screening Interpretation: Negative Thrive Assessment: Date of Thrive Assessment Date Thrive assessed 06/02/22 12/21/22 14:29 Const General: alert; No acute distress Eyes Conjunctivae: conjunctivae normal Resp Auscultation: clear to auscultation bilaterally Cardio Rate: regular rate Rhythm: regular rhythm GI Inspection: Yes normal to inspection Extrem General: Yes normal to inspection and No edema Results AMB Hemoglobin A1c AMB Hemoglobin A1c 6.8 % Last Edit by MASON Dennison on 12/21/22 14:46 Assessment and Plan Assessment & Plan (1) Type 2 diabetes mellitus with hyperglycemia: Comment: eye and lasik Code(s): E11.65 - Type 2 diabetes mellitus with hyperglycemia Qualifiers: Diabetes mellitus supervisor intermediates insulin use: without supervisor intermediates use Qualified Code(s): E11.65 - Type 2 diabetes mellitus with hyperglycemia Plan: Decrease the amount of carbohydrate intake, pasta, bread, rice and potatoes are all sugar and that is aside from all the sweet stuff, remember that fruits are good but they are Sweet also. Hemoglobin A1c goal of less than 6.5. (2) Osteoarthritis of hands, bilateral: Code(s): M19.041 - Primary osteoarthritis, right hand; M19.042 - Primary osteoarthritis, left hand Qualifiers: Osteoarthritis type: primary Qualified Code(s): M19.041 - Primary osteoarthritis, right hand; M19.042 - Primary osteoarthritis, left hand Plan: Patient has seen rheumatology, keep active (3) CAD (coronary artery disease): Comment: Two thousand thirteen nonobstructive Code(s): I25.10 - Atherosclerotic heart disease of [place] coronary artery without angina pectoris Plan: Control the cholesterol, weight, blood pressure, diabetes (4) Hypercholesterolemia: Code(s): E78.00 - Pure hypercholesterolemia, unspecified Plan: Avoid fried foods, chicken skin, eggs, butter margarine, pastries and meat. Be it pork or beef they have a lot of cholesterol January 2022 last blood work LDL goal of less than 70 and triglyceride of less than 150 patient is taking rosuvastatin 40 mg once a day (5) Generalized anxiety disorder: Comment: decline referral for counselling 01/2021 Code(s): F41.1 - Generalized anxiety disorder Plan: Continue with therapy (6) Essential hypertension: Code(s): I10 - Essential (primary) hypertension Plan: Continue with blood pressure medication. Decrease salt intake and exercise patient takes amlodipine 10 mg once a day had problems with lisinopril (7) GERD (gastroesophageal reflux disease): Comment: Septemberastroesophageal reflux and mild esophagitis of the distal thoracic esophagus. Small sliding-type hiatal hernia. Code(s): K21.9 - Gastro-esophageal reflux disease without esophagitis Qualifiers: Esophagitis bleeding: without hemorrhage Esophagitis presence: with esophagitis Qualified Code(s): K21.00 - Gastro-esophageal reflux disease with esophagitis, without bleeding Plan: Avoid the foods that causes that usually spicy foods, tomato products, juices, coffee, soda and foods that your sensitive to. After eating do not lie down, allow 3-4 hours before in lie down. And keep the head of bed above 30 degrees to avoid the acid from going up. (8) Constipation: Code(s): K59.00 - Constipation, unspecified Orders: Orders AMB Hemoglobin A1c Today E11.65 - Type 2 diabetes mellitus with hyperglycemia Complete Blood Count Auto Diff Today E11.65 - Type 2 diabetes mellitus with hyperglycemia Creatinine Urine Today E11.65 - Type 2 diabetes mellitus with hyperglycemia Microalbumin, Random (w Creat) Today E11.65 - Type 2 diabetes mellitus with hyperglycemia Lipid Panel Today E11.65 - Type 2 diabetes mellitus with hyperglycemia, E78.00 - Pure hypercholesterolemia, unspecified Free T4 (Free Thyroxine) Today E11.65 - Type 2 diabetes mellitus with hyperglycemia Vitamin D 25-OH Total Today E11.65 - Type 2 diabetes mellitus with hyperglycemia IRON PROFILE Today E11.65 - Type 2 diabetes mellitus with hyperglycemia Comprehensive Met. Panel Today E11.65 - Type 2 diabetes mellitus with hyperglycemia Thyroid Stimulating Hormone Today E11.65 - Type 2 diabetes mellitus with hyperglycemia Vitamin B12 and Folate Today E11.65 - Type 2 diabetes mellitus with hyperglycemia Ferritin Today E11.65 - Type 2 diabetes mellitus with hyperglycemia Reticulocyte Count Today E11.65 - Type 2 diabetes mellitus with hyperglycemia AMB Urinalysis Automated Today R10.9 - Unspecified abdominal pain, Z13.9 - Encounter for screening, unspecified Medications: New sennosides-docusate sodium 8.6-50 mg (Senna Plus) 2 tab-caps (2 x 8.6-50 mg) PO BEDTIME 60 caps 0RF K59.00 - Constipation, unspecified Refilled amlodipine 10 mg PO BEDTIME 90 tabs 0RF Discontinued cefdinir Discontinued Reason: Duplicate 300 mg PO BID 7 days 14 caps 0RF ondansetron Discontinued Reason: Duplicate 4 mg PO Q6-8H PRN 10 tabs 0RF nausea and vomiting morphine The patient may ask for partial fill; Partial Fill upon patient request. Discontinued Reason: Doctor's Order 15 mg PO Q4-6H PRN 10 tabs 0RF pain Coding Level of Care Code Est Pt Level 4 (28295) Diagnoses Type 2 diabetes mellitus with hyperglycemia, without long-term current use of insulin E11.65 Diabetes mellitus residential insulin use: without supervisor intermediates use Primary osteoarthritis of both hands M19.041; M19.042 Osteoarthritis type: primary CAD (coronary artery disease) I25.10 Hypercholesterolemia E78.00 Generalized anxiety disorder F41.1 Essential hypertension I10 GERD (gastroesophageal reflux disease) K21.00 Esophagitis bleeding: without hemorrhage Esophagitis presence: with esophagitis Constipation K59.00
== END 2022-12-21 15:05 | disposition home or self-care (01) ==
PROVIDERS: PCP Internal Medicine; Visit Provider Internal Medicine
DX: E11.65 Type 2 diabetes mellitus with hyperglycemia (principal); M19.041 Primary osteoarthritis, right hand; M19.042 Primary osteoarthritis, left hand; I25.10 Atherosclerotic heart disease of native coronary artery without angina pectoris; E78.00 Pure hypercholesterolemia, unspecified; F41.1 Generalized anxiety disorder; I10 Essential (primary) hypertension; K21.00 Gastro-esophageal reflux disease with esophagitis, without bleeding; K59.00 Constipation, unspecified
CPT/HCPCS: 83036; 99214

== ENCOUNTER 2023-01-12 10:53 | Outpatient (REF) | payer MEDICARE, SELFPAY ==
[2023-01-12 11:12] LABS: MANUAL DIFF FLAG NO
[2023-01-12 11:40] LABS: Basophils Percent Auto 0.2 % (0-2); Eosinophils Percent Auto 0.1 % (0-4); Hematocrit 37.6 % (37.0-47.0); Hemoglobin 12.5 g/dl (12.0-16.0); Imm Gran Abs Auto 0.14 X10*3/uL (0.00-0.03); Imm Gran Pct Auto 1.1 % (0.0-0.4); Immature Retic Fraction 11.9 % (3.0-15.9); Lymphocytes Absolute Auto 2.8 X10*3/uL (1.2-4.9); Lymphocytes Percent Auto 21.4 % (20-40); Mean Corpuscular HGB Conc 33.2 g/dl (31.0-35.0); Mean Corpuscular Hemoglobin 28.9 pg (27.0-33.0); Mean Corpuscular Volume 86.8 fL (80.0-98.0); Monocytes Absolute Auto 0.8 X10*3/uL (0.1-1.2); Monocytes Percent Auto 5.8 % (2-11); Neutrophils Absolute Auto 9.2 x10*3/uL (2.0-8.3); Neutrophils Percent Auto 71.4 % (45-73); Platelet Count 340 X10*3/uL (160-400); Red Blood Count 4.33 X10*6/uL (4.20-5.50); Red Cell Distribution Width 15.6 % (11.0-16.0); Retic HGB Equivalent 34.8 pg (30.0-35.0); Reticulocyte Percent 1.8 % (0.5-1.8); Reticulocytes Absolute 0.079 X10*6/uL (0.026-0.095); White Blood Count 12.9 X10*3/uL (4.8-10.8)
[2023-01-12 12:33] LABS: Alanine Aminotransferase 15 U/L (0-31); Albumin Level 4.4 g/dL (3.5-5.0); Alkaline Phosphatase 86 U/L (39-117); Anion Gap 13 (12-20); Aspartate Amino Transferase 14 U/L (5-31); Bilirubin Total 0.5 mg/dL (0.0-1.0); Blood Urea Nitrogen 22 mg/dL (9-16); Calcium 9.2 mg/dL (8.4-10.2); Carbon Dioxide 27 mmol/L (22-29); Chloride 106 mmol/L (96-108); Cholesterol 183 mg/dL (<200); Estimated Glomerular Filt Rate > 60; Ferritin 43 ng/mL (10-250); Free T4 (Free Thyroxine) 0.79 ng/dL (0.71-1.85); Glucose Random 113 mg/dL (60-115); HDL Cholesterol 63 mg/dL (>40); Iron 70 mcg/dL (30-160); LDL Cholesterol Calculated 96 mg/dL (<100); Percent Iron Saturation 28 % (15-50); Potassium 3.6 mmol/L (3.3-5.1); Sodium 142 mmol/L (135-145); Thyroid Stimulating Hormone 2.42 uIU/mL (0.32-4.0); Total Iron Binding Capacity 249 mcg/dL (228-428); Total Protein 7.7 g/dL (6.5-8.0); Triglycerides 120 mg/dL (<150); Unsaturated Iron Binding 179 ug/dL; Vitamin D 25-OH Total 41.9 ng/mL (>30)
[2023-01-12 13:08] LABS: Folate 13.8 ng/mL (> or = 4.0); Vitamin B12 1086 pg/mL (200-900)
== END 2023-01-12 10:54 | disposition home or self-care (01) ==
LOC: HO.LAB 10:53
PROVIDERS: PCP Internal Medicine; Visit Provider Internal Medicine
DX: E11.65 Type 2 diabetes mellitus with hyperglycemia (principal); E78.00 Pure hypercholesterolemia, unspecified; M85.80 Other specified disorders of bone density and structure, unspecified site; E55.9 Vitamin D deficiency, unspecified
CPT/HCPCS: 36415; 80053; 80061; 82306; 82607; 82728; 82746; 83540; 84439; 84443; 85025; 85045

== ENCOUNTER 2023-03-26 14:30 | Outpatient (AMB) | payer MEDICARE, MEDICAID, SELFPAY ==
--- NOTE | 2023-03-26 14:32 | MHC.PC.OV ---
Vital Signs 03/26/23 14:34 03/26/23 15:14 Height 5 ft 5 in Weight 145 lb 0.8 oz BMI 24.1 BP 104/68 130/70 Blood Pressure Location Lt brachial Lt brachial Position Sitting Sitting Pulse 76 Pulse Source Pulse Oximeter Pulse Oximetry (%) 100 Oxygen Delivery Method Room Air Intake Visit Reasons: 3mth f/u Tumbling Machine Operator Required: No Allergies codeine [Codeine] Allergy (Severe, Verified 03/26/23 14:36) ANAPHYLAXIS, throat edema lisinopril [LISINOPRIL] Allergy (Severe, Verified 03/26/23 14:36) ANGIOEDEMA Sulfa (Sulfonamide Antibiotics) [Sulfa (Sulfonamides)] Allergy (Intermediate, Verified 03/26/23 14:36) SHORTNESS OF BREATH, HIVES, rash doxycycline [Doxycycline] Allergy (Mild, Verified 03/26/23 14:36) HIVES tramadol Allergy (Unknown, Verified 03/26/23 14:36) rash and nightmares senna Adverse Reaction (Unknown, Verified 03/26/23 14:36) Diarrhea Tobacco use date assessed: 03/26/23 Fall risk assessment: No Falls in past year Last assessed Fall Risk: 03/26/23 Dental Screening Dental Screen Date: 03/26/23 Did you have a dental visit in the last 12 months?: Yes Did you have a dental problem in the last 6 months where you did not have access to dental care?: No Was dental information given to patient?: Patient has dentist HPI 3mth f/u HPI Details 62-year-old female with uncontrolled diabetes mellitus coronary artery disease hypercholesterolemia hypertension generalized anxiety disorder GERD last seen in December 2022. Patient's colonoscopy is up-to-date January 2020 mammograms up-to-date bone density done July 2020. Review of the notes has seen Nephrology December 2022 recurrent kidney stones on Urocit-K before patient was told to avoid high oxalate foods high protein done dairy foods advised to increase oral fluids [facility] Medical History (Updated 12/21/22 @ 14:50 by Anamaria Maddox MD) Constipation Macular degeneration Internal and external hemorrhoids without complication Hemoptysis Cystocele Adrenal adenoma Thyroid nodule GERD (gastroesophageal reflux disease) Chronic sinusitis Type 2 diabetes mellitus with hyperglycemia Sciatica CAD (coronary artery disease) PTSD (post-traumatic stress disorder) Asthma Kidney stones Fibromyalgia Essential hypertension Lumbar radiculopathy Hx of migraines Hx of renal calculi Saccular aneurysm IBS (irritable bowel syndrome) Hx MRSA infection History of polycystic kidney disease, autosomal dominant Otitis externa Surgical History History of esophagogastroduodenoscopy (EGD) Hx of colonoscopy History of cardiac cath History of eye surgery History of thyroidectomy, subtotal History of lithotripsy History of total abdominal hysterectomy and bilateral salpingo-oophorectomy History of appendectomy History of abdominoplasty History of tonsillectomy History of tubal ligation Family History Father Cancer of kidney Diabetes Hypertension CVD (cardiovascular disease) Mother Hypertension Cancer Maternal Aunt Colon cancer Brother AIDS Paternal Aunt Ovarian cancer Breast cancer Brother SLE (systemic lupus erythematosus) Social History Household Members: Spouse Household Members Other:: grandson Housing: House Alcohol intake: never Patient Tobacco Use Status: Former Tobacco user Tobacco use type: Cigarette Years Smoked: quit 1984 e-Cigarette/Vaping Use: Never Used Second Hand Smoke Exposure: No Substance Use Type: Marijuana service: No Current occupational status: employed 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 How often do you have a drink containing alcohol?: Never 2. How many drinks containing alcohol do you have on a typical day when you are drinking?: 1 or 2 (0) 3. How often do you have six or more drinks on one occasion?: Never Total Score: 0 Score Reviewed/Action Taken: Yes DL-7 AMB Questionnaire DL-7 Date DL - 7 assessed: 03/26/23 Source: Developed by Drs. Ash Montana, Bonny Sterling, Akash Trimble and colleagues, with an educational mamie from [employer]. Physical exam (Primary Care) Vital Signs: Last Vital Signs Pulse 76 03/26/23 14:34 BP 104/68 03/26/23 14:34 Pulse Ox 100 03/26/23 14:34 Oxygen Delivery Method Room Air 03/26/23 14:34 BMI result Body Mass Index 24.1 Tobacco/Smoking Status: Tobacco use Status Tobacco use date assessed 03/26/23 03/26/23 14:38 Patient Tobacco Use Status Former Tobacco user 03/26/23 14:33 Tobacco use type Cigarette 03/26/23 14:33 e-Cigarette/Vaping Use Never Used 03/26/23 14:33 Thrive Assessment: Date of Thrive Assessment Date Thrive assessed 06/02/22 03/26/23 14:33 Const General: alert; No acute distress Eyes Conjunctivae: conjunctivae normal Resp Auscultation: clear to auscultation bilaterally Cardio Rate: regular rate Rhythm: regular rhythm GI Inspection: Yes normal to inspection Extrem General: Yes normal to inspection and No edema Results AMB Hemoglobin A1c AMB Hemoglobin A1c 7.0 % Last Edit by MASON Carrillo on 03/26/23 14:41 Results Reviewed Results Reviewed: Laboratory Last Values Hgb A1c (Clinic) 7.0 % (4.0-6.0) H 03/26/23 12:48 Assessment and Plan Assessment & Plan (1) Type 2 diabetes mellitus with hyperglycemia: Comment: eye and lasik Code(s): E11.65 - Type 2 diabetes mellitus with hyperglycemia Qualifiers: Diabetes mellitus keno terminal operator insulin use: without keno terminal operator use Qualified Code(s): E11.65 - Type 2 diabetes mellitus with hyperglycemia Plan: Decrease the amount of carbohydrate intake, pasta, bread, rice and potatoes are all sugar and that is aside from all the sweet stuff, remember that fruits are good but they are Sweet also. Hemoglobin A1c goal of less than 6.5 patient on metformin twice a day 500 mg (2) GERD (gastroesophageal reflux disease): Comment: Septemberastroesophageal reflux and mild esophagitis of the distal thoracic esophagus. Small sliding-type hiatal hernia. Code(s): K21.9 - Gastro-esophageal reflux disease without esophagitis Qualifiers: Esophagitis bleeding: without hemorrhage Esophagitis presence: with esophagitis Qualified Code(s): K21.00 - Gastro-esophageal reflux disease with esophagitis, without bleeding Plan: Avoid the foods that causes that usually spicy foods, tomato products, juices, coffee, soda and foods that your sensitive to. After eating do not lie down, allow 3-4 hours before in lie down. And keep the head of bed above 30 degrees to avoid the acid from going up. (3) Essential hypertension: Code(s): I10 - Essential (primary) hypertension Plan: Continue with blood pressure medication. Decrease salt intake and exercise patient on amlodipine 10 mg once a day had problems with lisinopril. (4) Hypercholesterolemia: Code(s): E78.00 - Pure hypercholesterolemia, unspecified Plan: Avoid fried foods, chicken skin, eggs, butter margarine, pastries and meat. Be it pork or beef they have a lot of cholesterol LDL goal of less than 70 and triglyceride of less than 150. Patient on Zetia 10 mg once a day and rosuvastatin 40 mg once a day (5) CAD (coronary artery disease): Comment: Two thousand thirteen nonobstructive Code(s): I25.10 - Atherosclerotic heart disease of [place] coronary artery without angina pectoris Plan: Control the cholesterol, weight, blood pressure, diabetes continue with present medication (6) Generalized anxiety disorder: Comment: decline referral for counselling 01/2021 Code(s): F41.1 - Generalized anxiety disorder Plan: Continue with therapy (7) Osteopenia: Code(s): M85.80 - Other specified disorders of bone density and structure, unspecified site Plan: Reminded about bone density (8) Renal calculus, bilateral: Comment: 11/2020, right renal calculi October 2021 Code(s): N20.0 - Calculus of kidney Plan: Patient follows up the Nephrology advised to increase oral fluids, avoid high-protein none dairy products and oxalate Orders: Orders XR DEXA axial skeleton Today M81.0 - Age-related osteoporosis without current pathological fracture, M85.80 - Other specified disorders of bone density and structure, unspecified site AMB Hemoglobin A1c Today E11.65 - Type 2 diabetes mellitus with hyperglycemia Medications: New ezetimibe 10 mg PO DAILY 30 tabs 5RF E78.00 - Pure hypercholesterolemia, unspecified Changed From metformin 500 mg PO BIDWMEAL 90 days 180 tabs 2RF E11.65 - Type 2 diabetes mellitus with hyperglycemia To metformin 1,000 mg PO BIDWMEAL 90 days 180 tabs 2RF E11.65 - Type 2 diabetes mellitus with hyperglycemia Coding Level of Care Code Est Pt Level 4 (78217) Diagnoses Type 2 diabetes mellitus with hyperglycemia, without long-term current use of insulin E11.65 Diabetes mellitus keno terminal operator insulin use: without fci use GERD (gastroesophageal reflux disease) K21.00 Esophagitis bleeding: without hemorrhage Esophagitis presence: with esophagitis Essential hypertension I10 Hypercholesterolemia E78.00 CAD (coronary artery disease) I25.10 Generalized anxiety disorder F41.1 Osteopenia M85.80 Renal calculus, bilateral N20.0
[2023-03-26 14:34] VITALS: BP 104/68; PULSE 76; O2SAT 100; BMI 24.1
[2023-03-26 15:14] VITALS: BP 130/70
== END 2023-03-26 15:19 | disposition home or self-care (01) ==
PROVIDERS: PCP Internal Medicine; Visit Provider Internal Medicine
DX: E11.65 Type 2 diabetes mellitus with hyperglycemia (principal); K21.00 Gastro-esophageal reflux disease with esophagitis, without bleeding; I10 Essential (primary) hypertension; E78.00 Pure hypercholesterolemia, unspecified; I25.10 Atherosclerotic heart disease of native coronary artery without angina pectoris; F41.1 Generalized anxiety disorder; M85.80 Other specified disorders of bone density and structure, unspecified site; N20.0 Calculus of kidney
CPT/HCPCS: 83036; 99214

== ENCOUNTER 2023-04-17 11:02 | Outpatient (REF) | payer MEDICARE, SELFPAY ==
--- NOTE | ~2023-04-17 | MM_ITS ---
EXAMINATION: BONE DENSITOMETRY CLINICAL INDICATION: Age-related osteoporosis without current pathological fracture. COMPARISON: Previous BD dated 07/29/2020 and baseline BD dated 11/29/2006. TECHNIQUE: Using a [employer] DXA System (software version: 13.1) manufactured by [employer], dual-energy x-ray absorptiometry was performed of the lumbar spine and left hip. The images are of good technical quality. Summary results are attached. FINDINGS: LEFT FEMUR, NECK: Current: BMD 0.727 g/cm2, Z-score -0.8, T-score -2.2, osteopenia. Prior: BMD 0.753 g/cm2. Baseline: BMD 0.889 g/cm2. LEFT FEMUR, TOTAL: Current: BMD 0.824 g/cm2, Z-score -0.2, T-score -1.5, osteopenia, 3.7% decrease from previous, 15.3% decrease from baseline (<5% change is not significant). Prior: BMD 0.856 g/cm2. Baseline: BMD 0.973 g/cm2. AP SPINE L1-L4: Current: BMD 0.858 g/cm2, Z-score -1.1, T-score -2.7, osteoporosis, 4.0% decrease from previous, 27.3% decrease from baseline (<5% change is not significant). Prior: BMD 0.894 g/cm2. Baseline: BMD 1.180 g/cm2. IDENTIFIED RISK FACTORS: Early menopause, family history (parent hip fracture), height loss, history of fracture (adult), hysterectomy, osteoporosis, rheumatoid arthritis, right oophorectomy, secondary osteoporosis (intestinal or bowel disease). HISTORY OF FRACTURE: Other. MEDICATIONS: None listed. MM/XR DEXA axial skeleton IMPRESSION: 1. DIAGNOSIS: Osteoporosis based on the lowest T-score value of -2.7 in the lumbar spine applying World Health Organization criteria. 2. 10-YEAR FRACTURE RISK PREDICTION, FRAX: According to the guidelines, FRAX calculation should only be performed on patients in the osteopenia bone density category. Therefore, FRAX was not performed on this patient. 3. Treatment Recommendations: NOF guidelines recommend consideration for treatment in postmenopausal women and men age 50 and older presenting with the following: -A hip or vertebral (clinical or morphometric) fracture. -T-score less than or equal to -2.5 at the femoral neck or spine after appropriate evaluation to exclude secondary causes. -Low bone mass at the hip or spine and a 10-year fracture probability by FRAX of greater than or equal to 3% for hip fracture or greater than or equal to 20% for major osteoporotic fracture based on the [place] adapted WHO algorithm. 4. Other Recommendations: All treatment decisions require clinical judgment and consideration of individual patient factors, including patient preferences, comorbidities, previous drug use, risk factors not captured in the FRAX model (e.g. frailty, falls, vitamin D deficiency, increased bone turnover, interval significant decline in bone density) and possible under or overestimation of fracture risk by FRAX. Additional medical evaluation for secondary cause of low bone mineral density may be appropriate. FUTURE SCAN RECOMMENDATION: People with diagnosed cases of osteoporosis or at high risk for fracture should have regular bone mineral density tests. For patients eligible for Medicare, routine testing is allowed once every 2 years. The testing frequency can be increased to one year for patients who have rapidly progressing disease, those who are receiving or discontinuing medical therapy to restore bone mass, or have additional risk factors.
== END 2023-04-17 11:03 | disposition home or self-care (01) ==
LOC: HO.MAMMO 11:02
PROVIDERS: PCP Internal Medicine; Visit Provider Internal Medicine
DX: Z13.820 Encounter for screening for osteoporosis (principal); M85.80 Other specified disorders of bone density and structure, unspecified site; M81.0 Age-related osteoporosis without current pathological fracture; Z78.0 Asymptomatic menopausal state
CPT/HCPCS: 77080

== ENCOUNTER 2023-07-02 14:44 | Outpatient (REF) | payer MEDICARE, SELFPAY ==
[2023-07-02 15:58] LABS: Anion Gap 11 (12-20); Blood Urea Nitrogen 15 mg/dL (9-16); Calcium 9.5 mg/dL (8.4-10.2); Carbon Dioxide 26 mmol/L (22-29); Chloride 109 mmol/L (96-108); Estimated Glomerular Filt Rate > 60; Potassium 3.5 mmol/L (3.3-5.1); Sodium 142 mmol/L (135-145); Uric Acid 2.6 mg/dL (2.4-5.7)
[2023-07-02 16:16] LABS: Appearance Urine Clear; Color Urine Yellow; Glucose Urine UA Negative (Negative); Leukocyte Esterase Urine Negative (Negative); Nitrite Urine Negative (Negative); UMIC TRIGGER UACC YES; Urine Blood Small (1+) (Negative); Urine Ketones Trace mg/dL (Negative); Urine Protein 30 (1+) mg/dL (Neg-Trace)
[2023-07-02 16:44] LABS: Creatinine Urine 157.15 mg/dL; Microalbum/Creatinine Ratio Ur 91.6 ug/mg cr (<30); Protein/Creatinine Ratio, Ur 0.38 (<0.2); Total Protein Urine Random 60 mg/dL (<12)
[2023-07-02 16:50] LABS: Bacteria Urine None Seen (None Seen); Hyaline Casts Urine 0-2 /LPF (0-2); RBC Urine 0-2 /HPF (0-2); Squamous Epithelial Cell Urine 0-2 /HPF (0-2); WBC Urine 0-5 /HPF (0-5)
[2023-07-03 04:15] LABS: HBsAGNum1 0.37 S/CO (0.00-0.99); Hepatitis B Surface Antigen Negative (Negative); ~HepC Num1 0.08 S/CO (0.00-0.79); ~Hepatitis C Antibody Nonreactive (Nonreactive)
[2023-07-03 14:13] LABS: Anti DNA DS Antibody 1 IU/mL
[2023-07-03 21:43] LABS: Prot Elec - Alpha1 0.3 g/dL (0.2-0.3); Prot Elec - Alpha2 0.6 g/dL (0.5-0.9); Prot Elec - Beta 1 0.4 g/dL (0.4-0.6); Prot Elec - Beta 2 0.3 g/dL (0.2-0.5); Prot Elec - Gamma 1.2 g/dL (0.8-1.7); Prot Elec - Total Protein 6.9 g/dL (6.1-8.1)
[2023-07-04 11:59] LABS: Anti Nuclear Antibody Screen NEGATIVE (NEGATIVE)
[2023-07-05 07:53] LABS: IgA 238 mg/dL (70-320); IgG 1490 mg/dL (600-1540); IgM 80 mg/dL (50-300)
[2023-07-10 14:53] LABS: Phospholipase A2 IgG ELISA <4 RU/mL; Phospholipase A2 IgG IFA NEGATIVE (NEGATIVE)
== END 2023-07-02 14:45 | disposition home or self-care (01) ==
LOC: HO.LAB 14:44
PROVIDERS: Nurse Practitioner Family; PCP Internal Medicine; Visit Provider Student in an Organized Health Care Education/Training Program
DX: R80.0 Isolated proteinuria (principal)
CPT/HCPCS: 36415; 80051; 81001; 81003; 82043; 82310; 82565; 82570; 82784; 83520; 84156; 84165; 84520; 84550; 86038; 86225; 86255; 86334; 86803; 87340

== ENCOUNTER 2023-07-10 13:34 | Outpatient (AMB) | payer MEDICARE, SELFPAY ==
[2023-07-10 13:54] VITALS: BP 136/74; PULSE 77; O2SAT 98; BMI 24.1
--- NOTE | 2023-07-10 13:54 | MHC.PC.OV ---
Vital Signs 07/10/23 13:54 Height 5 ft 5 in Weight 145 lb BMI 24.1 BP 136/74 Blood Pressure Location Lt brachial Position Sitting Pulse 77 Pulse Source Pulse Oximeter Pulse Oximetry (%) 98 Oxygen Delivery Method Room Air Intake Visit Reasons: DM Allergies codeine [Codeine] Allergy (Severe, Verified 07/10/23 13:55) ANAPHYLAXIS, throat edema lisinopril [LISINOPRIL] Allergy (Severe, Verified 07/10/23 13:55) ANGIOEDEMA Sulfa (Sulfonamide Antibiotics) [Sulfa (Sulfonamides)] Allergy (Intermediate, Verified 07/10/23 13:55) SHORTNESS OF BREATH, HIVES, rash doxycycline [Doxycycline] Allergy (Mild, Verified 07/10/23 13:55) HIVES tramadol Allergy (Unknown, Verified 07/10/23 13:55) rash and nightmares senna Adverse Reaction (Unknown, Verified 07/10/23 13:55) Diarrhea Tobacco use date assessed: 03/26/23 Fall risk assessment: No Falls in past year Last assessed Fall Risk: 07/10/23 Dental Screening Dental Screen Date: 07/10/23 Did you have a dental visit in the last 12 months?: Yes Did you have a dental problem in the last 6 months where you did not have access to dental care?: No Was dental information given to patient?: Patient has dentist HPI DM HPI Details 63-year-old female with diabetes mellitus GERD hypertension hypercholesterolemia coronary artery disease with generalized anxiety disorder last seen in March 2023. Patient's colonoscopy is up-to-date January 2025 years mammogram is up-to-date due next month and bone density is up-to-date April 2023. Patient follows up with Nephrology seen in June 2023 diagnosis of isolated proteinuria and recurrent calculi. Advised increase oral fluids high-protein none dairy food and avoid high oxalate food. Bone density noted osteoporosis with left femur decrease 3.7% spine 4% decrease. L hand pain- bal and will be seeing Dr Gutierrez, patient also has upcoming surgery [facility] Medical History (Updated 12/21/22 @ 14:50 by Anamaria Maddox MD) Constipation Macular degeneration Internal and external hemorrhoids without complication Hemoptysis Cystocele Adrenal adenoma Thyroid nodule GERD (gastroesophageal reflux disease) Chronic sinusitis Type 2 diabetes mellitus with hyperglycemia Sciatica CAD (coronary artery disease) PTSD (post-traumatic stress disorder) Asthma Kidney stones Fibromyalgia Essential hypertension Lumbar radiculopathy Hx of migraines Hx of renal calculi Saccular aneurysm IBS (irritable bowel syndrome) Hx MRSA infection History of polycystic kidney disease, autosomal dominant Otitis externa Surgical History History of esophagogastroduodenoscopy (EGD) Hx of colonoscopy History of cardiac cath History of eye surgery History of thyroidectomy, subtotal History of lithotripsy History of total abdominal hysterectomy and bilateral salpingo-oophorectomy History of appendectomy History of abdominoplasty History of tonsillectomy History of tubal ligation Family History Father Cancer of kidney Diabetes Hypertension CVD (cardiovascular disease) Mother Hypertension Cancer Maternal Aunt Colon cancer Brother AIDS Paternal Aunt Ovarian cancer Breast cancer Brother SLE (systemic lupus erythematosus) Social History Household Members: Spouse Household Members Other:: grandson Housing: House Alcohol intake: never Patient Tobacco Use Status: Former Tobacco user Tobacco use type: Cigarette Years Smoked: quit 1984 e-Cigarette/Vaping Use: Never Used Second Hand Smoke Exposure: No Substance Use Type: Marijuana service: No Current occupational status: employed 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 1. Little interest or pleasure in doing things: not at all 2. Feeling down, depressed, or hopeless: not at all 3. Trouble falling or staying asleep, or sleeping too much: not at all 4. Feeling tired or having little energy: not at all 5. Poor appetite or overeating: not at all 6. Feeling bad about yourself - or that you are a failure or have let yourself or your family down: not at all 7. Trouble concentrating on things, such as reading the newspaper or watching television: not at all 8. Moving or speaking so slowly that other people could have noticed. Or the opposite - being so fidgety or restless that you have been moving around a lot more than usual: not at all 9. Thoughts that you would be better off or of hurting yourself in some way: not at all Total score: 0 Depression Screening Interpretation: Negative Depression Screening Done: Yes Source: Developed by Drs. Ash Montana, Bonny Sterling, Akash Trimble and colleagues, with an educational mamie from [employer] Thrive Questionnaire Date Thrive assessed: 07/10/23 I am a: Patient What is your living situation today?: I have a steady place to live Within the past 12 months, did the food you bought not last and you didn't have the money to get more?: Never true Within the past 12 months, did you worry whether your food would run out before you got money to buy more?: Never true Do you have trouble paying for medicines?: No Do you have trouble getting transportation to medical appointments?: No Do you have trouble paying your heating and electricity bill?: No Do you have trouble taking care of your child, family member or friend?: No Do you have trouble with day-to-day activities such as bathing, preparing meals, shopping, managing finances, etc.?: No Are you currently unemployed and looking for a job?: No Are you interested in more education?: No Currently or been in a relationship where the following occur: no concerns reported THRIVE Score: 0 AUDIT C Alcohol Use Questionnaire (AUDIT-C) 1. How often do you have a drink containing alcohol?: Never 2. How many drinks containing alcohol do you have on a typical day when you are drinking?: 1 or 2 (0) 3. How often do you have six or more drinks on one occasion?: Never Total Score: 0 Score Reviewed/Action Taken: Yes DL-7 AMB Questionnaire DL-7 Date DL - 7 assessed: 03/26/23 Source: Developed by Drs. Ash Montana, Bonny Sterling, Akash Trimble and colleagues, with an educational mamie from [employer] Physical exam (Primary Care) Vital Signs: Last Vital Signs Pulse 77 07/10/23 13:54 BP 136/74 07/10/23 13:54 Pulse Ox 98 07/10/23 13:54 Oxygen Delivery Method Room Air 07/10/23 13:54 BMI result Body Mass Index 24.1 Tobacco/Smoking Status: Tobacco use Status Tobacco use date assessed 03/26/23 07/10/23 13:56 Patient Tobacco Use Status Former Tobacco user 07/10/23 13:56 Tobacco use type Cigarette 07/10/23 13:56 e-Cigarette/Vaping Use Never Used 07/10/23 13:56 PHQ-9: PHQ-9 Score PHQ-9: Total score 0 07/10/23 14:12 Depression Screening Interpretation: Negative Thrive Assessment: Date of Thrive Assessment Date Thrive assessed 07/10/23 07/10/23 13:56 Currently or been in a relationship where the following occur: no concerns reported Const General: alert; No acute distress Eyes Conjunctivae: conjunctivae normal Resp Auscultation: clear to auscultation bilaterally Cardio Rate: regular rate Rhythm: regular rhythm GI Inspection: Yes normal to inspection Extrem General: Yes normal to inspection and No edema Results AMB Hemoglobin A1c AMB Hemoglobin A1c 6.3 % Last Edit by Citlaly Zacarias CMA on 07/10/23 14:15 Assessment and Plan Assessment & Plan (1) Type 2 diabetes mellitus with hyperglycemia: Comment: eye and lasik Code(s): E11.65 - Type 2 diabetes mellitus with hyperglycemia Qualifiers: Diabetes mellitus watermaster insulin use: without detention use Qualified Code(s): E11.65 - Type 2 diabetes mellitus with hyperglycemia Plan: Decrease the amount of carbohydrate intake, pasta, bread, rice and potatoes are all sugar and that is aside from all the sweet stuff, remember that fruits are good but they are Sweet also. Hemoglobin A1c goal of less than 7.0 last time seen had a an A1c of 7.0 metformin a 1000 mg twice a day (2) GERD (gastroesophageal reflux disease): Comment: Septemberastroesophageal reflux and mild esophagitis of the distal thoracic esophagus. Small sliding-type hiatal hernia. Code(s): K21.9 - Gastro-esophageal reflux disease without esophagitis Qualifiers: Esophagitis bleeding: without hemorrhage Esophagitis presence: with esophagitis Qualified Code(s): K21.00 - Gastro-esophageal reflux disease with esophagitis, without bleeding Plan: Avoid the foods that causes that usually spicy foods, tomato products, juices, coffee, soda and foods that your sensitive to. After eating do not lie down, allow 3-4 hours before in lie down. And keep the head of bed above 30 degrees to avoid the acid from going up. (3) Essential hypertension: Code(s): I10 - Essential (primary) hypertension Plan: Continue with blood pressure medication. Decrease salt intake and exercise patient on amlodipine 10 mg once a day (4) Generalized anxiety disorder: Comment: decline referral for counselling 01/2021 Code(s): F41.1 - Generalized anxiety disorder Plan: Continue with present medication (5) Hypercholesterolemia: Code(s): E78.00 - Pure hypercholesterolemia, unspecified Plan: Avoid fried foods, chicken skin, eggs, butter margarine, pastries and meat. Be it pork or beef they have a lot of cholesterol LDL goal of less than 70 and triglyceride of less than 150. Patient on rosuvastatin 40 mg once a day and Zetia 10 mg once a day will need repeat testing (6) CAD (coronary artery disease): Comment: Two thousand thirteen nonobstructive Code(s): I25.10 - Atherosclerotic heart disease of [place] coronary artery without angina pectoris Plan: Control the cholesterol, weight, blood pressure, diabetes Orders: Orders AMB Hemoglobin A1c Today Z13.9 - Encounter for screening, unspecified Medications: Refilled zolpidem 10 mg PO BEDTIME PRN 30 tabs 2RF Insomnia G47.00 - Insomnia, unspecified lorazepam 1 mg PO BEDTIME PRN 30 tabs 2RF Anxiety omeprazole 40 mg PO DAILY 90 caps 3RF Coding Level of Care Code Est Pt Level 4 (63803) Diagnoses Type 2 diabetes mellitus with hyperglycemia, without long-term current use of insulin E11.65 Diabetes mellitus watermaster insulin use: without detention use GERD (gastroesophageal reflux disease) K21.00 Esophagitis bleeding: without hemorrhage Esophagitis presence: with esophagitis Essential hypertension I10 Generalized anxiety disorder F41.1 Hypercholesterolemia E78.00 CAD (coronary artery disease) I25.10
== END 2023-07-10 14:23 | disposition home or self-care (01) ==
PROVIDERS: PCP Internal Medicine; Visit Provider Internal Medicine
DX: E11.65 Type 2 diabetes mellitus with hyperglycemia (principal); K21.00 Gastro-esophageal reflux disease with esophagitis, without bleeding; I10 Essential (primary) hypertension; F41.1 Generalized anxiety disorder; E78.00 Pure hypercholesterolemia, unspecified; I25.10 Atherosclerotic heart disease of native coronary artery without angina pectoris
CPT/HCPCS: 83036; 99214

== ENCOUNTER 2023-07-17 08:59 | Outpatient (REF) | payer MEDICARE, SELFPAY ==
--- NOTE | ~2023-07-17 | MM_ITS ---
EXAMINATION: MM SCREENING DIGITAL BREAST TOMOSYNTHESIS, BILATERAL CLINICAL INFORMATION: Screening. Asymptomatic. COMPARISON: Mammography: 07/12/2022, 03/03/2020, 10/25/2018, 05/21/2017 TECHNIQUE: Digital breast tomosynthesis is performed in both the craniocaudal and mediolateral oblique views along with computer-aided detection (CAD). Synthesized 2D images are generated from the tomosynthesis. FINDINGS: The breasts are heterogeneously dense, which may obscure small masses (ACR BI-RADS breast composition Category c). There are mild vascular calcifications, and a few scattered benign type calcifications in both breasts. There are no suspicious masses, suspicious grouped calcifications, or areas of architectural distortion in either breast. The parenchymal pattern is stable from prior exams. No suspicious skin or axillary abnormality. MM/MM tomosynthesis screening BI IMPRESSION: No mammographic evidence of malignancy. No significant interval change. ASSESSMENT: BI-RADS BI-RADS 2 - Benign Findings RECOMMENDATION: Routine annual mammography screening. 1 year F/U This examination should not preclude the clinical evaluation of a suspicious palpable abnormality. This patient's information was entered into a reminder system with a target due date for their next mammogram.
== END 2023-07-17 09:00 | disposition home or self-care (01) ==
LOC: HO.MAMMO 08:59
PROVIDERS: PCP Internal Medicine; Visit Provider Internal Medicine
DX: Z12.31 Encounter for screening mammogram for malignant neoplasm of breast (principal)
CPT/HCPCS: 77063; 77067

== ENCOUNTER → 2023-07-17 09:15 | Outpatient (BNV) | payer MEDICARE, SELFPAY | PROVIDERS: PCP Internal Medicine; Visit Provider Radiology Diagnostic Radiology | DX: Z12.31 Encounter for screening mammogram for malignant neoplasm of breast (principal) | CPT/HCPCS: 77063; 77067 ==

== ENCOUNTER 2023-08-03 16:31 | Outpatient (AMB) | payer MEDICARE, SELFPAY ==
[2023-08-03 16:32] VITALS: BP 100/68; PULSE 90; O2SAT 98; BMI 23.1
--- NOTE | 2023-08-03 16:32 | A.OFFPC_ITS ---
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 Allergies codeine [Codeine] Allergy (Severe, Verified 08/03/23 16:36) ANAPHYLAXIS, throat edema lisinopril [LISINOPRIL] Allergy (Severe, Verified 08/03/23 16:36) ANGIOEDEMA Sulfa (Sulfonamide Antibiotics) [Sulfa (Sulfonamides)] Allergy (Intermediate, Verified 08/03/23 16:36) SHORTNESS OF BREATH, HIVES, rash doxycycline [Doxycycline] Allergy (Mild, Verified 08/03/23 16:36) HIVES tramadol Allergy (Unknown, Verified 08/03/23 16:36) rash and nightmares senna Adverse Reaction (Unknown, Verified 08/03/23 16:36) Diarrhea Medication List - Last Reconciled 08/03/23 by Anamaria Maddox MD albuterol sulfate 2.5 mg inhalation PRN albuterol sulfate 90 mcg/actuation 2 puffs PO QID PRN amlodipine 10 mg PO BEDTIME cetirizine 10 mg PO DAILY PRN dicyclomine 20 mg PO TID escitalopram oxalate 10 mg PO DAILY 90 days ezetimibe 10 mg PO DAILY fluticasone propionate 44 mcg/actuation (Flovent HFA) 2 puffs inhalation BID Lactobacillus rhamnosus GG (Culturelle) 1 cap PO DAILY lidocaine 5% (Lidoderm) 1 patch topical DAILY lorazepam 1 mg PO BEDTIME PRN metformin 1,000 mg PO BIDWMEAL 90 days naproxen (Naprosyn) 500 mg PO BID omeprazole 40 mg PO DAILY ondansetron 4 mg PO Q6-8H PRN rosuvastatin 40 mg PO DAILY sennosides-docusate sodium 8.6-50 mg (Senna Plus) 2 tab-caps (2 x 8.6-50 mg) PO BEDTIME sumatriptan succinate 100 mg PO DAILY PRN 90 days zolpidem 10 mg PO BEDTIME PRN Tobacco use date assessed: 08/03/23 Fall risk assessment: No Falls in past year Last assessed Fall Risk: 08/03/23 Dental Screening Dental Screen Date: 07/10/23 HPI stomach pain left side HPI Details 63-year-old female with controlled diabe chanda mellitus GERD hypertension generalized anxiety disorder hypercholesterolemia and coronary artery disease last seen in 06/30/2023 patient is up-to-date with colonoscopy in 2019 5 years mammogram is due this month bone density is up-to-date.. epigastric to L UQ 1 week ago pain diarrhea 1 week, vomiting, watery , deny blood , no fevers, no sore throat PFSH Medical History (Updated 08/03/23 @ 17:14 by Anamaria Maddox MD) Constipation Macular degeneration Internal and external hemorrhoids without complication Hemoptysis Cystocele Adrenal adenoma Thyroid nodule GERD (gastroesophageal reflux disease) Chronic sinusitis Type 2 diabetes mellitus with hyperglycemia Sciatica CAD (coronary artery disease) PTSD (post-traumatic stress disorder) Asthma Kidney stones Fibromyalgia Essential hypertension Lumbar radiculopathy Hx of migraines Hx of renal calculi Saccular aneurysm IBS (irritable bowel syndrome) Hx MRSA infection History of polycystic kidney disease, autosomal dominant Otitis externa Surgical History History of esophagogastroduodenoscopy (EGD) Hx of colonoscopy History of cardiac cath History of eye surgery History of thyroidectomy, subtotal History of lithotripsy History of total abdominal hysterectomy and bilateral salpingo-oophorectomy History of appendectomy History of abdominoplasty History of tonsillectomy History of tubal ligation Family History Father Cancer of kidney Diabetes Hypertension CVD (cardiovascular disease) Mother Hypertension Cancer Maternal Aunt Colon cancer Brother AIDS Paternal Aunt Ovarian cancer Breast cancer Brother SLE (systemic lupus erythematosus) Social History Household Members: Spouse Household Members Other:: grandson Housing: House Alcohol intake: never Patient Tobacco Use Status: Former Tobacco user Tobacco use type: Cigarette Years Smoked: quit 1984 e-Cigarette/Vaping Use: Never Used Second Hand Smoke Exposure: No Substance Use Type: Marijuana service: No Current occupational status: employed 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 How often do you have a drink containing alcohol?: Never 2. How many drinks containing alcohol do you have on a typical day when you are drinking?: 1 or 2 (0) 3. How often do you have six or more drinks on one occasion?: Never Total Score: 0 Score Reviewed/Action Taken: Yes DL-7 AMB Questionnaire DL-7 Date DL - 7 assessed: 03/26/23 Source: Developed by Drs. Ash Montana, Bonny Sterling, Akash Trimble and colleagues, with an educational mamie from [employer]. Physical exam (Primary Care) Vital Signs: Last Vital Signs Pulse 90 08/03/23 16:32 BP 100/68 08/03/23 16:32 Pulse Ox 98 08/03/23 16:32 Oxygen Delivery Method Room Air 08/03/23 16:32 BMI result Body Mass Index 23.1 Tobacco/Smoking Status: Tobacco use Status Tobacco use date assessed 08/03/23 08/03/23 16:39 Patient Tobacco Use Status Former Tobacco user 08/03/23 16:39 Tobacco use type Cigarette 08/03/23 16:39 e-Cigarette/Vaping Use Never Used 08/03/23 16:39 Thrive Assessment: Date of Thrive Assessment Date Thrive assessed 08/03/23 08/03/23 16:39 Const General: alert; No acute distress Eyes Conjunctivae: conjunctivae normal Resp Auscultation: clear to auscultation bilaterally Cardio Rate: regular rate Rhythm: regular rhythm GI Other: Abdomen is soft ++bowel sounds mildly epigastric tenderness with no rebound no guarding no other pain on other areas of the abdomen. Extrem General: Yes normal to inspection and No edema Assessment and Plan Assessment & Plan (1) Acute gastroenteritis: Code(s): K52.9 - Noninfective gastroenteritis and colitis, unspecified Plan: keeping well hydrated, bland diet and probiotics, discussed about use of Imodium or Lomotil. If pain persist advised to call or be seen again. Patient as for refill on dicyclomine Medications: New Lactobacillus rhamnosus GG (Culturelle) 1 cap PO DAILY 14 caps 0RF K52.9 - Noninfective gastroenteritis and colitis, unspecified Refilled dicyclomine 20 mg PO TID 20 tabs 0RF M25.50 - Pain in unspecified joint Coding Level of Care Code Est Pt Level 3 (38466) Diagnoses Acute gastroenteritis K52.9
== END 2023-08-03 17:16 | disposition home or self-care (01) ==
LOC: HO.HMGH 16:31
PROVIDERS: PCP Internal Medicine; Visit Provider Internal Medicine
DX: K52.9 Noninfective gastroenteritis and colitis, unspecified (principal)
CPT/HCPCS: 99213

== ENCOUNTER 2023-09-12 13:24 | Outpatient (AMB) | payer MEDICARE, MEDICAID, SELFPAY ==
[2023-09-12 13:33] VITALS: BP 124/76; PULSE 80; O2SAT 98; BMI 23.5
--- NOTE | 2023-09-12 13:33 | MHC.PC.OV ---
Vital Signs 09/12/23 13:33 Height 5 ft 5 in Weight 141 lb BMI 23.5 BP 124/76 Blood Pressure Location Lt brachial Position Sitting Pulse 80 Pulse Source Pulse Oximeter Pulse Oximetry (%) 98 Oxygen Delivery Method Room Air Intake Visit Reasons: Annual Exam - see comments Allergies codeine [Codeine] Allergy (Severe, Verified 09/12/23 13:33) ANAPHYLAXIS, throat edema lisinopril [LISINOPRIL] Allergy (Severe, Verified 09/12/23 13:33) ANGIOEDEMA Sulfa (Sulfonamide Antibiotics) [Sulfa (Sulfonamides)] Allergy (Intermediate, Verified 09/12/23 13:33) SHORTNESS OF BREATH, HIVES, rash doxycycline [Doxycycline] Allergy (Mild, Verified 09/12/23 13:33) HIVES tramadol Allergy (Unknown, Verified 09/12/23 13:33) rash and nightmares senna Adverse Reaction (Unknown, Verified 09/12/23 13:33) Diarrhea Medication List - Last Reconciled 09/12/23 by Anamaria Maddox MD albuterol sulfate 2.5 mg inhalation PRN albuterol sulfate 90 mcg/actuation 2 puffs PO QID PRN amlodipine 10 mg PO BEDTIME cetirizine 10 mg PO DAILY PRN escitalopram oxalate 10 mg PO DAILY 90 days ezetimibe 10 mg PO DAILY fluticasone propion-salmeterol 250-50 mcg/dose (Wixela Inhub) 1 inh inhalation BID lidocaine 5% (Lidoderm) 1 patch topical DAILY lorazepam 1 mg PO BEDTIME PRN metformin 1,000 mg PO BIDWMEAL 90 days omeprazole 40 mg PO DAILY ondansetron 4 mg PO Q6-8H PRN rosuvastatin 40 mg PO DAILY sennosides-docusate sodium 8.6-50 mg (Senna Plus) 2 tab-caps (2 x 8.6-50 mg) PO BEDTIME sumatriptan succinate 100 mg PO DAILY PRN 90 days zolpidem 10 mg PO BEDTIME PRN Tobacco use date assessed: 08/03/23 Fall risk assessment: No Falls in past year Last assessed Fall Risk: 09/12/23 Dental Screening Dental Screen Date: 07/10/23 HPI Annual Exam - see comments HPI Details 63-year-old female with controlled diabetes mellitus hypertension GERD hypercholesterolemia coronary artery disease asthma and generalized anxiety disorder last seen in July for gastroenteritis. Patient is here for physical exam. Colonoscopy is up-to-date 01/30/2020, mammogram up-to-date bone density is up-to-date 05/01/2023. Review of the notes has just had an orthopedic surgery for her left thumb having left thumb trapeziectomy with interpositional arthroplasty using FCR tendon August 22 2023 [facility] Medical History (Updated 09/12/23 @ 13:56 by Anamaria Maddox MD) Constipation Macular degeneration Internal and external hemorrhoids without complication Hemoptysis Cystocele Adrenal adenoma Thyroid nodule GERD (gastroesophageal reflux disease) Chronic sinusitis Type 2 diabetes mellitus with hyperglycemia Sciatica CAD (coronary artery disease) PTSD (post-traumatic stress disorder) Asthma Kidney stones Fibromyalgia Essential hypertension Lumbar radiculopathy Hx of migraines Hx of renal calculi Saccular aneurysm IBS (irritable bowel syndrome) Hx MRSA infection History of polycystic kidney disease, autosomal dominant Otitis externa Surgical History History of esophagogastroduodenoscopy (EGD) Hx of colonoscopy History of cardiac cath History of eye surgery History of thyroidectomy, subtotal History of lithotripsy History of total abdominal hysterectomy and bilateral salpingo-oophorectomy History of appendectomy History of abdominoplasty History of tonsillectomy History of tubal ligation Family History Father Cancer of kidney Diabetes Hypertension CVD (cardiovascular disease) Mother Hypertension Cancer Maternal Aunt Colon cancer Brother AIDS Paternal Aunt Ovarian cancer Breast cancer Brother SLE (systemic lupus erythematosus) Social History (Updated 09/12/23 @ 13:51 by Anamaria Maddox MD) Household Members: Spouse Household Members Other:: grandson Housing: House Alcohol intake: never Patient Tobacco Use Status: Former Tobacco user Tobacco use type: Cigarette Years Smoked: quit 1984, marijuana e-Cigarette/Vaping Use: Never Used Second Hand Smoke Exposure: No Substance Use Type: Marijuana service: No Current occupational status: employed 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 1. Little interest or pleasure in doing things: not at all 2. Feeling down, depressed, or hopeless: not at all 3. Trouble falling or staying asleep, or sleeping too much: not at all 4. Feeling tired or having little energy: not at all 5. Poor appetite or overeating: not at all 6. Feeling bad about yourself - or that you are a failure or have let yourself or your family down: not at all 7. Trouble concentrating on things, such as reading the newspaper or watching television: not at all 8. Moving or speaking so slowly that other people could have noticed. Or the opposite - being so fidgety or restless that you have been moving around a lot more than usual: not at all 9. Thoughts that you would be better off or of hurting yourself in some way: not at all Total score: 0 Depression Screening Interpretation: Negative Depression Screening Done: Yes Source: Developed by Drs. Ash Montana, Bonny Sterling, Akash Trimble and colleagues, with an educational mamie from [employer]. Thrive Questionnaire Date Thrive assessed: 08/03/23 AUDIT C Alcohol Use Questionnaire (AUDIT-C) 1. How often do you have a drink containing alcohol?: Never 2. How many drinks containing alcohol do you have on a typical day when you are drinking?: 1 or 2 (0) 3. How often do you have six or more drinks on one occasion?: Never Total Score: 0 Score Reviewed/Action Taken: Yes DL-7 AMB Questionnaire DL-7 Date DL - 7 assessed: 03/26/23 Source: Developed by Drs. Ash Montana, Bonny Sterling, Akash Trimble and colleagues, with an educational mamie from [employer]. Review of Systems Const Denies poor appetite and Denies weakness Eyes Denies no additional complaints ENT Reports Normal hearing present, Denies dizziness, Denies nasal congestion, Denies tinnitus and Denies sore throat Card Denies chest pain, Denies syncope, Denies rapid heart rate and Denies dyspnea Resp Denies cough and Denies dyspnea GI Denies change in stool character, Reports constipation, Denies diarrhea, Denies nausea and Denies vomiting Denies urinary frequency, Denies difficulty voiding and Denies dysuria Neuro Reports Normal hearing present, Denies confusion, Denies dizziness, Denies syncope and Denies weakness Psych Denies confusion Physical exam (Primary Care) Vital Signs: Last Vital Signs Pulse 80 09/12/23 13:33 BP 124/76 09/12/23 13:33 Pulse Ox 98 09/12/23 13:33 Oxygen Delivery Method Room Air 09/12/23 13:33 BMI result Body Mass Index 23.5 Tobacco/Smoking Status: Tobacco use Status Tobacco use date assessed 08/03/23 09/12/23 13:34 Patient Tobacco Use Status Former Tobacco user 09/12/23 13:51 Tobacco use type Cigarette 09/12/23 13:51 e-Cigarette/Vaping Use Never Used 09/12/23 13:51 PHQ-9: PHQ-9 Score PHQ-9: Total score 0 09/12/23 13:47 Depression Screening Interpretation: Negative Thrive Assessment: Date of Thrive Assessment Date Thrive assessed 08/03/23 09/12/23 13:34 Const General: alert and awake; No confusion Orientation/consciousness: No confusion HENMT Head: Yes normocephalic Ears: external ears normal and TM's normal bilaterally Face and sinus: Yes normal facial exam Mouth: moist mucous membranes Throat: Yes tonsils normal Eyes Conjunctivae: conjunctivae normal Pupils: Equal, round and reactive pupils present and Pupil accommodation reflex normal Direct Ophthalmoscopy: normal light reflex Neck Neck: No lymphadenopathy Thyroid: Thyroid normal Chest Chest palpation & inspection: normal inspection of the chest Resp Effort & Inspection: normal respiratory effort and no audible wheezes Auscultation: clear to auscultation bilaterally, no crackles, no wheezes and lung sounds not diminished Cardio Rate: regular rate Rhythm: regular rhythm Peripheral pulses: radial pulses present and dorsalis pedis present GI Other: guaiac negative pedal pulse and pin prick good Palpation (GI): no masses Auscultation: normal bowel sounds and normoactive bowel sounds Skin General skin exam: no rashes or lesions noted Rashes: no rashes Neuro General: deep tendon reflexes 2+ bilaterally and No confusion Cranial nerves: Yes Equal, round and reactive pupils present, Yes Midline tongue present, Yes Normal hearing present and Yes Ability to bilaterally elevate shoulders present Cognition (Neuro): normal cognition Gait exam (Neuro): Normal gait present Motor exam (neuro): 5/5 motor strength present throughout Deep tendon reflexes (DTR's): Right brachioradialis reflex intensity grade: 2+, Left brachioradialis reflex intensity grade: 2+, Right patellar reflex intensity grade: 2+ and Left patellar reflex intensity grade: 2+ Extrem General: No edema Results AMB Hemoglobin A1c AMB Hemoglobin A1c 6.0 % Last Edit by Citlaly Zacarias CMA on 09/12/23 13:48 Immunizations pneumoc 20-tete conj-dip cr(PF) 0.5 mL IM syringe Performing Provider: Anamaria Maddox MD [facility] Administered by: Citlaly Zacarias CMA on 09/12/23 14:15 Dose Route Admin Location Dispensed Lot Number Expiration Date NDC Luggage Maker 0.5 mL IM Left Deltoid 0.5 mL [id number] 10/10/24 [employer] VIS Given Date VIS Provided VIS Publication Date 09/12/23 Single Vaccine 21 Eligibility Eligibility Date Funding Source Not [facility] Eligible 09/12/23 Private Results Reviewed Results Reviewed: Laboratory Last Values Hgb A1c (Clinic) 6.0 % (4.0-6.0) 09/12/23 13:35 Assessment and Plan Assessment & Plan (1) Annual physical exam: Code(s): Z00.00 - Encounter for general adult medical examination without abnormal findings Plan: Patient is advised to eat healthy, keep well hydrated, keep active and have adequate sleep. (2) CAD (coronary artery disease): Comment: Two thousand thirteen nonobstructive Code(s): I25.10 - Atherosclerotic heart disease of [place] coronary artery without angina pectoris Plan: Control the cholesterol, weight, blood pressure, diabetes. Since nonobstructive advised to lower down the risk with controlling the problems. (3) Type 2 diabetes mellitus with hyperglycemia: Comment: eye and lasik Code(s): E11.65 - Type 2 diabetes mellitus with hyperglycemia Qualifiers: Diabetes mellitus salvage determiner insulin use: without salvage determiner use Qualified Code(s): E11.65 - Type 2 diabetes mellitus with hyperglycemia Plan: Decrease the amount of carbohydrate intake, pasta, bread, rice and potatoes are all sugar and that is aside from all the sweet stuff, remember that fruits are good but they are Sweet also. Hemoglobin A1c goal of less than 7.0 and patient is on metformin 1000 mg twice a day (4) Essential hypertension: Code(s): I10 - Essential (primary) hypertension Plan: Continue with blood pressure medication. Decrease salt intake and exercise taking amlodipine 10 mg once a day. (5) GERD (gastroesophageal reflux disease): Comment: Septemberastroesophageal reflux and mild esophagitis of the distal thoracic esophagus. Small sliding-type hiatal hernia. Code(s): K21.9 - Gastro-esophageal reflux disease without esophagitis Qualifiers: Esophagitis bleeding: without hemorrhage Esophagitis presence: with esophagitis Qualified Code(s): K21.00 - Gastro-esophageal reflux disease with esophagitis, without bleeding Plan: Avoid the foods that causes that usually spicy foods, tomato products, juices, coffee, soda and foods that your sensitive to. After eating do not lie down, allow 3-4 hours before in lie down. And keep the head of bed above 30 degrees to avoid the acid from going up. (6) Hypercholesterolemia: Code(s): E78.00 - Pure hypercholesterolemia, unspecified Plan: Avoid fried foods, chicken skin, eggs, butter margarine, pastries and meat. Be it pork or beef they have a lot of cholesterol LDL goal of 100 preferably less than 70 continue on Zetia rosuvastatin 40 mg once a day (7) Generalized anxiety disorder: Comment: decline referral for counselling 01/2021 Code(s): F41.1 - Generalized anxiety disorder Plan: Continue with lorazepam as needed and Lexapro 10 mg once a day (8) Hearing difficulty: Code(s): H91.90 - Unspecified hearing loss, unspecified ear Plan: hearing test advised Orders: Orders AMB Hemoglobin A1c Today Z13.9 - Encounter for screening, unspecified Complete Blood Count Auto Diff 4 Months - Type 2 diabetes mellitus with hyperglycemia Comprehensive Met. Panel 4 Months - Type 2 diabetes mellitus with hyperglycemia Lipid Panel 4 Months - Type 2 diabetes mellitus with hyperglycemia, E78.00 - Pure hypercholesterolemia, unspecified Free T4 (Free Thyroxine) 4 Months - Type 2 diabetes mellitus with hyperglycemia Microalbumin, Random (w Creat) 4 Months - Type 2 diabetes mellitus with hyperglycemia Vitamin D 25-OH Total 4 Months - Type 2 diabetes mellitus with hyperglycemia Thyroid Stimulating Hormone 4 Months - Type 2 diabetes mellitus with hyperglycemia Creatinine Urine 4 Months - Type 2 diabetes mellitus with hyperglycemia Vitamin B12 and Folate 4 Months E11.65 - Type 2 diabetes mellitus with hyperglycemia Hemoglobin A1c 4 Months E11.65 - Type 2 diabetes mellitus with hyperglycemia Pneumococcal 20 Immunization Today Z23 - Encounter for immunization Referrals Speech and Hearing Referral H91.90 - Unspecified hearing loss, unspecified ear Medications: New fluticasone propion-salmeterol 250-50 mcg/dose (Wixela Inhub) 1 inh inhalation BID 60 ea 12RF J45.909 - Unspecified asthma, uncomplicated Discontinued fluticasone propionate 44 mcg/actuation (Flovent HFA) administer with spacer Discontinued Reason: No Longer Medically Relevant 2 puffs inhalation BID 10.6 grams 12RF J45.909 - Unspecified asthma, uncomplicated Coding Level of Care Code Est Pt Prev Care >65y(99399) Diagnoses Annual physical exam Z00.00 CAD (coronary artery disease) I25.10 Type 2 diabetes mellitus with hyperglycemia, without long-term current use of insulin E11.65 Diabetes mellitus fci insulin use: without salvage determiner use Essential hypertension I10 GERD (gastroesophageal reflux disease) K21.00 Esophagitis bleeding: without hemorrhage Esophagitis presence: with esophagitis Hypercholesterolemia E78.00 Generalized anxiety disorder F41.1 Hearing difficulty H91.90
== END 2023-09-12 14:21 | disposition home or self-care (01) ==
PROVIDERS: PCP Internal Medicine; Visit Provider Internal Medicine
DX: Z23 Encounter for immunization (principal); Z00.00 Encounter for general adult medical examination without abnormal findings; I25.10 Atherosclerotic heart disease of native coronary artery without angina pectoris; E11.65 Type 2 diabetes mellitus with hyperglycemia; I10 Essential (primary) hypertension; K21.00 Gastro-esophageal reflux disease with esophagitis, without bleeding; E78.00 Pure hypercholesterolemia, unspecified; F41.1 Generalized anxiety disorder; H91.90 Unspecified hearing loss, unspecified ear
CPT/HCPCS: 83036; 90471; 90677; 99397

== ENCOUNTER 2023-11-23 13:51 | Outpatient (AMB) | payer MEDICARE, SELFPAY ==
[2023-11-23 14:09] VITALS: BP 138/72; PULSE 81; O2SAT 96; BMI 23.0
--- NOTE | 2023-11-23 14:09 | A.OFFPC_ITS ---
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: No Accompanied by: Self / Same As Patient Allergies codeine [Codeine] Allergy (Severe, Verified 11/23/23 14:15) ANAPHYLAXIS, throat edema lisinopril [LISINOPRIL] Allergy (Severe, Verified 11/23/23 14:15) ANGIOEDEMA Sulfa (Sulfonamide Antibiotics) [Sulfa (Sulfonamides)] Allergy (Intermediate, Verified 11/23/23 14:15) SHORTNESS OF BREATH, HIVES, rash doxycycline [Doxycycline] Allergy (Mild, Verified 11/23/23 14:15) HIVES tramadol Allergy (Unknown, Verified 11/23/23 14:15) rash and nightmares senna Adverse Reaction (Unknown, Verified 11/23/23 14:15) Diarrhea Tobacco use date assessed: 08/03/23 Fall risk assessment: No Falls in past year Last assessed Fall Risk: 11/23/23 Dental Screening Dental Screen Date: 07/10/23 HPI DM 2 HPI0 Details 63-year-old female with coronary artery disease diabetes mellitus controlled hypertension GERD hypercholesterolemia and generalized anxiety disorder last seen in September 2023. Patient's colonoscopy is up-to-date 2019, mammograms up-to-date bone density is up-to-date. Review of the notes was discharged from the hospital in August 2023 4 left thumb trapeziectomy with interpositional arthroplasty doctors path. feels full and no apetitte, , , no bowel symptoms and no diarrhea, , no bladder sym, cough ocurring. R breast mass noted, noted 3 days ago and squeexed and pus came out [facility] Medical History (Updated 11/23/23 @ 14:47 by Anamaria Maddox MD) Constipation Macular degeneration Internal and external hemorrhoids without complication Hemoptysis Cystocele Adrenal adenoma Thyroid nodule GERD (gastroesophageal reflux disease) Chronic sinusitis Type 2 diabetes mellitus with hyperglycemia Sciatica CAD (coronary artery disease) PTSD (post-traumatic stress disorder) Asthma Kidney stones Fibromyalgia Essential hypertension Lumbar radiculopathy Hx of migraines Hx of renal calculi Saccular aneurysm IBS (irritable bowel syndrome) Hx MRSA infection History of polycystic kidney disease, autosomal dominant Otitis externa Surgical History History of esophagogastroduodenoscopy (EGD) Hx of colonoscopy History of cardiac cath History of eye surgery History of thyroidectomy, subtotal History of lithotripsy History of total abdominal hysterectomy and bilateral salpingo-oophorectomy History of appendectomy History of abdominoplasty History of tonsillectomy History of tubal ligation Family History Father Cancer of kidney Diabetes Hypertension CVD (cardiovascular disease) Mother Hypertension Cancer Maternal Aunt Colon cancer Brother AIDS Paternal Aunt Ovarian cancer Breast cancer Brother SLE (systemic lupus erythematosus) Social History (Updated 09/12/23 @ 13:51 by Anamaria Maddox MD) Household Members: Spouse Household Members Other:: grandson Housing: House Alcohol intake: never Patient Tobacco Use Status: Former Tobacco user Tobacco use type: Cigarette Years Smoked: quit 1984, marijuana e-Cigarette/Vaping Use: Never Used Second Hand Smoke Exposure: No Substance Use Type: Marijuana service: No Current occupational status: employed 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 1. Little interest or pleasure in doing things: not at all 2. Feeling down, depressed, or hopeless: not at all 3. Trouble falling or staying asleep, or sleeping too much: not at all 4. Feeling tired or having little energy: not at all 5. Poor appetite or overeating: not at all 6. Feeling bad about yourself - or that you are a failure or have let yourself or your family down: not at all 7. Trouble concentrating on things, such as reading the newspaper or watching television: not at all 8. Moving or speaking so slowly that other people could have noticed. Or the opposite - being so fidgety or restless that you have been moving around a lot more than usual: not at all 9. Thoughts that you would be better off or of hurting yourself in some way: not at all Total score: 0 Depression Screening Interpretation: Negative Depression Screening Done: Yes Source: Developed by Drs. Ash Montana, Bonny Sterling, Akash Trimble and colleagues, with an educational mamie from [employer]. Thrive Questionnaire Date Thrive assessed: 08/03/23 AUDIT C Alcohol Use Questionnaire (AUDIT-C) 1. How often do you have a drink containing alcohol?: Never 2. How many drinks containing alcohol do you have on a typical day when you are drinking?: 1 or 2 (0) 3. How often do you have six or more drinks on one occasion?: Never Total Score: 0 Score Reviewed/Action Taken: Yes DL-7 AMB Questionnaire DL-7 Date DL - 7 assessed: 03/26/23 Source: Developed by Drs. Ash Montana, Bonny Sterling, Akash Trimble and colleagues, with an educational mamie from [employer]. Physical exam (Primary Care) Vital Signs: Last Vital Signs Pulse 81 11/23/23 14:09 BP 138/72 11/23/23 14:09 Pulse Ox 96 11/23/23 14:09 Oxygen Delivery Method Room Air 11/23/23 14:09 BMI result Body Mass Index 23.0 Tobacco/Smoking Status: Tobacco use Status Tobacco use date assessed 08/03/23 11/23/23 14:11 Patient Tobacco Use Status Former Tobacco user 11/23/23 14:11 Tobacco use type Cigarette 11/23/23 14:11 e-Cigarette/Vaping Use Never Used 11/23/23 14:11 PHQ-9: PHQ-9 Score PHQ-9: Total score 0 11/23/23 14:15 Depression Screening Interpretation: Negative Thrive Assessment: Date of Thrive Assessment Date Thrive assessed 08/03/23 11/23/23 14:11 Chest Chest/axillae images: 2 1. 2 cm erythema toes papular rash with the center elevation. Assessment and Plan Assessment & Plan (1) CAD (coronary artery disease): Comment: Two thousand thirteen nonobstructive Code(s): I25.10 - Atherosclerotic heart disease of [place] coronary artery without angina pectoris Plan: Control the cholesterol, weight, blood pressure, diabetes continue with aspirin (2) Type 2 diabetes mellitus with hyperglycemia: Comment: eye and lasik Code(s): E11.65 - Type 2 diabetes mellitus with hyperglycemia Qualifiers: Diabetes mellitus long term care social worker insulin use: without mcc use Q ualified Code(s): E11.65 - Type 2 diabetes mellitus with hyperglycemia Plan: Decrease the amount of carbohydrate intake, pasta, bread, rice and potatoes are all sugar and that is aside from all the sweet stuff, remember that fruits are good but they are Sweet also. Hemoglobin A1c goal of less than 6.5 patient is on metformin a 1000 mg twice a day (3) GERD (gastroesophageal reflux disease): Comment: Septemberastroesophageal reflux and mild esophagitis of the distal thoracic esophagus. Small sliding-type hiatal hernia. Code(s): K21.9 - Gastro-esophageal reflux disease without esophagitis Qualifiers: Esophagitis bleeding: without hemorrhage Esophagitis presence: with esophagitis Qualified Code(s): K21.00 - Gastro-esophageal reflux disease with esophagitis, without bleeding Plan: Avoid the foods that causes that usually spicy foods, tomato products, juices, coffee, soda and foods that your sensitive to. After eating do not lie down, allow 3-4 hours before in lie down. And keep the head of bed above 30 degrees to avoid the acid from going up. (4) Essential hypertension: Code(s): I10 - Essential (primary) hypertension Plan: Continue with blood pressure medication on amlodipine 10 mg once a day only (5) Hypercholesterolemia: Code(s): E78.00 - Pure hypercholesterolemia, unspecified Plan: Avoid fried foods, chicken skin, eggs, butter margarine, pastries and meat. Be it pork or beef they have a lot of cholesterol LDL goal of less than 70 and triglyceride of less than 150 on Zetia and rosuvastatin (6) Generalized anxiety disorder: Comment: decline referral for counselling 01/2021 Code(s): F41.1 - Generalized anxiety disorder Plan: Continue with present medication (7) Infected abrasion of skin of right breast: Code(s): S20.111A - Abrasion of breast, right breast, initial encounter; L08.9 - Local infection of the skin and subcutaneous tissue, unspecified Plan: Antibiotic prescription sent in takes a probiotic to prevent diarrhea. If mass continues to be present will need call for further workup. (8) Cough: Code(s): R05.9 - Cough, unspecified Plan: Will do chest x-ray. (9) Dysphagia: Code(s): R13.10 - Dysphagia, unspecified Plan: Patient has had barium swallow done in 09/28/2022 and has GERD Orders: Orders 2 XR chest 2V Today R05.9 - Cough, unspecified Medications: New 2 amoxicillin-pot clavulanate 875-125 mg 1 tab PO BID 14 tabs 0RF L08.9 - Local infection of the skin and subcutaneous tissue, unspecified, S20.111A - Abrasion of breast, right breast, initial encounter Refilled 2 lorazepam 1 mg PO BEDTIME PRN 30 tabs 2RF Anxiety zolpidem 10 mg PO BEDTIME PRN 30 tabs 2RF Insomnia G47.00 - Insomnia, unspecified cetirizine 10 mg PO DAILY PRN 90 tabs 1RF allergy symptoms Coding Level of Care Code Est Pt Level 4 (49861) Diagnoses CAD (coronary artery disease) I25.10 Type 2 diabetes mellitus with hyperglycemia, without long-term current use of insulin E11.65 Diabetes mellitus long term care social worker insulin use: without long term care social worker use GERD (gastroesophageal reflux disease) K21.00 Esophagitis bleeding: without hemorrhage Esophagitis presence: with esophagitis Essential hypertension I10 Hypercholesterolemia E78.00 Generalized anxiety disorder F41.1 Infected abrasion of skin of right breast S20.111A; L08.9 Cough R05.9 Dysphagia R13.10
== END 2023-11-23 14:52 | disposition home or self-care (01) ==
PROVIDERS: PCP Internal Medicine; Visit Provider Internal Medicine
DX: I25.10 Atherosclerotic heart disease of native coronary artery without angina pectoris (principal); E11.65 Type 2 diabetes mellitus with hyperglycemia; K21.00 Gastro-esophageal reflux disease with esophagitis, without bleeding; I10 Essential (primary) hypertension; E78.00 Pure hypercholesterolemia, unspecified; F41.1 Generalized anxiety disorder; S20.111A Abrasion of breast, right breast, initial encounter; L08.9 Local infection of the skin and subcutaneous tissue, unspecified; R05.9 Cough, unspecified; R13.10 Dysphagia, unspecified
CPT/HCPCS: 99214

== ENCOUNTER 2023-11-23 14:59 | Outpatient (REF) | payer MEDICARE, SELFPAY ==
--- NOTE | ~2023-11-23 | XR_ITS ---
EXAMINATION: XR CHEST CLINICAL INFORMATION: Cough unspecified. COMPARISON: 02/04/2022. TECHNIQUE: 2 views of the chest were obtained. FINDINGS: There is no gross pneumothorax. Heart size is normal. No new focal consolidation. No pleural effusion. Mild degenerative changes in the thoracic spine. XR/XR chest 2V IMPRESSION: No evidence of pneumonia. Electronically signed by: Patrica Sherman MD 01/16/2024 10:53 AM IFEANYI
== END 2023-11-23 15:00 | disposition home or self-care (01) ==
LOC: HO.XRAY 14:59
PROVIDERS: PCP Internal Medicine; Visit Provider Internal Medicine
DX: R05.9 Cough, unspecified (principal)
CPT/HCPCS: 71046

== ENCOUNTER 2023-12-14 12:05 | Outpatient (REF) | payer MEDICARE, SELFPAY ==
[2023-12-14 12:19] LABS: MANUAL DIFF FLAG NO
[2023-12-14 12:31] LABS: Basophils Percent Auto 0.6 % (0-2); Eosinophils Absolute Auto 0.2 X10*3/uL (0.0-0.4); Eosinophils Percent Auto 2.2 % (0-4); Hematocrit 33.3 % (37.0-47.0); Hemoglobin 11.2 g/dl (12.0-16.0); Imm Gran Abs Auto 0.01 X10*3/uL (0.00-0.03); Imm Gran Pct Auto 0.1 % (0.0-0.4); Lymphocytes Absolute Auto 2.5 X10*3/uL (1.2-4.9); Lymphocytes Percent Auto 34.8 % (20-40); Mean Corpuscular HGB Conc 33.6 g/dl (31.0-35.0); Mean Corpuscular Hemoglobin 29.2 pg (27.0-33.0); Mean Corpuscular Volume 86.9 fL (80.0-98.0); Mean Platelet Volume 9.7 fL (9.4-12.3); Monocytes Absolute Auto 0.4 X10*3/uL (0.1-1.2); Monocytes Percent Auto 5.3 % (2-11); Neutrophils Absolute Auto 4.1 x10*3/uL (2.0-8.3); Platelet Count 319 X10*3/uL (160-400); Red Blood Count 3.83 X10*6/uL (4.20-5.50); Red Cell Distribution Width 14.2 % (11.0-16.0); White Blood Count 7.2 X10*3/uL (4.8-10.8)
[2023-12-14 12:41] LABS: Appearance Urine Clear; Color Urine Yellow; Glucose Urine UA Negative (Negative); Leukocyte Esterase Urine Negative (Negative); Nitrite Urine Negative (Negative); PH 5.5 (5.0-9.0); Specific Gravity - Urine 1.015 (1.005-1.025); UMIC TRIGGER UACC YES; Urine Blood Trace (Negative); Urine Ketones Negative (Negative); Urine Protein Trace mg/dL (Neg-Trace)
[2023-12-14 12:46] LABS: Bacteria Urine None Seen (None Seen); Hyaline Casts Urine 0-2 /LPF (0-2); RBC Urine 0-2 /HPF (0-2); Squamous Epithelial Cell Urine 0-2 /HPF (0-2); WBC Urine 0-5 /HPF (0-5)
[2023-12-14 12:56] LABS: Estimated Average Glucose 126 mg/dL; Hemoglobin A1C 119.1471 umol/L; Total Hemoglobin (HGBA1C) 2809.2302 umol/L
[2023-12-14 13:27] LABS: Free T4 (Free Thyroxine) 1.02 ng/dL (0.71-1.85); Vitamin D 25-OH Total 46.9 ng/mL (>30)
[2023-12-14 13:32] LABS: Folate 13.5 ng/mL (> or = 4.0); Vitamin B12 748 pg/mL (200-900)
[2023-12-14 13:45] LABS: Creatinine Urine 103.41 mg/dL; Microalbum/Creatinine Ratio Ur 42.5 ug/mg cr (<30)
[2023-12-14 13:54] LABS: Alanine Aminotransferase 58 U/L (0-31); Albumin Level 4.2 g/dL (3.5-5.0); Alkaline Phosphatase 70 U/L (39-117); Anion Gap 12 (12-20); Aspartate Amino Transferase 33 U/L (5-31); Bilirubin Total 0.4 mg/dL (0.0-1.0); Blood Urea Nitrogen 18 mg/dL (9-16); Calcium 9.4 mg/dL (8.4-10.2); Carbon Dioxide 26 mmol/L (22-29); Chloride 108 mmol/L (96-108); Cholesterol 92 mg/dL (<200); Estimated Glomerular Filt Rate > 60; Glucose Random 111 mg/dL (60-115); HDL Cholesterol 34 mg/dL (>40); LDL Cholesterol Calculated 36 mg/dL (<100); Potassium 3.7 mmol/L (3.3-5.1); Sodium 142 mmol/L (135-145); Total Protein 7.1 g/dL (6.5-8.0); Triglycerides 113 mg/dL (<150)
[2023-12-14 14:13] LABS: Thyroid Stimulating Hormone 2.14 uIU/mL (0.32-4.0)
== END 2023-12-14 12:06 | disposition home or self-care (01) ==
LOC: HO.LAB 12:05
PROVIDERS: PCP Internal Medicine; Visit Provider Internal Medicine
DX: E11.65 Type 2 diabetes mellitus with hyperglycemia (principal); E78.00 Pure hypercholesterolemia, unspecified; R30.0 Dysuria
CPT/HCPCS: 36415; 80053; 80061; 81001; 82043; 82306; 82570; 82607; 82746; 83036; 84439; 84443; 85025

== ENCOUNTER 2023-12-19 08:49 | Outpatient (REF) | payer MEDICARE, SELFPAY ==
--- NOTE | ~2023-12-19 | US_ITS ---
EXAMINATION: US ABDOMEN COMPLETE CLINICAL INFORMATION: Other specified abnormal findings of blood chemistry. COMPARISON: X-ray KUB 12/12/2022. CT abdomen and pelvis 09/11/2022. Renal ultrasound 10/19/2021. Ultrasound abdomen limited 10/06/2017. Ultrasound abdomen 07/26/2017. TECHNIQUE: Real-time imaging of the abdominal viscera. Technically limited study secondary to bowel gas. FINDINGS: PANCREAS: Poorly visualized. Small imaged portion of pancreatic body is possibly heterogeneous. ABDOMINAL AORTA: Limited visualization of the abdominal aorta. Imaged portions of the abdominal aorta are within normal limits in caliber. INFERIOR VENA CAVA: Visualized portions are normal. LIVER: Increased hepatic parenchymal heterogeneity and echogenicity could be associated with hepatocellular disease/hepatic steatosis and substantially limits visualization. Correlation with liver function tests and clinical exam recommended to determine further management. The liver contour is normal. 0.6 cm cyst in the left hepatic lobe. Ultrasound of 10/06/2017 demonstrated a 0.4 cm left hepatic cyst. Small amount of free fluid seen adjacent to the gallbladder. GALLBLADDER: No gallstones. No gallbladder wall thickening. COMMON BILE DUCT: Normal in caliber measuring 0.4 cm in diameter. RIGHT KIDNEY: No hydronephrosis. At least 2 renal mid pole calculi measuring 2 mm each. Markedly limited visualization particularly of the upper and lower poles of the kidney. 1.5 cm mid pole cyst with benign features. There is no specific indication for additional imaging at this time. 0.9 cm mid to upper pole cyst with septation and calcified posterior wall. The kidney measures 10.8 cm in maximum dimension. LEFT KIDNEY: 0.8 cm mid pole cyst. Limited visualization with particularly poor visualization of the upper pole. A 1.3 cm hyperechoic lesion in the mid pole of the left kidney. 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 No hydronephrosis. No renal calculi. Limited visualization. The kidney measures 12.0 cm in maximum dimension. SPLEEN: Not visualized. FREE FLUID: None. US/US abdomen complete IMPRESSION: 1. Increased hepatic parenchymal heterogeneity and echogenicity could be associated with hepatocellular disease/hepatic steatosis and substantially limits visualization. Correlation with liver function tests and clinical exam recommended to determine further management. 2. A 1.3 cm hyperechoic lesion in the mid pole of the left kidney. 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 3. Right renal mid pole calculi measuring 2 mm each. No hydronephrosis. 4. Spleen not visualized. 5. Pancreas poorly visualized. Small imaged portion of pancreatic body is possibly heterogeneous. Electronically signed by: Patrica Sherman MD 01/16/2024 11:44 AM IFEANYI
== END 2023-12-19 08:50 | disposition home or self-care (01) ==
LOC: HO.US 08:49
PROVIDERS: PCP Internal Medicine; Visit Provider Internal Medicine
DX: R79.89 Other specified abnormal findings of blood chemistry (principal); K76.0 Fatty (change of) liver, not elsewhere classified
CPT/HCPCS: 76700

== ENCOUNTER 2024-02-04 15:15 | Outpatient (REF) | payer MEDICARE, SELFPAY ==
[2024-02-04 15:54] LABS: MANUAL DIFF FLAG NO
[2024-02-04 16:11] LABS: Basophils Percent Auto 0.4 % (0-2); Eosinophils Absolute Auto 0.1 X10*3/uL (0.0-0.4); Eosinophils Percent Auto 1.2 % (0-4); Hematocrit 32.1 % (37.0-47.0); Hemoglobin 10.7 g/dl (12.0-16.0); Imm Gran Abs Auto 0.02 X10*3/uL (0.00-0.03); Imm Gran Pct Auto 0.3 % (0.0-0.4); Lymphocytes Absolute Auto 2.5 X10*3/uL (1.2-4.9); Lymphocytes Percent Auto 36.4 % (20-40); Mean Corpuscular HGB Conc 33.3 g/dl (31.0-35.0); Mean Corpuscular Hemoglobin 29.2 pg (27.0-33.0); Mean Corpuscular Volume 87.7 fL (80.0-98.0); Mean Platelet Volume 10.1 fL (9.4-12.3); Monocytes Absolute Auto 0.3 X10*3/uL (0.1-1.2); Neutrophils Absolute Auto 3.8 x10*3/uL (2.0-8.3); Neutrophils Percent Auto 56.7 % (45-73); Platelet Count 261 X10*3/uL (160-400); Red Blood Count 3.66 X10*6/uL (4.20-5.50); Red Cell Distribution Width 15.2 % (11.0-16.0); White Blood Count 6.7 X10*3/uL (4.8-10.8)
[2024-02-04 16:27] LABS: Estimated Average Glucose 137 mg/dL; Hemoglobin A1C 127.3451 umol/L; Hemoglobin A1c % 6.4 % (<6.0); Total Hemoglobin (HGBA1C) 2764.3508 umol/L
[2024-02-04 16:37] LABS: Appearance Urine Clear; Color Urine Yellow; Glucose Urine UA Negative (Negative); Leukocyte Esterase Urine Negative (Negative); Nitrite Urine Negative (Negative); PH 5.5 (5.0-9.0); Specific Gravity - Urine 1.025 (1.005-1.025); UMIC TRIGGER UACC YES; Urine Blood Negative (Negative); Urine Ketones Trace mg/dL (Negative); Urine Protein 30 (1+) mg/dL (Neg-Trace)
[2024-02-04 16:40] LABS: Bacteria Urine None Seen (None Seen); Hyaline Casts Urine 0-2 /LPF (0-2); RBC Urine 0-2 /HPF (0-2); Squamous Epithelial Cell Urine 0-2 /HPF (0-2); WBC Urine 0-5 /HPF (0-5)
[2024-02-04 16:54] LABS: Alanine Aminotransferase 16 U/L (0-31); Alkaline Phosphatase 74 U/L (39-117); Anion Gap 10 (12-20); Aspartate Amino Transferase 18 U/L (5-31); Bilirubin Total 0.3 mg/dL (0.0-1.0); Blood Urea Nitrogen 22 mg/dL (9-16); Calcium 9.1 mg/dL (8.4-10.2); Carbon Dioxide 26 mmol/L (22-29); Chloride 108 mmol/L (96-108); Cholesterol 130 mg/dL (<200); Estimated Glomerular Filt Rate > 60; Glucose Random 148 mg/dL (60-115); HDL Cholesterol 43 mg/dL (>40); LDL Cholesterol Calculated 42 mg/dL (<100); Potassium 3.3 mmol/L (3.3-5.1); Sodium 141 mmol/L (135-145); Triglycerides 226 mg/dL (<150)
[2024-02-04 17:02] LABS: Free T4 (Free Thyroxine) 0.81 ng/dL (0.71-1.85); Thyroid Stimulating Hormone 1.53 uIU/mL (0.32-4.0); Vitamin D 25-OH Total 24.5 ng/mL (>30)
[2024-02-04 17:17] LABS: Folate 12.1 ng/mL (> or = 4.0); Vitamin B12 516 pg/mL (200-900)
[2024-02-04 17:36] LABS: Creatinine Urine 240.86 mg/dL; Microalbum/Creatinine Ratio Ur 53.9 ug/mg cr (<30)
== END 2024-02-04 15:16 | disposition home or self-care (01) ==
LOC: HO.LAB 15:15
PROVIDERS: PCP Internal Medicine; Visit Provider Internal Medicine
DX: E11.65 Type 2 diabetes mellitus with hyperglycemia (principal); E78.00 Pure hypercholesterolemia, unspecified
CPT/HCPCS: 36415; 80053; 80061; 81001; 82043; 82306; 82570; 82607; 82746; 83036; 84439; 84443; 85025

== ENCOUNTER 2024-02-12 13:49 | Outpatient (AMB) | payer MEDICARE, SELFPAY ==
[2024-02-12 13:50] VITALS: BP 162/82; PULSE 81; O2SAT 98; BMI 23.0
--- NOTE | 2024-02-12 13:50 | MHC.PC.OV ---
Vital Signs 02/12/24 13:50 02/12/24 14:23 Height 5 ft 5 in Weight 138 lb BMI 23.0 BP 162/82 H 120/70 Blood Pressure Location Lt brachial Lt brachial Position Sitting Sitting Pulse 81 Pulse Source Pulse Oximeter Pulse Oximetry (%) 98 Oxygen Delivery Method Room Air Intake Visit Reasons: DM Allergies codeine [Codeine] Allergy (Severe, Verified 02/12/24 13:58) ANAPHYLAXIS, throat edema lisinopril [LISINOPRIL] Allergy (Severe, Verified 02/12/24 13:58) ANGIOEDEMA Sulfa (Sulfonamide Antibiotics) [Sulfa (Sulfonamides)] Allergy (Intermediate, Verified 02/12/24 13:58) SHORTNESS OF BREATH, HIVES, rash doxycycline [Doxycycline] Allergy (Mild, Verified 02/12/24 13:58) HIVES tramadol Allergy (Unknown, Verified 02/12/24 13:58) rash and nightmares empagliflozin [From Jardiance] Adverse Reaction (Severe, Verified 02/12/24 13:58) Vaginal Itch senna Adverse Reaction (Unknown, Verified 02/12/24 13:58) Diarrhea Tobacco use date assessed: 02/12/24 Fall risk assessment: No Falls in past year Last assessed Fall Risk: 02/12/24 Dental Screening Dental Screen Date: 07/10/23 HPI DM HPI Details 63-year-old female with coronary artery disease diabetes mellitus controlled GERD hypertension hypercholesterolemia generalized anxiety disorder coming in for follow-up. Last seen in November 2023 patient had a cough at that time and x-ray requested. Meanwhile colonoscopy is up-to-date 2019, mammogram and bone density up-to-date. Patient did see Nephrology in December for kidney stone management patient has an isolated proteinuria advised low-salt diet and avoid high-protein non dairy food. Patient had an ultrasound done of the abdomen December 18 showing fatty liver/hepatic steatosis right renal midpole calculi 2 mm each 1.6 cm left angiomyolipoma. [facility] Medical History (Updated 02/12/24 @ 18:28 by Anamaria Maddox MD) Otitis externa Constipation Macular degeneration Internal and external hemorrhoids without complication Hemoptysis Cystocele Adrenal adenoma Thyroid nodule GERD (gastroesophageal reflux disease) Chronic sinusitis Type 2 diabetes mellitus with hyperglycemia Sciatica CAD (coronary artery disease) PTSD (post-traumatic stress disorder) Asthma Kidney stones Fibromyalgia Essential hypertension Lumbar radiculopathy Hx of migraines Hx of renal calculi Saccular aneurysm IBS (irritable bowel syndrome) Hx MRSA infection History of polycystic kidney disease, autosomal dominant Surgical History History of esophagogastroduodenoscopy (EGD) Hx of colonoscopy History of cardiac cath History of eye surgery History of thyroidectomy, subtotal History of lithotripsy History of total abdominal hysterectomy and bilateral salpingo-oophorectomy History of appendectomy History of abdominoplasty History of tonsillectomy History of tubal ligation Family History Father Cancer of kidney Diabetes Hypertension CVD (cardiovascular disease) Mother Hypertension Cancer Maternal Aunt Colon cancer Brother AIDS Paternal Aunt Ovarian cancer Breast cancer Brother SLE (systemic lupus erythematosus) Social History (Updated 09/12/23 @ 13:51 by Anamaria Maddox MD) Household Members: Spouse Household Members Other:: grandson Housing: House Alcohol intake: never Patient Tobacco Use Status: Former Tobacco user Tobacco use type: Cigarette Years Smoked: quit 1984, marijuana e-Cigarette/Vaping Use: Never Used Second Hand Smoke Exposure: No Substance Use Type: Marijuana service: No Current occupational status: employed Current occupation: [employer] Cognitive needs: No Hearing needs: No Vision needs: Yes Questionnaire PHQ-9 Over the last 2 weeks, how often have you been bothered by any of the following problems? 1. Little interest or pleasure in doing things: not at all 2. Feeling down, depressed, or hopeless: not at all 3. Trouble falling or staying asleep, or sleeping too much: not at all 4. Feeling tired or having little energy: not at all 5. Poor appetite or overeating: not at all 6. Feeling bad about yourself - or that you are a failure or have let yourself or your family down: not at all 7. Trouble concentrating on things, such as reading the newspaper or watching television: not at all 8. Moving or speaking so slowly that other people could have noticed. Or the opposite - being so fidgety or restless that you have been moving around a lot more than usual: not at all 9. Thoughts that you would be better off or of hurting yourself in some way: not at all Total score: 0 Depression Screening Interpretation: Negative Depression Screening Done: Yes Source: Developed by Drs. Ash Montana, Akash Hall and colleagues, with an educational mamie from [employer]. Thrive Questionnaire Date Thrive assessed: 08/03/23 AUDIT C Alcohol Use Questionnaire (AUDIT-C) 1. How often do you have a drink containing alcohol?: Never 2. How many drinks containing alcohol do you have on a typical day when you are drinking?: 1 or 2 (0) 3. How often do you have six or more drinks on one occasion?: Never Total Score: 0 Score Reviewed/Action Taken: Yes DL-7 AMB Questionnaire DL-7 Date DL - 7 assessed: 03/26/23 Source: Developed by Drs. Ash Montana, Akash Hall and colleagues, with an educational mamie from [employer]. Physical exam (Primary Care) Vital Signs: Last Vital Signs Pulse 81 02/12/24 13:50 BP 120/70 02/12/24 14:23 Pulse Ox 98 02/12/24 13:50 Oxygen Delivery Method Room Air 02/12/24 13:50 BMI result Body Mass Index 23.0 Tobacco/Smoking Status: Tobacco use Status Tobacco use date assessed 02/12/24 02/12/24 13:52 Patient Tobacco Use Status Former Tobacco user 02/12/24 13:52 Tobacco use type Cigarette 02/12/24 13:52 e-Cigarette/Vaping Use Never Used 02/12/24 13:52 PHQ-9: PHQ-9 Score PHQ-9: Total score 0 02/12/24 14:21 Depression Screening Interpretation: Negative Thrive Assessment: Date of Thrive Assessment Date Thrive assessed 08/03/23 02/12/24 13:52 Const General: alert; No acute distress Eyes Conjunctivae: conjunctivae normal Resp Auscultation: clear to auscultation bilaterally Cardio Rate: regular rate Rhythm: regular rhythm GI Inspection: Yes normal to inspection Extrem General: Yes normal to inspection and No edema Coding Level of Care Code Est Pt Level 4 (36933) Complex EM visit Add On G2211 Diagnoses Type 2 diabetes mellitus with hyperglycemia, without long-term current use of insulin E11.65 Diabetes mellitus senior living insulin use: without senior living use Essential hypertension I10 GERD (gastroesophageal reflux disease) K21.00 Esophagitis bleeding: without hemorrhage Esophagitis presence: with esophagitis Anemia, unspecified type D64.9 Anemia type: unspecified type Renal calculus, bilateral N20.0 Hypercholesterolemia E78.00 Coronary artery disease involving [place] coronary artery of [place] heart without angina pectoris I25.10 Associated angina: without angina Coronary Disease-Associated Artery/Lesion type: [place] artery [place] vs. transplanted heart: [place] heart Acute hypokalemia E87.6 Mild intermittent asthma without complication J45.20 Asthma complication type: uncomplicated Asthma persistence: intermittent Asthma severity: mild Hepatic steatosis K76.0 Acute otitis externa of left ear, unspecified type H60.502 Otitis externa type: unspecified type Chronicity: acute Laterality: left Assessment & Plan Assessment & Plan (1) Type 2 diabetes mellitus with hyperglycemia: Comment: eye and lasik Code(s): E11.65 - Type 2 diabetes mellitus with hyperglycemia Category: Medical Qualifiers: Diabetes mellitus cocktail server insulin use: without senior living use Qualified Code(s): E11.65 - Type 2 diabetes mellitus with hyperglycemia Plan: Decrease the amount of carbohydrate intake, pasta, bread, rice and potatoes are all sugar and that is aside from all the sweet stuff, remember that fruits are good but they are Sweet also. Hemoglobin A1c goal of less than 6.5. Patient is at goal taking metformin 500 mg twice a day (2) Essential hypertension: Code(s): I10 - Essential (primary) hypertension Category: Medical Plan: Continue with blood pressure medication. Decrease salt intake and exercise patient is on amlodipine 10 mg at bedtime. Lisinopril/Yuri inhibitor was not recommended due to angioedema. (3) GERD (gastroesophageal reflux disease): Comment: Septemberastroesophageal reflux and mild esophagitis of the distal thoracic esophagus. Small sliding-type hiatal hernia. Code(s): K21.9 - Gastro-esophageal reflux disease without esophagitis Category: Medical Qualifiers: Esophagitis bleeding: without hemorrhage Esophagitis presence: with esophagitis Qualified Code(s): K21.00 - Gastro-esophageal reflux disease with esophagitis, without bleeding Plan: Avoid the foods that causes that usually spicy foods, tomato products, juices, coffee, soda and foods that your sensitive to. After eating do not lie down, allow 3-4 hours before in lie down. And keep the head of bed above 30 degrees to avoid the acid from going up. (4) Anemia: Code(s): D64.9 - Anemia, unspecified Category: Medical Qualifiers: Anemia type: unspecified type Qualified Code(s): D64.9 - Anemia, unspecified Plan: Continuing to monitor (5) Renal calculus, bilateral: Comment: 11/2020, right renal calculi October 2021, December 2023. Increased hepatic parenchymal heterogeneity and echogenicity could be associated with hepatocellular disease/hepatic steatosis and substantially limits visualization. Correlation with liver function tests and clinical exam recommended to determine further management. 2. A 1.3 cm hyperechoic lesion in the mid pole of the left kidney. 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 3. Right renal mid pole calculi measuring 2 mm each. No hydronephrosis. 4. Spleen not visualized. Code(s): N20.0 - Calculus of kidney Category: Medical Plan: Keep well hydrated, patient follows up with Nephrology as well as Urology. (6) Hypercholesterolemia: Code(s): E78.00 - Pure hypercholesterolemia, unspecified Category: Medical Plan: Avoid fried foods, chicken skin, eggs, butter margarine, pastries and meat. Be it pork or beef they have a lot of cholesterol LDL goal of less than 100 and triglyceride of less than 150 on rosuvastatin 40 mg once a day and Zetia 10 mg once a day (7) CAD (coronary artery disease): Comment: Two thousand thirteen nonobstructive Code(s): I25.10 - Atherosclerotic heart disease of [place] coronary artery without angina pectoris Category: Medical Qualifiers: Associated angina: without angina Coronary Disease-Associated Artery/Lesion type: [place] artery [place] vs. transplanted heart: [place] heart Qualified Code(s): I25.10 - Atherosclerotic heart disease of [place] coronary artery without angina pectoris Plan: Control the cholesterol, weight, blood pressure, diabetes continue with medications. (8) Acute hypokalemia: Code(s): E87.6 - Hypokalemia Category: Medical Plan: Discussion about replacement of potassium. (9) Asthma: Code(s): J45.909 - Unspecified asthma, uncomplicated Category: Medical Qualifiers: Asthma complication type: uncomplicated Asthma persistence: intermittent Asthma severity: mild Qualified Code(s): J45.20 - Mild intermittent asthma, uncomplicated Plan: Continue with albuterol inhaler and Wixela (10) Hepatic steatosis: Comment: Ultrasound in 2018, 12/30/2023 Code(s): K76.0 - Fatty (change of) liver, not elsewhere classified Category: Medical Plan: Low-fat diet and exercise (11) Otitis externa: Comment: left ear Code(s): H60.90 - Unspecified otitis externa, unspecified ear Category: Medical Qualifiers: Otitis externa type: unspecified type Chronicity: acute Laterality: left Qualified Code(s): H60.502 - Unspecified acute noninfective otitis externa, left ear Plan: Antibiotic ointment prescribed Orders: Orders Vitamin B12 and Folate 3 Months I25.10 - Atherosclerotic heart disease of [place] coronary artery without angina pectoris Ferritin 3 Months I25.10 - Atherosclerotic heart disease of [place] coronary artery without angina pectoris Hemoglobin A1c 3 Months I25.10 - Atherosclerotic heart disease of [place] coronary artery without angina pectoris Comprehensive Met. Panel 3 Months I25.10 - Atherosclerotic heart disease of [place] coronary artery without angina pectoris Complete Blood Count Auto Diff 3 Months I25.10 - Atherosclerotic heart disease of [place] coronary artery without angina pectoris IRON PROFILE 3 Months I25.10 - Atherosclerotic heart disease of [place] coronary artery without angina pectoris Reticulocyte Count 3 Months I25.10 - Atherosclerotic heart disease of [place] coronary artery without angina pectoris Lipid Panel 3 Months E78.00 - Pure hypercholesterolemia, unspecified, I25.10 - Atherosclerotic heart disease of [place] coronary artery without angina pectoris Medications: New potassium chloride ER (Klor-Con M) 20 mEq PO DAILY 90 tabs 1RF E87.6 - Hypokalemia [id number] 3.5-10,000-1 mg/mL-unit/mL-% 4 drps otic (ear) left Q8H 10 mL 0RF 10 days H60.90 - Unspecified otitis externa, unspecified ear Refilled ezetimibe 10 mg PO DAILY 90 tabs 3RF E78.00 - Pure hypercholesterolemia, unspecified lorazepam 1 mg PO BEDTIME PRN 30 tabs 2RF Anxiety I25.10 - Atherosclerotic heart disease of [place] coronary artery without angina pectoris
[2024-02-12 14:23] VITALS: BP 120/70
== END 2024-02-12 14:40 | disposition home or self-care (01) ==
PROVIDERS: PCP Internal Medicine; Visit Provider Internal Medicine
DX: E11.65 Type 2 diabetes mellitus with hyperglycemia (principal); I10 Essential (primary) hypertension; K21.00 Gastro-esophageal reflux disease with esophagitis, without bleeding; D64.9 Anemia, unspecified; N20.0 Calculus of kidney; E78.00 Pure hypercholesterolemia, unspecified; I25.10 Atherosclerotic heart disease of native coronary artery without angina pectoris; E87.6 Hypokalemia; J45.20 Mild intermittent asthma, uncomplicated; K76.0 Fatty (change of) liver, not elsewhere classified; H60.502 Unspecified acute noninfective otitis externa, left ear

== ENCOUNTER → 2024-02-12 13:49 | Outpatient (BNVA) | payer MEDICARE, SELFPAY | PROVIDERS: PCP Internal Medicine; Visit Provider Internal Medicine | DX: I10 Essential (primary) hypertension (principal); K21.00 Gastro-esophageal reflux disease with esophagitis, without bleeding; E11.65 Type 2 diabetes mellitus with hyperglycemia; D64.9 Anemia, unspecified; N20.0 Calculus of kidney; E78.00 Pure hypercholesterolemia, unspecified; I25.10 Atherosclerotic heart disease of native coronary artery without angina pectoris; E87.6 Hypokalemia; J45.20 Mild intermittent asthma, uncomplicated; K76.0 Fatty (change of) liver, not elsewhere classified; H60.502 Unspecified acute noninfective otitis externa, left ear | CPT/HCPCS: 96127; 99212 ==

== ENCOUNTER 2024-05-12 14:31 | Outpatient (AMB) | payer MEDICARE, SELFPAY ==
--- NOTE | 2024-05-12 14:37 | A.OFFPC_ITS ---
Vital Signs 05/12/24 14:39 Height 5 ft 5 in Weight 140 lb 8 oz BMI 23.4 BP 128/76 Blood Pressure Location Lt brachial Position Sitting Pulse 76 Pulse Source Pulse Oximeter Temp 97.3 F Temp Source Temporal Artery Scan Pulse Oximetry (%) 98 Oxygen Delivery Method Room Air Intake Visit Reasons: DM, Cholesterol Food Safety Manager Required: No Accompanied by: Self / Same As Patient Allergies codeine [Codeine] Allergy (Severe, Verified 05/12/24 14:46) ANAPHYLAXIS, throat edema lisinopril [LISINOPRIL] Allergy (Severe, Verified 05/12/24 14:46) ANGIOEDEMA Sulfa (Sulfonamide Antibiotics) [Sulfa (Sulfonamides)] Allergy (Intermediate, Verified 05/12/24 14:46) SHORTNESS OF BREATH, HIVES, rash doxycycline [Doxycycline] Allergy (Mild, Verified 05/12/24 14:46) HIVES tramadol Allergy (Unknown, Verified 05/12/24 14:46) rash and nightmares empagliflozin [From Jardiance] Adverse Reaction (Severe, Verified 05/12/24 14:46) Vaginal Itch senna Adverse Reaction (Unknown, Verified 05/12/24 14:46) Diarrhea Medication List - Last Reconciled 05/12/24 by Anamaria Maddox, albuterol sulfate 2.5 mg inhalation PRN albuterol sulfate 90 mcg/actuation 2 puffs PO QID PRN amlodipine 10 mg PO BEDTIME cetirizine 10 mg PO DAILY PRN escitalopram oxalate 10 mg PO DAILY 90 days ezetimibe 10 mg PO DAILY fluticasone propion-salmeterol 250-50 mcg/dose (Wixela Inhub) 1 inh inhalation BID Lactobacillus rhamnosus GG (Culturelle) 1 cap PO DAILY lidocaine 5% (Lidoderm) 1 patch topical DAILY lorazepam 1 mg PO BEDTIME PRN metformin 500 mg PO BIDWMEAL 90 days fkkenuww-rcaqgnnwe-IA 3.5-10,000-1 mg/mL-unit/mL-% 4 drps otic (ear) left Q8H 10 days omeprazole 40 mg PO DAILY ondansetron 4 mg PO Q6-8H PRN potassium chloride ER (Klor-Con M) 20 mEq PO DAILY rosuvastatin 40 mg PO DAILY sennosides-docusate sodium 8.6-50 mg (Senna Plus) 2 tab-caps (2 x 8.6-50 mg) PO BEDTIME sumatriptan succinate 100 mg PO DAILY PRN 90 days zolpidem 10 mg PO BEDTIME PRN Tobacco use date assessed: 05/12/24 Fall risk assessment: No Falls in past year Last assessed Fall Risk: 05/12/24 Dental Screening Dental Screen Date: 05/12/24 Did you have a dental visit in the last 12 months?: Yes Did you have a dental problem in the last 6 months where you did not have access to dental care?: No Was dental information given to patient?: Patient has dentist [facility] Medical History (Updated 04/11/24 @ 18:06 by Anamaria Maddox MD) Otitis externa Constipation Macular degeneration Internal and external hemorrhoids without complication Hemoptysis Cystocele Adrenal adenoma Thyroid nodule GERD (gastroesophageal reflux disease) Chronic sinusitis Type 2 diabetes mellitus with hyperglycemia Sciatica CAD (coronary artery disease) PTSD (post-traumatic stress disorder) Asthma Kidney stones Fibromyalgia Essential hypertension Lumbar radiculopathy Hx of migraines Hx of renal calculi Saccular aneurysm IBS (irritable bowel syndrome) Hx MRSA infection History of polycystic kidney disease, autosomal dominant Surgical History History of esophagogastroduodenoscopy (EGD) Hx of colonoscopy History of cardiac cath History of eye surgery History of thyroidectomy, subtotal History of lithotripsy History of total abdominal hysterectomy and bilateral salpingo-oophorectomy History of appendectomy History of abdominoplasty History of tonsillectomy History of tubal ligation Family History Father Cancer of kidney Diabetes Hypertension CVD (cardiovascular disease) Mother Hypertension Cancer Maternal Aunt Colon cancer Brother AIDS Paternal Aunt Ovarian cancer Breast cancer Brother SLE (systemic lupus erythematosus) Social History (Updated 09/12/23 @ 13:51 by Anamaria Maddox MD) Household Members: Spouse Household Members Other:: grandson Housing: House Alcohol intake: never Patient Tobacco Use Status: Former Tobacco user Tobacco use type: Cigarette Years Smoked: quit 1984, marijuana e-Cigarette/Vaping Use: Never Used Second Hand Smoke Exposure: No Substance Use Type: Marijuana service: No Current occupational status: employed 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 1. Little interest or pleasure in doing things: not at all 2. Feeling down, depressed, or hopeless: not at all 3. Trouble falling or staying asleep, or sleeping too much: not at all 4. Feeling tired or having little energy: not at all 5. Poor appetite or overeating: not at all 6. Feeling bad about yourself - or that you are a failure or have let yourself or your family down: not at all 7. Trouble concentrating on things, such as reading the newspaper or watching television: not at all 8. Moving or speaking so slowly that other people could have noticed. Or the opposite - being so fidgety or restless that you have been moving around a lot more than usual: not at all 9. Thoughts that you would be better off or of hurting yourself in some way: not at all Total score: 0 Depression Screening Interpretation: Negative Depression Screening Done: Yes 33774 - PHQ-9 Billing: Yes Source: Developed by Drs. Ash Montana, Bonny Sterling, Akash Trimble and colleagues, with an educational mamie from [employer]. Thrive Questionnaire Date Thrive assessed: 05/12/24 I am a: Patient What is your living situation today?: I have a steady place to live Within the past 12 months, did the food you bought not last and you didn't have the money to get more?: Never true Within the past 12 months, did you worry whether your food would run out before you got money to buy more?: Never true Do you have trouble paying for medicines?: No Do you have trouble getting transportation to medical appointments?: No Do you have trouble paying your heating and electricity bill?: No Do you have trouble taking care of your child, family member or friend?: No Do you have trouble with day-to-day activities such as bathing, preparing meals, shopping, managing finances, etc.?: No Are you currently unemployed and looking for a job?: No Are you interested in more education?: No Please select the resources that you would like help with: None Currently or been in a relationship where the following occur: No concerns reported THRIVE Score: 0 AUDIT C Alcohol Use Questionnaire (AUDIT-C) 1. How often do you have a drink containing alcohol?: Never 2. How many drinks containing alcohol do you have on a typical day when you are drinking?: 1 or 2 (0) 3. How often do you have six or more drinks on one occasion?: Never Total Score: 0 Score Reviewed/Action Taken: Yes DL-7 AMB Questionnaire DL-7 Date DL - 7 assessed: 05/12/24 Feeling nervous, anxious, or on edge: 0 = Not at all Not being able to stop or control worryin = Not at all Worrying too much about different things: 0 = Not at all Trouble relaxin = Not at all Being so restless that it is hard to sit still: 0 = Not at all Becoming easily annoyed or irritable: 0 = Not at all Feeling afraid as if something awful might happen: 0 = Not at all Total DL-7 score (0-4 normal; 5-9 mild; 10-14 moderate; 15-21 severe): 0 Source: Developed by Drs. Ash Montana, Bonny Sterling, Akash Trimble and colleagues, with an educational mamie from [employer]. DL-7 Assessment Billing DL-7 Assessment Tool: DL-7 Assessment 19498 Physical exam (Primary Care) Vital Signs: Last Vital Signs Temp 97.3 F 05/12/24 14:39 Pulse 76 05/12/24 14:39 BP 128/76 05/12/24 14:39 Pulse Ox 98 05/12/24 14:39 Oxygen Delivery Method Room Air 05/12/24 14:39 BMI result Body Mass Index 23.4 Tobacco/Smoking Status: Tobacco use Status Tobacco use date assessed 05/12/24 05/12/24 14:47 Patient Tobacco Use Status Former Tobacco user 05/12/24 14:37 Tobacco use type Cigarette 05/12/24 14:37 e-Cigarette/Vaping Use Never Used 05/12/24 14:37 PHQ-9: PHQ-9 Score PHQ-9: Total score 0 05/12/24 15:14 Depression Screening Interpretation: Negative Thrive Assessment: Date of Thrive Assessment Date Thrive assessed 05/12/24 05/12/24 14:47 Currently or been in a relationship where the following occur: No concerns reported Const General: alert; No acute distress Eyes Conjunctivae: conjunctivae normal Resp Auscultation: clear to auscultation bilaterally Cardio Rate: regular rate Rhythm: regular rhythm GI Inspection: Yes normal to inspection Extrem General: Yes normal to inspection and No edema Results AMB Hemoglobin A1c AMB Hemoglobin A1c 6.1 % Last Edit by ROWAN West on 05/12/24 15:15 Results Reviewed Results Reviewed: Laboratory Last Values Hgb A1c (Clinic) 6.1 % (4.0-6.0) H 05/12/24 14:37 Coding Level of Care Code Est Pt Level 4 (47431) Complex EM visit Add On G2211 Diagnoses Coronary artery disease involving [place] coronary artery of [place] heart without angina pectoris I25.10 Associated angina: without angina Coronary Disease-Associated Artery/Lesion type: [place] artery [place] vs. transplanted heart: [place] heart Type 2 diabetes mellitus with hyperglycemia, without long-term current use of insulin E11.65 Diabetes mellitus penitentiary insulin use: without penitentiary use Essential hypertension I10 GERD (gastroesophageal reflux disease) K21.00 Esophagitis bleeding: without hemorrhage Esophagitis presence: with esophagitis Anemia, unspecified type D64.9 Anemia type: unspecified type Generalized anxiety disorder F41.1 Hypercholesterolemia E78.00 Additional Codes DL-7 Assessment Billing - DL-7 Assessment Tool: DL-7 Assessment 92135 ([id number]) PHQ-9 - 62184 - PHQ-9 Billing: Yes ([id number]) Assessment & Plan Assessment & Plan (1) CAD (coronary artery disease): Comment: Two thousand thirteen nonobstructive Code(s): I25.10 - Atherosclerotic heart disease of [place] coronary artery without angina pectoris Category: Medical Qualifiers: Associated angina: without angina Coronary Disease-Associated Artery/Lesion type: [place] artery [place] vs. transplanted heart: [place] heart Qualified Code(s): I25.10 - Atherosclerotic heart disease of [place] coronary artery without angina pectoris Plan: Control the cholesterol, weight, blood pressure, diabetes (2) Type 2 diabetes mellitus with hyperglycemia: Comment: eye and lasik Code(s): E11.65 - Type 2 diabetes mellitus with hyperglycemia Category: Medical Qualifiers: Diabetes mellitus penitentiary insulin use: without penitentiary use Qualified Code(s): E11.65 - Type 2 diabetes mellitus with hyperglycemia Plan: Decrease the amount of carbohydrate intake, pasta, bread, rice and potatoes are all sugar and that is aside from all the sweet stuff, remember that fruits are good but they are Sweet also. Metformin 500 mg twice a day hemoglobin A1c goal of less than 6.5. (3) Essential hypertension: Code(s): I10 - Essential (primary) hypertension Category: Medical Plan: Continue with blood pressure medication. Decrease salt intake and exercise on amlodipine 10 mg once a day (4) GERD (gastroesophageal reflux disease): Comment: Septemberastroesophageal reflux and mild esophagitis of the distal thoracic esophagus. Small sliding-type hiatal hernia. Code(s): K21.9 - Gastro-esophageal reflux disease without esophagitis Category: Medical Qualifiers: Esophagitis bleeding: without hemorrhage Esophagitis presence: with esophagitis Qualified Code(s): K21.00 - Gastro-esophageal reflux disease with esophagitis, without bleeding Plan: Avoid the foods that causes that usually spicy foods, tomato products, juices, coffee, soda and foods that your sensitive to. After eating do not lie down, allow 3-4 hours before in lie down. And keep the head of bed above 30 degrees to avoid the acid from going up. (5) Anemia: Code(s): D64.9 - Anemia, unspecified Category: Medical Qualifiers: Anemia type: unspecified type Qualified Code(s): D64.9 - Anemia, unspecified Plan: Continue to monitor (6) Generalized anxiety disorder: Comment: decline referral for counselling 01/2021 Code(s): F41.1 - Generalized anxiety disorder Category: Medical Plan: Continue with lorazepam as needed patient is on Lexapro 10 mg once a (7) Hypercholesterolemia: Code(s): E78.00 - Pure hypercholesterolemia, unspecified Category: Medical Plan: Avoid fried foods, chicken skin, eggs, butter margarine, pastries and meat. Be it pork or beef they have a lot of cholesterol LDL goal of less than 70 and triglyceride of less than 150 patient is on Zetia rosuvastatin. Plan History of Present Illness The patient is a 63-year-old female presenting for follow-up visit concerning her chronic medical issues and recent illness. She has been managing Type 2 Diabetes Mellitus with reported good control (recent A1c of 6.4%), alongside hypertension controlled with amlodipine. Significant comorbidities include coronary artery disease, GERD, generalized anxiety disorder, hypercholesterolemia, asthma, and hepatic steatosis, all under surveillance. Notably, lipid control remains suboptimal due to elevated triglycerides, challenging despite maintenance therapy. Mild anemia and hypokalemia discovered in January tests require attention, particularly in the context of diabetic renal implications like proteinuria. Physical ailments noted include carpo-metacarpal arthritis and rotator cuff tendinitis, with a prior orthopedic review suggesting physical therapy. Recently, she experienced complications post-COVID recovery with symptoms involving ear pain and throat discomfort, possible otitis media was identified with presumptive treatment already executed. Health Maintenance - Regular monitoring of hemoglobin A1c with a goal of <6.5%. - Blood pressure management as per current therapeutic plan. - Dietary modifications to address hypertriglyceridemia. - Regular doses of Vitamin D due to noted deficiency. - Annual screenings: mammogram scheduled for July 2023, bone density assessment completed April 2023. - Continual evaluation of kidney function due to proteinuria. - Encouragement of healthy lifestyle practices including diet and exercise. Social History - The patient engages in activities to maintain her mental health. - No current substance use or smoking. - Maintains a busy routine to manage anxiety, with no formal counseling at present. Review of Systems - ENT: Reports persistent ear discomfort. - Respiratory: Denies respiratory distress. - Cardiovascular: Denies chest pain currently. - Gastrointestinal: Denies changes in bowel habits; GERD managed. - Musculoskeletal: Reports discomfort due to right rotator cuff tendinitis. - Psychiatric: Reports anxiety, manages stress through activities. Physical Exam - ENT- Right ear slightly red. - Throat- Slight redness observed. - Musculoskeletal- Focus on right shoulder assessment. Results - Labs: Hemoglobin A1c at 6.4%; hemoglobin at 10.7 g/dL indicating mild anemia; hypokalemia at 3.3 mmol/L; LDL at 42 mg/dL, triglycerides at 226 mg/dL. Plan Continuation of metformin and amlodipine is imperative, with diet and lifestyle changes necessary to target elevated triglycerides. Patient advised on dietary modifications and consistent Vitamin D supplementation. Anemia and hypokalemia necessitate frequent monitoring to preclude further blood-related complications. Address mild otitis media through ear drops usage and caution against respiratory viruses remains pivotal in her care. Maintaining mental health stability with existing management is endorsed. Patient was informed and verbally consented to the use of an ambient scribe for clinic note documentation during this visit. Discussion Notes During the consultation, I informed the patient about her satisfactory current diabetes management and ongoing blood pressure regulation. I highlighted the need for dietary improvement to control triglyceride levels and the importance of continuing her current medication regimen. We touched upon numerous health risks and emphasized preventive strategies against viral illnesses. Comprehensive blood work follow-up and potential nutrient supplementation were agreed upon. I reiterated the need for vigilance with her ear condition and reinforced our collaborative approach in managing her overall health. Patient Instructions - Continue taking metformin and amlodipine as prescribed. - Focus on dietary habits to decrease triglyceride levels. - Regularly take prescribed ear drops for ear discomfort. - Monitor blood pressure and fasting blood sugar levels. - Ensure regular Vitamin D intake. - Schedule follow-up blood work and monitor hemoglobin and potassium levels. - Remain cautious about potential respiratory illnesses. - Engage in regular physical activity as tolerated. - Reach out if new symptoms arise or current conditions worsen. Orders: Orders AMB Hemoglobin A1c Today E11.65 - Type 2 diabetes mellitus with hyperglycemia Medications: Refilled lorazepam 1 mg PO BEDTIME PRN 30 tabs 2RF Anxiety I25.10 - Atherosclerotic heart disease of [place] coronary artery without angina pectoris
[2024-05-12 14:39] VITALS: BP 128/76; PULSE 76; TEMP 36.3; O2SAT 98; BMI 23.4
--- OUTSIDE RECORDS SUMMARY | 2024-05-12 17:17 | XMS_ITS | Encounter Summary ---
Author Organization [facility] Address [address] [facility] [address] [place] [address] Phone Care Team Providers Care Terrazzo Mechanic Name Role Phone Anamaria Maddox MD Primary Care Provider [phone] Encounter Details Date Type Department Care Team (Late Contact Info) Description 01/31/2022 Telephone [facility] [address] [facility] [address] [facility] [address] [place] [address] Chaitanya Weir MD [address] [facility] [address] [place] [address] Social History Tobacco Use Types Packs/Day Years Used Date Smoking Tobacco: Former Cigarettes Q uit: 03/12/1985 Comments:Smoking History Inf o:Every day Alcohol Use Standard Drinks/Week Comments Not Currently 0 (1 standard drink = 0.6 oz pure alcohol) Alcoholic Drinks/day: Occasional social drink Comments Unknown Sex and Gender Information Value Date Recorded Sex Assigned at Not on file Legal Sex Female 5:19 PM EST Gender Identity Not on file Sexual Orientation Not on file documented as of this encounter Miscellaneous Notes * Telephone Encounter - Farideh Dsouza - 01/31/2022 10:28 AM EST Pt called, she is confused about how the litholink labs are done. She was given the orders to bringto the lab but they cannot preform the test. Please advise Thank you [phone] documented in this encounter Plan of Treatment Upcoming Encounters Date Type Department Care Team (Late st Contact Info) Description 12/30/2024 1:15 PM EDT Office Visit [facility] [address] [address] Erica Pulido ARNP [address] [address] documented as of this encounter Visit Diagnoses Not on filedocumented in this encounter Care Teams Terrazzo Mechanic Relationship Specialty Start Date End Date Anamaria Madodx MD [address] [place], [place] PCP - General 03/22/20 documented as of this encounter
--- OUTSIDE RECORDS SUMMARY | 2024-05-12 17:17 | XMS_ITS | Clinical Summary ---
Author Organization [facility] Address [address] [place] [id number] Care Team Providers Care Gluing Pressman Name Role Phone Anamaria Maddox MD Primary Care Provider [phone] Allergies Active Allergy Reactions Criticality Noted Date Comments Yuri Inhibitors Other (see comments) 10/26/2021 Codeine 10/26/2021 Doxycycline 10/26/2021 Sulfa Antibiotics Anaphylaxis High 10/26/2021 Medications zolpidem (AMBIEN) 10 MG tablet Take 10 mg by mouth at night if needed 10/19/2021 Active rosuvastatin (CRESTOR) 40 MG tablet Take 40 mg by mouth 1 (one) time each day 08/24/2021 Active omeprazole (PriLOSEC) [address] capsule Take 40 mg by mouth 1 (one) time each day 07/30/2021 Active LORazepam (ATIVAN) 1 MG tablet Take 1 mg by mouth 1 (one) time each day 09/29/2021 Active ezetimibe (ZETIA) 10 MG tablet Take 10 mg by mouth 1 (one) time each day 08/16/2021 Active polyethylene glycol (GLYCOLAX) 17 GM/SCOOP powder Take by mouth 1 (one) time each day Active oxybutynin XL (DITROPAN-XL) 5 MG 24 hr tablet 11/23/2017 Act drew POTASSIUM CHLORIDE PO Take 20 mg by mouth Active albuterol HFA (PROVENTIL HFA;VENTOLIN HFA) 108 (90 Base) MCG/ACT inhaler Inhale 2 puffs every 6 (six) hours if needed 04/26/2023 Active amLODIPine (NORVASC) 10 MG tablet Take 10 mg by mouth at bed time 06/25/2023 Active cetirizine (ZyrTEC) 10 MG tablet Take 10 mg by mouth 1 (one) time each day 06/15/2023 Active escitalopram (LEXAPRO) 10 MG tablet Take 10 mg by mouth 1 (one) time each day 04/25/2023 Active SUMAtriptan (IMITREX) 100 MG tablet Take 100 mg by mouth 1 (one) time if needed 06/28/2023 Active Active Problems Problem Noted Date Diagnosed Date Hypokalemia 10/26/2021 Increased frequency of urination 10/26/2021 Intracranial aneurysm 10/26/2021 Migraine 10/26/2021 Multiple congenital cysts of kidney 10/26/2021 Polycystic kidney disease, adult type 10/26/2021 Renal stone 10/26/2021 Family History Medical History Relation Comments Kidney disease Father Liver disease Relation Status Comments Father Social History Tobacco Use Types Packs/Day Years Used Date Smoking Tobacco: Former Cigarettes Q uit: 03/12/1985 Tobacco Cessation:Counseling Given: Not Answered Comments:Smoking History Info:Every day Alcohol Use Standard Drinks/Week Comments Not Currently 0 (1 standard drink = 0.6 oz pure alcohol) Alcoholic Drinks/day: Occasional social drink Comments Unknown Sex and Gender Information Value Date Recorded Sex Assigned at Not on file Legal Sex Female 5:19 PM EST Gender Identity Not on file Sexual Orientation Not on file Last Filed Vital Signs Vital Sign Reading Time Taken Comments Blood Pressure 112/70 12/31/2023 1:52 PM EDT Pulse 84 12/31/2023 1:52 PM EDT Temperature - - Respiratory Rate - - Oxygen Saturation 98% 12/31/2023 1:52 PM EDT Inhaled Oxygen Concentration - - Weight 61.6 kg (135 lb 14.4 oz) 12/31/2023 1:52 PM EDT Height 165.1 cm (5' 5 ) 10/07/2018 12:0 0 PM EDT Body Mass Index 22.61 10/07/2018 12:00 PM EDT Plan of Treatment Upcoming Encounters Date Type Department Care Team (Late st Contact Info) Description 12/30/2024 1:15 PM EDT Office Visit [facility] [address] [address] Erica Pulido ARNP [address] [address] Health Maintenance Due Date Last Done Comments Breast Cancer Screening 1960 Pneumococcal Vaccine: 65+ Ye ars (1 of 2 - PCV) 1966 Pneumococcal Vaccine: Pediat rics (0 to 5 Years) and At-Risk Patients (6 to 64 Years) (1 of 2 - PCV) 1966 Colorectal Cancer Screening: Annual FOBT 05/24/2007 Colorectal Cancer Screening: Colonoscopy 05/24/2007 Colorectal Cancer Screening: Sigmoidoscopy 05/24/2007 Influenza Vaccine (#1) 2023 Hepatitis B Vaccine Aged Out No longe r eligible based on patient's age to complete this topic Insurance MEDICARE MEDICARE Care Teams Gluing Pressman Relationship Specialty Start Date End Date Anamaria Maddox MD [facility] [place] [address] [place], [place] PCP - General 03/22/20
--- OUTSIDE RECORDS SUMMARY | 2024-05-12 17:17 | XMS_ITS | Encounter Summary ---
Author Organization [facility] Address [address] [place] [address] Care Team Providers Care Tape Stringer Name Role Phone Anamaria Maddox MD Primary Care Provider [phone] Reason for Visit * Consultation (Routine) - Authorized Specialty Diagnoses / Procedures Referred By Faith pineda Referred To Contact Physical Therapy Diagnoses Shoulder tendonitis, right Alysha Gutierrez MD [address] [facility] [address] [place] [address] Phone: tel: fax: Referral ID Status Reason Start Date Expiration Date Visits Requested Visits Authorized [id number] Authorized Specialty Services Required 03/14/2024 03/14/2025 9 9 Encounter Details Date Type Department Care Team ([facility] st Contact Info) Description 05/06/2024 2:00 PM EST Treatment [facility] [address] [facility] [address] [place] [address] Kwadwo Archibald PTA Shoulder tendonitis, right (Primary Dx) Social History Tobacco Use Types Packs/Day Years Used Date Smoking Tobacco: Former Smokeless Tobacco: Never Alcohol Use Standard Drinks/Week Comments No 0 (1 standard drink = 0.6 oz pur e alcohol) Comments Unknown Sex and Gender Information Value Date Recorded Sex Assigned at Not on file Legal Sex Female 5:46 AM EST Gender Identity Not on file Sexual Orientation Not on file documented as of this encounter Progress Notes * Kwadwo Archibald PTA - 05/06/2024 2:00 PM EST [facility] - Outpatient PHYSICAL THERAPY DAILY TREATMENT NOTE - OP Date: 05/06/2024 Visit Number: 3 Patient Name: Shalini Jacobo : 1960 Age: 63 y.o. Gender: female Diagnosis: ICD-10-CM ICD-9-CM 1. Shoulder tendonitis, right M77.8 726.10 Date of Onset/Surgery: Multiple active episodes found Referring Provider: Alysha Gutierrez MD Insurance: Payor: [facility] MEDICARE ADVANTAGE / Plan: AET MEDICARE ADVANTAGE / Product Type: *No Product type* / Patient Identified by: Kwadwo Archibald PTA Language: Speaks and understands Ukrainian as preferred language with no pediatric medical assistant required Medications: Current Outpatient Medications on File Prior to Visit Medication Sig Dispense Refill albuterol HFA (PROAIR HFA ; PROVENTIL HFA ; VENTOLIN HFA) 90 mcg/actuation inhaler INHALE 2 PUFFS BY MOUTH FOUR TIMES DAILY NEEDED FOR WHEEZING amLODIPine (NORVASC) 10 mg tablet TAKE 1 TABLET BY MOUTH AT BEDTIME (Patient not taking: Reported on 03/14/2024) amLODIPine-atorvastatin (CADUET) 10-20 mg per tablet Take 1 tablet by mouth 1 (one) time each day. cetirizine (ZyrTEC) 10 mg tablet TAKE 1 TABLET BY MOUTH DAILY NEEDED FOR ALLERGY SYMPTOMS dicyclomine (BENTYL) 20 mg tablet TAKE 1 TABLET BY MOUTH THREE TIMES DAILY escitalopram (LEXAPRO) 10 mg tablet Route: Take 1 Tablet by mouth daily. - Oral ezetimibe (ZETIA) 10 mg tablet Route: Take 1 Tablet by mouth daily. - Oral lidocaine (LIDODERM) 5 % patch APPLY 1 PATCH TOPICALLY TO THE SKIN DAILY. LEAVE ON MOST PAINFUL AREA FOR UP TO 12 HOURS LORazepam (ATIVAN) 1 mg tablet Route: Take 1 mg by mouth every 6 hours as needed. - Oral metFORMIN (GLUCOPHAGE) 1,000 mg tablet Take 0.5 tablets (500 mg total) by mouth 2 (two) times a daywith meals. omeprazole (PriLOSEC) [address] capsule Route: Take 1 Capsule by mouth daily. - Oral potassium chloride (KLOR-CON M20) 20 mEq CR tablet Take 1 tablet (20 mEq total) by mouth 1 (one) time each day. sertraline (ZOLOFT) 100 mg tablet Take 100 mg by mouth daily. simvastatin (ZOCOR) 20 mg tablet Take 1 tablet (20 mg total) by mouth at bedtime. SUMAtriptan (IMITREX) 100 mg tablet TAKE 1 TABLET BY MOUTH DAILY NEEDED FOR MIGRAINE HEADACHE zolpidem (AMBIEN) 10 mg tablet Route: Take 10 mg by mouth at bedtime as needed. - Oral No current facility-administered medications on file prior to visit. Allergies: is allergic to acetaminophen-codeine, codeine, doxycycline, lisinopril, and sulfa (sulfonamide antibiotics). Precautions: none Fall risk: No SUBJECTIVE Subjective Report: Patient reports doing better Chart Reviewed: Yes Pain: no complaints of pain this visit. TREATMENT INTERVENTION: UBE 4 min 2/2 Rows red theraband 2x 10 with 5 sec hold Shoulder extensions cable column 5# unilateral 2x 10 reps Standing on blue theratube bilat Shoulder scaption 2x10 reps Bilat ER blue Theraband 2 x 10 reps [place] Is 10 reps each unilateral, bilat 10 reps Pec stretch in door 3 x 20 sec ASSESSMENT/Response to Treatment Good response with exercises. Patient 10 mins late visit visit. Seen for abbreviated visit. Patient Education: Education provided: yes Education Provided To: Patient utilizing Explanation mode(s) of education Response to Education: Verbal Understanding PLAN POC Development/Review: No Change in the Plan of Care; Participants: Patient Interventions Time Entry: Modalities: Therapeutic procedures: Therapeutic Exercise Time Entry: 20 Total Treatment Time: 20 mins Documentation completed by Kwadwo Archibald PTA documented in this encounter Plan of Treatment Upcoming Encounters Date Type Department Care Team (Late st Contact Info) Description 05/13/2024 1:00 PM EST Treatment [address] [phone] Claudia Gutierrez, PT 05/20/2024 2:00 PM EDT Treatment [facility] [address] [phone] Claudia Gutierrez, PT documented as of this encounter Goals Goal Patient Goal Type Associated Problems Recent Progress Patient-Stated? Author STG in 4 weeks General No Claudia Gutierrez, PT Note: Short Term Goals 1. Initiate home exercise program. 2. Pain will be improved by 2-3 points on VAS. 3. Patient will improve shoulder strength by 1/3 grade on manual muscle testing. 4. Patient will improve cervical ROM by >5 deg. LTG 6-8 weeks Claudia Hawthorne, PT Note: Nursing Home Goals 1. Patient will be independent with home exercise program to maintain therapeutic gains. 2. Patient will be able to sleep on unaffected side without pain or limitation 3. Patient will be able to lift with min to no pain 4. 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 documented as of this encounter Visit Diagnoses Diagnosis Shoulder tendonitis, right- Primary documented in this encounter Care Teams Tape Stringer Relationship Specialty Start Date End Date Anamaria Maddox MD [address] [place] [address] [address] [facility] [place] [address] PCP - General 05/02/06 documented as of this encounter
--- OUTSIDE RECORDS SUMMARY | 2024-05-12 17:17 | XMS_ITS | Encounter Summary ---
Author Organization [facility] Address [address] [place] [address] Care Team Providers Care Field Staff Manager Name Role Phone Anamaria Maddox MD Primary Care Provider [phone] Reason for Visit * Consultation (Routine) - Authorized Specialty Diagnoses / Procedures Referred By Faith pineda Referred To Contact Physical Therapy Diagnoses Shoulder tendonitis, right Alysha Gutierrez MD 175 [facility] [address] [place] [address] Phone: tel: fax: Referral ID Status Reason Start Date Expiration Date Visits Requested Visits Authorized [id number] Authorized Specialty Services Required 03/14/2024 03/14/2025 9 9 Encounter Details Date Type Department Care Team ([facility] st Contact Info) Description 04/22/2024 2:30 PM EST Treatment [facility] 175 [facility] [address] [place] [address] Claudia Gutierrez, PT Shoulder tendonitis, right (Primary Dx) Social History [...] as of this encounter Progress Notes * Claudia Gutierrez PT - 04/22/2024 2:30 PM EST [facility]-Outpatient PHYSICAL THERAPY PROGRESS NOTE Date: 04/22/2024 Visit Number: 4 Patient Name: Shalini Jacobo : 1960 Age: 63 y.o. Gender: female Diagnosis: ICD-10-CM ICD-9-CM 1. Shoulder tendonitis, right M77.8 726.10 Date of Onset: 03/11/2024 Date of Surgery: Referring Provider: Alysha Gutierrez MD Insurance: Payor: [employer] MEDICARE ADVANTAGE / [facility]: [facility] / Product Type: *No Product type* / Patient Identified by: Claudia Gutierrez PT Language: Speaks and understands Romansh as preferred language with no spanish medical interpreter required Medications: Current Outpatient Medications on File [...] and sulfa (sulfonamide antibiotics). Precautions: none Fall Risk: No SUBJECTIVE Subjective Report: Patient 50% better overall. She still feels it doing some housework. Stretching helps it feel better. She is working on stretching (doorway) and band exercises. 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), sleeping on R side Current: she is able to sleep okay now (use pillow under shoulder which helps), still limited with heavier lifting but less painful (more cautious with this) and still feels it with heavier householdchores Chart Reviewed: Yes Pain: Initial Evaluation: Current level of pain 7/10; Pain at worst over the past week 9/10 and at best is a 5/10 Current: Current level of pain 4/10; Pain at worst over the past week 6/10 and at best is a 4/10 OBJECTIVE Vitals: There were no vitals filed for this visit.; Cervical ROM Active initial Active current Cervical flexion (0-50) 40 50 Cervical extension (0-60) 45 55 Cervical side bending R (0-45) 28 P 40 Cervical side bending L (0-45) 30 45 Cervical rotation R (0-80) 50 P 75 Cervical rotation L (0-80) 55 P 75 Shoulder ROM Initial: WFL except slight pain with R abduction (radiating down arm), tight ER, pain and limited IR/add (L to T6, R to T9) Current: WFL slight anterior shoulder pain and limited IR/add (L to T6, R to T8) Shoulder Strength RIGHT INITIAL RIGHT CURRENT Flexion 4/5 5/5 Extension NT/5 NT/5 Abduction 4/5 4+/5 Internal Rotation 4/5 P 5/5 External Rotation 4-/5 4+/5 UPPER EXTREMITY MYOTOMES: Myotome Right INITIAL Right CURRENT Shoulder abduction (C5) 4/5 4+/5 Elbow Flexion Wrist Extension (C6) 4/5 5/5 Elbow Extension (C7) 4+/5 5/5 Finger Flexion (C8) 4+/5 5/5 Finger Abduction (T1) 4/5 4+/5 TREATMENT INTERVENTIONS: (This Date of Service) Procedures: UBE 4 min 2/2 See above objective measures Rows red theraband x 10 Shoulder extensions red theraband x 10 Pec stretch in door 3 x 20 sec ASSESSMENT/PROGRESS SUMMARY Reporting Period Start Date: 03/25/2023; End Date: 04/22/2024 Summary of Program/Progress to Date: Patient has completed about 4 weeks of PT (did miss a few sessions due to illness). She has made good overall progress having less pain and improved function. Objectively, her neck ROM has increased to WFL and pain free, her shoulder ROM has improved, and her upper extremity strength is better. She still gets some pain with lifting and repetitive activities, so recommending that she continue with 4 more weeks (once a week) to continue to progress her rehab. Response to Therapy Session: good Patient Education: Education provided: continue home exercise program and plan of care Education Provided To: Patient utilizing Explanation mode(s) of education Response to Education: Verbal Understanding GOALS Goals Addressed This Visit's Progress LTG 6-8 weeks Alf Goals 1. Patient will be independent with home exercise program to maintain therapeutic gains.- NOT MET 2. Patient will be able to sleep on unaffected side without pain or limitation- MET 3. Patient will be able to lift with min to no pain- PARTIALLY MET 4. 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 Initiate home exercise program.- MET 2. Pain will be improved by 2-3 points on VAS.- MET 3. Patient will improve shoulder strength by 1/3 grade on manual muscle testing.- MET 4. Patient will improve cervical ROM by >5 deg.- MET PLAN POC Development/Review: General Description as Follows: 4 more sessions of PT ; Participants: Patient Skilled Therapy Plan Required: YES- Reasons for Rehab and Medical Necessity -- Return to Premorbid Environment and Reduce Need for Assist with Functional Activity/ADL's/Mobility Planned Therapy Interventions: Cold Pack, E-Stim -- Unattended, Hot Pack, Manual Therapy, Mechanical Traction, Neuromuscular Re-education, Patient / Family Education, Therapeutic Activity, Therapeutic Exercise, and Ultrasound Recommended Consults: none Equipment Recommended: none; Equipment Provided: none Frequency/Duration: 1x per week, 4 more weeks Plan for future sessions: Progress neck/pec stretching and scapular/shoulder strengthening as tolerated. Total Treatment Time: 28 Modalities: Therapeutic procedures: Therapeutic Exercise Time Entry: 28 Documentation completed by Claudia Gutierrez PT [address] [address] Dept: [phone] Dept PATIENT NAME: Shalini Jacobo : 1960 Certification: This is to certify that the above named patient, who is under my care, requires skilled Therapy services as described in the above treatment plan. I further certify that the services outlined in this plan are skilled and medically necessary. I have reviewed this plan for rehabilitation services, and I recommend that these services continue to meet the above stated goals and plan. SIGNATURE: DATE Alysha Gutierrez MD documented in this encounter Plan of Treatment Upcoming Encounters Date Type Department Care Team (Late st Contact Info) Description 05/13/2024 1:00 PM EST Treatment [address] [phone] Claudia Gutierrez, PT 05/20/2024 2:00 PM EDT Treatment [address] [phone] Claudia Gutierrez, PT documented as of this [...] ROM by >5 deg. LTG 6-8 weeks General No Claudia Gutierrez, PT Note: Alf Goals 1. Patient will be independent with home exercise program to maintain therapeutic gains. 2. Patient will be able to sleep on unaffected side without pain or limitation 3. Patient will be able to lift with min to no pain 4. 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 documented as of this encounter Visit Diagnoses Diagnosis Shoulder tendonitis, right- Primary documented in this encounter Care Teams Field Staff Manager Relationship Specialty Start Date End Date Anamaria Maddox MD [address] [place] [address] [address] [facility] [place] [address] PCP - General 05/02/06 documented as of this encounter
--- OUTSIDE RECORDS SUMMARY | 2024-05-12 17:17 | XMS_ITS | Clinical Summary ---
Author Organization 175 [facility] Address [address] [place] [address] Phone Care Team Providers Care Automotive Welder Name Role Phone Anamaria Maddox MD Primary Care Provider [phone] Allergies Active Allergy Reactions Criticality Noted Date Comments Acetaminophen-Codeine 01/02/2023 apnea Codeine Unknown 08/22/2023 Doxycycline Unknown 01/02/2023 rash Lisinopril Unknown 01/02/2023 Lip swelling Sulfa (Sulfonamide Antibiotics) 12/11 Cant breathe Medications albuterol HFA (PROAIR HFA ; PROVENTIL HFA ; VENTOLIN HFA) 90 mcg/actuation inhaler INHALE 2 PUFFS BY MOUTH FOUR TIMES DAILY NEEDED FOR WHEEZING 4 Active cetirizine (ZyrTEC) 10 mg tablet TAKE 1 TABLET BY MOUTH DAILY NEEDED FOR ALLERGY SYMPTOMS 4 Active dicyclomine (BENTYL) 20 mg tablet TAKE 1 TABLET BY MOUTH THREE TIMES DAILY 4 Active escitalopram (LEXAPRO) 10 mg tablet Route: Take 1 Tablet by mouth daily. - Oral 4 Active ezetimibe (ZETIA) 10 mg tablet Route: Take 1 Tablet by mouth daily. - Oral 4 Active lidocaine (LIDODERM) 5 % patch APPLY 1 PATCH TOPICALLY TO THE SKIN DAILY. LEAVE ON MOST PAINFUL AREA FOR UP TO 12 HOURS 4 Active metFORMIN (GLUCOPHAGE) 1,000 mg tablet Take 0.5 tablets (500 mg total) by mouth 2 (two) times a day with meals. 4 Active SUMAtriptan (IMITREX) 100 mg tablet TAKE 1 TABLET BY MOUTH DAILY NEEDED FOR MIGRAINE HEADACHE 4 Active amLODIPine-ator vastatin (CADUET) 10-20 mg per tablet Take 1 tablet by mouth 1 (one) time each day. Active omeprazole (PriLOSEC) [address] capsule Route: Take 1 Capsule by mouth daily. - Oral Active sertraline (ZOLOFT) 100 mg tablet Take 100 mg by mouth daily. Active LORazepam (ATIVAN) 1 mg tablet Route: Take 1 mg by mouth every 6 hours as needed. - Oral Active zolpidem (AMBIEN) 10 mg tablet Route: Take 10 mg by mouth at bedtime as needed. - Oral Active simvastatin (ZOCOR) 20 mg tablet Take 1 tablet (20 mg total) by mouth at bedtime. Active amLODIPine (NORVASC) 10 mg tablet TAKE 1 TABLET BY MOUTH AT BEDTIME 4 Active potassium chloride (KLOR-CON M20) 20 mEq CR tablet Take 1 tablet (20 mEq total) by mouth 1 (one) time each day. 4 Active Active Problems Problem Noted Date Diagnosed Date Right rotator cuff tendinitis 03/14/2024 Trigger index finger of left hand 12/18/2023 Primary osteoarthritis of fi rst carpometacarpal joint of left hand 08/13/2023 Primary osteoarthritis of both first carpometaca rpal joints 01/15/2021 Encounters Date Type Department Care Team Description 05/06/2024 2:00 PM EST Treatment [address] [phone] Kwadwo Archibald, BENEFITS ANALYST Shoulder tendonitis, right (Primary Dx) 04/22/2024 2:30 PM EST Treatment [address] [phone] Claudia Gutierrez, PT Shoulder tendonitis, right (Primary Dx) 04/08/2024 1:30 PM EST Treatment [address] [phone] Kwadwo Archibald, BENEFITS ANALYST Shoulder tendonitis, right (Primary Dx) 04/03/2024 1:30 PM EST Treatment [address] [phone] Gerta Gutierrezecca, PT Shoulder tendonitis, right (Primary Dx) 04/01/2024 2:00 PM EST Treatment [address] [phone] Maricruz, Ina, PT Shoulder tendonitis, right (Primary Dx) 03/25/2024 2:00 PM EST Evaluation [address] [phone] Greta Gutierrezecca, PT Shoulder tendonitis, right (Primary Dx) 03/25/2024 Plan of Care Documentation [address] [phone] 03/14/2024 10:30 AM EST Office Visit Orthopedic Surgery [address] [place] [phone] Alysha Gutierrez MD Primary osteoarthritis of both first carpometacarpal joints (Primary Dx); Right rotator cuff tendinitis from Last 3 Months Surgical History Surgery Date Site/Laterality Comments OTHER SURGICAL HISTORY PROCEDURE: ---- HEMORRHOIDS ---- OTHER SURGICAL HISTORY PROCEDURE: [place] LIG/TRNSXJ FLP TUBE ABDL/VAG APPR UNI/BI APPENDECTOMY PROCEDURE: HISTORICAL APPENDECTOMY OTHER SURGICAL HISTORY PROCEDURE: ---- OTHER ----; COMMENT: renal stones, adrenal gland/kidney partial removed PARTIAL HYSTERECTOMY PROCEDURE: [place] SUPRACERVICAL ABDL HYSTER W/WO RMVL TUBE OVARY; COMMENT: rem right ovary OTHER SURGICAL HISTORY PROCEDURE: ---- OTHER ----; COMMENT: tummy tuck HAND SURGERY 08/22/2023 Left PROCEDURE: HISTORICAL HAND SURGERY; COMMENT: left thumb trapeziectomy with interpostional arthroplasty Medical History Medical History Date Comments Kidney stone DX:Kidney stone HTN (hypertension) DX:HTN (hyper tension) Thyroid disease DX:Thyroid disea se Other bizio-mnh-wamao infants DX:Other fnhlr-yga-ruqry infants Depression with anxiety DX:Depre ssion with anxiety Constipation DX:Constipation Fibromyalgia DX:Fibromyalgia Family History Medical History Relation Name Comments Melanoma Father Other: Other Father cancer Hypertension Other 1 Thyroid disease Other 2 Other: renal disease Other 3 Breast cancer Other 4 mat aunt, pat aunt Other: ovarian cancer Other 5 mat au nt Relation Name Status Comments Father Other 1 Other 2 Other 3 Other 4 Other 5 Other 6 Social History Tobacco Use Types Packs/Day Years Used Date Smoking Tobacco: Former Smokeless Tobacco: Never Alcohol Use Standard Drinks/Week Comments No 0 (1 standard drink = 0.6 oz pur e alcohol) Comments Unknown Sex and Gender Information Value Date Recorded Sex Assigned at Not on file Legal Sex Female 5:46 AM EST Gender Identity Not on file Sexual Orientation Not on file Obstetrics History Last Filed Vital Signs Vital Sign Reading Time Taken Comments Blood Pressure 114/64 08/13/2023 9:08 AM EDT Pulse 81 08/13/2023 9:08 AM EDT Temperature - - Respiratory Rate - - Oxygen Saturation - - Inhaled Oxygen Concentration - - Weight 61.2 kg (135 lb) 03/14/2024 10:30 AM EST Height 165.1 cm (5' 5 ) 03/14/2024 10:30 AM EST Body Mass Index 22.47 03/14/2024 10:30 AM EST Plan of Treatment Upcoming Encounters Date Type Department Care Team (Late st Contact Info) Description 05/13/2024 1:00 PM EST Treatment [facility] [address] [phone] Claudia Gutierrez, PT 05/20/2024 2:00 PM EDT Treatment [facility] [address] [phone] Claudia Gutierrez, PT Health Maintenance Due Date Last Done Comments Breast Cancer Screening 1960 Cervical Cancer Screening: Pap Smear 12/06/2013 12/06/2010 Colorectal Cancer Screening: Colonoscopy 02/12/2022 Depression Screening 02/12/2022 Hepatitis C Screening 02/12/2022 Medicare Annual Wellness Visit 02/12/2022 Osteoporosis Screening (Bone Density Screening) 02/12/2022 Social Influencers of Health Screening 02/12/2022 Falls Risk Assessment 05/24/2023 DTaP,Tdap,and Td Vaccines (3 - Td or Tdap) 11/13/2031 11/12/2021, 04/16/2015 Zoster Vaccines Completed 06/22/2022, 10/03/2017 RSV Immunization Patients 60+ Years Old Completed 11/28/2022 Pneumococcal Vaccine: 50+ Years Completed 09/12/2023, 11/28/2022, 02/27/2018, Additional history exists Pneumococcal Vaccine: Pediatrics (0 to 5 Years) and At-Risk Patients (6 to 64 Years) Aged Out 09/12/2023, 11/28/2022, 02/27/2018, Additional history exists No longer eligible based on patient's age to complete this topic COVID-19 Vaccine Completed 12/04/2023, , 12/30/2021, Additional history exists Influenza Vaccine Completed 12/04/2023, , 12/30/2021, Additional history exists HIB Vaccines Aged Out No longer eligi ble based on patient's age to complete this topic HPV Vaccines Aged Out No longer eligi ble based on patient's age to complete this topic Hepatitis A Vaccines Aged Out No long er eligible based on patient's age to complete this topic Hepatitis B Vaccines Aged Out No long er eligible based on patient's age to complete this topic IPV Vaccines Aged Out No longer eligi ble based on patient's age to complete this topic MMR Vaccines Aged Out No longer eligi ble based on patient's age to complete this topic Meningococcal ACWY Vaccine Aged Out N o longer eligible based on patient's age to complete this topic Meningococcal B Vacine Aged Out No lo nger eligible based on patient's age to complete this topic RSV Immunization Patients Under 20 months Aged Out No longer eligible based on patient's age to complete this topic Varicella Vaccines Aged Out No longer eligible based on patient's age to complete this topic Goals Goal Patient Goal Type Associated Problems Recent Progress Patient-Stated? Author STG in 4 weeks Claudia Hawthorne, PT Note: Short Term Goals 1. Initiate home exercise program. 2. Pain will be improved by 2-3 points on VAS. 3. Patient will improve shoulder strength by 1/3 grade on manual muscle testing. 4. Patient will improve cervical ROM by >5 deg. LTG 6-8 weeks General Shonna Gutierrez, Claudia, PT Note: Bridge Painter Helper Goals 1. Patient will be independent with home exercise program to maintain therapeutic gains. 2. Patient will be able to sleep on unaffected side without pain or limitation 3. Patient will be able to lift with min to no pain 4. 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 Procedures Procedure Name Priority Date/Time Associated Diagnosis Comments PAP SMEAR Routine 12/06/2010 from Last 3 Months or Most Recently Relevant to Health Maintenance Results * Pap Smear (12/06/2010) Pap smear no interpretation , abstracted [facility] Provider MD HEALTH MAINTENANCE Final Result from Last 3 Months or Most Recently Relevant to Health Maintenance Insurance [employer] MEDICARE ADVANTAGE Care Teams Automotive Welder Relationship Specialty Start Date End Date Anamaria Maddox MD [address] [place] [address] [address] [facility] [place] [address] PCP - General 05/02/06
== END 2024-05-12 15:17 | disposition home or self-care (01) ==
PROVIDERS: PCP Internal Medicine; Visit Provider Internal Medicine
DX: I25.10 Atherosclerotic heart disease of native coronary artery without angina pectoris (principal); E11.65 Type 2 diabetes mellitus with hyperglycemia; I10 Essential (primary) hypertension; K21.00 Gastro-esophageal reflux disease with esophagitis, without bleeding; D64.9 Anemia, unspecified; F41.1 Generalized anxiety disorder; E78.00 Pure hypercholesterolemia, unspecified

== ENCOUNTER → 2024-05-12 14:31 | Outpatient (BNVA) | payer MEDICARE, SELFPAY | PROVIDERS: PCP Internal Medicine; Visit Provider Internal Medicine | DX: I25.10 Atherosclerotic heart disease of native coronary artery without angina pectoris (principal); E11.65 Type 2 diabetes mellitus with hyperglycemia; K21.00 Gastro-esophageal reflux disease with esophagitis, without bleeding; I10 Essential (primary) hypertension; D64.9 Anemia, unspecified; F41.1 Generalized anxiety disorder; E78.00 Pure hypercholesterolemia, unspecified | CPT/HCPCS: 83036; 96127; 99212 ==

== ENCOUNTER 2024-06-21 10:13 | Outpatient (REF) | payer MEDICARE, SELFPAY ==
--- OUTSIDE RECORDS SUMMARY | 2024-06-21 10:17 | XMS_ITS | Clinical Summary ---
Author Organization [facility] Address [address] [place] [address] Care Team Providers Care Scenery Builder Name Role Phone Anamaria Maddox MD Primary Care Provider [phone] Allergies Active Allergy Reactions Criticality Noted Date [...] Visit [facility] [address] [address] Erica Pulido ARNP [address] [address] Health Maintenance Due Date Last Done Comments Breast Cancer Screening 1960 Pneumococcal Vaccine: 50+ Ye ars (1 of 2 - PCV) 1977 Colorectal Cancer Screening: Annual FOBT 05/24/2007 Colorectal Cancer Screening: Colonoscopy 05/24/2007 Colorectal Cancer Screening: Sigmoidoscopy 05/24/2007 Influenza Vaccine (Season Ended) 2024 Hepatitis B Vaccine Aged Out No longe r eligible based on patient's age to complete this topic Insurance Medicare Medicare Care Teams Scenery Builder Relationship Specialty Start Date End Date Anamaria Maddox MD [address] [place], [place] PCP - General 03/22/20
--- OUTSIDE RECORDS SUMMARY | 2024-06-21 10:17 | XMS_ITS | Encounter Summary ---
Author Organization [facility] Address [address] [facility] [address] [place] [address] Phone Care Team Providers Care 5Th Grade Teacher Name Role Phone Anamaria Maddox MD Primary Care Provider [phone] Encounter Details Date Type Department Care Team (Late Contact Info) Description 01/31/2022 Telephone [facility] [address] [facility] [address] [place] [address] Chaitanya Weir MD [address] [facility] [address] [place] [address] Social History Tobacco Use Types [...] preform the test. Please advise Thank you [phone] documented in this encounter Plan of Treatment Upcoming Encounters Date Type Department Care Team (Late st Contact Info) Description 12/30/2024 1:15 PM EDT Office Visit [facility] [address] [address] Erica Pulido ARNP [address] [address] documented as of this encounter Visit Diagnoses Not on filedocumented in this encounter Care Teams 5Th Grade Teacher Relationship Specialty Start Date End Date Anamaria Maddox MD [address] [place], [place] PCP - General 03/22/20 documented as of this encounter
[2024-06-21 10:32] LABS: MANUAL DIFF FLAG NO
[2024-06-21 11:13] LABS: Basophils Percent Auto 0.2 % (0-2); Eosinophils Absolute Auto 0.1 X10*3/uL (0.0-0.4); Eosinophils Percent Auto 1.2 % (0-4); Hematocrit 34.4 % (37.0-47.0); Hemoglobin 11.2 g/dl (12.0-16.0); Imm Gran Abs Auto 0.02 X10*3/uL (0.00-0.03); Imm Gran Pct Auto 0.3 % (0.0-0.4); Immature Retic Fraction 10.4 % (3.0-15.9); Lymphocytes Absolute Auto 2.1 X10*3/uL (1.2-4.9); Lymphocytes Percent Auto 31.8 % (20-40); Mean Corpuscular HGB Conc 32.6 g/dl (31.0-35.0); Mean Corpuscular Hemoglobin 28.6 pg (27.0-33.0); Mean Platelet Volume 10.5 fL (9.4-12.3); Monocytes Absolute Auto 0.4 X10*3/uL (0.1-1.2); Neutrophils Absolute Auto 3.9 x10*3/uL (2.0-8.3); Neutrophils Percent Auto 60.5 % (45-73); Platelet Count 295 X10*3/uL (160-400); Red Blood Count 3.91 X10*6/uL (4.20-5.50); Retic HGB Equivalent 34.3 pg (30.0-35.0); Reticulocyte Percent 1.2 % (0.5-1.8); Reticulocytes Absolute 0.048 X10*6/uL (0.026-0.095); White Blood Count 6.5 X10*3/uL (4.8-10.8)
[2024-06-21 11:27] LABS: Appearance Urine Clear; Color Urine Yellow; Glucose Urine UA Negative (Negative); Leukocyte Esterase Urine Negative (Negative); Nitrite Urine Negative (Negative); PH 6.5 (5.0-9.0); UMIC TRIGGER UACC YES; Urine Blood Trace (Negative); Urine Ketones Trace mg/dL (Negative); Urine Protein 100 (2+) mg/dL (Neg-Trace)
[2024-06-21 11:38] LABS: Bacteria Urine None Seen (None Seen); Hyaline Casts Urine 0-2 /LPF (0-2); Squamous Epithelial Cell Urine 0-2 /HPF (0-2); WBC Urine 0-5 /HPF (0-5)
[2024-06-21 11:50] LABS: Estimated Average Glucose 134 mg/dL; Hemoglobin A1C 138.9786 umol/L; Hemoglobin A1c % 6.3 % (<6.0); Total Hemoglobin (HGBA1C) 3083.3031 umol/L
[2024-06-21 11:51] LABS: Creatinine Urine 127.64 mg/dL
[2024-06-21 12:09] LABS: Vitamin B12 994 pg/mL (200-900)
[2024-06-21 12:42] LABS: Albumin Level 4.4 g/dL (3.5-5.0); Anion Gap 11 (12-20); Aspartate Amino Transferase 26 U/L (5-31); Bilirubin Total 0.6 mg/dL (0.0-1.0); Blood Urea Nitrogen 23 mg/dL (9-16); Calcium 9.1 mg/dL (8.4-10.2); Carbon Dioxide 26 mmol/L (22-29); Chloride 109 mmol/L (96-108); Cholesterol 100 mg/dL (<200); Estimated Glomerular Filt Rate > 60; Ferritin 45 ng/mL (10-250); Glucose Random 111 mg/dL (60-115); HDL Cholesterol 50 mg/dL (>40); Iron 57 mcg/dL (30-160); LDL Cholesterol Calculated 39 mg/dL (<100); Percent Iron Saturation 23 % (15-50); Potassium 4.7 mmol/L (3.3-5.1); Sodium 141 mmol/L (135-145); Total Iron Binding Capacity 250 mcg/dL (228-428); Total Protein 7.5 g/dL (6.5-8.0); Triglycerides 58 mg/dL (<150); Unsaturated Iron Binding 193 ug/dL
[2024-06-21 13:06] LABS: Alanine Aminotransferase 31 U/L (0-31); Alkaline Phosphatase 74 U/L (39-117)
== END 2024-06-21 10:14 | disposition home or self-care (01) ==
LOC: HO.LAB 10:13
PROVIDERS: PCP Internal Medicine; Visit Provider Internal Medicine
DX: E11.65 Type 2 diabetes mellitus with hyperglycemia (principal); I25.10 Atherosclerotic heart disease of native coronary artery without angina pectoris; E78.00 Pure hypercholesterolemia, unspecified; R30.0 Dysuria
CPT/HCPCS: 36415; 80053; 80061; 81001; 82570; 82607; 82728; 82746; 83036; 83540; 85025; 85045

== ENCOUNTER 2024-07-08 15:51 | Outpatient (REF) | payer MEDICARE, SELFPAY ==
[2024-07-08 16:15] LABS: Appearance Urine Clear; Color Urine Yellow; Glucose Urine UA Negative (Negative); Leukocyte Esterase Urine Negative (Negative); Nitrite Urine Negative (Negative); PH 6.5 (5.0-9.0); UMIC TRIGGER UACC YES; Urine Blood Negative (Negative); Urine Ketones Trace mg/dL (Negative); Urine Protein 30 (1+) mg/dL (Neg-Trace)
[2024-07-08 16:31] LABS: Bacteria Urine None Seen (None Seen); Hyaline Casts Urine 0-2 /LPF (0-2); RBC Urine 0-2 /HPF (0-2); Squamous Epithelial Cell Urine 0-2 /HPF (0-2); WBC Urine 0-5 /HPF (0-5)
== END 2024-07-08 15:52 | disposition home or self-care (01) ==
LOC: HO.LAB 15:51
PROVIDERS: PCP Internal Medicine; Visit Provider Internal Medicine
DX: R30.0 Dysuria (principal); R39.9 Unspecified symptoms and signs involving the genitourinary system; R10.9 Unspecified abdominal pain
CPT/HCPCS: 81001

== ENCOUNTER 2024-07-22 08:45 | Outpatient (REF) | payer MEDICARE, SELFPAY ==
--- OUTSIDE RECORDS SUMMARY | 2024-07-22 09:07 | XMS_ITS | Encounter Summary ---
Author Organization [facility] Address [address] [facility] [address] [place] [address] Phone Care Team Providers Care Food Mixer Repairer Name Role Phone Anamaria Maddox MD Primary Care Provider [phone] Encounter Details Date Type Department Care Team (Late Contact Info) Description 01/31/2022 Telephone [facility] [address] [facility] [address] [place] [address] Chaitanya Weir MD [address] [facility] [address] [place] [address] Social History Tobacco Use Types [...] preform the test. Please advise Thank you [phone] documented in this encounter Plan of Treatment Upcoming Encounters Date Type Department Care Team (Late st Contact Info) Description 12/30/2024 1:15 PM EDT Office [facility] [address] [address] Erica Pulido ARNP [address] [address] documented as of this encounter Visit Diagnoses Not on filedocumented in this encounter Care Teams Food Mixer Repairer Relationship Specialty Start Date End Date Anamaria Maddox MD [address] [place], [place] PCP - General 03/22/20 documented as of this encounter
--- OUTSIDE RECORDS SUMMARY | 2024-07-22 09:08 | XMS_ITS | Clinical Summary ---
Author Organization [facility] Facility Address [address] [place] [address] Care Team Providers Care Satellite Communications Operator Name Role Phone Anamaria Maddox MD Primary Care Provider [phone] Allergies Active Allergy Reactions Criticality Noted Date [...] Visit [facility] [address] [address] Erica Pulido ARNP [address] [address] Health Maintenance Due Date Last Done Comments [...] this topic Insurance Medicare Medicare Care Teams Satellite Communications Operator Relationship Specialty Start Date End Date Anamaria Maddox MD [address] [place], [place] PCP - General 03/22/20
== END 2024-07-22 08:46 | disposition home or self-care (01) ==
LOC: HO.MAMMO 08:45
PROVIDERS: PCP Internal Medicine; Visit Provider Internal Medicine
DX: Z12.31 Encounter for screening mammogram for malignant neoplasm of breast (principal)
CPT/HCPCS: 77063; 77067

== ENCOUNTER → 2024-07-22 09:15 | Outpatient (BNV) | payer MEDICARE, SELFPAY | PROVIDERS: PCP Internal Medicine; Visit Provider Internal Medicine | DX: Z12.31 Encounter for screening mammogram for malignant neoplasm of breast (principal) | CPT/HCPCS: 77063; 77067 ==

== ENCOUNTER 2024-08-19 14:06 | Outpatient (AMB) | payer MEDICARE, SELFPAY ==
[2024-08-19 14:10] VITALS: BP 130/76; PULSE 88; TEMP 36.3; O2SAT 96; BMI 23.5
--- NOTE | 2024-08-19 14:10 | MHC.PC.OV ---
Vital Signs 08/19/24 14:10 Height 5 ft 5 in Weight 141 lb 6 oz BMI 23.5 BP 130/76 Blood Pressure Location Lt brachial Position Sitting Pulse 88 Pulse Source Pulse Oximeter Temp 97.3 F Temp Source Temporal Artery Scan Pulse Oximetry (%) 96 Oxygen Delivery Method Room Air Intake Visit Reasons: Follow Up Allergies codeine [Codeine] Allergy (Severe, Verified 08/19/24 14:13) ANAPHYLAXIS, throat edema lisinopril [LISINOPRIL] Allergy (Severe, Verified 08/19/24 14:13) ANGIOEDEMA Sulfa (Sulfonamide Antibiotics) [Sulfa (Sulfonamides)] Allergy (Intermediate, Verified 08/19/24 14:13) SHORTNESS OF BREATH, HIVES, rash doxycycline [Doxycycline] Allergy (Mild, Verified 08/19/24 14:13) HIVES tramadol Allergy (Unknown, Verified 08/19/24 14:13) rash and nightmares empagliflozin [From Jardiance] Adverse Reaction (Severe, Verified 08/19/24 14:13) Vaginal Itch senna Adverse Reaction (Unknown, Verified 08/19/24 14:13) Diarrhea Tobacco use date assessed: 08/19/24 Fall risk assessment: No Falls in past year Last assessed Fall Risk: 08/19/24 Dental Screening Dental Screen Date: 08/19/24 Did you have a dental visit in the last 12 months?: Yes Did you have a dental problem in the last 6 months where you did not have access to dental care?: No Was dental information given to patient?: Patient has dentist HPI Follow Up HPI Details seeing autism specialist [facility] Medical History Otitis externa Constipation Macular degeneration Internal and external hemorrhoids without complication Hemoptysis Cystocele Adrenal adenoma Thyroid nodule GERD (gastroesophageal reflux disease) Chronic sinusitis Type 2 diabetes mellitus with hyperglycemia Sciatica CAD (coronary artery disease) PTSD (post-traumatic stress disorder) Asthma Kidney stones Fibromyalgia Essential hypertension Lumbar radiculopathy Hx of migraines Hx of renal calculi Saccular aneurysm IBS (irritable bowel syndrome) Hx MRSA infection History of polycystic kidney disease, autosomal dominant Surgical History History of esophagogastroduodenoscopy (EGD) Hx of colonoscopy History of cardiac cath History of eye surgery History of thyroidectomy, subtotal History of lithotripsy History of total abdominal hysterectomy and bilateral salpingo-oophorectomy History of appendectomy History of abdominoplasty History of tonsillectomy History of tubal ligation Family History (Reviewed 08/19/24 @ 14:16 by Beatriz Johnson [facility]) Father Cancer of kidney Diabetes Hypertension CVD (cardiovascular disease) Mother Hypertension Cancer Maternal Aunt Colon cancer Brother AIDS Paternal Aunt Ovarian cancer Breast cancer Brother SLE (systemic lupus erythematosus) Social History (Reviewed 08/19/24 @ 14:16 by Beatriz Johnson [facility]) Household Members: Spouse Household Members Other:: grandson Housing: House Alcohol intake: never Patient Tobacco Use Status: Former Tobacco user Tobacco use type: Cigarette Years Smoked: quit 1984, marijuana e-Cigarette/Vaping Use: Never Used Second Hand Smoke Exposure: No Substance Use Type: Marijuana service: No Current occupational status: employed 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 1. Little interest or pleasure in doing things: more than half the days 2. Feeling down, depressed, or hopeless: more than half the days 3. Trouble falling or staying asleep, or sleeping too much: nearly every day 4. Feeling tired or having little energy: more than half the days 5. Poor appetite or overeating: more than half the days 6. Feeling bad about yourself - or that you are a failure or have let yourself or your family down: not at all 7. Trouble concentrating on things, such as reading the newspaper or watching television: more than half the days 8. Moving or speaking so slowly that other people could have noticed. Or the opposite - being so fidgety or restless that you have been moving around a lot more than usual: not at all 9. Thoughts that you would be better off or of hurting yourself in some way: not at all Total score: 13 Source: Developed by Drs. Ash Montana, Bonny Sterling, Akash Trimble and colleagues, with an educational mamie from [employer]. Thrive Questionnaire Date Thrive assessed: 08/19/24 I am a: Patient What is your living situation today?: I have a steady place to live Within the past 12 months, did the food you bought not last and you didn't have the money to get more?: Never true Within the past 12 months, did you worry whether your food would run out before you got money to buy more?: Never true Do you have trouble paying for medicines?: No Do you have trouble getting transportation to medical appointments?: No Do you have trouble paying your heating and electricity bill?: No Do you have trouble taking care of your child, family member or friend?: No Do you have trouble with day-to-day activities such as bathing, preparing meals, shopping, managing finances, etc.?: No Are you currently unemployed and looking for a job?: No Are you interested in more education?: No Please select the resources that you would like help with: None Currently or been in a relationship where the following occur: No concerns reported THRIVE Score: 0 AUDIT C Alcohol Use Questionnaire (AUDIT-C) 1. How often do you have a drink containing alcohol?: Monthly or less 2. How many drinks containing alcohol do you have on a typical day when you are drinking?: 1 or 2 3. How often do you have six or more drinks on one occasion?: Never Total Score: 1 DL-7 AMB Questionnaire DL-7 Date DL - 7 assessed: 08/19/24 Feeling nervous, anxious, or on edge: 2 = More than half the days Not being able to stop or control worryin = More than half the days Worrying too much about different things: 2 = More than half the days Trouble relaxin = More than half the days Being so restless that it is hard to sit still: 2 = More than half the days Becoming easily annoyed or irritable: 2 = More than half the days Feeling afraid as if something awful might happen: 2 = More than half the days Total DL-7 score (0-4 normal; 5-9 mild; 10-14 moderate; 15-21 severe): 14 Source: Developed by Drs. Ash Montana, Bonny Sterling, Akash Trimble and colleagues, with an educational mamie from [employer]. Physical exam (Primary Care) Vital Signs: Last Vital Signs Temp 97.3 F 08/19/24 14:10 Pulse 88 08/19/24 14:10 BP 130/76 08/19/24 14:10 Pulse Ox 96 08/19/24 14:10 Oxygen Delivery Method Room Air 08/19/24 14:10 BMI result Body Mass Index 23.5 Tobacco/Smoking Status: Tobacco use Status Tobacco use date assessed 08/19/24 08/19/24 14:14 Patient Tobacco Use Status Former Tobacco user 08/19/24 14:14 Tobacco use type Cigarette 08/19/24 14:14 e-Cigarette/Vaping Use Never Used 08/19/24 14:14 PHQ-9: PHQ-9 Score PHQ-9: Total score 13 08/19/24 14:57 Thrive Assessment: Date of Thrive Assessment Date Thrive assessed 08/19/24 08/19/24 14:14 Currently or been in a relationship where the following occur: No concerns reported Const General: alert; No acute distress Eyes Conjunctivae: conjunctivae normal Resp Auscultation: clear to auscultation bilaterally Cardio Rate: regular rate Rhythm: regular rhythm GI Inspection: Yes normal to inspection Extrem General: Yes normal to inspection and No edema Coding Level of Care Code Est Pt Level 4 (09251) Complex EM visit Add On G2211 Diagnoses Coronary artery disease involving king salmon coronary artery of king salmon heart without angina pectoris I25.10 Associated angina: without angina Coronary Disease-Associated Artery/Lesion type: king salmon artery [place] vs. transplanted heart: king salmon heart Type 2 diabetes mellitus with hyperglycemia, without long-term current use of insulin E11.65 Diabetes mellitus fci insulin use: without termite inspector use GERD (gastroesophageal reflux disease) K21.00 Esophagitis bleeding: without hemorrhage Esophagitis presence: with esophagitis Essential hypertension I10 Generalized anxiety disorder F41.1 Hypercholesterolemia E78.00 Assessment & Plan Assessment & Plan (1) CAD (coronary artery disease): Comment: Two thousand thirteen nonobstructive Code(s): I25.10 - Atherosclerotic heart disease of king salmon coronary artery without angina pectoris Category: Medical Qualifiers: Associated angina: without angina Coronary Disease-Associated Artery/Lesion type: [place] artery [place] vs. transplanted heart: king salmon heart Qualified Code(s): I25.10 - Atherosclerotic heart disease of king salmon coronary artery without angina pectoris Plan: Control the cholesterol, weight, blood pressure, diabetes (2) Type 2 diabetes mellitus with hyperglycemia: Comment: eye and lasik Code(s): E11.65 - Type 2 diabetes mellitus with hyperglycemia Category: Medical Qualifiers: Diabetes mellitus termite inspector insulin use: without termite inspector use Qualified Code(s): E11.65 - Type 2 diabetes mellitus with hyperglycemia Plan: Decrease the amount of carbohydrate intake, pasta, bread, rice and potatoes are all sugar and that is aside from all the sweet stuff, remember that fruits are good but they are Sweet also. (3) GERD (gastroesophageal reflux disease): Comment: Septemberastroesophageal reflux and mild esophagitis of the distal thoracic esophagus. Small sliding-type hiatal hernia. Code(s): K21.9 - Gastro-esophageal reflux disease without esophagitis Category: Medical Qualifiers: Esophagitis bleeding: without hemorrhage Esophagitis presence: with esophagitis Qualified Code(s): K21.00 - Gastro-esophageal reflux disease with esophagitis, without bleeding Plan: Avoid the foods that causes that usually spicy foods, tomato products, juices, coffee, soda and foods that your sensitive to. After eating do not lie down, allow 3-4 hours before in lie down. And keep the head of bed above 30 degrees to avoid the acid from going up. (4) Essential hypertension: Code(s): I10 - Essential (primary) hypertension Category: Medical Plan: Blood pressure (5) Generalized anxiety disorder: Comment: decline referral for counselling 01/2021 Code(s): F41.1 - Generalized anxiety disorder Category: Medical Plan: Continue with present medication (6) Hypercholesterolemia: Code(s): E78.00 - Pure hypercholesterolemia, unspecified Category: Medical Plan: Avoid fried foods, chicken skin, eggs, butter margarine, pastries and meat. Be it pork or beef they have a lot of cholesterol on Zetia and rosuvastatin Plan History of Present Illness The patient is a 64-year-old female presenting with a follow-up for chronic conditions management. She has been managing multiple chronic conditions, including hypertension, diabetes, and coronary artery disease. Her diabetes is currently well-controlled, evidenced by a hemoglobin A1c of 6.3. She is also maintaining her cholesterol levels with Zetia and rosuvastatin, reflected in her LDL cholesterol of 39. A history of bilateral renal calculi and chronic stable anemia is noted. Recent blood work from June 21 shows stable electrolytes and appropriate renal function. The patient's last colonoscopy was in 2019, and she is due for another this year. Her mammogram in July 2024 was satisfactorily completed, with a bone density assessment scheduled for April 2023. Health Maintenance - Colonoscopy recommended in current year (last in 2019) - Mammogram performed in July 2024 - Bone Density Test scheduled for April 2023 - Hepatic function monitoring as part of ongoing management of hepatic steatosis - Regular cholesterol level evaluations; current LDL: 39 Social History Review of Systems - General: Denies new or worsened symptoms - Cardiovascular: Denies new or increased chest pain - Endocrine: Maintains well-controlled diabetes - Gastrointestinal: Denies exacerbation of reflux symptoms - Musculoskeletal: Denies new bone pain - Psychiatric: Denies increased anxiety symptoms Physical Exam Results - Labs: Hemoglobin A1c at 6.3; LDL cholesterol at 39; stable electrolytes - Tests and Diagnostics: Noted need for colonoscopy; recent mammogram in July 2024 Plan 1. Continued emphasis is on medication adherence and healthy lifestyle practices to sustain the management of hypercholesterolemia and other chronic conditions.: Patient was informed and verbally consented to the use of an ambient scribe for clinic note documentation during this visit. Discussion Notes We reviewed the patient's overall health, confirming stable management of hypertension, diabetes, and cholesterol levels. We talked about the maintenance of the current medication plan, including Zetia and rosuvastatin, and its effectiveness. I emphasized the importance of scheduled screenings, noting the due colonoscopy this year and the upcoming bone density test. We discussed the benefit of maintaining current health practices, particularly with the patient?s LDL level at 39, which is commendable. I addressed the benefits and necessity of ongoing adherence to her medication regimen and the importance of lifestyle adaptations as a cornerstone of her management. We agreed to continue these strategies, with regular follow-ups and monitoring to sustain her health stability. Patient Instructions - Continue taking all prescribed medications as directed. - Schedule and complete a colonoscopy within this year. - Adhere to your diabetes management plan to keep your hemoglobin A1c controlled. - Attend the bone density test scheduled for April 2023. - Follow up annually with mammograms and as otherwise recommended. - Maintain a healthful lifestyle, including diet and exercise, to assist in managing your health conditions. Medications: Refilled ezetimibe 10 mg PO DAILY 90 tabs 3RF E78.00 - Pure hypercholesterolemia, unspecified omeprazole 40 mg PO DAILY 90 caps 3RF potassium chloride ER (Klor-Con M) 20 mEq PO DAILY 90 tabs 1RF E87.6 - Hypokalemia ondansetron 4 mg PO Q6-8H PRN 14 tabs 0RF nausea and vomiting
--- OUTSIDE RECORDS SUMMARY | 2024-08-19 16:55 | XMS_ITS | Clinical Summary ---
Author Organization [facility] Address [address] [place] [address] Phone Care Team Providers Care Sales Recruitment Specialist Name Role Phone Anamaria Maddox MD Primary Care Provider [phone] Allergies Active Allergy Reactions Criticality Noted Date [...] Encounters Date Type Department Care Team Description 05/20/2024 2:00 PM EDT Treatment [address] [address] Claudia Gutierrez, PT Shoulder tendonitis, right (Primary Dx) from Last 3 Months Surgical History Surgery Date Site/Laterality Comments OTHER SURGICAL HISTORY PROCEDURE: ---- HEMORRHOIDS ---- OTHER SURGICAL HISTORY PROCEDURE: VA LIG/TRNSXJ FLP TUBE ABDL/VAG APPR UNI/BI APPENDECTOMY PROCEDURE: HISTORICAL APPENDECTOMY OTHER SURGICAL HISTORY PROCEDURE: ---- OTHER ----; COMMENT: renal stones, adrenal gland/kidney partial removed PARTIAL HYSTERECTOMY PROCEDURE: VA SUPRACERVICAL ABDL HYSTER W/WO RMVL TUBE OVARY; COMMENT: rem right ovary OTHER SURGICAL HISTORY PROCEDURE: ---- OTHER ----; COMMENT: abhishek tuck HAND SURGERY 08/22/2023 Left PROCEDURE: HISTORICAL HAND SURGERY; COMMENT: left thumb trapeziectomy with interpostional arthroplasty Medical History Medical History Date Comments Kidney stone DX:Kidney stone HTN (hypertension) DX:HTN (hyper tension) Thyroid disease DX:Thyroid disea se Other vuizl-yvz-owriv infants DX:Other llxjp-auf-[id number] infants Depression with anxiety DX:Depre ssion with [...] 03/14/2024 10:30 AM EST Plan of Treatment Health Maintenance Due Date Last Done Comments Breast Cancer Screening 1960 Colorectal Cancer Screening: Colonoscopy 02/12/2022 Depression Screening 02/12/2022 Hepatitis C Screening 02/12/2022 Medicare Annual Wellness Visit 02/12/2022 Osteoporosis Screening (Bone Density Screening) 02/12/2022 Social Influencers of Health Screening 02/12/2022 Falls Risk Assessment 05/24/2023 COVID-19 Vaccine ( season) 2024 12/04/2023, 03/27/2023, 12/30/2021, Additional history exists DTaP,Tdap,and Td Vaccines (3 - Td or Tdap) 11/13/2031 11/12/2021, 04/16/2015 Zoster Vaccines Completed 06/22/2022, 10/03/2017 RSV Immunization Adult Patients Completed 11/28/2022 Pneumococcal Vaccine: 50+ Years Completed 09/12/2023, 11/28/2022, 02/27/2018, Additional history exists Influenza Vaccine Completed 12/04/2023, [...] age to complete this topic Meningococcal B Vaccine Aged Out No l onger eligible based on patient's age to complete this topic RSV Immunization Patients Under 20 months Aged Out No longer eligible based on patient's age to complete this topic Varicella Vaccines Aged Out No longer eligible based on patient's age to complete this topic Insurance [employer] MEDICARE ADVANTAGE Care Teams Sales Recruitment Specialist Relationship Specialty Start Date End Date Anamaria Maddox MD [address] [place] [address] [address] [facility] [place] [address] PCP - General 05/02/06
== END 2024-08-19 15:07 | disposition home or self-care (01) ==
LOC: HO.HMCH 14:07
PROVIDERS: PCP Internal Medicine; Visit Provider Internal Medicine
DX: I25.10 Atherosclerotic heart disease of native coronary artery without angina pectoris (principal); E11.65 Type 2 diabetes mellitus with hyperglycemia; K21.00 Gastro-esophageal reflux disease with esophagitis, without bleeding; I10 Essential (primary) hypertension; F41.1 Generalized anxiety disorder; E78.00 Pure hypercholesterolemia, unspecified

== ENCOUNTER → 2024-08-19 14:06 | Outpatient (BNVA) | payer MEDICARE, SELFPAY | PROVIDERS: PCP Internal Medicine; Visit Provider Internal Medicine | DX: I25.10 Atherosclerotic heart disease of native coronary artery without angina pectoris (principal); E11.65 Type 2 diabetes mellitus with hyperglycemia; K21.00 Gastro-esophageal reflux disease with esophagitis, without bleeding; I10 Essential (primary) hypertension; F41.1 Generalized anxiety disorder; E78.00 Pure hypercholesterolemia, unspecified | CPT/HCPCS: 99212 ==

== ENCOUNTER 2024-10-30 13:57 | Outpatient (AMB) | payer MEDICARE, SELFPAY ==
--- OUTSIDE RECORDS SUMMARY | 2024-10-21 07:10 | XMS_ITS ---
Author Organization [facility] Address [address] [place] [address] Care Team Providers Care Clinical Laboratory Technician Name Role Phone Anamaria Maddox MD Primary Care Provider UnavailAsh Augustine Unavailable [phone] REASON FOR VISIT Patient presents today for [...] e Encounters Encounter Location Date Provider Diagnosis [facility] [address] [place] [phone] 10/21/2024 Ash Larose Plan Of Treatment Next Appt Details Provider Name:Ash Larose , 11/18/2024 10:50:00 AM, [address], [address], [place], [address], Progress Notes * MATHEUS LORENZB:1960 (64 yo F)Acc No.[id number]:10/21/2024 Progress Notes Patient: DAVE MAYER Provider: Caro Larose MD :1960 A ge:64 Y S ex:Female Date:10/21/2024 Address:[address] [place] [address] Pcp:Anamaria Maddox MD Subjective: * Chief Complaints: [...] Pending * Provider: Caro Larose MD Date: 10/21/2024 Generated for Humberto yates/Beth/Jesitting on: 10/30/2024 02:06 PM EDT
--- NOTE | 2024-10-30 14:05 | MHC.PC.OV ---
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 Level Five Required: No Accompanied by: Self / Same As Patient Allergies codeine (Codeine) Allergy (Severe, Verified 10/30/24 14:36) ANAPHYLAXIS, throat edema lisinopril (LISINOPRIL) Allergy (Severe, Verified 10/30/24 14:36) ANGIOEDEMA Sulfa (Sulfonamide Antibiotics) (Sulfa (Sulfonamides)) Allergy (Intermediate, Verified 10/30/24 14:36) SHORTNESS OF BREATH, HIVES, rash doxycycline (Doxycycline) Allergy (Mild, Verified 10/30/24 14:36) HIVES tramadol Allergy (Unknown, Verified 10/30/24 14:36) rash and nightmares empagliflozin (From Jardiance) Adverse Reaction (Severe, Verified 10/30/24 14:36) Vaginal Itch senna Adverse Reaction (Unknown, Verified 10/30/24 14:36) Diarrhea Medication List - Last Reconciled 10/30/24 by Rubina Lara PA-C albuterol sulfate 2.5 mg inhalation PRN albuterol sulfate 90 mcg/actuation 2 puffs PO QID PRN amlodipine 10 mg PO BEDTIME cetirizine 10 mg PO DAILY PRN escitalopram oxalate 10 mg PO DAILY 90 days ezetimibe 10 mg PO DAILY fluticasone propion-salmeterol 250-50 mcg/dose (Wixela Inhub) 1 inh inhalation BID Lactobacillus rhamnosus GG (Culturelle) 1 cap PO DAILY lidocaine 5% (Lidoderm) 1 patch topical DAILY lorazepam 1 mg PO BEDTIME PRN metformin 500 mg PO BIDWMEAL 90 days fqfabfht-woihmpmff-DJ 3.5-10,000-1 mg/mL-unit/mL-% 4 drps otic (ear) left Q8H 10 days omeprazole 40 mg PO DAILY ondansetron 4 mg PO Q6-8H PRN potassium chloride ER (Klor-Con M) 20 mEq PO DAILY rosuvastatin 40 mg PO DAILY sennosides-docusate sodium 8.6-50 mg (Senna Plus) 2 tab-caps (2 x 8.6-50 mg) PO BEDTIME sumatriptan succinate 100 mg PO DAILY PRN 90 days zolpidem 10 mg PO BEDTIME PRN 30 days Tobacco use date assessed: 10/30/24 Fall risk assessment: No Falls in past year Last assessed Fall Risk: 10/30/24 Dental Screening Dental Screen Date: 10/30/24 Did you have a dental visit in the last 12 months?: Yes Did you have a dental problem in the last 6 months where you did not have access to dental care?: No Was dental information given to patient?: Patient has dentist HPI annual exam HPI Details 64-year-old female with past medical history of hypertension, diabetes mellitus, GERD, anemia, generalized anxiety disorder, coronary artery disease, asthma and fatty liver last seen 08/[address] Maddox coming in for annual exam. Presenting with a wellness examination and management of chronic conditions. She has been having increased stress and anxiety related to family issues, including her son's cancer diagnosis. She does not see a counselor but does mention using her holiness for support. She is also wanting to increase the Escitalopram. Difficulty swallowing solids, worsening over the past year. Allergic Rhinitis Improved with weekly allergy shots. A1c increased to 7.1%, currently on metformin. mammogram: 07/2024 pap smear: referral placed today DEXA: 04/2023 repeat next year colonoscopy: 2019 repeat in [address] Larose 11/19/24 vaccines: CTD COUNT INCLUDES [facility] Medical History Otitis externa Constipation Macular degeneration Internal and external hemorrhoids without complication Hemoptysis Cystocele Adrenal adenoma Thyroid nodule GERD (gastroesophageal reflux disease) Chronic sinusitis Type 2 diabetes mellitus with hyperglycemia Sciatica CAD (coronary artery disease) PTSD (post-traumatic stress disorder) Asthma Kidney stones Fibromyalgia Essential hypertension Lumbar radiculopathy Hx of migraines Hx of renal calculi Saccular aneurysm IBS (irritable bowel syndrome) Hx MRSA infection History of polycystic kidney disease, autosomal dominant Surgical History History of esophagogastroduodenoscopy (EGD) Hx of colonoscopy History of cardiac cath History of eye surgery History of thyroidectomy, subtotal History of lithotripsy History of total abdominal hysterectomy and bilateral salpingo-oophorectomy History of appendectomy History of abdominoplasty History of tonsillectomy History of tubal ligation Family History Father Cancer of kidney Diabetes Hypertension CVD (cardiovascular disease) Mother Hypertension Cancer Maternal Aunt Colon cancer Brother AIDS Paternal Aunt Ovarian cancer Breast cancer Brother SLE (systemic lupus erythematosus) Son No problems noted. 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 1. Little interest or pleasure in doing things: more than half the days 2. Feeling down, depressed, or hopeless: more than half the days 3. Trouble falling or staying asleep, or sleeping too much: nearly every day 4. Feeling tired or having little energy: more than half the days 5. Poor appetite or overeating: more than half the days 6. Feeling bad about yourself - or that you are a failure or have let yourself or your family down: not at all 7. Trouble concentrating on things, such as reading the newspaper or watching television: more than half the days 8. Moving or speaking so slowly that other people could have noticed. Or the opposite - being so fidgety or restless that you have been moving around a lot more than usual: not at all 9. Thoughts that you would be better off or of hurting yourself in some way: not at all Total score: 13 Depression Screening Interpretation: Positive Depression Screening Follow-up: Existing condition and In treatment Depression Screening Done: Yes Source: Developed by Drs. Ash Montana, Bonny Sterling, Akash Trimble and colleagues, with an educational mamie from [employer]. Thrive Questionnaire Date Thrive assessed: 08/19/24 I am a: Patient What is your living situation today?: I have a steady place to live Within the past 12 months, did the food you bought not last and you didn't have the money to get more?: Never true Within the past 12 months, did you worry whether your food would run out before you got money to buy more?: Never true Do you have trouble paying for medicines?: No Do you have trouble getting transportation to medical appointments?: No Do you have trouble paying your heating and electricity bill?: No Do you have trouble taking care of your child, family member or friend?: No Do you have trouble with day-to-day activities such as bathing, preparing meals, shopping, managing finances, etc.?: No Are you currently unemployed and looking for a job?: No Are you interested in more education?: No Please select the resources that you would like help with: None Currently or been in a relationship where the following occur: No concerns reported THRIVE Score: 0 DL-7 AMB Questionnaire DL-7 Date DL - 7 assessed: 08/19/24 Feeling nervous, anxious, or on edge: 2 = More than half the days Not being able to stop or control worryin = More than half the days Worrying too much about different things: 2 = More than half the days Trouble relaxin = More than half the days Being so restless that it is hard to sit still: 2 = More than half the days Becoming easily annoyed or irritable: 2 = More than half the days Feeling afraid as if something awful might happen: 2 = More than half the days Total DL-7 score (0-4 normal; 5-9 mild; 10-14 moderate; 15-21 severe): 14 Source: Developed by Drs. Ash Montana, Bonny Sterling, Akash Trimble and colleagues, with an educational mamie from [employer]. Review of Systems Const Denies body aches, Denies fatigue, Denies frequent falls, Denies headache(s) and Denies weakness Eyes Reports no additional complaints and Denies change in vision ENT Reports dysphagia, Denies dizziness, Denies facial pain, Denies headache(s), Denies nasal congestion and Denies odynophagia Card Denies chest pain, Denies syncope, Denies irregular heart rhythm, Denies leg edema, Denies lightheadedness and Denies dyspnea Resp Denies cough and Denies dyspnea GI Denies abdominal pain, Denies constipation, Reports dysphagia, Denies dyspepsia, Denies diarrhea, Denies nausea, Denies odynophagia and Denies vomiting Denies urinary frequency, Denies dysuria, Denies urinary hesitancy and Denies urinary urgency Musc Denies back pain and Denies myalgias Skin/Breast Reports system reviewed and no additional complaints, except as documented Neuro Denies dizziness, Denies syncope, Denies frequent falls, Denies headache(s) and Denies weakness Psych Reports no additional complaints Endo Denies fatigue Physical exam (Primary Care) Vital Signs: Last Vital Signs Pulse 75 10/30/24 14:08 BP 124/58 L 10/30/24 14:08 Oxygen Delivery Method Room Air 10/30/24 14:08 BMI result Body Mass Index 24.1 Tobacco/Smoking Status: Tobacco use Status Tobacco use date assessed 10/30/24 10/30/24 14:15 Patient Tobacco Use Status Former Tobacco user 10/30/24 14:15 Tobacco use type Cigarette 10/30/24 14:15 e-Cigarette/Vaping Use Never Used 10/30/24 14:15 PHQ-9: PHQ-9 Score PHQ-9: Total score 13 10/30/24 15:02 Depression Screening Interpretation: Positive Depression Screening Follow-up: Existing condition and In treatment Thrive Assessment: Date of Thrive Assessment Date Thrive assessed 08/19/24 10/30/24 14:15 Currently or been in a relationship where the following occur: No concerns reported Const General: cooperative, healthy appearing, comfortable and no acute distress Orientation/consciousness: patient oriented x3 HENMT Head: Yes normocephalic Ears: hearing grossly normal bilaterally, external ears normal, TM's normal bilaterally and EAC's normal General nose exam: Normal external nose present Face and sinus: Yes normal facial exam and Yes sinuses nontender Mouth: Normal oral and palatal mucosa present and tongue normal Throat: Yes posterior oropharynx normal Eyes General: appearance normal, both eyes and all related structures Conjunctivae: conjunctivae normal Pupils: Equal, round and reactive pupils present EOM: EOMs intact bilaterally and No Nystagmus present Neck Neck: Yes normal visual inspection, Yes full ROM and Yes no lymphadenopathy Chest Chest palpation & inspection: normal inspection of the chest Resp Effort & Inspection: normal respiratory effort Auscultation: clear to auscultation bilaterally, no crackles, no rales, no rhonchi, no wheezes and breath sounds present Cardio Rate: regular rate Rhythm: regular rhythm Peripheral pulses: radial pulses present and dorsalis pedis present GI Inspection: Yes normal to inspection and No Abdominal wall edema Palpation (GI): Soft to palpation, not firm and nontender Auscultation: normal bowel sounds Rectal Exam - Female: deferred General: Yes no CVA tenderness Back/Spine/Pelvis Back: no CVA tenderness Skin General skin exam: no rashes or lesions noted Neuro General: patient oriented x3 Cranial nerves: Yes Equal, round and reactive pupils present, Yes Midline tongue present, Yes Ability to bilaterally elevate shoulders present and No Nystagmus present Gait exam (Neuro): Normal gait present Extrem General: Yes normal to inspection, Yes full ROM, No no pedal edema and No edema Psych Speech and movement: Normal speech and movement present Affect: normal affect Insight: Good insight present (Psych) Judgement: Good judgement present (Psych) Results AMB Hemoglobin A1c AMB Hemoglobin A1c 7.1 % Last Edit by MASON Mccoy on 10/30/24 14:56 Results Reviewed Results Reviewed: Laboratory Last Values Hgb A1c (Clinic) 7.1 % (4.0-6.0) H 10/30/24 14:45 Coding Level of Care Code Est Pt Prev Care >65y(28437) Diagnoses Annual physical exam Z00.00 Generalized anxiety disorder F41.1 Essential hypertension I10 Coronary artery disease involving [place] coronary artery of [place] heart without angina pectoris I25.10 Associated angina: without angina Coronary Disease-Associated Artery/Lesion type: [place] artery [place] vs. transplanted heart: [place] heart Hypercholesterolemia E78.00 Type 2 diabetes mellitus with hyperglycemia, without long-term current use of insulin E11.65 Diabetes mellitus superintendent marine oil terminal insulin use: without intermediate use GERD (gastroesophageal reflux disease) K21.00 Esophagitis bleeding: without hemorrhage Esophagitis presence: with esophagitis Hepatic steatosis K76.0 Mild intermittent asthma without complication J45.20 Asthma complication type: uncomplicated Asthma persistence: intermittent Asthma severity: mild Dysphagia R13.10 Assessment & Plan Assessment & Plan (1) Annual physical exam: Code(s): Z00.00 - Encounter for general adult medical examination without abnormal findings Category: Medical Plan: Patient is up-to-date on all recommended routine screenings and vaccinations for her age. Blood work is up-to-date and has been reviewed with the patient today. Plan to follow up in 3 months with repeat blood work or sooner as needed. Healthy diet and regular exercise is encouraged. (2) Generalized anxiety disorder: Comment: decline referral for counselling 01/2021 Code(s): F41.1 - Generalized anxiety disorder Category: Medical Plan: Patient is declining referral to counseling at this time. She agrees to reach out to her holiness for counseling resources. Plan to also increase the escitalopram to 20 mg at this time. Follow up in 3 months (3) Essential hypertension: Code(s): I10 - Essential (primary) hypertension Category: Medical Plan: Continue on current blood pressure medication. Avoid salt intake and encourage healthy diet and regular exercise. (4) CAD (coronary artery disease): Comment: Two thousand thirteen nonobstructive Code(s): I25.10 - Atherosclerotic heart disease of [place] coronary artery without angina pectoris Category: Medical Qualifiers: Associated angina: without angina Coronary Disease-Associated Artery/Lesion type: [place] artery [place] vs. transplanted heart: [place] heart Qualified Code(s): I25.10 - Atherosclerotic heart disease of [place] coronary artery without angina pectoris Plan: Advised good control of cholesterol, blood sugars and blood pressures. She has amlodipine 10 mg Zetia 10 mg and rosuvastatin 40 mg. (5) Hypercholesterolemia: Code(s): E78.00 - Pure hypercholesterolemia, unspecified Category: Medical Plan: Avoid foods that are high in cholesterol such as red meat, fried foods, eggs and baked goods. Triglyceride goal of less than 150 and LDL goal of less than 70. Last LDL within goal. (6) Type 2 diabetes mellitus with hyperglycemia: Comment: eye and lasik Code(s): E11.65 - Type 2 diabetes mellitus with hyperglycemia Category: Medical Qualifiers: Diabetes mellitus superintendent marine oil terminal insulin use: without superintendent marine oil terminal use Qualified Code(s): E11.65 - Type 2 diabetes mellitus with hyperglycemia Plan: Decrease the amount of carbohydrates such as pasta, bread, rice, and potatoes and limit the amount of sweets. Although fruits are generally healthy they should be eaten in moderation as they are still high in sugar. Hemoglobin A1c goal of less than 7%. A1c in the office today 7.1% she states she has been eating poorly due to recent stress and agrees to return to her normal diet. We discussed possibility of increasing metformin however patient feels she can do this without medication change. Given her recent A1cs have been within goal plan to follow up in 3 months without medication change at this time (7) GERD (gastroesophageal reflux disease): Comment: Septemberastroesophageal reflux and mild esophagitis of the distal thoracic esophagus. Small sliding-type hiatal hernia. Code(s): K21.9 - Gastro-esophageal reflux disease without esophagitis Category: Medical Qualifiers: Esophagitis bleeding: without hemorrhage Esophagitis presence: with esophagitis Qualified Code(s): K21.00 - Gastro-esophageal reflux disease with esophagitis, without bleeding Plan: Avoid trigger foods such as citrus, tomato products, soda, caffeine, spicy foods and other foods that may be irritating to your stomach. Avoid laying flat 3-4 hours after eating and elevate the head of the bed 30 degrees to prevent acid from moving into the esophagus. (8) Hepatic steatosis: Comment: Ultrasound in 2017, 12/30/2023 Code(s): K76.0 - Fatty (change of) liver, not elsewhere classified Category: Medical Plan: Healthy diet and regular exercise is encouraged. (9) Asthma: Code(s): J45.909 - Unspecified asthma, uncomplicated Category: Medical Qualifiers: Asthma complication type: uncomplicated Asthma persistence: intermittent Asthma severity: mild Qualified Code(s): J45.20 - Mild intermittent asthma, uncomplicated Plan: Asthma currently controlled on present medications. Continue on Wixela b.i.d. and albuterol as needed. Avoid triggers such as allergies. (10) Dysphagia: Code(s): R13.10 - Dysphagia, unspecified Category: Medical Plan: Patient reporting difficulty swallowing without pain. She did have a swallow study back in 2021 that did not show any significant abnormality. She feels her swelling has been worsening over the last 6 months and plan to obtain repeat swallow exam for further evaluation. Plan The patient will have her escitalopram dosage increased to 20 mg to address her depression, with monitoring for any adverse effects or improvements in symptoms. A barium swallow study is scheduled to assess the cause of her dysphagia, focusing on potential esophageal abnormalities. Asthma management will continue with Wixela and albuterol as needed, with instructions to report any symptom changes. For diabetes, dietary modifications are recommended to lower A1c, with a follow-up in three months to determine if medication adjustments are necessary. Preventative care includes a scheduled colonoscopy and follow-up with a adult literacy instructor for routine screenings. This note was constructed using voice recognition software. While every effort has been made to ensure accuracy and debug technician, still areas may have been included sometimes these areas may affect the content or meeting of the given symptoms. Total time spent caring for the patient today was 30 minutes. This includes time spent before the visit reviewing the chart, time spent during the visit, and time spent after the visit and documentation. Patient was informed and verbally consented to the use of an ambient scribe for clinic note documentation during this visit. Orders: Orders AMB Hemoglobin A1c Today E11.65 - Type 2 diabetes mellitus with hyperglycemia [place] barium swallow Today R13.10 - Dysphagia, unspecified Referrals COMPUTER BOOKKEEPER Referral Z12.4 - Encounter for screening for malignant neoplasm of cervix Medications: New escitalopram oxalate 20 mg PO DAILY 90 tabs 0RF Discontinued escitalopram oxalate Discontinued Reason: Patient no longer taking 10 mg PO DAILY 90 days 90 tabs 2RF
--- OUTSIDE RECORDS SUMMARY | 2024-10-30 14:06 | XMS_ITS | Clinical Summary ---
Author Organization [address] [facility] Address [address] [place] [address] Phone Care Team Providers Care Scholastic Aptitude Test Grader Name Role Phone Anamaria Maddox MD Primary Care Provider [phone] Allergies Active Allergy Reactions Criticality Noted Date [...] of both first carpometaca rpal joints 01/15/2021 Surgical History Surgery Date Site/Laterality Comments OTHER SURGICAL HISTORY PROCEDURE: ---- HEMORRHOIDS ---- OTHER SURGICAL HISTORY PROCEDURE: [place] LIG/TRNSXJ FLP TUBE ABDL/VAG APPR UNI/BI APPENDECTOMY PROCEDURE: HISTORICAL APPENDECTOMY OTHER SURGICAL HISTORY PROCEDURE: ---- OTHER ----; COMMENT: renal stones, adrenal gland/kidney partial removed PARTIAL HYSTERECTOMY PROCEDURE: [place] SUPRACERVICAL ABDL HYSTER W/WO RMVL TUBE OVARY; COMMENT: rem right ovary OTHER SURGICAL HISTORY PROCEDURE: ---- OTHER ----; COMMENT: tummy tuck HAND SURGERY 08/22/2023 Left PROCEDURE: HISTORICAL HAND SURGERY; COMMENT: left thumb trapeziectomy with interpostional arthroplasty Medical History Medical History Date Comments Kidney stone DX:Kidney stone HTN (hypertension) DX:HTN (hyper tension) Thyroid disease DX:Thyroid disea se Other oeegg-muc-pszru infants DX:Other wvuzc-aun-jndof infants Depression with anxiety DX:Depre ssion with [...] Screening 1960 Colorectal Cancer Screening: Colonoscopy 02/12/2022 Hepatitis C Screening 02/12/2022 Medicare Annual Wellness Visit 02/12/2022 Osteoporosis Screening (Bone Density Screening) 02/12/2022 Social Influencers of Health Screening 02/12/2022 Falls Risk Assessment 05/24/2023 Depression Screening 03/12/2024 COVID-19 Vaccine ( season) 2024 12/04/2023, 03/27/2023, 12/30/2021, Additional history exists Influenza Vaccine (#1) 2024 , 11/28/2022, 12/30/2021, Additional history exists DTaP,Tdap,and Td Vaccines (3 - Td or Tdap) 11/13/2031 11/12/2021, 04/16/2015 Zoster Vaccines Completed 06/22/2022, 10/03/2017 RSV Immunization Adult Patients Completed 11/28/2022 Pneumococcal Vaccine: 50+ Years Completed 09/12/2023, 11/28/2022, 02/27/2018, Additional history exists HIB Vaccines Aged Out [...] topic Insurance [employer] MED[employer]ARE ADVANTAGE Care Teams Scholastic Aptitude Test Grader Relationship Specialty Start Date End Date Anamaria Maddox MD [address] [place] [address] [address] [facility] [place] [address] PCP - General 05/02/06
--- OUTSIDE RECORDS SUMMARY | 2024-10-30 14:06 | XMS_ITS | Encounter Summary ---
Author Organization [facility] Address [address] [facility] [address] [place] [address] Phone Care Team Providers Care Counter Sales Representative Name Role Phone Anamaria Maddox MD Primary Care Provider [phone] Encounter Details Date Type Department Care Team (Late Contact Info) Description 01/31/2022 Telephone [facility] [address] [place] [address] [place] [address] Chaitanya Weir MD [id number] [facility] [address] [place] [address] Social History Tobacco Use Types [...] encounter Miscellaneous Notes * Telephone Encounter - Faridhe Dsouza - 01/31/2022 10:28 AM EST Pt called, she is confused about how the litholink labs are done. She was given the orders to bringto the lab but they cannot preform the test. Please advise Thank you [phone] documented in this encounter Plan of Treatment Upcoming Encounters Date Type Department Care Team (Late st Contact Info) Description 11/10/2024 Orders Only [facility] [address] [address] Patty Martin PA-C [address] [facility], [address] [place] [address] Isolated proteinuria; Recurrent kidney stone 12/30/2024 1:15 PM EDT Office Visit [facility] [address] [place] [phone] Erica Pulido ARNP [address] [address] documented as of this encounter Visit Diagnoses Not on filedocumented in this encounter Care Teams Counter Sales Representative Relationship Specialty Start Date End Date Anamaria Maddox MD [facility] [address] [place], [place] PCP - General 03/22/20 documented as of this encounter
[2024-10-30 14:08] VITALS: BP 124/58; PULSE 75; BMI 24.1
== END 2024-10-30 15:19 | disposition home or self-care (01) ==
LOC: HO.HMCH 13:58
PROVIDERS: PCP Internal Medicine
DX: Z00.00 Encounter for general adult medical examination without abnormal findings (principal); E11.65 Type 2 diabetes mellitus with hyperglycemia; F41.1 Generalized anxiety disorder; I10 Essential (primary) hypertension; I25.10 Atherosclerotic heart disease of native coronary artery without angina pectoris; E78.00 Pure hypercholesterolemia, unspecified; K21.00 Gastro-esophageal reflux disease with esophagitis, without bleeding; K76.0 Fatty (change of) liver, not elsewhere classified; J45.20 Mild intermittent asthma, uncomplicated; R13.10 Dysphagia, unspecified

== ENCOUNTER → 2024-10-30 13:57 | Outpatient (BNVA) | payer MEDICARE, SELFPAY | PROVIDERS: PCP Internal Medicine | DX: Z00.00 Encounter for general adult medical examination without abnormal findings (principal); F41.1 Generalized anxiety disorder; I10 Essential (primary) hypertension; I25.10 Atherosclerotic heart disease of native coronary artery without angina pectoris; E78.00 Pure hypercholesterolemia, unspecified; E11.65 Type 2 diabetes mellitus with hyperglycemia; K21.00 Gastro-esophageal reflux disease with esophagitis, without bleeding; K76.0 Fatty (change of) liver, not elsewhere classified; J45.20 Mild intermittent asthma, uncomplicated; R13.10 Dysphagia, unspecified; Z87.891 Personal history of nicotine dependence | CPT/HCPCS: 83036; 99397 ==

== ENCOUNTER 2025-01-22 16:16 | Outpatient (AMB) | payer MEDICARE, SELFPAY ==
--- OUTSIDE RECORDS SUMMARY | 2024-10-21 06:10 | XMS_ITS ---
Author Organization [facility] Address [address] [place] [phone] Care Team Providers Care Barmaid Name Role Phone Anamaria Maddox MD Primary Care Provider UnavailAsh Augustine Unavailable [phone] REASON FOR VISIT Patient presents today for a screening colonoscopy Medications Medication SIG (Take, Route, Fr equency, Duration) Notes Start Date End Date Status Prazosin HCl Active FreeStyle Lancets Ac tive Loratadine Active Fluticasone Propionate Active ibuprofen Active FreeStyle Lite Test Active SUMAtriptan Succinate Active metFORMIN HCl ER Act drew Tradjenta Active Atorvastatin Calcium Active Zolpidem Tartrate Ac tive Albuterol Sulfate Ac tive amLODIPine Besylate Active Benadryl Allergy 25 MG 1 tablet as neede d Orally every 8 hrs PRN Active Senna PRN Active Simvastatin 20mg Act drew Dicyclomine HCl 10 MG 1-2 capsules Orall y Four times a day prn abdominal discomfort 11/05/2016 Active Omeprazole 20 MG 1 capsule 30 minutes before morning meal Orally Once a day Active LORazepam 10mg Activ e Encounters Encounter Location Date Provider Diagnosis [facility] [address] [place] [phone] 10/21/2024 Ash Larose Plan Of Treatment Next Appt Details Provider Name:Ash Larose , 03/26/2025 10:20:00 AM, [address], [address], [place], [address], Progress Notes * MATHEUS LORENZB:1960 (64 yo F)Acc No.[id number]:10/21/2024 Progress Notes Patient: DAVE MAYER Provider: Caro Larose MD :1960 A ge:64 Y S ex:Female Date:10/21/2024 Address:[address] [place] [address] Pcp:Anamaria Maddox MD Subjective: * Chief Complaints: * 1 . Patient presents today for a screening colonoscopy. * Medical History: * Medications: T aking LORazepam 10mg , Taking Simvastatin 20mg , Taking Zolpidem Tartrate , Taking amLODIPine Besylate , Taking Albuterol Sulfate , Taking Senna , Notes to Pharmacist: PRN, Taking Benadryl Allergy 25 MG Tablet 1 tablet as needed Orally every 8 hrs , Notes to Pharmacist: PRN, Taking metFORMIN HCl ER , Taking SUMAtriptan Succinate , Taking Atorvastatin Calcium , Taking Tradjenta , Taking FreeStyle Lite Test , Taking FreeStyle Lancets , Taking Prazosin HCl , Taking Fluticasone Propionate , Taking Loratadine , Taking ibuprofen , Taking Dicyclomine HCl 10 MG Capsule 1-2 capsules Orally Four times a day prn abdominal discomfort , Taking Omeprazole 20 MG Capsule Delayed Release 1 capsule 30 minutes before morning meal Orally Once a day Objective: * Vitals: Assessment: Plan: * Treatment: * * The named appointment provid er may or may not be the originator of this progress note, and it is not deemed complete until electronically signed by the appointment provider. Sign off status: Pending * Provider: Caro Larose MD Date: 0 10/21/2024 Generated for Humberto yates/Beth/Mile on: 03/24/2024 06:49 PM EST
--- OUTSIDE RECORDS SUMMARY | 2024-11-18 05:50 | XMS_ITS ---
Author Organization [facility] Address [address] [facility] [address] [place] [phone] Care Team Providers Care Elevator Constructor Helper Name Role Phone Anamaria Maddox MD Primary Care Provider Ash Jones [phone] REASON FOR VISIT Patient presents today for a colon screening Encounters Encounter Location Date Provider Diagnosis [facility] [address] [place] [address] [place] [phone] 11/18/2024 Ash Larose Plan Of Treatment Next Appt Details Provider Name:Ash Larose , 03/26/2025 10:20:00 AM, [address] [facility], [address], [place], [address], Progress Notes * MATHEUS LORENZB:1960 (64 yo F)Acc No.[id number]:11/18/2024 Progress Notes Patient: DAVE MAYER Provider: Caro Larose MD :1960 A ge:64 Y S ex:Female Date:11/18/2024 Address:[address] [place], [place] [id number] Pcp:Anamaria Maddox MD Subjective: * Chief Complaints: * 1 . Patient presents today for a colon screening. * Medical History: Objective: * Vitals: Assessment: Plan: * Treatment: * * The named appointment provid er may or may not be the originator of this progress note, and it is not deemed complete until electronically signed by the appointment provider. Sign off status: Pending * Provider: Caro Larose MD Date: 0 11/18/2024 Generated for Humberto yates/Beth/Mile on: 1 03/24/2024 06:49 PM EST
--- NOTE | 2025-01-22 16:19 | AM.OFFWIN_ITS ---
Intake Vital Signs 01/22/25 16:23 Height 5 ft 5 in Weight 146 lb 8 oz BMI 24.4 BP 118/85 Blood Pressure Location Rt brachial Position Sitting Respiration 17 Pulse 107 H Pulse Source Monitor Temp 98.4 F Temp Source Oral Pulse Oximetry (%) 96 Oxygen Delivery Method Room Air Intake Visit Reasons: EP - Right eye Intake Note: Patient has throbbing pain in the right eye that feels like it is going to pop out. Also woke up with a jaki right eye that was shut. Has also been having a runny nose, thinks it may be a sinus infection. Patient Tobacco Use Status: Former Tobacco user Allergies codeine (Codeine) Allergy (Severe, Verified 01/22/25 16:23) ANAPHYLAXIS, throat edema lisinopril (LISINOPRIL) Allergy (Severe, Verified 01/22/25 16:23) ANGIOEDEMA Sulfa (Sulfonamide Antibiotics) (Sulfa (Sulfonamides)) Allergy (Intermediate, Verified 01/22/25 16:23) SHORTNESS OF BREATH, HIVES, rash doxycycline (Doxycycline) Allergy (Mild, Verified 01/22/25 16:23) HIVES tramadol Allergy (Unknown, Verified 01/22/25 16:23) rash and nightmares empagliflozin (From Jardiance) Adverse Reaction (Severe, Verified 01/22/25 16:23) Vaginal Itch senna Adverse Reaction (Unknown, Verified 01/22/25 16:23) Diarrhea HPI HPI Comments History of Present Illness Details History of Present Illness The patient is a 64-year-old female presenting with eye pain and upper respiratory symptoms. - The patient woke up this morning with throbbing pain and pressure behind her right eye and right cheek - She also reports associated sensitivit y of the eye, and crusty discharge this morning. - She denies any changes in vision, spot s, halos of light, or floaters. - Patient reports a prior history of eye surgeries in both eyes. She believes she had artificial lenses placed. Unable to access ophthalmology records. - She instilled prescribed eye drops in both eyes this morning after throbbing sensation started, however she is unsure what the medication is called - She denies any pain in the eye itself. No other discharge from the eye. No FB sensation - She does not wear glasses or contact l enses - Patient also reports ongoing rhinorrhe a and congestion for more than a week - She has an appointment scheduled with her continuous improvement black belt for tomorrow. Review of Systems Constitutional: Negative for fevers, chills HENT: Reports congestion, rhinorrhea, sinus pressure and pain Eyes: Reports eye pain, Negative for eye discharge, eye redness, photophobia, visual disturbance Respiratory: Negative for cough Physical Exam General Appearance: Normal appearance, well developed. No acute distress HENT: Normocephalic, atraumatic. Patient reports tenderness along the right max illary sinus. Mild nasal drainage noted Eyes: PEERLA. EOM intact. No conjunctival injection or discharge. Eyelids inverted, No obvious FB noted. No swelling or erythema noted of the eyelids Pulmonary: No respiratory distress. Speaking in full sentences Musculoskeletal: Moving all extremities spontaneously and against gravity Mental Status: Alert and Oriented x 3 Psychiatric: Normal mood. Normal affect. [facility] Medical History Otitis externa Constipation Macular degeneration Internal and external hemorrhoids without complication Hemoptysis Cystocele Adrenal adenoma Thyroid nodule GERD (gastroesophageal reflux disease) Chronic sinusitis Type 2 diabetes mellitus with hyperglycemia Sciatica CAD (coronary artery disease) PTSD (post-traumatic stress disorder) Asthma Kidney stones Fibromyalgia Essential hypertension Lumbar radiculopathy Hx of migraines Hx of renal calculi Saccular aneurysm IBS (irritable bowel syndrome) Hx MRSA infection History of polycystic kidney disease, autosomal dominant Surgical History History of esophagogastroduodenoscopy (EGD) Hx of colonoscopy History of cardiac cath History of eye surgery History of thyroidectomy, subtotal History of lithotripsy History of total abdominal hysterectomy and bilateral salpingo-oophorectomy History of appendectomy History of abdominoplasty History of tonsillectomy History of tubal ligation Family History Father Cancer of kidney Diabetes Hypertension CVD (cardiovascular disease) Mother Hypertension Cancer Maternal Aunt Colon cancer Brother AIDS Paternal Aunt Ovarian cancer Breast cancer Brother SLE (systemic lupus erythematosus) Son No problems noted. 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 Cognitive needs: No Hearing needs: No Vision needs: Yes Physical Exam Vital Signs: Last Vital Signs Temp 98.4 F 01/22/25 16:23 Pulse 107 H 01/22/25 16:23 Resp 17 01/22/25 16:23 BP 118/85 01/22/25 16:23 Pulse Ox 96 01/22/25 16:23 Oxygen Delivery Method Room Air 01/22/25 16:23 BMI result Body Mass Index 24.4 Office Procedures Vision Screening Right Eye: 20/40 Left Eye: 20/20 Bilateral: 20/30 [address]30 - Vision Screening Assessment & Plan Assessment & Plan (1) Acute rhinosinusitis: Code(s): J01.90 - Acute sinusitis, unspecified (2) Discomfort of right eye: Code(s): H57.11 - Ocular pain, right eye Plan - Patient presents with discomfort behind the right eye and along the right cheek - Eye exam unremarkable, however unable to perform slit-lamp examination her office - Due to associated symptoms of congestion for over a week and a half, facial pressure, and sinus tenderness on exam, will treat for potential sinus infection with Augmentin. - The patient has an appointment with her continuous improvement black belt tomorrow - She was advised to seek immediate care for severe eye pain or changes in vision before her appointment. Patient was informed and verbally consented to the use of an ambient scribe for clinic note documentation during the visit. Orders: Orders AMB Vision Screening 01/22/25 H57.11 - Ocular pain, right eye Medications: New amoxicillin-pot clavulanate 875-125 mg 1 tab PO Q12H 10 tabs 0RF Coding Level of Care Code Est Pt Level 3 (24097) Diagnoses Acute rhinosinusitis J01.90 Discomfort of right eye H57.11 CPT Codes Vision Screening - Vision Screenin - Vision Screening ([id number])
[2025-01-22 16:23] VITALS: BP 118/85; PULSE 107; RESP 17; TEMP 36.9; O2SAT 96; BMI 24.4
--- OUTSIDE RECORDS SUMMARY | 2025-01-22 18:49 | XMS_ITS | Clinical Summary ---
Author Organization [facility] Address [address] [place] [address] Care Team Providers Care Web Content & Social Media Manager Name Role Phone Anamaria Maddox MD Primary Care Provider [phone] Allergies Active Allergy Reactions Criticality Noted Date Comments Yuri Inhibitors Other (see comments) 10/26/2021 Codeine 10/26/2021 Doxycycline 10/26/2021 Sulfa Antibiotics Anaphylaxis High 10/26/2021 Medications zolpidem (AMBIEN) 10 MG tablet Take 10 mg by mouth at night if needed 2 Active rosuvastatin (CRESTOR) 40 MG tablet Take 40 mg by mouth 1 (one) time each day 2 Active omeprazole (PriLOSEC) [address] capsule Take 40 mg by mouth 1 (one) time each day 2 Active LORazepam (ATIVAN) 1 MG tablet Take 1 mg by mouth 1 (one) time each day 2 Active ezetimibe (ZETIA) 10 MG tablet Take 10 mg by mouth 1 (one) time each day 2 Active polyethylene glycol (GLYCOLAX) 17 GM/SCOOP powder Take by mouth 1 (one) time each day Active oxybutynin XL (DITROPAN-XL) 5 MG 24 hr tablet 8 Active albuterol HFA (PROVENTIL HFA;VENTOLIN HFA) 108 (90 Base) MCG/ACT inhaler Inhale 2 puffs every 6 (six) hours if needed 4 Active amLODIPine (NORVASC) 10 MG tablet Take 10 mg by mouth at bed time 4 Active cetirizine (ZyrTEC) 10 MG tablet Take 10 mg by mouth 1 (one) time each day 4 Active escitalopram (LEXAPRO) 10 MG tablet Take 10 mg by mouth 1 (one) time each day 4 Active SUMAtriptan (IMITREX) 100 MG tablet Take 100 mg by mouth 1 (one) time if needed 4 Active potassium chloride (KLOR-CON M20) 20 MEQ CR tablet Take 20 mEq by mouth 1 (one) time each day Active POTASSIUM CHLORIDE PO Take 20 mg by mouth 12/31/19 25 Discontinu ed(Duplica te order (does not appear on AVS)) Active Problems Problem Noted Date Diagnosed Date Isolated proteinuria 12/30/2024 Hypokalemia 10/26/2021 Increased frequency of urination 10/26/2021 Intracranial aneurysm 10/26/2021 Migraine 10/26/2021 Multiple congenital cysts of kidney 10/26/2021 Polycystic kidney disease, adult type 10/26/2021 Renal stone 10/26/2021 Encounters Date Type Department Care Team Description 12/30/2024 1:15 PM EDT Office Visit [facility] [address] [phone] Erica Pulido ARNP Renal stone (Primary Dx); Isolated proteinuria; Frequency of micturition 11/10/2024 Orders Only [facility] [address] [phone] Patty Martin PA-C Isolated proteinuria; Recurrent kidney stone from Last 3 Months Family History Medical History Relation Comments Kidney disease Brother Kidney disease Father Liver disease Relation Status Comments Brother Father Social History Tobacco Use Types Packs/Day Years Used Date Smoking Tobacco: Former Cigarettes 0 Q uit: 03/12/1985 Tobacco Cessation:Counseling Given: Not [...] Sign Reading Time Taken Comments Blood Pressure 112/62 12/30/2024 1:50 PM EDT Pulse 83 12/30/2024 1:23 PM EDT Temperature - - Respiratory Rate - - Oxygen Saturation 98% 12/30/2024 1:23 PM EDT Inhaled Oxygen Concentration - - Weight 67.1 kg (148 lb) 12/30/2024 1:23 PM EDT Height 165.1 cm (5' 5 ) 10/07/2018 12:00 PM EDT Body Mass Index 24.63 10/07/2018 12:00 PM EDT Plan of Treatment Upcoming Encounters Date Type Department Care Team (Late st Contact Info) Description 06/30/2025 2:00 PM EDT Office Visit [facility] PJuan AlbertoCJuan Alberto [address] [phone] Erica Pulido ARNP [address] [phone] Health Maintenance Due Date Last Done Comments Breast Cancer Screening 1960 Pneumococcal Vaccine: 50+ Ye ars (1 of 2 - PCV) 1977 Colorectal Cancer Screening: Annual FOBT 05/24/2007 Colorectal Cancer Screening: Colonoscopy 05/24/2007 Colorectal Cancer Screening: Sigmoidoscopy 05/24/2007 Influenza Vaccine (#1) 2024 Hepatitis B Vaccine Aged Out No longe r eligible based on patient's age to complete this topic Procedures Procedure Name Priority Date/Time Associated Diagnosis Comments URINE CULTURE Routine 12/30/2024 2:10 PM EDT Frequency of micturition URINALYSIS WITH MICROSCOPIC Routine 12/30/2024 2:10 PM EDT Frequency of micturition RESULT Routine 12/30/2024 2:10 PM EDT MICROSCOPIC EXAMINATION - DO NOT USE Routine 12/30/2024 2:10 PM EDT URINE ALBUMIN / CREATININE RATIO Routine 12/30/2024 10:09 AM EDT Isolated proteinuria Recurrent kidney stone PROTEIN / CREATININE RATIO, URINE Routine 12/30/2024 10:09 AM EDT Isolated proteinuria Recurrent kidney stone RENAL FUNCTION PANEL Routine 12/30/2024 10:09 AM EDT Isolated proteinuria Recurrent kidney stone from Last 3 Months Results * Result (12/30/2024 2:10 PM EDT) Result Comment [facility] Comment: Culture shows less than 10,000 colony forming units of bacteria per milliliter of urine. This colony count is not generally considered to be clinically significant. 12/30/2024 2:10 PM EDT 12/30/2024 [facility] LAB MICROBIOLOGY - GENERAL ORDERABLES Final Result Performing Organization Address City/[facility]/ZIP Co de Phone Number [facility] [address], [address] [place] [address] * Microscopic Examination (12/30/2024 2:10 PM EDT) WBC, Urine None seen 0 - 5 /hpf [facility] RBC, Urine 0-2 0 - 2 /hpf [facility] Squamous Epithelial, Urine None seen 0 - 10 /hpf [facility] Casts None seen None seen /lpf [facility] Bacteria, Urine None seen None seen/Few [facility] 12/30/2024 2:10 PM EDT 12/30/2024 [facility] - GENERAL ORDERABLES Final Result [facility] [address] [place] [address] * (ABNORMAL) Urinalysis with microscopic (12/30/2024 2:10 PM EDT) Specific [place], Urine 1.021 1.005 - 1.030 [facility] pH Urine 6.0 5.0 - 7.5 [facility] Color, Urine Yellow Yellow [facility] Appearance Urine Clear Clear [facility] WBC Esterase Urine Negative Negative [facility] Protein, Ur 1+(A) Negative/Tra ce [facility] Glucose, Ur Trace(A) Negative [facility] Ketones, Urine Trace(A) Negative [facility] Blood Urine Negative Negative [facility] Bilirubin Urine Negative Negative [facility] Urobilinogen Urine 1.0 0.2 - 1.0 mg/dL [facility] Nitrite, Urine Negative Negative [facility] Microscopic Examination See below: [facility] Comment:Microscopic was maggy cated and was performed. Urine Urine specimen obtained by clean catch procedure / Unknown 12/30/2024 2:10 PM EDT 12/30/2024 Erica Pulido [facility] LAB URINE ORDERABLES Final Result [facility] [address] [place] [address] * Urine culture (12/30/2024 2:10 PM EDT) Culture Result, Urine Final report [facility] Urine Urine specimen obtained by clean catch procedure / Unknown 12/30/2024 2:10 PM EDT 12/30/2024 Comment: us Erica Pulido [facility] LAB URINE ORDERABLES Final Result [facility] [address], [address] [place] [address] * (ABNORMAL) Urine Protein / creatinine ratio (12/30/2024 10:09 AM EDT) Creatinine, Ur 85.7 Not Estab. mg/dL [facility] Protein, Ur 32.4 Not Estab. mg/dL [facility] Urine Protein/Creati nine Ratio 378(H) 0 - 200 mg/g creat [facility] Urine specimen (specimen) Urine specimen obtained by clean catch procedure / Unknown 12/30/2024 10:09 AM EDT 12/30/2024 Patty Martin PA-C LAB URINE ORDERABLES Final Res ult [facility] [address] [place] [address] * (ABNORMAL) Urine Albumin / Creatinine Ratio (12/30/2024 10:09 AM EDT) Albumin, Urine 59.1 Not Estab. ug/mL [facility] Albumin/Creatin ine Ratio 69(H) 0 - 29 mg/g creat [facility] Comment: Normal: 0 - 29 Moderately increased: 30 - 300 Severely increased: >300 Urine specimen (specimen) Urine specimen obtained by clean catch procedure / Unknown 12/30/2024 10:09 AM EDT 12/30/2024 Patty Martin PA-C LAB URINE ORDERABLES Final Res ult [facility] [address] [place] [address] * (ABNORMAL) Renal function panel (12/30/2024 10:09 AM EDT) Glucose 114(H) 70 - 99 mg/dL [facility] BUN 18 8 - 27 mg/dL [facility] Creatinine 0.76 0.57 - 1.00 mg/dL [facility] eGFR CKD-EPI CR 2020 86 >59 mL/min/1.7 3 [facility] BUN/Creatinine Ratio 24 12 - 28 [facility] Sodium 142 134 - 144 mmol/L [facility] Potassium 4.1 3.5 - 5.2 mmol/L [facility] Chloride 105 96 - 106 mmol/L [facility] Bicarbonate (CO2) 23 20 - 29 mmol/L [facility] Calcium 9.3 8.7 - 10.3 mg/dL [facility] Albumin 4.5 3.9 - 4.9 g/dL [facility] Phosphorus 4.2 3.0 - 4.3 mg/dL [facility] Blood specimen (specimen) Venous blood / Unknown 12/30/2024 10:09 AM EDT 12/30/2024 us Patty Martin PA-C LAB BLOOD ORDERABLES Final Res ult [facility] [address] [place] [address] from Last 3 Months Insurance [facility] Medicare [facility] Medicare Care Teams Web Content & Social Media Manager Relationship Specialty Start Date End Date Anamaria Maddox MD [address] [place], [place] PCP - General 03/22/20
--- OUTSIDE RECORDS SUMMARY | 2025-01-22 18:49 | XMS_ITS | Patient Health Record ---
Author Organization [facility] Address [address] [place] [address] Care Team Providers Care Track And Field Coach Name Role Phone Anamaria Maddox MD Primary Care Provider Ash Jones [phone] Allergies Allergen (clinical drug ingredient) Drug/Non Drug Allergy documented on EMR Reaction Allergy Type Onset Date Status Sulfa Unknown Drug Allergy Active Doxycycline (Rosacea) Unknown Drug Allergy Active codeine Codeine Sulfate Unknown Drug Allergy A ctive Reason For Referral No Information Medications Medication SIG (Take, Route, Fr equency, Duration) Notes Start Date End Date Status FreeStyle Lite Test Active Zolpidem Tartrate Ac tive Prazosin HCl Active Simvastatin 20mg Act drew FreeStyle Lancets Ac tive Albuterol Sulfate Ac tive Loratadine Active amLODIPine Besylate Active Fluticasone Propionate Active Benadryl Allergy 25 MG 1 tablet as neede d Orally every 8 hrs PRN Active Dicyclomine HCl 10 MG 1-2 capsules Orall y Four times a day prn abdominal discomfort 11/05/2016 Active Senna PRN Active ibuprofen Active SUMAtriptan Succinate Active metFORMIN HCl ER Act drew Omeprazole 20 MG 1 capsule 30 minutes before morning meal Orally Once a day Active Tradjenta Active Atorvastatin Calcium Active LORazepam 10mg Activ e Immunizations Vaccine Route Administration Date Status Comme nts Influenza Unknown 12/16/2019 Administered Social History Alcohol Screen Question Answer Notes Did you have a drink containing alcohol in the p ast year? No Points 0 Interpretation Negative Section Notes: Nonsmoker; no sig. alcohol Nonsmoker; no sig. alcohol Nonsmoker; no sig. alcohol Nonsmoker; no sig. alcohol Nonsmoker; no sig. alcohol Problems Problem Type SNOMED Code ICD Code Onset Dates Problem Status W/U Status Risk Notes Problem Screening for malignant neoplasm of colon (938366590) Encounter for screening for malignant neoplasm of colon (Z12.11) Active confirmed Problem History of adenomatous polyp of colon (350647390) History of adenomatous polyp of colon (Z86.010) Active confirmed Problem Diarrhea (55608846) Diarrhea (R19.7) Active con firmed Problem Epigastric pain (32557806) Abdominal pain, epigastric (R10.13) Active confirmed Problem Gastroesophageal reflux disease without esophagitis (424312789) Gastroesophageal reflux disease without esophagitis (K21.9) Active confirmed Problem Constipation (70811802) Constipation, unspecified constipation type (K59.00) Active confirmed Problem Generalized abdominal pain (108707215) Abdominal pain, generalized (R10.84) Active confirmed Problem Irritable bowel syndrome characterized by constipation (664467243) Irritable bowel syndrome with constipation (K58.1) Active confirmed Encounters Encounter Location Date Provider Diagnosis [facility] [address] [facility] [address] [place] [phone] 09/17/2024 Ash Larose [facility] [address] [facility] [address] [place] [address] 10/21/2024 Ash Larose [facility] [address] [place] [phone] 11/18/2024 Ash Larose Plan Of Treatment Pending Test Test Name Order Date C DIFFICILE RFLX PCR 11/07/2021 Future Test Test Name Order Date COLONOSCOPY 08/06/2014 COLONOSCOPY 12/17/2019 Next Appt Details Provider Name:Ash Larose , 03/26/2025 10:20:00 AM, [address] [facility], [address], [place], [address], Insurance Providers Payer Name Payer Address Payer Phone Subscriber Number Group Number Insured Name Patient Relationship to Insured Coverage Start Date Coverage End Date [facility] [address] [place] [address] [phone] [id number] DAVE LORENZ Self - patient is the insured Medical (General) History Medical History History ICD Code Colonoscopy and EGD 0--neg. except for a hiatal hernia and a hyperplastic polyp, respectively Colon polyps--Tubular adenoma removed in 1998, 2005, 12/2014 Kidney stones Denies NC,CVA,renal disease Asthma Hypertension Hyperlipidemia Depression EGD in -small HH--no esophagitis, n o eosinophilic esophagitis Sees Dr. Arellano--had a cardiac cath at [facility] in 2013 NIDDM Insomnia Back pain Irritable bowel syndrome with associated constipation Surgical History Surgery Date(Month/Year) Appy Partial hysterectomy with right oopherec ilene Cosmetic surgery Thyroid nodule Hemorrhoid Abdominoplasty Left adrenal-benign Tonsillectomy Appendectomy
--- OUTSIDE RECORDS SUMMARY | 2025-01-22 18:49 | XMS_ITS | Encounter Summary ---
Author Organization [facility] Address [address] [facility] [address] [place] [address] Phone Care Team Providers Care Ent Physician Name Role Phone Anamaria Maddox MD Primary Care Provider [phone] Encounter Details Date Type Department Care Team (Late Contact Info) Description 01/31/2022 Telephone [facility] [address] [facility] [address] [place] [address] Chaitanya Weir MD [address] [facility] [address] [place] [address] Social History Tobacco Use Types Packs/Day Years Used Date Smoking Tobacco: Former Cigarettes 0 Q uit: 03/12/1985 Comments:Smoking History Inf o:Every [...] preform the test. Please advise Thank you [phone] documented in this encounter Plan of Treatment Upcoming Encounters Date Type Department Care Team (Late st Contact Info) Description 06/30/2025 2:00 PM EDT Office Visit [facility] [address] [address] Erica Pulido ARNP [address] [address] documented as of this encounter Visit Diagnoses Not on filedocumented in this encounter Care Teams Ent Physician Relationship Specialty Start Date End Date Anamaria Maddox MD [facility] [address] [place], [place] PCP - General 03/22/20 documented as of this encounter
--- OUTSIDE RECORDS SUMMARY | 2025-01-22 18:49 | XMS_ITS | Clinical Summary ---
Author Organization [facility] Address [address] [place] [address] Phone Care Team Providers Care Supervisor Inspection Name Role Phone Anamaria Maddox MD Primary Care Provider [phone] Allergies Active Allergy Reactions Criticality Noted Date [...] ---- HEMORRHOIDS ---- OTHER SURGICAL HISTORY PROCEDURE: AL LIG/TRNSXJ FLP TUBE ABDL/VAG APPR UNI/BI APPENDECTOMY PROCEDURE: HISTORICAL APPENDECTOMY OTHER SURGICAL HISTORY PROCEDURE: ---- OTHER ----; COMMENT: renal stones, adrenal gland/kidney partial removed PARTIAL HYSTERECTOMY PROCEDURE: AL SUPRACERVICAL ABDL HYSTER W/WO RMVL TUBE OVARY; COMMENT: rem right ovary OTHER SURGICAL HISTORY PROCEDURE: ---- OTHER ----; COMMENT: tummy tuck HAND SURGERY 08/22/2023 Left PROCEDURE: HISTORICAL HAND SURGERY; COMMENT: left thumb trapeziectomy with interpostional arthroplasty Medical History Medical History Date Comments Kidney stone DX:Kidney stone HTN (hypertension) DX:HTN (hyper tension) Thyroid disease DX:Thyroid disea se Other payon-lrb-hdmhr infants DX:Other xhgqe-eqa-yrzmb infants Depression with anxiety DX:Depre ssion with [...] Cancer Screening 1960 Colorectal Cancer Screening: Colonoscopy 1960 Hepatitis C Screening 02/12/2022 Medicare Annual Wellness [...] topic Insurance [employer] MEDICARE ADVANTAGE Care Teams Supervisor Inspection Relationship Specialty Start Date End Date Anamaria Maddox MD [address] [place] [address] [address] [facility] [place] [address] PCP - General 05/02/06
== END 2025-01-22 16:58 | disposition home or self-care (01) ==
PROVIDERS: PCP Internal Medicine; Visit Provider Family Medicine
DX: J01.90 Acute sinusitis, unspecified (principal); H57.11 Ocular pain, right eye

== ENCOUNTER → 2025-01-22 16:16 | Outpatient (BNVA) | payer MEDICARE, SELFPAY | PROVIDERS: PCP Internal Medicine; Visit Provider Family Medicine | DX: J01.90 Acute sinusitis, unspecified (principal); H57.11 Ocular pain, right eye | CPT/HCPCS: 99212 ==

== ENCOUNTER 2025-01-28 11:16 | Outpatient (AMB) | payer MEDICARE, SELFPAY ==
--- OUTSIDE RECORDS SUMMARY | 2024-10-21 06:10 | XMS_ITS ---
Author Organization [facility] Address [address] [place] [phone] Care Team Providers Care Dope Weigh Operator Name Role Phone Anamaria Maddox MD Primary Care Provider UnavailAsh Augustine Unavailable [phone] REASON FOR VISIT Patient presents today for [...] e Encounters Encounter Location Date Provider Diagnosis [facility] [address] [place] [phone] 10/21/2024 Ash Larose Plan Of Treatment Next Appt Details Provider Name:Ash Larose , 03/26/2025 10:20:00 AM, [address], [address], [place], [address], Progress Notes * MATHEUS LORENZB:1960 (64 yo F)Acc No.[id number]:10/21/2024 Progress Notes Patient: DAVE MAYER Provider: Caro Larose MD :1960 A ge:64 Y S ex:Female Date:10/21/2024 Address:[address] [place] [address] Pcp:Anamaria Maddox MD Subjective: * Chief Complaints: * [...] 0 10/21/2024 Generated for Humberto yates/Beth/Mile on: 03/30/2024 10:13 PM EST
--- OUTSIDE RECORDS SUMMARY | 2024-11-18 05:50 | XMS_ITS ---
Author Organization [facility] Address [address] [facility] [address] [place] [phone] Care Team Providers Care Oil Sprayer Name Role Phone Anamaria Maddox MD Primary Care Provider Ash Jones [phone] REASON FOR VISIT Patient presents today for a colon screening Encounters Encounter Location Date Provider Diagnosis [facility] [address] [place] [address] [place] [phone] 11/18/2024 Ash Larose Plan Of Treatment Next Appt Details Provider Name:Ash Larose , 03/26/2025 10:20:00 AM, [address] [facility], [address], [place], [address], Progress Notes * MATHEUS LORENZB:1960 (64 yo F)Acc No.[id number]:11/18/2024 Progress Notes Patient: DAVE MAYER Provider: Caro Larose MD :1960 A ge:64 Y S ex:Female Date:11/18/2024 Address:[address] [place], [place] [phone] Pcp:Anamaria Maddox MD Subjective: * Chief Complaints: [...] 11/18/2024 Generated for Humberto yates/Beth/eTransmitting on: 1 03/30/2024 10:13 PM EST
[2025-01-28 11:22] VITALS: BP 122/80; PULSE 97; TEMP 36.8; O2SAT 97; BMI 23.6
--- NOTE | 2025-01-28 11:22 | AM.OFFWIN_ITS ---
Intake Vital Signs 01/28/25 11:22 Height 5 ft 5 in Weight 142 lb BMI 23.6 BP 122/80 Blood Pressure Location Lt brachial Position Sitting Pulse 97 Pulse Source Pulse Oximeter Temp 98.2 F Temp Source Oral Pulse Oximetry (%) 97 Oxygen Delivery Method Room Air Intake Visit Reasons: EP Bumps on legs and arms , painful/ itchy Intake Note: Patient presents c/o red bumps on both legs x5 days. Prescribed Augmentin for sinus infection on 01/22/25 & unsure if this has anything to do with it. Patient Tobacco Use Status: Former Tobacco user Allergies codeine (Codeine) Allergy (Severe, Verified 01/28/25 11:26) ANAPHYLAXIS, throat edema lisinopril (LISINOPRIL) Allergy (Severe, Verified 01/28/25 11:) ANGIOEDEMA Sulfa (Sulfonamide Antibiotics) (Sulfa (Sulfonamides)) Allergy (Intermediate, Verified 01/28/25 11:) SHORTNESS OF BREATH, HIVES, rash doxycycline (Doxycycline) Allergy (Mild, Verified 01/28/25 11:) HIVES tramadol Allergy (Unknown, Verified 01/28/25 11:) rash and nightmares empagliflozin (From Jardiance) Adverse Reaction (Severe, Verified 01/28/25 11:26) Vaginal Itch senna Adverse Reaction (Unknown, Verified 01/28/25 11:) Diarrhea HPI HPI Comments History of Present Illness Details History of Present Illness - The patient is a 56-year-old female pr esenting with a painful rash. - She has has a rash on the legs for the past week which began when she had gotten sick. - She states that she has multiple, pain ful, red spots on the legs and a few on the arms. - She had gotten a similar rash last yea r and her doctor had thought it was lupus. - He treated her with prednisone and the rash resolved, did not return until today. - She has some joint pain but not unusua l. - She has had a cold with congestion and recently was on antibiotics from her dentist for a tooth infection that drained into her sinuses. - She has no weight loss, chest pain, SO B, other rashes, abd pain, or n/v/d. - Has a history of IBS but no sarcoidosi s. - She has also never a work up for lupus . Physical Exam General: Cooperative, healthy appearing, comfortable, no acute distress and well developed Orientation: Patient oriented x3 Limitations: No limitations Respiratory: Normal respiratory effort and able to speak in complete sentences. Clear to auscultation bilaterally Cardiovascular: Regular rate and rhythm. Normal S1 and S2 Skin: Multiple, raised, tender, erythematous, round, non-blanchable lesions noted on the lower legs bilaterally, upper left thigh and left forearm. No induration noted. No fluctuance. No streaking. Neuro: Sensation is intact. Extremities: No edema noted. Patient was informed and verbally consented to the use of an ambient scribe for clinic note documentation during this visit. [facility] Medical History Otitis externa Constipation Macular degeneration Internal and external hemorrhoids without complication Hemoptysis Cystocele Adrenal adenoma Thyroid nodule GERD (gastroesophageal reflux disease) Chronic sinusitis Type 2 diabetes mellitus with hyperglycemia Sciatica CAD (coronary artery disease) PTSD (post-traumatic stress disorder) Asthma Kidney stones Fibromyalgia Essential hypertension Lumbar radiculopathy Hx of migraines Hx of renal calculi Saccular aneurysm IBS (irritable bowel syndrome) Hx MRSA infection History of polycystic kidney disease, autosomal dominant Surgical History History of esophagogastroduodenoscopy (EGD) Hx of colonoscopy History of cardiac cath History of eye surgery History of thyroidectomy, subtotal History of lithotripsy History of total abdominal hysterectomy and bilateral salpingo-oophorectomy History of appendectomy History of abdominoplasty History of tonsillectomy History of tubal ligation Family History Father Cancer of kidney Diabetes Hypertension CVD (cardiovascular disease) Mother Hypertension Cancer Maternal Aunt Colon cancer Brother AIDS Paternal Aunt Ovarian cancer Breast cancer Brother SLE (systemic lupus erythematosus) Son No problems noted. 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 Cognitive needs: No Hearing needs: No Vision needs: Yes Physical Exam Vital Signs: Last Vital Signs Temp 98.2 F 01/28/25 11:22 Pulse 97 01/28/25 11:22 BP 122/80 01/28/25 11:22 Pulse Ox 97 01/28/25 11:22 Oxygen Delivery Method Room Air 01/28/25 11:22 BMI result Body Mass Index 23.6 Assessment & Plan Assessment & Plan (1) Rash: Code(s): R21 - Rash and other nonspecific skin eruption Plan Most likely erythema nodosum vs inflammatory due to IBS or URI vs contact dermatitis vs urticaria plan - will start her on a prednisone taper - tylenol or motrin as needed for pain - needs to f/u with PCP - suggest having bloodwork due to her recurrent rash - follow up with PCP Medications: New methylprednisolone PO PER PKG DIR for 6 days 21 ea 0RF Coding Level of Care Code Est Pt Level 3 (72977) Diagnoses Rash R21
--- OUTSIDE RECORDS SUMMARY | 2025-01-28 22:14 | XMS_ITS | Patient Health Record ---
Author Organization [facility] Address [address] [place] [address] Care Team Providers Care Technical Manager Chemical Plant Name Role Phone Anamaria Maddox MD Primary Care Provider Ash Jones [phone] Allergies Allergen (clinical drug ingredient) Drug/Non Drug Allergy documented on EMR Reaction Allergy Type Onset Date Status codeine Codeine Sulfate Unknown Drug Allergy A ctive Doxycycline (Rosacea) Unknown Drug Allergy Active Sulfa Unknown Drug Allergy Active Reason For Referral No Information Medications Medication SIG (Take, Route, Frequency, Duration) Notes Start Date End Date Status FreeStyle Lite Test Active Zolpidem Tartrate Ac tive Prazosin HCl Active Simvastatin 20mg Act drew FreeStyle Lancets Ac tive Albuterol Sulfate Ac tive Loratadine Active amLODIPine Besylate Active Fluticasone Propionate Active Benadryl Allergy 25 MG Tablet 1 tablet as needed Orally every 8 hrs PRN Active Dicyclomine HCl 10 MG Capsule 1-2 capsules Orally Four times a day prn abdominal discomfort 11/05/2016 Active Senna PRN Active ibuprofen Active SUMAtriptan Succinate Active metFORMIN HCl ER Act drew Omeprazole 20 MG Capsule Delayed Release 1 capsule 30 minutes before morning meal Orally Once a day Active Tradjenta Active Atorvastatin Calcium Active LORazepam 10mg Activ e Immunizations Vaccine Route Administration Date Status Comme nts Influenza Unknown 12/16/2019 Administered Social History Social History Drugs/Alcohol: Social Info Question Answer Notes Alcohol Screen Did you have a drink containing alcohol in the past year? No Points 0 Interpretation Negative Additional Details Category Social Info Options Details Miscellaneous: Marital status: Occupation: Home Section Notes: Nonsmoker; no sig. alcohol Nonsmoker; no sig. alcohol Nonsmoker; no sig. alcohol Nonsmoker; no sig. alcohol Nonsmoker; no sig. alcohol Problems Problem Type SNOMED Code ICD Code Onset Dates Problem Status W/U Status Risk Notes Problem Screening for malignant neoplasm of colon (915410280) Encounter for screening for malignant neoplasm of colon (Z12.11) Active confirmed Problem History of adenomatous polyp of colon (305509845) History of adenomatous polyp of colon (Z86.010) Active confirmed Problem Diarrhea (00958180) Diarrhea (R19.7) Active con firmed Problem Epigastric pain (14027327) Abdominal pain, epigastric (R10.13) Active confirmed Problem Gastroesophageal reflux disease without esophagitis (946478121) Gastroesophageal reflux disease without esophagitis (K21.9) Active confirmed Problem Constipation (80911720) Constipation, unspecified constipation type (K59.00) Active confirmed Problem Generalized abdominal pain (013810576) Abdominal pain, generalized (R10.84) Active confirmed Problem Irritable bowel syndrome characterized by constipation (577864893) Irritable bowel syndrome with constipation (K58.1) Active confirmed Encounters Encounter Location Date Provider Diagnosis [facility] [address] [place] [address] 09/17/[address] [facility] [address] [facility] [address] [place] [address] 10/21/[address] [facility] [address] [facility] [address] [place] [phone] 11/18/2024 Ash Larose Plan Of Treatment Pending Test Test Name Order Date C DIFFICILE RFLX PCR 11/07/2021 Future Test Test Name Order Date COLONOSCOPY 08/06/2014 COLONOSCOPY 12/17/2019 Next Appt Details Provider Name:Ash Larose , 03/26/2025 10:20:00 AM, [address] [facility] [address], [address], [place], [address], Insurance Providers Payer Name Payer Address Payer Phone Subscriber Number Group Number Insured Name Patient Relationship to Insured Coverage Start Date Coverage End Date [facility] [address] [place] [address] [phone] [id number] DAVE LORENZ Self - patient is the insured Medical (General) History Medical History History ICD Code Colonoscopy and EGD 7-15-201 0--neg. except for a hiatal hernia and a hyperplastic polyp, respectively Colon polyps--Tubular adenoma removed in 1998, 2005, 12/2014 Kidney stones Denies MD,CVA,renal disease Asthma Hypertension Hyperlipidemia Depression EGD in -small HH--no esophagitis, n o eosinophilic esophagitis Sees Dr. Arellano--had a cardiac cath at [facility] in 2013 NIDDM Insomnia Back pain Irritable bowel syndrome with associated constipation Surgical History Surgery Date(Month/Year) Appy Partial hysterectomy with right oopherec ilene Cosmetic surgery Thyroid nodule Hemorrhoid Abdominoplasty Left adrenal-benign Tonsillectomy Appendectomy
--- OUTSIDE RECORDS SUMMARY | 2025-01-28 22:14 | XMS_ITS | Clinical Summary ---
Author Organization [facility] Address [address] [place] [address] Care Team Providers Care Floor Layer Tile Name Role Phone Anamaria Maddox MD Primary Care Provider [phone] Allergies Active Allergy Reactions Criticality Noted Date [...] Office Visit [facility] [address] [phone] Erica Pulido ARNP Renal stone (Primary Dx); Isolated proteinuria; Frequency of micturition 11/10/2024 Orders Only [facility] [address] [phone] Patty Martin PA-C Isolated proteinuria; Recurrent kidney [...] Office Visit [facility] P[facility]uan AlbertoCJuan Alberto [address] [address] Erica Pulido ARNP [address] [address] Health Maintenance Due Date Last [...] (12/30/2024 2:10 PM EDT) Result Comment [facility] Comment: Culture shows less than 10,000 colony forming units of bacteria per milliliter of urine. This colony count is not generally considered to be clinically significant. 12/30/2024 2:10 PM EDT 12/30/2024 Erica [facility] LAB MICROBIOLOGY - GENERAL ORDERABLES Final Result Performing Organization Address City/[facility]/ZIP Co de Phone Number [email or web address] [facility] [address], [address] [place] [address] * Microscopic Examination (12/30/2024 2:10 PM EDT) WBC, Urine None seen 0 - 5 /hpf [facility] RBC, Urine 0-2 0 - 2 /hpf [facility] Squamous Epithelial, Urine None seen 0 - 10 /hpf [facility] Casts None seen None seen /lpf [facility] Bacteria, Urine None seen None seen/Few [facility] 12/30/2024 2:10 PM EDT [facility]30[facility] - GENERAL ORDERABLES Final Result [email or web address] [address] [place] [address] * (ABNORMAL) Urinalysis with microscopic (12/30/2024 2:10 PM EDT) Specific [place], Urine 1.021 1.005 - 1.030 [facility] pH Urine 6.0 5.0 - 7.5 [facility] [phone] Color, Urine Yellow Yellow [facility] Appearance Urine Clear Clear [facility] [place] WBC Esterase Urine Negative Negative [facility] Protein, Ur 1+(A) Negative/Tra ce [facility] Glucose, Ur Trace(A) Negative [facility] Ketones, Urine Trace(A) Negative [facility] [place] Blood Urine Negative Negative [facility] Bilirubin Urine Negative Negative [facility] [place] [phone] Urobilinogen Urine 1.0 0.2 - 1.0 mg/dL [facility] Nitrite, Urine Negative Negative [facility] [place] Microscopic Examination See below: [facility] Comment:Microscopic was maggy cated and was performed. Urine Urine specimen obtained by clean catch procedure / Unknown 12/30/2024 2:10 PM EDT 12/30/[address] [facility] LAB URINE ORDERABLES Final Result [facility] [address] [place] [address] * Urine culture (12/30/2024 2:10 PM EDT) Culture Result, Urine Final report [facility] Urine Urine specimen obtained by clean catch procedure / Unknown 12/30/2024 2:10 PM EDT 12/30/2024 Comment: us Erica Pulido EMI LAB URINE ORDERABLES Final Result [facility] [address] [place] [address] * (ABNORMAL) Urine Protein / creatinine ratio (12/30/2024 10:09 AM EDT) Creatinine, Ur 85.7 Not Estab. mg/dL [facility] Protein, Ur 32.4 Not Estab. mg/dL [facility] Urine Protein/Creati nine Ratio 378(H) 0 - 200 mg/g creat [facility] Urine specimen (specimen) Urine specimen obtained by clean catch procedure / Unknown 12/30/2024 10:09 AM EDT 12/30/2024 Patty Martin PA-C LAB URINE ORDERABLES Final Res ult [facility] [address] [place] [address] * (ABNORMAL) Urine Albumin / Creatinine Ratio (12/30/2024 10:09 AM EDT) Albumin, Urine 59.1 Not Estab. ug/mL [facility] Albumin/Creatin ine Ratio 69(H) 0 - 29 mg/g creat [facility] Comment: Normal: 0 - 29 Moderately increased: 30 - 300 Severely increased: >300 Urine specimen (specimen) Urine specimen obtained by clean catch procedure / Unknown 12/30/2024 10:09 AM EDT 12/30/2024 Patty Martin PA-C LAB URINE ORDERABLES Final Res ult [facility] [address] [place] [address] * (ABNORMAL) Renal function panel (12/30/2024 10:09 AM EDT) Glucose 114(H) 70 - 99 mg/dL [facility] BUN 18 8 - 27 mg/dL [facility] Creatinine 0.76 0.57 - 1.00 mg/dL [facility] eGFR CKD-EPI CR 2020 86 >59 mL/min/1.7 3 [facility] BUN/Creatinine Ratio 24 12 - 28 [facility] Sodium 142 134 - 144 mmol/L [facility] Potassium 4.1 3.5 - 5.2 mmol/L [facility] Chloride 105 96 - 106 mmol/L [facility] Bicarbonate (CO2) 23 20 - 29 mmol/L [facility] Calcium 9.3 8.7 - 10.3 mg/dL [facility] Albumin 4.5 3.9 - 4.9 g/dL [facility] Phosphorus 4.2 3.0 - 4.3 mg/dL [facility] Blood specimen (specimen) Venous blood / Unknown 12/30/2024 10:09 AM EDT 12/30/2024 us Patty Martin PA-C LAB BLOOD ORDERABLES Final Res ult [facility] [address] [place] [address] from Last 3 Months Insurance [facility] Medicare [facility] Medicare Care Teams Floor Layer Tile Relationship Specialty Start Date End Date Anamaria Maddox MD [address] [place], [place] PCP - General 03/22/20
--- OUTSIDE RECORDS SUMMARY | 2025-01-28 22:14 | XMS_ITS | Encounter Summary ---
Author Organization [facility] Address [address] [facility] [address] [place] [address] Phone Care Team Providers Care Manager Medical Writing Name Role Phone Anamaria Maddox MD Primary Care Provider [phone] Encounter Details Date Type Department Care Team (Late Contact Info) Description 01/31/2022 Telephone [facility] [address] [facility] [address] [place] [address] Chaitanya Weir MD [address] [facility] [address] [place] [address] Social History Tobacco Use Types [...] preform the test. Please advise Thank you [phone] documented in this encounter Plan of Treatment Upcoming Encounters Date Type Department Care Team (Late st Contact Info) Description 06/30/2025 2:00 PM EDT Office Visit [facility] [address] [address] Erica Pulido ARNP [address] [address] documented as of this encounter Visit Diagnoses Not on filedocumented in this encounter Care Teams Manager Medical Writing Relationship Specialty Start Date End Date Anamaria Maddox MD [facility] [address] [place], [place] PCP - General 03/22/20 documented as of this encounter
== END 2025-01-28 12:16 | disposition home or self-care (01) ==
PROVIDERS: PCP Internal Medicine; Visit Provider Physician Assistant Medical
DX: R21 Rash and other nonspecific skin eruption (principal)

== ENCOUNTER → 2025-01-28 11:16 | Outpatient (BNVA) | payer MEDICARE, SELFPAY | PROVIDERS: PCP Internal Medicine; Visit Provider Physician Assistant Medical | DX: R21 Rash and other nonspecific skin eruption (principal) | CPT/HCPCS: 99212 ==

== ENCOUNTER 2025-03-04 09:24 | Outpatient (REF) | payer MEDICARE, SELFPAY ==
--- OUTSIDE RECORDS SUMMARY | 2024-10-21 06:10 | XMS_ITS ---
Author Organization [facility] Address [address] [place] [phone] Care Team Providers Care System Developer Associate Manager Name Role Phone Anamaria Maddox MD Primary Care Provider UnavailAsh Augustine Unavailable [phone] REASON FOR VISIT Patient presents today for a screening colonoscopy Medications Medication SIG (Take, Route, Frequency, Duration) Notes Start Date End Date Status Prazosin HCl Active FreeStyle Lancets Ac tive Loratadine Active Fluticasone Propionate Active ibuprofen Active FreeStyle Lite Test Active SUMAtriptan Succinate Active metFORMIN HCl ER Act drew Tradjenta Active Atorvastatin Calcium Active Zolpidem Tartrate Ac tive Albuterol Sulfate Ac tive amLODIPine Besylate Active Benadryl Allergy 25 MG Tablet 1 tablet as needed Orally every 8 hrs PRN Active Senna PRN Active Simvastatin 20mg Act drew Dicyclomine HCl 10 MG Capsule 1-2 capsules Orally Four times a day prn abdominal discomfort 11/05/2016 Active Omeprazole 20 MG Capsule Delayed Release 1 capsule 30 minutes before morning meal Orally Once a day Active LORazepam 10mg Activ e Encounters Encounter Location Date Provider Diagnosis [facility] [address] [place] [phone] 10/21/2024 Ash Larose Plan Of Treatment Next Appt Details Provider Name:Ash Larose , 03/26/2025 10:20:00 AM, [address], [address], [place], [address], Progress Notes * MATHEUS LORENZB:1960 (64 yo F)Acc No.[id number]:10/21/2024 Progress Notes Patient: DAVE MAYER Provider: Caro Larose MD :1960 A ge:64 Y S ex:Female Date:10/21/2024 Address:[address] [place] [address] Pcp:Anamarai Maddox MD Subjective: * Chief Complaints: * P atient presents today for a screening colonoscopy * Medications: T akingLORazepam 10mg Simvastatin 20mg Zolpidem Tartrate amLODIPine Besylate Albuterol Sulfate Senna , Notes to Pharmacist: PRNBenadryl Allergy 25 MG Tablet 1 tablet as needed Orally every 8 hrs , Notes to Pharmacist: PRNmetFORMIN HCl ER SUMAtriptan Succinate Atorvastatin Calcium Tradjenta FreeStyle Lite Test FreeStyle Lancets Prazosin HCl Fluticasone Propionate Loratadine ibuprofen Dicyclomine HCl 10 MG Capsule 1-2 capsules Orally Four times a day prn abdominal discomfort Omeprazole 20 MG Capsule Delayed Release 1 capsule 30 minutes before morning meal Orally Once a day Taking LORazepam 10mg Taking Simvastatin 20mg Taking Zolpidem Tartrate Taking amLODIPine Besylate Taking Albuterol Sulfate Taking Senna , Notes to Pharmacist: PRNTaking Benadryl Allergy 25 MG Tablet 1 tablet as needed Orally every 8 hrs , Notes to Pharmacist: PRNTaking metFORMIN HCl ER Taking SUMAtriptan Succinate Taking Atorvastatin Calcium Taking Tradjenta Taking FreeStyle Lite Test Taking FreeStyle Lancets Taking Prazosin HCl Taking Fluticasone Propionate Taking Loratadine Taking ibuprofen Taking Dicyclomine HCl 10 MG Capsule 1-2 capsules Orally Four times a day prn abdominal discomfort Taking Omeprazole 20 MG Capsule Delayed Release 1 capsule 30 minutes before morning meal Orally Once a day Billing Information: * Procedure Codes: * The named appointment provid er may or may not be the originator of this progress note, and it is not deemed complete until electronically signed by the appointment provider. Sign off status: Pending * Provider: Caro Larose MD Date: 0 10/21/2024 Generated for Humberto yates/Beth/Mile on: 05/05/2024 09:28 AM EST
--- OUTSIDE RECORDS SUMMARY | 2024-11-18 05:50 | XMS_ITS ---
Author Organization [facility] Address [address] [facility] [address] [place] [phone] Care Team Providers Care Cnc Operator Machinist Name Role Phone Anamaria Maddox MD Primary Care Provider Ash Jones [phone] REASON FOR VISIT Patient presents today for a colon screening Encounters Encounter Location Date Provider Diagnosis [facility] [address] [place] [address] [place] [phone] 11/18/2024 Ash Larose Plan Of Treatment Next Appt Details Provider Name:Ash Larose , 03/26/2025 10:20:00 AM, [address] [facility], [address], [place], [address], Progress Notes * MATHEUS LORENZB:1960 (64 yo F)Acc No.[id number]:11/18/2024 Progress Notes Patient: DAVE MAYER Provider: Caro Larose MD :1960 A ge:64 Y S ex:Female Date:11/18/2024 Address:[address] [place], [place] [phone] Pcp:Anamaria Maddox MD Subjective: * Chief Complaints: * P atient presents today for a colon screening Billing Information: * Procedure Codes: * The named appointment provid er may or may not be the originator of this progress note, and it is not deemed complete until electronically signed by the appointment provider. Sign off status: Pending * Provider: Caro Larose MD Date: 0 11/18/2024 Generated for Humberto yates/Beth/eTransmitting on: 1 05/05/2024 09:28 AM EST
--- NOTE | ~2025-03-04 | FL_ITS ---
EXAMINATION: XR BARIUM SWALLOW CLINICAL INFORMATION: Dysphagia. COMPARISON: CT abdomen and pelvis IV contrast 06/30/2022. TECHNIQUE: Routine upright barium swallow was performed with thick barium and barium coated saltine crackers and thin barium in prone lying position. FINDINGS: Following oral administration of thick barium in upright view there is normal propagation bolus from the oral cavity through the pharynx, esophagus into stomach. Following oral administration of saltine crackers and barium there is normal oral mastication and propagation of bolus from the oral cavity through the pharynx, esophagus into stomach. No laryngeal penetration and aspiration seen. No retention of barium in the valleculae or piriform sinuses. On placing patient prone lying and oral administration of thin barium there is good opacification of esophagus without any obstructing or constricting lesion. No intraluminal filling defect. Small sliding hiatal hernia suspected. Fluoroscopy time: 1 minute 53 seconds. DOSE AREA PRODUCT: 1223 uGy-m2 (microgray-meter squared) FL/FL barium swallow IMPRESSION: Small sliding hiatal hernia without reflux. Otherwise unremarkable barium swallow exam. Electronically signed by: Elmo Nicole MD 03/04/2025 12:16 PM IFEANYI
--- OUTSIDE RECORDS SUMMARY | 2025-03-04 09:28 | XMS_ITS | Clinical Summary ---
Author Organization [facility] Facility Address [address] [place] [address] Care Team Providers Care Cafe Assistant Name Role Phone Anamaria Maddox MD Primary Care Provider [phone] Allergies Active Allergy Reactions Criticality Noted Date [...] MG 24 hr tablet 11/23/2017 Act drew albuterol HFA (PROVENTIL HFA;VENTOLIN HFA) 108 (90 [...] 1 (one) time if needed 06/28/2023 Active potassium chloride (KLOR-CON M20) 20 MEQ CR tablet Take 20 mEq by mouth 1 (one) time each day Active Active Problems Problem Noted Date Diagnosed Date Isolated proteinuria 12/30/2024 Hypokalemia 10/26/2021 Increased frequency of urination 10/26/2021 Intracranial aneurysm 10/26/2021 Migraine 10/26/2021 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 [address] [address] Erica PulidoEMI [address] [address] Health Maintenance Due Date Last [...] (12/30/2024 2:10 PM EDT) Result Comment [facility] Comment: Culture shows less than 10,000 colony forming units of bacteria per milliliter of urine. This colony count is not generally considered to be clinically significant. 12/30/2024 2:10 PM EDT 12/30/2024 [facility] MICROBIOLOGY - GENERAL ORDERABLES Final Result [facility] [address] [place] [address] * Microscopic Examination (12/30/2024 2:10 PM EDT) [facility] WBC, Urine None seen 0 - 5 /hpf [facility] RBC, Urine 0-2 0 - 2 /hpf [facility] Squamous Epithelial, Urine None seen 0 - 10 /hpf [facility] Casts None seen None seen /lpf [facility] Bacteria, Urine None seen None seen/Few [facility] 12/30/2024 2:10 PM EDT 12/30/2024 [facility] MICROBIOLOGY - GENERAL ORDERABLES Final Result [facility] [address] [place] [address] * (ABNORMAL) Urinalysis with microscopic (12/30/2024 2:10 PM EDT) Pathologist [facility] Specific Rocky, Urine 1.021 1.005 - 1.030 [facility] pH Urine 6.0 5.0 - 7.5 [facility] Color, Urine Yellow Yellow [facility] Appearance Urine Clear Clear [facility] WBC Esterase Urine Negative Negative [facility] [phone] Protein, Ur 1+(A) Negative/Tra ce [facility] Glucose, Ur Trace(A) Negative [facility] [phone] Ketones, Urine Trace(A) Negative [facility] [place] Blood Urine Negative Negative [facility] [phone] Bilirubin Urine Negative Negative [facility] [place] Urobilinogen Urine 1.0 0.2 - 1.0 mg/dL [facility] [phone] Nitrite, Urine Negative Negative [facility] [place] Microscopic Examination See below: [facility] Comment:Microscopic was maggy cated and was performed. Urine Urine specimen obtained by clean catch procedure / Unknown 12/30/2024 2:10 PM EDT 12/30/2024 [employer] [place] [facility] URINE ORDERABLES Final Result [facility] [address] [place] [address] * Urine culture (12/30/2024 2:10 PM EDT) Culture Result, Urine Final report [facility] Urine Urine specimen obtained by clean catch procedure / Unknown 12/30/2024 2:10 PM EDT 12/30/2024 Comment: Erica [facility] [place] [facility] URINE ORDERABLES Final Result [facility] [address], [address] [place] [address] * (ABNORMAL) Urine Protein / creatinine ratio (12/30/2024 10:09 AM EDT) Creatinine, Ur 85.7 Not Estab. mg/dL [facility] Protein, Ur 32.4 Not Estab. mg/dL [facility] Urine Protein/Creati nine Ratio 378(H) 0 - 200 mg/g creat [facility] Urine specimen (specimen) Urine specimen obtained by clean catch procedure / Unknown 12/30/2024 10:09 AM EDT 12/30/2024 us Patty Martin PA-C LAB URINE ORDERABLES Final Res ult Performing Organization Address [facility] de Phone Number [facility] [address] [place] [address] * (ABNORMAL) Urine Albumin / Creatinine Ratio (12/30/2024 10:09 AM EDT) Albumin, Urine 59.1 Not Estab. ug/mL [facility] Albumin/Creatin ine Ratio 69(H) 0 - 29 mg/g creat [facility] Comment: Normal: 0 - 29 Moderately increased: 30 - 300 Severely increased: >300 Urine specimen (specimen) Urine specimen obtained by clean catch procedure / Unknown 12/30/2024 10:09 AM EDT 12/30/2024 us Patty Martin PA-C LAB URINE ORDERABLES Final Res ult Performing Organization Address [facility] Co de Phone Number [facility] [address] [place] [address] * (ABNORMAL) Renal function panel (12/30/2024 10:09 AM EDT) Glucose 114(H) 70 - 99 mg/dL [facility] BUN 18 8 - 27 mg/dL [facility] Creatinine 0.76 0.57 - 1.00 mg/dL [facility] eGFR CKD-EPI CR 2020 86 >59 mL/min/1.7 3 [facility] BUN/Creatinine Ratio 24 12 - 28 [facility] Sodium 142 134 - 144 mmol/L [facility] Potassium 4.1 3.5 - 5.2 mmol/L [facility] Chloride 105 96 - 106 mmol/L [facility] Bicarbonate (CO2) 23 20 - 29 mmol/L [facility] Calcium 9.3 8.7 - 10.3 mg/dL [facility] Albumin 4.5 3.9 - 4.9 g/dL [facility] Phosphorus 4.2 3.0 - 4.3 mg/dL [facility] Blood specimen (specimen) Venous blood / Unknown 12/30/2024 10:09 AM EDT 12/30/2024 us Patty Martin PA-C LAB BLOOD ORDERABLES Final Res ult [facility] [address] [place] [address] from Last 3 Months Insurance [facility] Medicare [facility] Medicare Care Teams Cafe Assistant Relationship Specialty Start Date End Date Anamaria Maddox MD [address] [place], [place] PCP - General 03/22/20
--- OUTSIDE RECORDS SUMMARY | 2025-03-04 09:28 | XMS_ITS | Patient Health Record ---
Author Organization [facility] Address [address] [place] [address] Care Team Providers Care Head Of Partner Development Name Role Phone Anamaria Maddox MD Primary Care Provider Ash Jones [phone] Allergies Allergen (clinical drug ingredient) Drug/Non Drug [...] Problem Screening for malignant neoplasm of colon (409364703) Encounter for screening for malignant neoplasm of colon (Z12.11) Active confirmed Problem History of adenomatous polyp of colon (511669170) History of adenomatous polyp of colon (Z86.010) Active confirmed Problem Diarrhea (63995227) Diarrhea (R19.7) Active con firmed Problem Epigastric pain (81397856) Abdominal pain, epigastric (R10.13) Active confirmed Problem Gastroesophageal reflux disease without esophagitis (637022940) Gastroesophageal reflux disease without esophagitis (K21.9) Active confirmed Problem Constipation (92331425) Constipation, unspecified constipation type (K59.00) Active confirmed Problem Generalized abdominal pain (419305995) Abdominal pain, generalized (R10.84) Active confirmed Problem Irritable bowel syndrome characterized by constipation (591788847) Irritable bowel syndrome with constipation (K58.1) Active confirmed Encounters Encounter Location Date Provider Diagnosis [facility] [address] [place] [address] 09/17/2024 Ash Larose [facility] [address] [facility] [address] [place] [phone] 10/21/2024 Ash Larose [facility] [address] [facility] [address] [place] [address] 11/18/2024 Ash Larose Plan Of Treatment Pending Test Test Name Order Date C DIFFICILE RFLX PCR 11/07/2021 Future Test Test Name Order Date COLONOSCOPY 08/06/2014 COLONOSCOPY 12/17/2019 Next Appt Details Provider Name:Ash Larose , 03/26/2025 10:20:00 AM, [address] [facility] [address], [place], [address], Insurance Providers Payer Name Payer Address Payer Phone Subscriber Number Group Number Insured Name Patient Relationship to Insured Coverage Start Date Coverage End Date [facility] [address] [place] [address] [phone] [id number] DAVE LORENZ Self - patient is the insured Medical (General) History Medical History History ICD Code Colonoscopy and EGD 7-15-201 0--neg. except for a hiatal hernia and a hyperplastic polyp, respectively Colon polyps--Tubular adenoma removed in 1998, 2005, 12/2014 Kidney stones Denies [place],CVA,renal disease Asthma Hypertension Hyperlipidemia Depression EGD in -small HH--no esophagitis, n o eosinophilic esophagitis Sees Dr. Arellano--had a cardiac cath at [facility] in 2013 NIDDM Insomnia Back pain Irritable bowel syndrome with associated constipation Surgical History Surgery Date(Month/Year) Appy Partial hysterectomy with right oopherec ilene Cosmetic surgery Thyroid nodule Hemorrhoid Abdominoplasty Left adrenal-benign Tonsillectomy Appendectomy
--- OUTSIDE RECORDS SUMMARY | 2025-03-04 09:28 | XMS_ITS | Encounter Summary ---
Author Organization [facility] Address [address] [facility] [facility] [address] [place] [address] Phone Care Team Providers Care Assembly Loader Name Role Phone Anamaria Maddox MD Primary Care Provider [phone] Encounter Details Date Type Department Care Team (Late Contact Info) Description 01/31/2022 Telephone [facility] [address] [facility] [address] [place] [address] Chaitanya Weir MD [address] [facility] [address] [place] [address] Social History Tobacco Use Types [...] preform the test. Please advise Thank you [phone] documented in this encounter Plan of Treatment Upcoming Encounters Date Type Department Care Team (Late st Contact Info) Description 06/30/2025 2:00 PM EDT Office Visit [facility] [address] [address] Erica Pulido ARNP [address] [address] documented as of this encounter Visit Diagnoses Not on filedocumented in this encounter Care Teams Assembly Loader Relationship Specialty Start Date End Date Anamaria Maddox MD [facility] [address] [place], [place] PCP - General 03/22/20 documented as of this encounter
--- OUTSIDE RECORDS SUMMARY | 2025-03-04 09:28 | XMS_ITS | Clinical Summary ---
Author Organization [address] [facility] Address [address] [place] [address] Phone Care Team Providers Care Box Truck Washer Name Role Phone Anamaria Maddox MD Primary Care Provider [phone] Allergies Active Allergy Reactions Criticality Noted Date [...] ---- HEMORRHOIDS ---- OTHER SURGICAL HISTORY PROCEDURE: WI LIG/TRNSXJ FLP TUBE ABDL/VAG APPR UNI/BI APPENDECTOMY PROCEDURE: HISTORICAL APPENDECTOMY OTHER SURGICAL HISTORY PROCEDURE: ---- OTHER ----; COMMENT: renal stones, adrenal gland/kidney partial removed PARTIAL HYSTERECTOMY PROCEDURE: WI SUPRACERVICAL ABDL HYSTER W/WO RMVL TUBE OVARY; COMMENT: rem right ovary OTHER SURGICAL HISTORY PROCEDURE: ---- OTHER ----; COMMENT: tummy tuck HAND SURGERY 08/22/2023 Left PROCEDURE: HISTORICAL HAND SURGERY; COMMENT: left thumb trapeziectomy with interpostional arthroplasty Medical History Medical History Date Comments Kidney stone DX:Kidney stone HTN (hypertension) DX:HTN (hyper tension) Thyroid disease DX:Thyroid disea se Other sgolx-uhg-jplxk infants DX:Other uzybz-ksl-ihwrz infants Depression with anxiety DX:Depre ssion with [...] Screening 1960 Colorectal Cancer Screening: Colonoscopy 1960 Drug Screen 1960 Non-Opioid Controlled Substance Agreement 1958 Hepatitis C Screening 02/12/2022 Medicare Annual [...] topic Insurance [employer] Care Teams Box Truck Washer Relationship Specialty Start Date End Date Anamaria Maddox MD [address] [place] [address] [address] [facility] [place] [address] PCP - General 05/02/06
== END 2025-03-04 09:25 | disposition home or self-care (01) ==
LOC: HO.XRAY 09:24
PROVIDERS: PCP Internal Medicine
DX: R13.10 Dysphagia, unspecified (principal)
CPT/HCPCS: 74220

== ENCOUNTER → 2025-03-04 09:26 | Outpatient (BNV) | payer MEDICARE, SELFPAY | PROVIDERS: PCP Internal Medicine; Visit Provider Radiology Diagnostic Radiology | DX: R13.10 Dysphagia, unspecified (principal) | CPT/HCPCS: 74221 ==